=== PATIENT | male | born 1965 | race Caucasian/White ===

== ENCOUNTER → 2016-12-10 | Outpatient (CLI) | payer OTHER, BC ==
[~2016-12-10] MED LIST: ALDA25TA PO; ALEV220T26 PO; AMLO5TAB2 PO; ASPI81TA85 PO; CITA10TA5 PO; CITA20TA4 PO; CLAR1TAB2 PO; DULC5TAB PO; FISH100035 PO; FLAX10005 PO; LOSA100T37 PO; TUMS500C PO; ZETI10TA2 PO
--- NOTE | 2016-12-15 23:42 | ECWPNPC ---
PATIENT NAME: MELBA MARTIN : 1965 GENDER: MALE VISIT DATE: 12/10/2016 DISCHARGE DATE: 12/10/16 1602 VISIT LOCKED DATE TIME: PHYSICIAN: MARSHA WRIGHT RESOURCE: MARSHA WRIGHT REASON FOR APPOINTMENT 1. W/C BACK HISTORY OF PRESENT ILLNESS HISTORY OF PRESENT ILLNESS: PAIN THE PATIENT DESCRIBES THE PAIN... 51 YEAR OLD MALE PATIENT WITH HISTORY OF CHRONIC BACK PAIN. PATIENT DESCRIBES THE PAIN ACHING AND THROBBING WITH A PAIN SCORE OF 6/10. 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 PATIENT STATES THAT HE HAS TO BE CAREFUL WHEN LIFTING CERTAIN ITEMS IT CAN CAUSE THE PAIN TO COME BACK/INCREASE. PATIENT REPORTS THAT TIZANIDINE DOES HELP HIM FALL ASLEEP. PATIENT STATES THAT HE HAS TRIED PHYSICAL THERAPY IN THE PAST AND IT DID NOT WORK IT INCREASE HIS PAIN LEVELS RATHER THAN DECREASING IT. PATIENT DENIES UNEXPLAINABLE WEIGHT LOSS, FEVER, CHILLS, NEW CHANGES ON HIS URINARY OR BOWEL CONTROL. FALL RISK SCREENING: SCREENING :NO FALLS IN THE PAST YEAR CURRENT MEDICATIONS TAKING LOSARTAN POTASSIUM-HCTZ 100-25 MG TABLET 1 TABLET ORALLY ONCE A DAY, NOTES: 10/25/16@0630 TAKING ASPIR-81 ONCE A DAY, NOTES: 10/24/16 TAKING FISH OIL 1000 MG CAPSULE ORALLY BID, NOTES: 10/24/16 TAKING ALBUTEROL SULFATE HFA 108 (90 BASE) MCG/ACT AEROSOL SOLUTION 2 PUFFS NEEDED INHALATION EVERY 4 HRS NEEDED FOR SHORTNESS OF BREATH, NOTES: MONTH 1GO TAKING AMLODIPINE 5MG TABLET 1 TAB ORAL DAILY, NOTES: 10/24/16 TAKING CITALOPRAM HYDROBROMIDE 20 MG TABLET 1 TABLET ORALLY ONCE A DAY, NOTES: 10/24/16 TAKING TIZANIDINE HCL 2 MG TABLET 1 TABLET NEEDED ORALLY FOR SPASMS AND PAIN BEFORE BEDTIME MAY REPEAT IN 4HRS MDD2 WORKERS COMPENSATION, NOTES: 10/24/16 TAKING STOOL SOFTENER 100 MG CAPSULE 2 ORALLY ONCE A DAY, NOTES: 10/24/16 TAKING MULTIVITAMIN ADULTS 50+ - TABLET ORALLY NOT-TAKING ZETIA 10 MG TABLET 1 TABLET ORALLY ONCE A DAY, NOTES: 1 MONTH AGO NOT-TAKING HYDROCODONE-ACETAMINOPHEN 5-325 MG TABLET 1 TABLET NEEDED ORALLY EVERY 6 HRS, NOTES: 6 MONTHS AGO NOT-TAKING MULTIVITAMINS MEDICATION LIST REVIEWED AND RECONCILED WITH THE PATIENT PAST MEDICAL HISTORY OLD L1 L2 COMPRESSION FX HTN DEPRESSION/ANXIETY MURTAZA WITH CPAP HIGH CHOLESTEROL BOWEL OBSTRUCTION ALLERGIES N.K.D.A. SURGICAL HISTORY EXPLORATORY LAP 2014 UMBILICAL HERNIA REPAIR FAMILY HISTORY NO FAMILY HISTORY DOCUMENTED. SOCIAL HISTORY GENERAL: TOBACCO USE ARE YOU A:NONSMOKER LEARNING BARRIERS / SPECIAL NEEDS ORIENTED TO PLAN OF CARE: PATIENT, PAIN MANAGEMENT PATIENT, ORIENTED TO PLAN OF CARE: PATIENT, PAIN MANAGEMENT PATIENT. NEW PATIENT PAIN DIARY TODAY'S VISITNOTES FROM 0-10, WHAT LEVEL IS YOUR PAIN TODAY?0 PAIN CLINIC PFS, CLERGY, PUBLIC HEALTH REFERRALS PFS REFERRAL NEEDED?NO CLERGY REFERRAL NEEDED?NO PUBLIC HEALTH REFERRAL NEEDED?NO WAS THE PROVIDER NOTIFIED OF ANY PERTINENT INFO?NO PFS REFERRAL NEEDED?NO CLERGY REFERRAL NEEDED?NO PUBLIC HEALTH REFERRAL NEEDED?NO WAS THE PROVIDER NOTIFIED OF ANY PERTINENT INFO?NO HOSPITALIZATION/MAJOR DIAGNOSTIC PROCEDURE BOWEL OBSTRUCTION 2016 REVIEW OF SYSTEMS CONSTITUTIONAL: ANY CHANGE IN YOUR MEDICAL CONDITION? NO . CHILLS NO . FEVER NO . INFECTION: DO YOU HAVE NEW INFECTIONS? NO . DO YOU HAVE HISTORY OF MRSA? NO . MUSCULOSKELETAL: ANY NEW PATTERNS OF PAIN OR NUMBNESS? NO . GASTROENTEROLOGY: ANY NEW CHANGE IN BOWEL CONTROL? NO . GENITOURINARY: ANY NEW CHANGE IN BLADDER CONTROL? NO . IS THERE A CHANCE YOU COULD BE ? NO . HEMATOLOGY/LYMPH: DO YOU TAKE ANY BLOOD THINNERS? (FOR EXAMPLE- COUMADIN, PLAVIX, AGGRENOX, PLATEL, PRADAXA, OR XARELTO) NO . WHEN WAS YOUR LAST DOSE? DATE: TIME: . NEUROLOGY: HAVE YOU FALLEN IN THE PAST 6 MONTHS? NO . ANY NEW EXTREMITY NUMBNESS OR WEAKNESS? NO . CARDIOLOGY: DO YOU HAVE A PACEMAKER OR DEFIBRILLATOR? NO . RESPIRATORY: HAVE YOU BEEN SICK IN THE PAST WEEK? NO . FEVER NO . FLU LIKE SYMPTOMS? NO . COUGH NO . INTEGUMENTARY: DO YOU HAVE ANY RASHES OR OPEN SORES? NO . ALLERGIC/IMMUNO: ARE YOU ALLERGIC TO SHELLFISH OR IV DYE? NO . ANY NEW ALLERGIES? NO . PSYCHIATRIC: DO YOU HAVE THOUGHTS OF HURTING YOURSELF OR SOMEONE ELSE? NO . ARE YOU ABUSED, NEGLECTED, OR IN AN UNSAFE ENVIRONMENT? NO . ENDOCRINOLOGY: ARE YOU DIABETIC? NO . OTHER: DO YOU NEED ANY PRESCRIPTIONS? YES, TIZANIDINE . IF YES, PLEASE LIST: ____ . ANY NEW PROBLEMS WITH YOUR MEDICATIONS? NO . WHEN DID YOU LAST EAT? ____ . WHEN DID YOU LAST DRINK? ____ . WHAT DID YOU LAST DRINK? ____ . NAME OF PERSON DRIVING YOU HOME? ____ . DO YOU HAVE ANY OTHER QUESTIONS OR CONCERNS NO . REVIEWED BY: PROVIDER: MARSHA WRIGHT MD . VITAL SIGNS WT 340 LBS, HT 71 IN, BMI 47.42 INDEX, BP 156/84 MM HG, HR 86 /MIN, RR 16 /MIN, TEMP 96.9 F, OXYGEN SAT % 96, NA INITIALS TL 1443. EXAMINATION : PATIENT IS ALERT O X 3 AND COOPERATIVE. PATIENT IS ABLE TO EXTEND BACK AT 5 DEGREES WITH SEVERE DIFFICULTIES. TENDERNESS IN THE LEFT LUMBAR PARASPINAL MUSCLE GROUP. ASSESSMENTS SPONDYLOSIS WITHOUT MYELOPATHY OR RADICULOPATHY, LUMBAR REGION - M47.816 (PRIMARY) SPONDYLOSIS WITHOUT MYELOPATHY OR RADICULOPATHY, LUMBOSACRAL REGION - M47.817 TREATMENT SPONDYLOSIS WITHOUT MYELOPATHY OR RADICULOPATHY, LUMBAR REGION REFILL TIZANIDINE HCL TABLET, 2 MG, 1 TABLET NEEDED, ORALLY FOR SPASMS AND PAIN, BEFORE BEDTIME MAY REPEAT IN 4HRS MDD2 WORKERS COMPENSATION, 30 DAY(S), 60, REFILLS 2, NOTES: 10/24/16 NOTES: WE DISCUSSED SEVERAL ISSUES WITH MR. MARTIN'S PAIN MANAGEMENT CASE. PATIENT WILL RECEIVE A REFILL OF THE TIZANIDINE TODAY. PATIENT WILL FOLLOW UP WITH ME IN 6 WEEKS. INSTRUCTIONS WERE GIVEN, QUESTIONS WERE ANSWERED, PATIENT REPORTS UNDERSTANDING AND AGREES WITH THE PLAN. I, EDISON LUQUE, DOCUMENTED THE ABOVE INFORMATION ACTING A SCRIBE FOR DR. WRIGHT. I HAVE REVIEWED THE ABOVE DOCUMENT, WRITTEN BY EDISON ROY AND I VERIFY THAT IT IS ACCURATE. PROCEDURES PN WORKMANS' COMP OPINION IN YOUR OPINION, WAS THE INCIDENT THAT THE PATIENT DESCRIBED THE COMPETENT MEDICAL CAUSE OF THIS INJURY/ILLNESS? YES ARE THE PATIENT'S COMPLAINTS CONSISTENT WITH HIS/HER HISTORY OF THE INJURY/ILLNESS? YES IS THE PATIENT'S HISTORY OF THE INJURY/ILLNESS CONSISTENT WITH YOUR OBJECTIVE FINDING? YES WHAT IS THE PERCENTAGE OF TEMPORARY IMPAIRMENT? MODERATE TO MARKED = 66.7% IS THE PATIENT WORKING? YES DOCTOR ON SITE: MARSHA TIDWELL MD PROCEDURE CODES G8730 PAIN ASSESS POS TOOL F/U PLAN DOC G8427 DOC MEDS VERIFIED W/PT OR RE FOLLOW UP 6 WEEKS ELECTRONICALLY SIGNED BY MARSHA WRIGHT MD ON 12/15/2016 AT 10:47 PM EST DISCLAIMER : THIS IS A VISIT SUMMARY EXTRACTED FROM THE [employer] CHART. IT IS NOT A COPY OF THE [employer] PROGRESS NOTE. KO
== END ==
LOC: M PAIN 14:40
PROVIDERS: ATTEND Anesthesiology
DX: Z09 Encounter for follow-up examination after completed treatment for conditions other than malignant neoplasm (principal); G89.21 Chronic pain due to trauma; M47.816 Spondylosis without myelopathy or radiculopathy, lumbar region; M47.817 Spondylosis without myelopathy or radiculopathy, lumbosacral region; I10 Essential (primary) hypertension; F32.9 Major depressive disorder, single episode, unspecified; F41.9 Anxiety disorder, unspecified; G47.30 Sleep apnea, unspecified; E78.00 Pure hypercholesterolemia, unspecified; Z79.82 Long term (current) use of aspirin; Z87.81 Personal history of (healed) traumatic fracture

== ENCOUNTER → 2017-01-27 | Outpatient (CLI) | payer OTHER, BC ==
--- NOTE | 2017-02-05 01:53 | ECWPNPC ---
PATIENT NAME: MELBA MARTIN : 1965 GENDER: MALE VISIT DATE: 01/27/2017 DISCHARGE DATE: 01/27/17 1440 VISIT LOCKED DATE TIME: PHYSICIAN: MARSHA WRIGHT RESOURCE: MARSHA WRIGHT REASON FOR APPOINTMENT 1. W/C BACK PAIN HISTORY OF PRESENT ILLNESS HISTORY OF PRESENT ILLNESS: PAIN THE PATIENT DESCRIBES THE PAIN... 51 YEAR OLD MALE PATIENT WITH HISTORY OF CHRONIC BACK PAIN. PATIENT DESCRIBES THE PAIN ACHING AND THROBBING WITH A PAIN SCORE OF 8/10. 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 PATIENT RECEIVED A LUMBAR FACET BLOCK ON 10/25/16 AND STATES THAT HE BELIEVES IT HAS AIDED IN PAIN RELIEF DUE TO THE PATIENT HAVING INCREASED PAIN IN THE PAST FEW WEEKS. PATIENT STATES THAT HE HAS TO BE CAREFUL WHEN LIFTING CERTAIN ITEMS IT CAN CAUSE THE PAIN TO COME BACK/INCREASE. PATIENT REPORTS THAT TIZANIDINE DOES HELP HIM FALL ASLEEP. PATIENT STATES THAT HE HAS TRIED PHYSICAL THERAPY IN THE PAST AND IT DID NOT WORK IT INCREASE HIS PAIN LEVELS RATHER THAN DECREASING IT. PATIENT DENIES UNEXPLAINABLE WEIGHT LOSS, FEVER, CHILLS, NEW CHANGES ON HIS URINARY OR BOWEL CONTROL. FALL RISK SCREENING: SCREENING :NO FALLS IN THE PAST YEAR CURRENT MEDICATIONS TAKING TIZANIDINE HCL 2 MG TABLET 1 TABLET NEEDED ORALLY FOR SPASMS AND PAIN BEFORE BEDTIME MAY REPEAT IN 4HRS MDD2 WORKERS COMPENSATION, NOTES: 10/24/16 TAKING LOSARTAN POTASSIUM-HCTZ 100-25 MG TABLET 1 TABLET ORALLY ONCE A DAY, NOTES: 10/25/16@0630 TAKING ASPIR-81 ONCE A DAY, NOTES: 10/24/16 TAKING FISH OIL 1000 MG CAPSULE ORALLY BID, NOTES: 10/24/16 TAKING ALBUTEROL SULFATE HFA 108 (90 BASE) MCG/ACT AEROSOL SOLUTION 2 PUFFS NEEDED INHALATION EVERY 4 HRS NEEDED FOR SHORTNESS OF BREATH, NOTES: MONTH 1GO TAKING AMLODIPINE 5MG TABLET 1 TAB ORAL DAILY, NOTES: 10/24/16 TAKING CITALOPRAM HYDROBROMIDE 20 MG TABLET 1 TABLET ORALLY ONCE A DAY, NOTES: 10/24/16 TAKING STOOL SOFTENER 100 MG CAPSULE 2 ORALLY ONCE A DAY, NOTES: 10/24/16 TAKING MULTIVITAMIN ADULTS 50+ - TABLET 1 TAB ORALLY DAILY NOT-TAKING ZETIA 10 MG TABLET 1 TABLET ORALLY ONCE A DAY, NOTES: 1 MONTH AGO NOT-TAKING HYDROCODONE-ACETAMINOPHEN 5-325 MG TABLET 1 TABLET NEEDED ORALLY EVERY 6 HRS, NOTES: 6 MONTHS AGO NOT-TAKING MULTIVITAMINS MEDICATION LIST REVIEWED AND RECONCILED WITH THE PATIENT PAST MEDICAL HISTORY OLD L1 L2 COMPRESSION FX HTN DEPRESSION/ANXIETY MURTAZA WITH CPAP HIGH CHOLESTEROL BOWEL OBSTRUCTION ALLERGIES N.K.D.A. SURGICAL HISTORY EXPLORATORY LAP 2015 UMBILICAL HERNIA REPAIR FAMILY HISTORY NO FAMILY HISTORY DOCUMENTED. SOCIAL HISTORY GENERAL: TOBACCO USE ARE YOU A:NONSMOKER LEARNING BARRIERS / SPECIAL NEEDS ORIENTED TO PLAN OF CARE: PATIENT, PAIN MANAGEMENT PATIENT, ORIENTED TO PLAN OF CARE: PATIENT, PAIN MANAGEMENT PATIENT. NEW PATIENT PAIN DIARY TODAY'S VISITNOTES FROM 0-10, WHAT LEVEL IS YOUR PAIN TODAY?0 PAIN CLINIC PFS, CLERGY, PUBLIC HEALTH REFERRALS PFS REFERRAL NEEDED?NO CLERGY REFERRAL NEEDED?NO PUBLIC HEALTH REFERRAL NEEDED?NO WAS THE PROVIDER NOTIFIED OF ANY PERTINENT INFO?NO PFS REFERRAL NEEDED?NO CLERGY REFERRAL NEEDED?NO PUBLIC HEALTH REFERRAL NEEDED?NO WAS THE PROVIDER NOTIFIED OF ANY PERTINENT INFO?NO HOSPITALIZATION/MAJOR DIAGNOSTIC PROCEDURE BOWEL OBSTRUCTION 2016 REVIEW OF SYSTEMS CONSTITUTIONAL: ANY CHANGE IN YOUR MEDICAL CONDITION? NO . CHILLS NO . FEVER NO . INFECTION: DO YOU HAVE NEW INFECTIONS? NO . DO YOU HAVE HISTORY OF MRSA? NO . MUSCULOSKELETAL: ANY NEW PATTERNS OF PAIN OR NUMBNESS? YES PAIN GREATER TODAY . GASTROENTEROLOGY: ANY NEW CHANGE IN BOWEL CONTROL? NO . GENITOURINARY: ANY NEW CHANGE IN BLADDER CONTROL? NO . IS THERE A CHANCE YOU COULD BE ? NO . HEMATOLOGY/LYMPH: DO YOU TAKE ANY BLOOD THINNERS? (FOR EXAMPLE- COUMADIN, PLAVIX, AGGRENOX, PLATEL, PRADAXA, OR XARELTO) NO . WHEN WAS YOUR LAST DOSE? DATE: TIME: . NEUROLOGY: HAVE YOU FALLEN IN THE PAST 6 MONTHS? NO . ANY NEW EXTREMITY NUMBNESS OR WEAKNESS? NO . CARDIOLOGY: DO YOU HAVE A PACEMAKER OR DEFIBRILLATOR? NO . RESPIRATORY: HAVE YOU BEEN SICK IN THE PAST WEEK? NO . FEVER NO . FLU LIKE SYMPTOMS? NO . COUGH NO . INTEGUMENTARY: DO YOU HAVE ANY RASHES OR OPEN SORES? NO . ALLERGIC/IMMUNO: ARE YOU ALLERGIC TO SHELLFISH OR IV DYE? NO . ANY NEW ALLERGIES? NO . PSYCHIATRIC: DO YOU HAVE THOUGHTS OF HURTING YOURSELF OR SOMEONE ELSE? NO . ARE YOU ABUSED, NEGLECTED, OR IN AN UNSAFE ENVIRONMENT? NO . ENDOCRINOLOGY: ARE YOU DIABETIC? NO . OTHER: DO YOU NEED ANY PRESCRIPTIONS? THINKS HE MAY NEED TIZANIDINE . IF YES, PLEASE LIST: ____ . ANY NEW PROBLEMS WITH YOUR MEDICATIONS? NO . WHEN DID YOU LAST EAT? ____ . WHEN DID YOU LAST DRINK? ____ . WHAT DID YOU LAST DRINK? ____ . NAME OF PERSON DRIVING YOU HOME? ____ . DO YOU HAVE ANY OTHER QUESTIONS OR CONCERNS NO . REVIEWED BY: PROVIDER: MARSHA WRIGHT MD . VITAL SIGNS WT 359.8 LBS, HT 71 IN, BMI 50.18 INDEX, BP 149/81 MM HG, HR 90 /MIN, RR 16 /MIN, TEMP 97.5 F, OXYGEN SAT % 97%, NA INITIALS SC 13:57, REVIEWED BY: AD. EXAMINATION : PATIENT IS ALERT O X 3 AND COOPERATIVE. PATIENT IS ABLE TO EXTEND BACK AT 5 DEGREES WITH SEVERE DIFFICULTIES. TENDERNESS IN THE LEFT LUMBAR PARASPINAL MUSCLE GROUP. 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 ASSESSMENTS SPONDYLOSIS WITHOUT MYELOPATHY OR RADICULOPATHY, LUMBAR REGION - M47.816 (PRIMARY) SPONDYLOSIS WITHOUT MYELOPATHY OR RADICULOPATHY, LUMBOSACRAL REGION - M47.817 TREATMENT SPONDYLOSIS WITHOUT MYELOPATHY OR RADICULOPATHY, LUMBAR REGION REFILL TIZANIDINE HCL TABLET, 2 MG, 1 TABLET NEEDED, ORALLY FOR SPASMS AND PAIN, BEFORE BEDTIME MAY REPEAT IN 4HRS MDD2 WORKERS COMPENSATION, 30 DAY(S), 60, REFILLS 2, NOTES: 10/24/16 START IBUPROFEN TABLET, 800 MG, 1 TABLET, ORALLY WITH FOOD, THREE TIMES DAILY NEEDED FOR PAIN, 30 DAY(S), 50, REFILLS 1 NOTES: FACET JOINT INJECTION MATERIAL WAS PRINTED,FACET JOINT INJECTION: YOUR EXPERIENCE MATERIAL WAS PRINTED,FACET JOINT INJECTION: YOUR EXPERIENCE MATERIAL WAS PRINTED. CLINICAL NOTES: WE DISCUSSED SEVERAL ISSUES WITH MR. MARTIN'S PAIN MANAGEMENT CASE. AT THIS TIME THE PATIENT WILL CONTINUE WITH THE SAME MEDICATION REGIME BEFORE. PATIENT WILL ALSO USE IBUPROFEN TO AID IN PAIN RELIEF. PATIENT IS AWARE TO USE THIS MEDICATION WITH FOOD. PATIENT BELIEVES THE INJECTION DID AID IN PAIN RELIEF DUE TO HOW SEVERE HIS PAIN IS NOW. DUE TO THE PATIENT RECEIVING ABOUT 8 WEEKS OF RELIEF FROM THE INJECTION I WOULD LIKE TO MOVE FORWARD WITH ANOTHER LUMBAR FACET BLOCK. WE DISCUSSED THE RISKS, BENENFITS, AND ALTNERATIVES AND THE PATIENT WOULD LIKE TO PROCEED AT THIS TIME. INSTRUCTIONS WERE GIVEN, QUESTIONS WERE ANSWERED, PATIENT REPORTS UNDERSTANDING AND AGREES WITH THE PLAN. I, SHAYY PFEIFFER, DOCUMENTED THE ABOVE INFORMATION ACTING A SCRIBE FOR DR. WRIGHT. I HAVE REVIEWED THE ABOVE DOCUMENT, WRITTEN BY SHAYY ANDERSONIBKobi AND I VERIFY THAT IT IS ACCURATE. PROCEDURES PN WORKMANS' COMP OPINION IN YOUR OPINION, WAS THE INCIDENT THAT THE PATIENT DESCRIBED THE COMPETENT MEDICAL CAUSE OF THIS INJURY/ILLNESS? YES ARE THE PATIENT'S COMPLAINTS CONSISTENT WITH HIS/HER HISTORY OF THE INJURY/ILLNESS? YES IS THE PATIENT'S HISTORY OF THE INJURY/ILLNESS CONSISTENT WITH YOUR OBJECTIVE FINDING? YES WHAT IS THE PERCENTAGE OF TEMPORARY IMPAIRMENT? MODERATE TO MARKED = 66.7% IS THE PATIENT WORKING? YES DOCTOR ON SITE: MARSHA TIDWELL MD PROCEDURE CODES FA211 ESTABILISHED PATIENT [facility] FACILITY CHARGE G8427 DOC MEDS VERIFIED W/PT OR RE G8730 PAIN ASSESS POS TOOL F/U PLAN DOC DISPOSITION & COMMUNICATION FOLLOW UP 3 WEEKS ELECTRONICALLY SIGNED BY MARSHA WRIGHT MD ON 02/02/2017 AT 11:38 AM EDT DISCLAIMER : THIS IS A VISIT SUMMARY EXTRACTED FROM THE [employer] CHART. IT IS NOT A COPY OF THE [employer] PROGRESS NOTE. KO
== END ==
LOC: M PAIN 13:40
PROVIDERS: ATTEND Anesthesiology
DX: Z09 Encounter for follow-up examination after completed treatment for conditions other than malignant neoplasm (principal); G89.29 Other chronic pain; M47.816 Spondylosis without myelopathy or radiculopathy, lumbar region; M47.817 Spondylosis without myelopathy or radiculopathy, lumbosacral region; I10 Essential (primary) hypertension; F32.9 Major depressive disorder, single episode, unspecified; F41.9 Anxiety disorder, unspecified; G47.30 Sleep apnea, unspecified; E78.00 Pure hypercholesterolemia, unspecified; Z79.82 Long term (current) use of aspirin; Z79.899 Other long term (current) drug therapy

== ENCOUNTER → 2017-03-20 | Outpatient (CLI) | payer OTHER, BC ==
[~2017-03-20] MED LIST changes: +BUPIVACAINE HCL 0.25% 30 ML VIAL As Ordered ONE; +ISOVUE-M 300 61% 15ML VIAL (Q9967) As Ordered ONE; +LIDOCAINE 1% SDV INJ 30 ML VIAL As Ordered ONE; +TRIAMCINOLONE ACETONIDE SUSP 40 MG/ML VIAL (J3301) As Ordered ONE; +diazePAM 5 MG TAB As Ordered ONE; +oxyCODONE 5MG TAB As Ordered ONE
--- NOTE | 2017-03-21 06:43 | REP ---
FACET BLOCK: The images were reviewed with Dr. Prasad. The patient has a history of low back pain radiating down both legs. The portable C-arm was provided in the OR for Dr. Sarah for fluoroscopic guidance. Four intraoperative fluoro spot films were obtained for needle placement verification for bilateral lumbar facet injection. The films are on the PACS system and are available for review. 25 seconds of fluoroscopy time was utilized for this procedure. Reviewed by ROSALIE Ecekrt 03/21/2017 05:38 PEdited and Signed by Isaiah Prasad MD 03/24/2017 05:34 P
--- NOTE | 2017-03-23 23:59 | ECWPNPC ---
PATIENT NAME: MELBA MARTIN : 1965 GENDER: MALE VISIT DATE: 03/20/2017 DISCHARGE DATE: 03/20/17 1323 VISIT LOCKED DATE TIME: PHYSICIAN: MARSHA WRIGHT RESOURCE: MARSHA WRIGHT REASON FOR APPOINTMENT 1. LFBT HISTORY OF PRESENT ILLNESS HISTORY OF PRESENT ILLNESS: PAIN THE PATIENT DESCRIBES THE PAIN... FALL RISK SCREENING: SCREENING :NO FALLS IN THE PAST YEAR CURRENT MEDICATIONS TAKING LOSARTAN POTASSIUM-HCTZ 100-25 MG TABLET 1 TABLET ORALLY ONCE A DAY, NOTES: 629 TAKING ASPIR-81 ONCE A DAY, NOTES: 03/19/17@2099 TAKING FISH OIL 1000 MG CAPSULE ORALLY BID, NOTES: 629 TAKING ALBUTEROL SULFATE HFA 108 (90 BASE) MCG/ACT AEROSOL SOLUTION 2 PUFFS NEEDED INHALATION EVERY 4 HRS NEEDED FOR SHORTNESS OF BREATH, NOTES: MONTH 1GO TAKING AMLODIPINE 5MG TABLET 1 TAB ORAL DAILY, NOTES: 03/19/17 TAKING CITALOPRAM HYDROBROMIDE 20 MG TABLET 1 TABLET ORALLY ONCE A DAY, NOTES: 03/19/17 TAKING STOOL SOFTENER 100 MG CAPSULE 2 ORALLY ONCE A DAY, NOTES: 03/19/17 TAKING MULTIVITAMIN ADULTS 50+ - TABLET 1 TAB ORALLY DAILY, NOTES: 629 TAKING TIZANIDINE HCL 2 MG TABLET 1 TABLET NEEDED ORALLY FOR SPASMS AND PAIN BEFORE BEDTIME MAY REPEAT IN 4HRS MDD2 WORKERS COMPENSATION, NOTES: 03/19/17 TAKING IBUPROFEN 800 MG TABLET 1 TABLET ORALLY WITH FOOD THREE TIMES DAILY NEEDED FOR PAIN, NOTES: 2 DAYS AGO NOT-TAKING ZETIA 10 MG TABLET 1 TABLET ORALLY ONCE A DAY, NOTES: 1 MONTH AGO NOT-TAKING HYDROCODONE-ACETAMINOPHEN 5-325 MG TABLET 1 TABLET NEEDED ORALLY EVERY 6 HRS, NOTES: 6 MONTHS AGO NOT-TAKING MULTIVITAMINS MEDICATION LIST REVIEWED AND RECONCILED WITH THE PATIENT PAST MEDICAL HISTORY OLD L1 L2 COMPRESSION FX HTN DEPRESSION/ANXIETY MURTAZA WITH CPAP HIGH CHOLESTEROL BOWEL OBSTRUCTION ALLERGIES N.K.D.A. REVIEW OF SYSTEMS CONSTITUTIONAL: ANY CHANGE IN YOUR MEDICAL CONDITION? NO . CHILLS NO . FEVER NO . INFECTION: DO YOU HAVE NEW INFECTIONS? NO . DO YOU HAVE HISTORY OF MRSA? NO . MUSCULOSKELETAL: ANY NEW PATTERNS OF PAIN OR NUMBNESS? NO . GASTROENTEROLOGY: ANY NEW CHANGE IN BOWEL CONTROL? NO . GENITOURINARY: ANY NEW CHANGE IN BLADDER CONTROL? NO . IS THERE A CHANCE YOU COULD BE ? NO . HEMATOLOGY/LYMPH: DO YOU TAKE ANY BLOOD THINNERS? (FOR EXAMPLE- COUMADIN, PLAVIX, AGGRENOX, PLATEL, PRADAXA, OR XARELTO) NO . WHEN WAS YOUR LAST DOSE? DATE: TIME: . NEUROLOGY: HAVE YOU FALLEN IN THE PAST 6 MONTHS? NO . ANY NEW EXTREMITY NUMBNESS OR WEAKNESS? NO . CARDIOLOGY: DO YOU HAVE A PACEMAKER OR DEFIBRILLATOR? NO . RESPIRATORY: HAVE YOU BEEN SICK IN THE PAST WEEK? NO . FEVER NO . FLU LIKE SYMPTOMS? NO . COUGH NO . INTEGUMENTARY: DO YOU HAVE ANY RASHES OR OPEN SORES? NO . ALLERGIC/IMMUNO: ARE YOU ALLERGIC TO SHELLFISH OR IV DYE? NO . ANY NEW ALLERGIES? NO . PSYCHIATRIC: DO YOU HAVE THOUGHTS OF HURTING YOURSELF OR SOMEONE ELSE? NO . ARE YOU ABUSED, NEGLECTED, OR IN AN UNSAFE ENVIRONMENT? NO . ENDOCRINOLOGY: ARE YOU DIABETIC? NO . OTHER: DO YOU NEED ANY PRESCRIPTIONS? NO . IF YES, PLEASE LIST: ____ . ANY NEW PROBLEMS WITH YOUR MEDICATIONS? NO . WHEN DID YOU LAST EAT? ____03/19/17 . WHEN DID YOU LAST DRINK? ____629 . WHAT DID YOU LAST DRINK? ____WATER . NAME OF PERSON DRIVING YOU HOME? ____MOTHER . DO YOU HAVE ANY OTHER QUESTIONS OR CONCERNS NO . REVIEWED BY: PROVIDER: . VITAL SIGNS WT 350.0 LBS, HT 71 IN, BMI 48.81 INDEX, BP 159/90 MM HG, HR 88 /MIN, RR 20 /MIN, TEMP 98.6 F, OXYGEN SAT % 93%, NA INITIALS TL 1135, REVIEWED BY: VD. ASSESSMENTS SPONDYLOSIS WITHOUT MYELOPATHY OR RADICULOPATHY, LUMBAR REGION - M47.816 (PRIMARY) PROCEDURES PN LUMBAR FACET BLOCK THERAPEUTIC PRE PROCEDURE DIAGNOSIS LUMBAR SPONDYLOSIS POST PROCEDURE DIAGNOSIS LUMBAR SPONDYLOSIS PROCEDURE BILATERAL L3-L4 AND L4-L5 LUMBAR FACET THERAPEUTIC BLOCK SURGEON DR. MARSHA WRIGHT INTAKE MAN NONE ANESTHESIA LOCAL PRE PROCEDURE NOTE THE PATIENT HAS A HISTORY OF CHRONIC LOW BACK PAIN. I EVALUATE THE PATIENT AND REVIEWED THE CHART. I WENT OVER THE RISKS, ALTERNATIVES, AND BENEFITS ASSOCIATED WITH THIS PROCEDURE. THE PATIENT WOULD LIKE TO PROCEED AND GIVE CONSENT TO PERFORMED THE PROCEDURE. THE PATIENT DENIES UNEXPLAINABLE WEIGHT LOSS, FEVER, CHILLS, OR NEW CHANGES IN URINARY OR BOWEL CONTROL DESCRIPTION OF PROCEDURE THE PATIENT WAS BROUGHT TO THE PROCEDURE ROOM AND PLACED IN THE PRONE POSITION. THE LUMBOSACRAL AREA WAS CLEANED WITH CHLORAPREP SOLUTION AND DRAPED ASEPTICALLY. THE PROCEDURE WAS DONE UNDER STERILE CONDITIONS. I CHECKED LATERALITY AND THE LEVEL WHERE THE PROCEDURE WAS GOING TO BE PERFORMED WITH THE PATIENT AND THE SUPPORTING STAFF AT THE MOMENT OF THE TIME OUT IN THE PROCEDURE ROOM. UNDER FLUOROSCOPIC GUIDANCE, THE TARGET POINT WAS SELECTED AT THE RIGHT AND LEFT L3-L4 AND L4-L5 FACET JOINT. TARGET POINT WAS SELECTED AFTER LATERAL ROTATION AND TILT OF THE MAGNIFIER OF THE C-ARM. LIDOCAINE 0.5% WAS USED TO NUMB THE SKIN AND THE SUBCUTANEOUS TISSUE BELOW IT. SPINAL NEEDLES, 22-GAUGE, WERE ADVANCED UNDER FLUOROSCOPIC GUIDANCE AND FOLLOWING PATIENT FEEDBACK UNTIL THE TARGETS WERE TOUCHED. THE POSITION OF THE NEEDLES WAS VERIFIED WITH AP AND LATERAL VIEWS. AFTER PROPER POSITION OF THE NEEDLES WAS ACHIEVED, ISOVUE-M DYE 30% 0.1 ML WAS INJECTED SHOWING ADEQUATE SPREAD OF THE DYE. THEN A SOLUTION OF 1.9 ML OF BUPIVACAINE 0.125% OF KENALOG 10 MG WAS INJECTED AT EACH SITE. THERE WAS NO EVIDENCE OF BLOOD, PARESTHESIA OR CEREBROSPINAL FLUID DURING THE PROCEDURE. THE PATIENT WAS SENT TO THE RECOVERY ROOM. THE PATIENT WAS MOVING THE EXTREMITIES AND DOING WELL. THERE WAS NO COMPLICATION DURING THE PROCEDURE. FLUOROSCOPY TIME WAS 25 SECONDS POST PROCEDURE NOTE THE PATIENT WILL BE SEEN IN A FOLLOW UP IN THE NEXT FEW WEEKS. INSTRUCTIONS WERE GIVEN, QUESTIONS WERE ANSWERED, AND THE PATIENT EXPRESSED UNDERSTANDING AND AGREES WITH THE PLAN. I, EDISON LUQUE, DOCUMENTED THE ABOVE INFORMATION ACTING A SCRIBE FOR DR. WRIGHT. I HAVE REVIEWED THE ABOVE DOCUMENT, WRITTEN BY EDISON LUQUE SCRIBKobi AND I VERIFY THAT IT IS ACCURATE. PN WORKMANS' COMP OPINION IN YOUR OPINION, WAS THE INCIDENT THAT THE PATIENT DESCRIBED THE COMPETENT MEDICAL CAUSE OF THIS INJURY/ILLNESS? YES ARE THE PATIENT'S COMPLAINTS CONSISTENT WITH HIS/HER HISTORY OF THE INJURY/ILLNESS? YES IS THE PATIENT'S HISTORY OF THE INJURY/ILLNESS CONSISTENT WITH YOUR OBJECTIVE FINDING? YES WHAT IS THE PERCENTAGE OF TEMPORARY IMPAIRMENT? MODERATE TO MARKED = 66.7% IS THE PATIENT WORKING? YES DOCTOR ON SITE: MARSHA TIDWELL MD DIAGNOSTIC IMAGING [facility] FACET BLOCK (PAIN)[id number] PROCEDURE CODES 79084 INJ PARAVERT F JNT L/S 1 LEV 76941 INJ PARAVERT F JNT L/S 2 LEV 6045F RADXPS IN END [id number] PXD DISPOSITION & COMMUNICATION FOLLOW UP 3 WEEKS ELECTRONICALLY SIGNED BY MARSHA WRIGHT MD ON 03/23/2017 AT 12:59 PM EDT DISCLAIMER : THIS IS A VISIT SUMMARY EXTRACTED FROM THE [employer] CHART. IT IS NOT A COPY OF THE [employer] PROGRESS NOTE. MTDD
== END ==
LOC: M PAIN 11:40
PROVIDERS: ATTEND Anesthesiology
DX: G89.29 Other chronic pain (principal); M47.816 Spondylosis without myelopathy or radiculopathy, lumbar region; I10 Essential (primary) hypertension; F32.9 Major depressive disorder, single episode, unspecified; F41.9 Anxiety disorder, unspecified; G47.33 Obstructive sleep apnea (adult) (pediatric); E78.00 Pure hypercholesterolemia, unspecified; Z79.82 Long term (current) use of aspirin; Z79.899 Other long term (current) drug therapy
CPT/HCPCS: 64493; 64494; J3301; Q9967

== ENCOUNTER → 2017-03-28 | Outpatient (CLI) | payer OTHER, BC ==
[~2017-03-28] MED LIST changes: -BUPIVACAINE HCL 0.25% 30 ML VIAL As Ordered ONE; -ISOVUE-M 300 61% 15ML VIAL (Q9967) As Ordered ONE; -LIDOCAINE 1% SDV INJ 30 ML VIAL As Ordered ONE; -TRIAMCINOLONE ACETONIDE SUSP 40 MG/ML VIAL (J3301) As Ordered ONE; -diazePAM 5 MG TAB As Ordered ONE; -oxyCODONE 5MG TAB As Ordered ONE
--- NOTE | 2017-04-07 00:09 | ECWPNPC ---
PATIENT NAME: MELBA MARTIN : 1965 GENDER: MALE VISIT DATE: 03/28/2017 DISCHARGE DATE: 03/28/17 1423 VISIT LOCKED DATE TIME: PHYSICIAN: MARSHA WRIGHT RESOURCE: MARSHA WRIGHT REASON FOR APPOINTMENT 1. W/C LOW BACK HISTORY OF PRESENT ILLNESS HISTORY OF PRESENT ILLNESS: PAIN THE PATIENT DESCRIBES THE PAIN... 51 YEAR OLD MALE PATIENT WITH HISTORY OF CHRONIC BACK PAIN. PATIENT DESCRIBES THE PAIN ACHING AND THROBBING WITH A PAIN SCORE OF 8/10. 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 PATIENT RECEIVED A LUMBAR FACET BLOCK ON 03/20/17 AND STATES THAT HE HAD MORE THAN 50% DECREASE IN PAIN AND INCREASED MOBILITY AND FUNCTIONALITY AT THIS TIME. PATIENT STATES THAT HE HAS TO BE CAREFUL WHEN LIFTING CERTAIN ITEMS IT CAN CAUSE THE PAIN TO COME BACK/INCREASE. PATIENT REPORTS THAT TIZANIDINE DOES HELP HIM FALL ASLEEP AND USES IBUPROFEN NEEDED THROUGHOUT THE DAY TO AID IN PAIN RELIEF. PATIENT STATES THAT HE HAS TRIED PHYSICAL THERAPY IN THE PAST AND IT DID NOT WORK IT INCREASE HIS PAIN LEVELS RATHER THAN DECREASING IT. PATIENT DENIES UNEXPLAINABLE WEIGHT LOSS, FEVER, CHILLS, NEW CHANGES ON HIS URINARY OR BOWEL CONTROL. FALL RISK SCREENING: SCREENING :NO FALLS IN THE PAST YEAR CURRENT MEDICATIONS TAKING LOSARTAN POTASSIUM-HCTZ 100-25 MG TABLET 1 TABLET ORALLY ONCE A DAY TAKING ASPIR-81 ONCE A DAY TAKING FISH OIL 1000 MG CAPSULE ORALLY BID TAKING ALBUTEROL SULFATE HFA 108 (90 BASE) MCG/ACT AEROSOL SOLUTION 2 PUFFS NEEDED INHALATION EVERY 4 HRS NEEDED FOR SHORTNESS OF BREATH TAKING AMLODIPINE 5MG TABLET 1 TAB ORAL DAILY TAKING CITALOPRAM HYDROBROMIDE 20 MG TABLET 1 TABLET ORALLY ONCE A DAY TAKING STOOL SOFTENER 100 MG CAPSULE 2 ORALLY ONCE A DAY TAKING MULTIVITAMIN ADULTS 50+ - TABLET 1 TAB ORALLY DAILY TAKING TIZANIDINE HCL 2 MG TABLET 1 TABLET NEEDED ORALLY FOR SPASMS AND PAIN BEFORE BEDTIME MAY REPEAT IN 4HRS MDD2 WORKERS COMPENSATION TAKING IBUPROFEN 800 MG TABLET 1 TABLET ORALLY WITH FOOD THREE TIMES DAILY NEEDED FOR PAIN NOT-TAKING ZETIA 10 MG TABLET 1 TABLET ORALLY ONCE A DAY, NOTES: 1 MONTH AGO NOT-TAKING HYDROCODONE-ACETAMINOPHEN 5-325 MG TABLET 1 TABLET NEEDED ORALLY EVERY 6 HRS, NOTES: 6 MONTHS AGO NOT-TAKING MULTIVITAMINS MEDICATION LIST REVIEWED AND RECONCILED WITH THE PATIENT PAST MEDICAL HISTORY OLD L1 L2 COMPRESSION FX HTN DEPRESSION/ANXIETY MURTAZA WITH CPAP HIGH CHOLESTEROL BOWEL OBSTRUCTION ALLERGIES N.K.D.A. SURGICAL HISTORY EXPLORATORY LAP 2015 UMBILICAL HERNIA REPAIR FAMILY HISTORY NO FAMILY HISTORY DOCUMENTED. SOCIAL HISTORY GENERAL: TOBACCO USE ARE YOU A:NONSMOKER LEARNING BARRIERS / SPECIAL NEEDS ORIENTED TO PLAN OF CARE: PATIENT, PAIN MANAGEMENT PATIENT, ORIENTED TO PLAN OF CARE: PATIENT, PAIN MANAGEMENT PATIENT. NEW PATIENT PAIN DIARY TODAY'S VISITNOTES FROM 0-10, WHAT LEVEL IS YOUR PAIN TODAY?0 PAIN CLINIC PFS, CLERGY, PUBLIC HEALTH REFERRALS PFS REFERRAL NEEDED?NO CLERGY REFERRAL NEEDED?NO PUBLIC HEALTH REFERRAL NEEDED?NO WAS THE PROVIDER NOTIFIED OF ANY PERTINENT INFO?NO PFS REFERRAL NEEDED?NO CLERGY REFERRAL NEEDED?NO PUBLIC HEALTH REFERRAL NEEDED?NO WAS THE PROVIDER NOTIFIED OF ANY PERTINENT INFO?NO HOSPITALIZATION/MAJOR DIAGNOSTIC PROCEDURE BOWEL OBSTRUCTION 2016 REVIEW OF SYSTEMS CONSTITUTIONAL: ANY CHANGE IN YOUR MEDICAL CONDITION? YES, RESCENT DX WITH FLUID IN EARS AND STARTED AUGMENTIN FOR 10 DAYS . CHILLS NO . FEVER NO . INFECTION: DO YOU HAVE NEW INFECTIONS? NO . DO YOU HAVE HISTORY OF MRSA? NO . MUSCULOSKELETAL: ANY NEW PATTERNS OF PAIN OR NUMBNESS? NO . GASTROENTEROLOGY: ANY NEW CHANGE IN BOWEL CONTROL? NO . GENITOURINARY: ANY NEW CHANGE IN BLADDER CONTROL? NO . IS THERE A CHANCE YOU COULD BE ? NO . HEMATOLOGY/LYMPH: DO YOU TAKE ANY BLOOD THINNERS? (FOR EXAMPLE- COUMADIN, PLAVIX, AGGRENOX, PLATEL, PRADAXA, OR XARELTO) NO . WHEN WAS YOUR LAST DOSE? DATE: TIME: . NEUROLOGY: HAVE YOU FALLEN IN THE PAST 6 MONTHS? NO . ANY NEW EXTREMITY NUMBNESS OR WEAKNESS? NO . CARDIOLOGY: DO YOU HAVE A PACEMAKER OR DEFIBRILLATOR? NO . RESPIRATORY: HAVE YOU BEEN SICK IN THE PAST WEEK? NO . FEVER NO . FLU LIKE SYMPTOMS? NO . COUGH NO . INTEGUMENTARY: DO YOU HAVE ANY RASHES OR OPEN SORES? NO . ALLERGIC/IMMUNO: ARE YOU ALLERGIC TO SHELLFISH OR IV DYE? NO . ANY NEW ALLERGIES? NO . PSYCHIATRIC: DO YOU HAVE THOUGHTS OF HURTING YOURSELF OR SOMEONE ELSE? NO . ARE YOU ABUSED, NEGLECTED, OR IN AN UNSAFE ENVIRONMENT? NO . ENDOCRINOLOGY: ARE YOU DIABETIC? NO . OTHER: DO YOU NEED ANY PRESCRIPTIONS? YES . IF YES, PLEASE LIST: TIZANIDINE . ANY NEW PROBLEMS WITH YOUR MEDICATIONS? NO . WHEN DID YOU LAST EAT? ____ . WHEN DID YOU LAST DRINK? ____ . WHAT DID YOU LAST DRINK? ____ . NAME OF PERSON DRIVING YOU HOME? ____ . DO YOU HAVE ANY OTHER QUESTIONS OR CONCERNS NO . REVIEWED BY: PROVIDER: MARSHA WRIGHT MD . VITAL SIGNS WT 355 LBS, HT 71 IN, BMI 49.51 INDEX, BP 145/80 MM HG, HR 73 /MIN, RR 18 /MIN, TEMP 99 F, OXYGEN SAT % 96%, NA INITIALS AW 1342, REVIEWED BY: NL. EXAMINATION : PATIENT IS ALERT O X 3 AND COOPERATIVE. PATIENT IS ABLE TO EXTEND BACK AT 5 DEGREES WITH SEVERE DIFFICULTIES. TENDERNESS IN THE LEFT LUMBAR PARASPINAL MUSCLE GROUP. 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 ASSESSMENTS SPONDYLOSIS WITHOUT MYELOPATHY OR RADICULOPATHY, LUMBAR REGION - M47.816 (PRIMARY) SPONDYLOSIS WITHOUT MYELOPATHY OR RADICULOPATHY, LUMBOSACRAL REGION - M47.817 TREATMENT SPONDYLOSIS WITHOUT MYELOPATHY OR RADICULOPATHY, LUMBAR REGION NOTES: WE DISCUSSED SEVERAL ISSUES WITH MR. MARTIN'S PAIN MANAGEMENT CASE. AT THIS TIME THE PATIENT WILL CONTINUE TO USE TIZANIDINE FOR THE MUSCLE SPASMS AT NIGHT AND IBUPROFEN THROUGHOUT THE DAY FOR THE INFLAMMATION. PATIENT WAS ADVISED TO USED THE IBUPROFEN WITH FOOD. PATIENT RECEIVED A LUMBAR FACET BLOCK ON 03/20/17 AND THE PATIENT STATES IT HAS GIVEN HIM GOOD RELIEF. HOWEVER, IT IS TOO EARLY TO DETERMINE WHETHER THE INJECTION GAVE ADEQUATE RELIEF FOR THE PATIENT. MR. MARTIN WILL RETURN TO THE CLINIC IN 5 WEEKS TO FURTHER DISCUSS HIS CASE AND TO SEE HOW THE INJECTION AIDED IN PAIN RELIEF. INSTRUCTIONS WERE GIVEN, QUESTIONS WERE ANSWERED, PATIENT REPORTS UNDERSTANDING AND AGREES WITH THE PLAN. I, SHAYY PFEIFFER, DOCUMENTED THE ABOVE INFORMATION ACTING A SCRIBE FOR DR. WRIGHT. I HAVE REVIEWED THE ABOVE DOCUMENT, WRITTEN BY SHAYY ROY AND I VERIFY THAT IT IS ACCURATE. SPONDYLOSIS WITHOUT MYELOPATHY OR RADICULOPATHY, LUMBOSACRAL REGION REFILL TIZANIDINE HCL TABLET, 2 MG, 1 TABLET NEEDED, ORALLY FOR SPASMS AND PAIN, BEFORE BEDTIME MAY REPEAT IN 4HRS MDD2 WORKERS COMPENSATION, 30 DAY(S), 60, REFILLS 2 REFILL IBUPROFEN TABLET, 800 MG, 1 TABLET, ORALLY WITH FOOD, THREE TIMES DAILY NEEDED FOR PAIN, 30 DAY(S), 50, REFILLS 1 PROCEDURES PN WORKMANS' COMP OPINION IN YOUR OPINION, WAS THE INCIDENT THAT THE PATIENT DESCRIBED THE COMPETENT MEDICAL CAUSE OF THIS INJURY/ILLNESS? YES ARE THE PATIENT'S COMPLAINTS CONSISTENT WITH HIS/HER HISTORY OF THE INJURY/ILLNESS? YES IS THE PATIENT'S HISTORY OF THE INJURY/ILLNESS CONSISTENT WITH YOUR OBJECTIVE FINDING? YES WHAT IS THE PERCENTAGE OF TEMPORARY IMPAIRMENT? MODERATE TO MARKED = 66.7% IS THE PATIENT WORKING? YES DOCTOR ON SITE: MARSHA TIDWELL MD PROCEDURE CODES FA211 ESTABILISHED PATIENT [facility] FACILITY CHARGE G8427 DOC MEDS VERIFIED W/PT OR RE G8730 PAIN ASSESS POS TOOL F/U PLAN DOC DISPOSITION & COMMUNICATION FOLLOW UP 5 WEEKS ELECTRONICALLY SIGNED BY MARSHA WRIGHT MD ON 04/06/2017 AT 12:13 PM EDT DISCLAIMER : THIS IS A VISIT SUMMARY EXTRACTED FROM THE [employer] CHART. IT IS NOT A COPY OF THE [employer] PROGRESS NOTE. KO
== END ==
LOC: M PAIN 13:20
PROVIDERS: ATTEND Anesthesiology
DX: G89.29 Other chronic pain (principal); M47.816 Spondylosis without myelopathy or radiculopathy, lumbar region; M47.817 Spondylosis without myelopathy or radiculopathy, lumbosacral region; I10 Essential (primary) hypertension; F32.9 Major depressive disorder, single episode, unspecified; F41.9 Anxiety disorder, unspecified; G47.33 Obstructive sleep apnea (adult) (pediatric); E78.00 Pure hypercholesterolemia, unspecified; Z79.82 Long term (current) use of aspirin; Z79.899 Other long term (current) drug therapy

== ENCOUNTER → 2017-05-09 | Outpatient (CLI) | payer OTHER, BC ==
[~2017-05-09] MED LIST changes: -FISH100035 PO; +FISH7.5C PO; -LOSA100T37 PO; +LOSA100T5 PO; -ZETI10TA2 PO; +ZETI10TA30 PO
== END ==
LOC: M PAIN 13:40
PROVIDERS: ATTEND Anesthesiology
DX: Z53.29 Procedure and treatment not carried out because of patient's decision for other reasons (principal)

== ENCOUNTER → 2017-06-10 | Outpatient (CLI) | payer OTHER, BC ==
--- NOTE | 2017-06-26 01:18 | ECWPNPC ---
PATIENT NAME: MELBA MARTIN : 1965 GENDER: MALE VISIT DATE: 06/10/2017 DISCHARGE DATE: 06/10/17 1640 VISIT LOCKED DATE TIME: PHYSICIAN: MARSHA WRIGHT RESOURCE: MARSHA WRIGHT REASON FOR APPOINTMENT 1. W/C BACK PAIN HISTORY OF PRESENT ILLNESS HISTORY OF PRESENT ILLNESS: PAIN THE PATIENT DESCRIBES THE PAIN... 51 YEAR OLD MALE PATIENT WITH HISTORY OF CHRONIC BACK PAIN. PATIENT DESCRIBES THE PAIN ACHING AND THROBBING WITH A PAIN SCORE OF 8/10. 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 PATIENT RECEIVED A LUMBAR FACET BLOCK THERAPEUTIC ON 03/20/17 AND REPORTS THAT PAIN RETURNING AT THIS TIME. PATIENT REPORTS THAT TIZANIDINE DOES HELP HIM FALL ASLEEP AND USES IBUPROFEN NEEDED THROUGHOUT THE DAY TO AID IN PAIN RELIEF. PATIENT STATES THAT HE HAS TRIED PHYSICAL THERAPY IN THE PAST AND IT DID NOT WORK IT INCREASE HIS PAIN LEVELS RATHER THAN DECREASING IT. PATIENT DENIES UNEXPLAINABLE WEIGHT LOSS, FEVER, CHILLS, NEW CHANGES ON HIS URINARY OR BOWEL CONTROL. FALL RISK SCREENING: SCREENING :NO FALLS IN THE PAST YEAR CURRENT MEDICATIONS TAKING LOSARTAN POTASSIUM-HCTZ 100-25 MG TABLET 1 TABLET ORALLY ONCE A DAY TAKING ASPIR-81 ONCE A DAY TAKING FISH OIL 1000 MG CAPSULE ORALLY BID TAKING ALBUTEROL SULFATE HFA 108 (90 BASE) MCG/ACT AEROSOL SOLUTION 2 PUFFS NEEDED INHALATION EVERY 4 HRS NEEDED FOR SHORTNESS OF BREATH TAKING AMLODIPINE 5MG TABLET 1 TAB ORAL DAILY TAKING CITALOPRAM HYDROBROMIDE 20 MG TABLET 1 TABLET ORALLY ONCE A DAY TAKING STOOL SOFTENER 100 MG CAPSULE 2 ORALLY ONCE A DAY TAKING MULTIVITAMIN ADULTS 50+ - TABLET 1 TAB ORALLY DAILY TAKING TIZANIDINE HCL 2 MG TABLET 1 TABLET NEEDED ORALLY FOR SPASMS AND PAIN BEFORE BEDTIME MAY REPEAT IN 4HRS MDD2 WORKERS COMPENSATION TAKING IBUPROFEN 800 MG TABLET 1 TABLET ORALLY WITH FOOD THREE TIMES DAILY NEEDED FOR PAIN TAKING CRESTOR 5 MG TABLET 1 TABLET ORALLY ONCE A DAY NOT-TAKING ZETIA 10 MG TABLET 1 TABLET ORALLY ONCE A DAY, NOTES: 1 MONTH AGO NOT-TAKING HYDROCODONE-ACETAMINOPHEN 5-325 MG TABLET 1 TABLET NEEDED ORALLY EVERY 6 HRS, NOTES: 6 MONTHS AGO NOT-TAKING MULTIVITAMINS MEDICATION LIST REVIEWED AND RECONCILED WITH THE PATIENT PAST MEDICAL HISTORY OLD L1 L2 COMPRESSION FX HTN DEPRESSION/ANXIETY MURTAZA WITH CPAP HIGH CHOLESTEROL BOWEL OBSTRUCTION ALLERGIES N.K.D.A. SURGICAL HISTORY EXPLORATORY LAP 2015 UMBILICAL HERNIA REPAIR HOSPITALIZATION/MAJOR DIAGNOSTIC PROCEDURE BOWEL OBSTRUCTION 2016 REVIEW OF SYSTEMS REVIEWED BY: PROVIDER: MARSHA WRIGHT MD . CONSTITUTIONAL: ANY CHANGE IN YOUR MEDICAL CONDITION? NO . CHILLS NO . FEVER NO . INFECTION: DO YOU HAVE NEW INFECTIONS? NO . DO YOU HAVE HISTORY OF MRSA? NO . MUSCULOSKELETAL: ANY NEW PATTERNS OF PAIN OR NUMBNESS? NO . GASTROENTEROLOGY: ANY NEW CHANGE IN BOWEL CONTROL? NO . GENITOURINARY: ANY NEW CHANGE IN BLADDER CONTROL? NO . IS THERE A CHANCE YOU COULD BE ? NO . HEMATOLOGY/LYMPH: DO YOU TAKE ANY BLOOD THINNERS? (FOR EXAMPLE- COUMADIN, PLAVIX, AGGRENOX, PLATEL, PRADAXA, OR XARELTO) NO . WHEN WAS YOUR LAST DOSE? DATE: TIME: . NEUROLOGY: HAVE YOU FALLEN IN THE PAST 6 MONTHS? NO . ANY NEW EXTREMITY NUMBNESS OR WEAKNESS? NO . CARDIOLOGY: DO YOU HAVE A PACEMAKER OR DEFIBRILLATOR? NO . RESPIRATORY: HAVE YOU BEEN SICK IN THE PAST WEEK? NO . FEVER NO . FLU LIKE SYMPTOMS? NO . COUGH NO . INTEGUMENTARY: DO YOU HAVE ANY RASHES OR OPEN SORES? NO . ALLERGIC/IMMUNO: ARE YOU ALLERGIC TO SHELLFISH OR IV DYE? NO . ANY NEW ALLERGIES? NO . PSYCHIATRIC: DO YOU HAVE THOUGHTS OF HURTING YOURSELF OR SOMEONE ELSE? NO . ARE YOU ABUSED, NEGLECTED, OR IN AN UNSAFE ENVIRONMENT? NO . ENDOCRINOLOGY: ARE YOU DIABETIC? NO . OTHER: DO YOU NEED ANY PRESCRIPTIONS? NO . IF YES, PLEASE LIST: ____ . ANY NEW PROBLEMS WITH YOUR MEDICATIONS? NO . WHEN DID YOU LAST EAT? ____ . WHEN DID YOU LAST DRINK? ____ . WHAT DID YOU LAST DRINK? ____ . NAME OF PERSON DRIVING YOU HOME? ____ . DO YOU HAVE ANY OTHER QUESTIONS OR CONCERNS NO . VITAL SIGNS WT 363.0 LBS, HT 71 IN, BMI 50.62 INDEX, BP 142/77 MM HG, HR 72 /MIN, RR 18 /MIN, TEMP 97.0 F, OXYGEN SAT % 96%, SAFE IN ENV? (Y/N) Y, NA INITIALS TL 1507, REVIEWED BY: EM. EXAMINATION : PATIENT IS ALERT O X 3 AND COOPERATIVE. PATIENT IS ABLE TO EXTEND BACK AT 5 DEGREES WITH SEVERE DIFFICULTIES. TENDERNESS IN THE LEFT LUMBAR PARASPINAL MUSCLE GROUP. 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 ASSESSMENTS SPONDYLOSIS WITHOUT MYELOPATHY OR RADICULOPATHY, LUMBAR REGION - M47.816 (PRIMARY) SPONDYLOSIS WITHOUT MYELOPATHY OR RADICULOPATHY, LUMBOSACRAL REGION - M47.817 TREATMENT SPONDYLOSIS WITHOUT MYELOPATHY OR RADICULOPATHY, LUMBAR REGION NOTES: WE DISCUSSED SEVERAL ISSUES WITH MR. MARTIN'S PAIN MANAGEMENT CASE. AT THIS TIME THE PATIENT WILL CONTINUE TO USE TIZANIDINE FOR THE MUSCLE SPASMS AT NIGHT AND IBUPROFEN THROUGHOUT THE DAY FOR THE INFLAMMATION. PATIENT WAS ADVISED TO USED THE IBUPROFEN WITH FOOD. WE DISCUSSED MOVING FORWARD WITH A RADIOFREQUENCY WE ARE LOOKING FOR LONG LASTING PAIN RELIEF. PATIENT IS AWARE WE WILL NEED TO DO TWO DIAGNOSTIC TESTS WITH ADEQUATE RESULTS BEFORE MOVING FORWARD. I WOULD LIKE TO START WITH A BILATERAL L3-L4, L4-L5, AND L5-S1 DIAGNOSTIC FACET BLOCK. WE DISCUSSED THE RISKS, BENENFITS, AND ALTNERATIVES OF THE INJECTION AND THE PATIENT WOULD LIKE TO PROCEED AT THIS TIME. INSTRUCTIONS WERE GIVEN, QUESTIONS WERE ANSWERED, PATIENT REPORTS UNDERSTANDING AND AGREES WITH THE PLAN. I, SHAYY PFEIFFER, DOCUMENTED THE ABOVE INFORMATION ACTING A SCRIBE FOR DR. WRIGHT. I HAVE REVIEWED THE ABOVE DOCUMENT, WRITTEN BY SHAYY ROY AND I VERIFY THAT IT IS ACCURATE. SPONDYLOSIS WITHOUT MYELOPATHY OR RADICULOPATHY, LUMBOSACRAL REGION REFILL TIZANIDINE HCL TABLET, 2 MG, 1 TABLET NEEDED, ORALLY FOR SPASMS AND PAIN, BEFORE BEDTIME MAY REPEAT IN 4HRS MDD2 WORKERS COMPENSATION, 30 DAY(S), 60, REFILLS 2 REFILL IBUPROFEN TABLET, 800 MG, 1 TABLET, ORALLY WITH FOOD, THREE TIMES DAILY NEEDED FOR PAIN, 30 DAY(S), 50, REFILLS 1 NOTES: PATIENT EDUCATION WAS PRINTED,FACET JOINT INJECTION MATERIAL WAS PRINTED. PROCEDURES PN WORKMANS' COMP OPINION IN YOUR OPINION, WAS THE INCIDENT THAT THE PATIENT DESCRIBED THE COMPETENT MEDICAL CAUSE OF THIS INJURY/ILLNESS? YES ARE THE PATIENT'S COMPLAINTS CONSISTENT WITH HIS/HER HISTORY OF THE INJURY/ILLNESS? YES IS THE PATIENT'S HISTORY OF THE INJURY/ILLNESS CONSISTENT WITH YOUR OBJECTIVE FINDING? YES WHAT IS THE PERCENTAGE OF TEMPORARY IMPAIRMENT? MODERATE TO MARKED = 66.7% IS THE PATIENT WORKING? NO DOCTOR ON SITE: MARSHA TIDWELL MD PREVENTIVE MEDICINE DISCUSSED PREPROCEDURE CARE WITH PT EXPRESSING UNDERSTANDING. PROCEDURE CODES FA211 ESTABILISHED PATIENT [facility] FACILITY CHARGE G8427 DOC MEDS VERIFIED W/PT OR RE G8730 PAIN ASSESS POS TOOL F/U PLAN DOC DISPOSITION & COMMUNICATION FOLLOW UP LFBD #1 AFTER APPROVAL ELECTRONICALLY SIGNED BY MARSHA WRIGHT MD ON 06/23/2017 AT 11:39 AM EDT DISCLAIMER : THIS IS A VISIT SUMMARY EXTRACTED FROM THE [facility] CHART. IT IS NOT A COPY OF THE [employer] PROGRESS NOTE. KO
== END ==
LOC: M PAIN 15:00
PROVIDERS: ATTEND Anesthesiology
DX: G89.29 Other chronic pain (principal); M47.816 Spondylosis without myelopathy or radiculopathy, lumbar region; M47.817 Spondylosis without myelopathy or radiculopathy, lumbosacral region; I10 Essential (primary) hypertension; F32.9 Major depressive disorder, single episode, unspecified; F41.9 Anxiety disorder, unspecified; G47.33 Obstructive sleep apnea (adult) (pediatric); E78.00 Pure hypercholesterolemia, unspecified; Z79.82 Long term (current) use of aspirin; Z79.899 Other long term (current) drug therapy

== ENCOUNTER → 2017-07-03 | Outpatient (CLI) | payer OTHER ==
[~2017-07-03] MED LIST changes: +BUPIVACAINE HCL 0.25% 30 ML VIAL As Ordered ONE; +ISOVUE-M 300 61% 15ML VIAL (Q9967) As Ordered ONE; +LIDOCAINE 1% SDV INJ 30 ML VIAL As Ordered ONE
--- NOTE | 2017-07-03 19:18 | REP ---
FACET BLOCK: The images were reviewed with Dr. Prasad. The patient has a history of low back pain. The portable C-ARM was provided in the OR for Dr. Sarah for fluoroscopic guidance. 2 intraoperative fluoroscopic spot films were obtained for needle placement verification for right lumbar facet injection. The films are on the PACs system and are available for review. 11 seconds of fluoroscopic time was utilized for this procedure. Reviewed by ROSALIE Eckert 07/04/2017 05:12 PEdited and Signed by Isaiah Prasad MD 07/04/2017 05:19 P
--- NOTE | 2017-07-22 00:25 | ECWPNPC ---
PATIENT NAME: MELBA MARTIN : 1965 GENDER: MALE VISIT DATE: 07/03/2017 DISCHARGE DATE: 07/03/17 1449 VISIT LOCKED DATE TIME: PHYSICIAN: MARSHA WRIGHT RESOURCE: MARSHA WRIGHT REASON FOR APPOINTMENT 1. LFBD#1- W/C HISTORY OF PRESENT ILLNESS HISTORY OF PRESENT ILLNESS: PAIN THE PATIENT DESCRIBES THE PAIN... FALL RISK SCREENING: SCREENING :NO FALLS IN THE PAST YEAR CURRENT MEDICATIONS TAKING LOSARTAN POTASSIUM-HCTZ 100-25 MG TABLET 1 TABLET ORALLY ONCE A DAY, NOTES: 07/03 530 TAKING ASPIR-81 ONCE A DAY, NOTES: 07/02 2130 TAKING FISH OIL 1000 MG CAPSULE ORALLY BID, NOTES: 07/03 530 TAKING ALBUTEROL SULFATE HFA 108 (90 BASE) MCG/ACT AEROSOL SOLUTION 2 PUFFS NEEDED INHALATION EVERY 4 HRS NEEDED FOR SHORTNESS OF BREATH, NOTES: NONE RECENT TAKING AMLODIPINE 5MG TABLET 1 TAB ORAL DAILY, NOTES: 07/02 2130 TAKING STOOL SOFTENER 100 MG CAPSULE 2 ORALLY ONCE A DAY, NOTES: 07/02 2130 TAKING MULTIVITAMIN ADULTS 50+ - TABLET 1 TAB ORALLY DAILY, NOTES: 07/03 530 TAKING CRESTOR 5 MG TABLET 1 TABLET ORALLY ONCE A DAY, NOTES: 07/02 2130 TAKING TIZANIDINE HCL 2 MG TABLET 1 TABLET NEEDED ORALLY FOR SPASMS AND PAIN BEFORE BEDTIME MAY REPEAT IN 4HRS MDD2 WORKERS COMPENSATION, NOTES: 07/02 2130 TAKING IBUPROFEN 800 MG TABLET 1 TABLET ORALLY WITH FOOD THREE TIMES DAILY NEEDED FOR PAIN, NOTES: FEW DAYS AGO TAKING CYMBALTA 60 MG 1 TABLET PO ONCE DAILY, NOTES: 07/03 530 NOT-TAKING ZETIA 10 MG TABLET 1 TABLET ORALLY ONCE A DAY, NOTES: 1 MONTH AGO NOT-TAKING HYDROCODONE-ACETAMINOPHEN 5-325 MG TABLET 1 TABLET NEEDED ORALLY EVERY 6 HRS, NOTES: 6 MONTHS AGO NOT-TAKING MULTIVITAMINS DISCONTINUED CITALOPRAM HYDROBROMIDE 20 MG TABLET 1 TABLET ORALLY ONCE A DAY MEDICATION LIST REVIEWED AND RECONCILED WITH THE PATIENT PAST MEDICAL HISTORY OLD L1 L2 COMPRESSION FX HTN DEPRESSION/ANXIETY MURTAZA WITH CPAP HIGH CHOLESTEROL BOWEL OBSTRUCTION ALLERGIES N.K.D.A. REVIEW OF SYSTEMS REVIEWED BY: PROVIDER: . CONSTITUTIONAL: ANY CHANGE IN YOUR MEDICAL CONDITION? NO . CHILLS NO . FEVER NO . INFECTION: DO YOU HAVE NEW INFECTIONS? NO . DO YOU HAVE HISTORY OF MRSA? NO . MUSCULOSKELETAL: ANY NEW PATTERNS OF PAIN OR NUMBNESS? NO . GASTROENTEROLOGY: ANY NEW CHANGE IN BOWEL CONTROL? NO . GENITOURINARY: ANY NEW CHANGE IN BLADDER CONTROL? NO . IS THERE A CHANCE YOU COULD BE ? NO . HEMATOLOGY/LYMPH: DO YOU TAKE ANY BLOOD THINNERS? (FOR EXAMPLE- COUMADIN, PLAVIX, AGGRENOX, PLATEL, PRADAXA, OR XARELTO) NO . WHEN WAS YOUR LAST DOSE? DATE: TIME: . NEUROLOGY: HAVE YOU FALLEN IN THE PAST 6 MONTHS? NO . ANY NEW EXTREMITY NUMBNESS OR WEAKNESS? NO . CARDIOLOGY: DO YOU HAVE A PACEMAKER OR DEFIBRILLATOR? NO . RESPIRATORY: HAVE YOU BEEN SICK IN THE PAST WEEK? NO . FEVER NO . FLU LIKE SYMPTOMS? NO . COUGH NO . INTEGUMENTARY: DO YOU HAVE ANY RASHES OR OPEN SORES? NO . ALLERGIC/IMMUNO: ARE YOU ALLERGIC TO SHELLFISH OR IV DYE? NO . ANY NEW ALLERGIES? NO . PSYCHIATRIC: DO YOU HAVE THOUGHTS OF HURTING YOURSELF OR SOMEONE ELSE? NO . ARE YOU ABUSED, NEGLECTED, OR IN AN UNSAFE ENVIRONMENT? NO . ENDOCRINOLOGY: ARE YOU DIABETIC? NO . OTHER: DO YOU NEED ANY PRESCRIPTIONS? NO . IF YES, PLEASE LIST: ____ . ANY NEW PROBLEMS WITH YOUR MEDICATIONS? NO . WHEN DID YOU LAST EAT? 07/03 600 . WHEN DID YOU LAST DRINK? 07/03 900 . WHAT DID YOU LAST DRINK? WATER . NAME OF PERSON DRIVING YOU HOME? --CHANO . DO YOU HAVE ANY OTHER QUESTIONS OR CONCERNS NO . VITAL SIGNS WT 355 LBS, HT 71 IN, BMI 49.51 INDEX, BP 118/81 MM HG, HR 65 /MIN, RR 18 /MIN, TEMP 99.9 F, OXYGEN SAT % 92%, NA INITIALS AW 1317, REVIEWED BY: AD. ASSESSMENTS SPONDYLOSIS WITHOUT MYELOPATHY OR RADICULOPATHY, LUMBAR REGION - M47.816 (PRIMARY) SPONDYLOSIS WITHOUT MYELOPATHY OR RADICULOPATHY, LUMBOSACRAL REGION - M47.817 PROCEDURES PN LUMBAR FACET BLOCK DIAGNOSTIC PRE PROCEDURE DIAGNOSIS LUMBAR SPONDYLOSIS, LUMBOSACRAL SPONDYLOSIS POST PROCEDURE DIAGNOSIS LUMBAR SPONDYLOSIS, LUMBOSACRAL SPONDYLOSIS PROCEDURE RIGHT L4-L5 AND RIGHT L5-S1 FACET BLOCK DIAGNOSTIC NUMBER [address] MARSHA WRIGHT TRIM LINE WORKER NONE ANESTHESIA LOCAL PRE PROCEDURE NOTE THE PATIENT WITH HISTORY OF CHRONIC LOW BACK PAIN. I EVALUATED THE PATIENT AND REVIEWED THE CHART. I WENT OVER THE RISKS, ALTERNATIVES, AND BENEFITS ASSOCIATED WITH THIS PROCEDURE. THE PATIENT WOULD LIKE TO PROCEED AND GAVE CONSENT TO PERFORM THE PROCEDURE. AGREED WITH THE PATIENT WE ARE DOING THIS PROCEDURE TO DETERMINE IF THE PATIENT IS A CANDIDATE FOR A RADIOFREQUENCY ABLATION OF THE FACETS JOINTS. THE PATIENT DENIES UNEXPLAINABLE WEIGHT LOSS, FEVER, CHILLS, OR NEW CHANGES IN URINARY OR BOWEL CONTROL DESCRIPTION OF PROCEDURE THE PATIENT WAS BROUGHT TO THE PROCEDURE ROOM AND PLACED IN THE PRONE POSITION. THE LUMBOSACRAL AREA WAS CLEANED WITH CHLORAPREP SOLUTION AND DRAPED ASEPTICALLY. THE PROCEDURE WAS DONE UNDER STERILE CONDITIONS. I CHECKED LATERALITY AND THE LEVEL WHERE THE PROCEDURE WAS GOING TO BE PERFORMED WITH THE PATIENT AND THE SUPPORTING STAFF AT THE MOMENT OF THE TIME OUT IN THE PROCEDURE ROOM. UNDER FLUOROSCOPIC GUIDANCE, TARGETS WERE SELECTED AT THE INTERSECTION OF THE RIGHT TRANSVERSE PROCESS OF L4, L5 AND ALA OF S1 WITH ITS RESPECTIVE SUPERIOR ARTICULAR PROCESS. LIDOCAINE WAS USED TO NUMB THE SKIN AND THE SUBCUTANEOUS TISSUE BELOW IT. SPINAL NEEDLE, 22-GAUGE WAS ADVANCED UNDER FLUOROSCOPIC GUIDANCE AND FOLLOWING PATIENT FEEDBACK UNTIL THE TARGETS WERE REACHED. POSITION OF THE NEEDLES WAS VERIFIED WITH AP AND LATERAL VIEWS. AFTER PROPER POSITION OF THE NEEDLES WAS ACHIEVED, ISOVUE-M DYE 30% 0.1 ML WAS INJECTED AT EACH SITE SHOWING ADEQUATE SPREAD OF THE DYE. THEN A SOLUTION OF 0.4 ML OF BUPIVACAINE 0.25% WAS INJECTED AT EACH SITE. THERE WAS NO EVIDENCE OF BLOOD, PARESTHESIA OR CEREBROSPINAL FLUID DURING THE PROCEDURE. THE PATIENT WAS SENT TO THE RECOVERY ROOM. THE PATIENT WAS MOVING THE EXTREMITIES AND DOING WELL. THERE WAS NO COMPLICATION DURING THE PROCEDURE. FLUOROSCOPY TIME WAS 11 SECONDS POST PROCEDURE NOTE THE PATIENT WILL DOCUMENT HIS PAIN LEVEL AND RESPONSE TO THIS PROCEDURE EVERY 30 MINUTES. THE PATIENT WILL BE SEEN IN A FOLLOW UP IN THE NEXT FEW WEEKS. FURTHER DETERMINATION FOR HIS CASE WILL BE DONE AT THE NEXT VISIT. INSTRUCTIONS WERE GIVEN, QUESTIONS WERE ANSWERED, AND THE PATIENT EXPRESSED UNDERSTANDING AND AGREED WITH THE PLAN. I PHAM DON DOCUMENTED THE ABOVE INFORMATION ACTING A CLIENT MANAGER FOR DR. WRIGHT. I HAVE REVIEWED THE ABOVE DOCUMENT WRITTEN BY PHAM DON [employer]CRIB[employer] AND I VERIFY THAT IT IS ACCURATE. DIAGNOSTIC IMAG[facility] FACET BLOCK (PAIN)[id number] PROCEDURE CODES 41999 INJ PARAVERT F JNT L/S 1 LEV 55630 INJ PARAVERT F JNT L/S 2 LEV 6045F RADXPS IN END [id number] PXD DISPOSITION & COMMUNICATION FOLLOW UP 3 WEEKS ELECTRONICALLY SIGNED BY MARSHA WRIGHT MD ON 07/21/2017 AT 06:29 PM EDT DISCLAIMER : THIS IS A VISIT SUMMARY EXTRACTED FROM THE [employer] CHART. IT IS NOT A COPY OF THE [employer] PROGRESS NOTE. MTDD
== END ==
LOC: M PAIN 13:00
PROVIDERS: ATTEND Anesthesiology
DX: G89.29 Other chronic pain (principal); M47.816 Spondylosis without myelopathy or radiculopathy, lumbar region; M47.817 Spondylosis without myelopathy or radiculopathy, lumbosacral region; I10 Essential (primary) hypertension; F32.9 Major depressive disorder, single episode, unspecified; F41.9 Anxiety disorder, unspecified; G47.30 Sleep apnea, unspecified; E78.00 Pure hypercholesterolemia, unspecified; Z79.82 Long term (current) use of aspirin; Z79.899 Other long term (current) drug therapy
CPT/HCPCS: 64493; 64494; Q9967

== ENCOUNTER → 2017-08-08 | Outpatient (CLI) | payer OTHER, BC ==
[~2017-08-08] MED LIST changes: -BUPIVACAINE HCL 0.25% 30 ML VIAL As Ordered ONE; -ISOVUE-M 300 61% 15ML VIAL (Q9967) As Ordered ONE; -LIDOCAINE 1% SDV INJ 30 ML VIAL As Ordered ONE
--- NOTE | 2017-08-17 00:40 | ECWPNPC ---
PATIENT NAME: MELBA MARTIN : 1965 GENDER: MALE VISIT DATE: 08/08/2017 DISCHARGE DATE: 08/08/17 1554 VISIT LOCKED DATE TIME: PHYSICIAN: MARSHA WRIGHT RESOURCE: MARSHA WRIGHT REASON FOR APPOINTMENT 1. W/C LOW BACK PAIN HISTORY OF PRESENT ILLNESS HISTORY OF PRESENT ILLNESS: PAIN THE PATIENT DESCRIBES THE PAIN... 51 YEAR OLD MALE PATIENT WITH HISTORY OF CHRONIC BACK PAIN. PATIENT DESCRIBES THE PAIN ACHING AND THROBBING WITH A PAIN SCORE OF 8/10. 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 PATIENT RECEIVED A DIAGNOSTIC FACET BLOCK OVER THE RIGHT SIDE AND REPORTS HAVING OVER 50% RELIEF OF PAIN. PATIENT STATES HIS WORST PAIN IS NOW THE LEFT SIDE AND HIS PAIN IS MINOR OVER THE RIGHT. PATIENT REPORTS THAT TIZANIDINE DOES HELP HIM FALL ASLEEP AND USES IBUPROFEN NEEDED THROUGHOUT THE DAY TO AID IN PAIN RELIEF. PATIENT STATES THAT HE HAS TRIED PHYSICAL THERAPY IN THE PAST AND IT DID NOT WORK IT INCREASE HIS PAIN LEVELS RATHER THAN DECREASING IT. PATIENT DENIES UNEXPLAINABLE WEIGHT LOSS, FEVER, CHILLS, NEW CHANGES ON HIS URINARY OR BOWEL CONTROL. FALL RISK SCREENING: SCREENING :NO FALLS IN THE PAST YEAR CURRENT MEDICATIONS TAKING LOSARTAN POTASSIUM-HCTZ 100-25 MG TABLET 1 TABLET ORALLY ONCE A DAY TAKING ASPIR-81 ONCE A DAY TAKING FISH OIL 1000 MG CAPSULE ORALLY BID TAKING AMLODIPINE 5MG TABLET 1 TAB ORAL DAILY TAKING MULTIVITAMIN ADULTS 50+ - TABLET 1 TAB ORALLY DAILY TAKING CRESTOR 20 MG TABLET 1 TABLET ORALLY ONCE A DAY TAKING TIZANIDINE HCL 2 MG TABLET 1 TABLET NEEDED ORALLY FOR SPASMS AND PAIN BEFORE BEDTIME MAY REPEAT IN 4HRS MDD2 WORKERS COMPENSATION TAKING CYMBALTA 60 MG 1 TABLET PO ONCE DAILY TAKING LOSARTAN POTASSIUM-HCTZ 100-25 MG TABLET 1 TABLET ORALLY ONCE A DAY TAKING AUGMENTIN 875-125 MG TABLET 1 TABLET ORALLY BID NOT-TAKING ALBUTEROL SULFATE HFA 108 (90 BASE) MCG/ACT AEROSOL SOLUTION 2 PUFFS NEEDED INHALATION EVERY 4 HRS NEEDED FOR SHORTNESS OF BREATH NOT-TAKING STOOL SOFTENER 100 MG CAPSULE 2 ORALLY ONCE A DAY NOT-TAKING IBUPROFEN 800 MG TABLET 1 TABLET ORALLY WITH FOOD THREE TIMES DAILY NEEDED FOR PAIN NOT-TAKING ZETIA 10 MG TABLET 1 TABLET ORALLY ONCE A DAY NOT-TAKING HYDROCODONE-ACETAMINOPHEN 5-325 MG TABLET 1 TABLET NEEDED ORALLY EVERY 6 HRS NOT-TAKING MULTIVITAMINS MEDICATION LIST REVIEWED AND RECONCILED WITH THE PATIENT PAST MEDICAL HISTORY OLD L1 L2 COMPRESSION FX HTN DEPRESSION/ANXIETY MURTAZA WITH CPAP HIGH CHOLESTEROL BOWEL OBSTRUCTION ALLERGIES N.K.D.A. REVIEW OF SYSTEMS REVIEWED BY: PROVIDER: MARSHA WRIGHT MD . CONSTITUTIONAL: ANY CHANGE IN YOUR MEDICAL CONDITION? NO . CHILLS NO . FEVER NO . INFECTION: DO YOU HAVE NEW INFECTIONS? YES, SINUS INFETION ON 07/30/17 STILL ON ANTIBIOTICS . DO YOU HAVE HISTORY OF MRSA? NO . MUSCULOSKELETAL: ANY NEW PATTERNS OF PAIN OR NUMBNESS? NO . GASTROENTEROLOGY: ANY NEW CHANGE IN BOWEL CONTROL? NO . GENITOURINARY: ANY NEW CHANGE IN BLADDER CONTROL? NO . IS THERE A CHANCE YOU COULD BE ? NO . HEMATOLOGY/LYMPH: DO YOU TAKE ANY BLOOD THINNERS? (FOR EXAMPLE- COUMADIN, PLAVIX, AGGRENOX, PLATEL, PRADAXA, OR XARELTO) NO . WHEN WAS YOUR LAST DOSE? DATE: TIME: . NEUROLOGY: HAVE YOU FALLEN IN THE PAST 6 MONTHS? NO . ANY NEW EXTREMITY NUMBNESS OR WEAKNESS? NO . CARDIOLOGY: DO YOU HAVE A PACEMAKER OR DEFIBRILLATOR? NO . RESPIRATORY: HAVE YOU BEEN SICK IN THE PAST WEEK? NO . FEVER NO . FLU LIKE SYMPTOMS? NO . COUGH NO . INTEGUMENTARY: DO YOU HAVE ANY RASHES OR OPEN SORES? NO . ALLERGIC/IMMUNO: ARE YOU ALLERGIC TO SHELLFISH OR IV DYE? NO . ANY NEW ALLERGIES? NO . PSYCHIATRIC: DO YOU HAVE THOUGHTS OF HURTING YOURSELF OR SOMEONE ELSE? NO . ARE YOU ABUSED, NEGLECTED, OR IN AN UNSAFE ENVIRONMENT? NO . ENDOCRINOLOGY: ARE YOU DIABETIC? NO . OTHER: DO YOU NEED ANY PRESCRIPTIONS? NO . IF YES, PLEASE LIST: ____ . ANY NEW PROBLEMS WITH YOUR MEDICATIONS? NO . WHEN DID YOU LAST EAT? ____ . WHEN DID YOU LAST DRINK? ____ . WHAT DID YOU LAST DRINK? ____ . NAME OF PERSON DRIVING YOU HOME? ____ . DO YOU HAVE ANY OTHER QUESTIONS OR CONCERNS NO . VITAL SIGNS WT 361 LBS, HT 71 IN, BMI 50.34 INDEX, BP 146/81 MM HG, HR 84 /MIN, RR 20 /MIN, TEMP 97.3 F, OXYGEN SAT % 96%, NA INITIALS SC 14:57, REVIEWED BY: CM. EXAMINATION : PATIENT IS ALERT O X 3 AND COOPERATIVE. PATIENT IS ABLE TO EXTEND BACK AT 5 DEGREES WITH SEVERE DIFFICULTIES. TENDERNESS IN THE LEFT LUMBAR PARASPINAL MUSCLE GROUP. 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 ASSESSMENTS SPONDYLOSIS OF LUMBAR REGION WITHOUT MYELOPATHY OR RADICULOPATHY - M47.816 (PRIMARY) SPONDYLOSIS OF LUMBOSACRAL REGION WITHOUT MYELOPATHY OR RADICULOPATHY - M47.817 TREATMENT SPONDYLOSIS OF LUMBAR REGION WITHOUT MYELOPATHY OR RADICULOPATHY NOTES: WE DISCUSSED SEVERAL ISSUES WITH MR. MARTIN'S PAIN MANAGEMENT CASE. AT THIS TIME THE PATIENT WILL CONTINUE TO USE TIZANIDINE FOR THE MUSCLE SPASMS AT NIGHT AND IBUPROFEN THROUGHOUT THE DAY FOR THE INFLAMMATION. PATIENT WAS ADVISED TO USED THE IBUPROFEN WITH FOOD. DUE TO THE PATIENT HAVING GOOD RELIEF OVER THE RIGHT SIDE I WOULD LIKE TO PROCEED WITH A DIAGNOSTIC FACET BLOCK OVER THE LEFT SIDE TO CONSIDER A RADIOFREQUENCY. WE DISCUSSED THE RISKS, BENENFITS, AND ALTNERATIVES OF THE INJECTION AND THE PATIENT WOULD LIKE TO PROCEED AT THIS TIME. INSTRUCTIONS WERE GIVEN, QUESTIONS WERE ANSWERED, PATIENT REPORTS UNDERSTANDING AND AGREES WITH THE PLAN. I, SHAYY PFEIFFER, DOCUMENTED THE ABOVE INFORMATION ACTING A SCRIBE FOR DR. WRIGHT. I HAVE REVIEWED THE ABOVE DOCUMENT, WRITTEN BY SHAYY ROY AND I VERIFY THAT IT IS ACCURATE. PROCEDURES PN WORKMANS' COMP OPINION IN YOUR OPINION, WAS THE INCIDENT THAT THE PATIENT DESCRIBED THE COMPETENT MEDICAL CAUSE OF THIS INJURY/ILLNESS? YES ARE THE PATIENT'S COMPLAINTS CONSISTENT WITH HIS/HER HISTORY OF THE INJURY/ILLNESS? YES IS THE PATIENT'S HISTORY OF THE INJURY/ILLNESS CONSISTENT WITH YOUR OBJECTIVE FINDING? YES WHAT IS THE PERCENTAGE OF TEMPORARY IMPAIRMENT? MODERATE TO MARKED = 66.7% IS THE PATIENT WORKING? NO DOCTOR ON SITE: MARSHA TIDWELL MD PREVENTIVE MEDICINE DISCUSSED PRE PROCEDURE CARE FOR WHEN PT HAS HIS PROCEDURE / WE WILL CALL HIM TO LET HIM KNOW WHEN APPROVED/ PT EXPRESSED UNDERSTANDING AND KNOWS NOT TO TAKE ANY PAIN MEDS OR MUSCLE RELAXERS AFTER MIDNIGHT. PROCEDURE CODES FA211 ESTABILISHED PATIENT [facility] FACILITY CHARGE G8427 DOC MEDS VERIFIED W/PT OR RE G8730 PAIN ASSESS POS TOOL F/U PLAN DOC DISPOSITION & COMMUNICATION FOLLOW UP LFBD LEFT AFTER APPROVAL ELECTRONICALLY SIGNED BY MARSHA WRIGHT MD ON 08/15/2017 AT 04:30 PM EDT DISCLAIMER : THIS IS A VISIT SUMMARY EXTRACTED FROM THE [employer] CHART. IT IS NOT A COPY OF THE [employer] PROGRESS NOTE. MTDD
== END ==
LOC: M PAIN 14:45
PROVIDERS: ATTEND Anesthesiology
DX: G89.29 Other chronic pain (principal); M47.816 Spondylosis without myelopathy or radiculopathy, lumbar region; M47.817 Spondylosis without myelopathy or radiculopathy, lumbosacral region; I10 Essential (primary) hypertension; F32.9 Major depressive disorder, single episode, unspecified; F41.9 Anxiety disorder, unspecified; G47.33 Obstructive sleep apnea (adult) (pediatric); E78.00 Pure hypercholesterolemia, unspecified; Z79.82 Long term (current) use of aspirin; Z79.899 Other long term (current) drug therapy

== ENCOUNTER → 2017-09-16 | Outpatient (CLI) | payer OTHER ==
[~2017-09-16] MED LIST changes: +BUPIVACAINE HCL 0.25% 30 ML VIAL As Ordered ONE; +ISOVUE-M 300 61% 15ML VIAL (Q9967) As Ordered ONE; +LIDOCAINE 1% SDV INJ 30 ML VIAL As Ordered ONE
--- NOTE | 2017-09-16 17:07 | REP ---
Partial lumbar spine series: Three views . History: Injection procedure for pain. 21 seconds of fluoroscopy time is reported. Findings: A sequence of three fluoroscopically obtained last image hold procedural spot radiographs of the lumbar spine document needle position and contrast injection associated with injection procedure. Signed by Morales Prado MD 09/16/2017 04:58 P
--- NOTE | 2017-09-16 23:27 | ECWPNPC ---
PATIENT NAME: MELBA MARTIN : 1965 GENDER: MALE VISIT DATE: 09/16/2017 DISCHARGE DATE: 09/16/17 153 VISIT LOCKED DATE TIME: PHYSICIAN: MARSHA WRIGHT RESOURCE: MARSHA WRIGHT REASON FOR APPOINTMENT 1. WC LUMBAR FACET, DIAG HISTORY OF PRESENT ILLNESS HISTORY OF PRESENT ILLNESS: PAIN THE PATIENT DESCRIBES THE PAIN... FALL RISK SCREENING: SCREENING :NO FALLS IN THE PAST YEAR CURRENT MEDICATIONS TAKING CITALOPRAM HYDROBROMIDE 10 MG TABLET 2 TABLETS ORALLY ONCE A DAY, NOTES: 09/15/171999 TAKING LOSARTAN POTASSIUM-HCTZ 100-25 MG TABLET 1 TABLET ORALLY ONCE A DAY, NOTES: 09/16/17599 TAKING ASPIR-81 ONCE A DAY, NOTES: 09/15/171999 TAKING FISH OIL 1000 MG CAPSULE ORALLY BID, NOTES: 09/16/17599 TAKING AMLODIPINE 5MG TABLET 1 TAB ORAL DAILY, NOTES: 09/15/171999 TAKING MULTIVITAMIN ADULTS 50+ - TABLET 1 TAB ORALLY DAILY, NOTES: 09/15/17599 TAKING CRESTOR 20 MG TABLET 1 TABLET ORALLY ONCE A DAY, NOTES: 09/15/171999 TAKING TIZANIDINE HCL 2 MG TABLET 1 TABLET NEEDED ORALLY FOR SPASMS AND PAIN BEFORE BEDTIME MAY REPEAT IN 4HRS MDD2 WORKERS COMPENSATION, NOTES: 09/15/171999 TAKING ALBUTEROL SULFATE HFA 108 (90 BASE) MCG/ACT AEROSOL SOLUTION 2 PUFFS NEEDED INHALATION EVERY 4 HRS NEEDED FOR SHORTNESS OF BREATH, NOTES: > 1 MONTH TAKING VENTOLIN HFA 108 (90 BASE) MCG/ACT AEROSOL SOLUTION 2 PUFFS NEEDED INHALATION EVERY 4 HRS PRN, NOTES: > 1 MONTH TAKING STOOL SOFTENER 100 MG CAPSULE 2 ORALLY ONCE A DAY, NOTES: 09/15/171999 TAKING IBUPROFEN 800 MG TABLET 1 TABLET ORALLY WITH FOOD THREE TIMES DAILY NEEDED FOR PAIN, NOTES: 09/15/171999 TAKING ZETIA 10 MG TABLET 1 TABLET ORALLY ONCE A DAY, NOTES: 09/15/171999 TAKING HYDROCODONE-ACETAMINOPHEN 5-325 MG TABLET 1 TABLET NEEDED ORALLY EVERY 6 HRS, NOTES: > 2 MONTHS TAKING MULTIVITAMINS , NOTES: 09/16/17 06 NOT-TAKING FLONASE 50 MCG/ACT SUSPENSION 1 SPRAY IN EACH NOSTRIL NASALLY BID, NOTES: HASN'T STARTED YET NOT-TAKING CYMBALTA 60 MG 1 TABLET PO ONCE DAILY DISCONTINUED LOSARTAN POTASSIUM-HCTZ 100-25 MG TABLET 1 TABLET ORALLY ONCE A DAY DISCONTINUED AUGMENTIN 875-125 MG TABLET 1 TABLET ORALLY BID MEDICATION LIST REVIEWED AND RECONCILED WITH THE PATIENT PAST MEDICAL HISTORY OLD L1 L2 COMPRESSION FX HTN DEPRESSION/ANXIETY MURTAZA WITH CPAP HIGH CHOLESTEROL BOWEL OBSTRUCTION ALLERGIES N.K.D.A. REVIEW OF SYSTEMS REVIEWED BY: PROVIDER: . CONSTITUTIONAL: ANY CHANGE IN YOUR MEDICAL CONDITION? NO . CHILLS NO . FEVER NO . INFECTION: DO YOU HAVE NEW INFECTIONS? NO . DO YOU HAVE HISTORY OF MRSA? NO . MUSCULOSKELETAL: ANY NEW PATTERNS OF PAIN OR NUMBNESS? NO . GASTROENTEROLOGY: ANY NEW CHANGE IN BOWEL CONTROL? NO . GENITOURINARY: ANY NEW CHANGE IN BLADDER CONTROL? NO . IS THERE A CHANCE YOU COULD BE ? NO . HEMATOLOGY/LYMPH: DO YOU TAKE ANY BLOOD THINNERS? (FOR EXAMPLE- COUMADIN, PLAVIX, AGGRENOX, PLATEL, PRADAXA, OR XARELTO) NO . WHEN WAS YOUR LAST DOSE? DATE: TIME: . NEUROLOGY: HAVE YOU FALLEN IN THE PAST 6 MONTHS? NO . ANY NEW EXTREMITY NUMBNESS OR WEAKNESS? NO . CARDIOLOGY: DO YOU HAVE A PACEMAKER OR DEFIBRILLATOR? NO . RESPIRATORY: HAVE YOU BEEN SICK IN THE PAST WEEK? NO . FEVER NO . FLU LIKE SYMPTOMS? NO . COUGH NO . INTEGUMENTARY: DO YOU HAVE ANY RASHES OR OPEN SORES? NO . ALLERGIC/IMMUNO: ARE YOU ALLERGIC TO SHELLFISH OR IV DYE? NO . ANY NEW ALLERGIES? NO . PSYCHIATRIC: DO YOU HAVE THOUGHTS OF HURTING YOURSELF OR SOMEONE ELSE? NO . ARE YOU ABUSED, NEGLECTED, OR IN AN UNSAFE ENVIRONMENT? NO . ENDOCRINOLOGY: ARE YOU DIABETIC? NO . OTHER: DO YOU NEED ANY PRESCRIPTIONS? NO . IF YES, PLEASE LIST: ____ . ANY NEW PROBLEMS WITH YOUR MEDICATIONS? NO . WHEN DID YOU LAST EAT? ____09/16/17 0600 . WHEN DID YOU LAST DRINK? ____09/16/17 0900 . WHAT DID YOU LAST DRINK? ____WATER . NAME OF PERSON DRIVING YOU HOME? ____DONJOANA MARTIN . DO YOU HAVE ANY OTHER QUESTIONS OR CONCERNS NO . VITAL SIGNS WT 360 LBS, HT 71 IN, BMI 50.20 INDEX, BP 139/77 MM HG, HR 78 /MIN, RR 18 /MIN, TEMP 98.9 F, OXYGEN SAT % 94%, NA INITIALS AW 1336. ASSESSMENTS SPONDYLOSIS OF LUMBAR REGION WITHOUT MYELOPATHY OR RADICULOPATHY - M47.816 (PRIMARY) SPONDYLOSIS OF LUMBOSACRAL REGION WITHOUT MYELOPATHY OR RADICULOPATHY - M47.817 PROCEDURES PN LUMBAR FACET BLOCK DIAGNOSTIC PRE PROCEDURE DIAGNOSIS LUMBAR SPONDYLOSIS, LUMBOSACRAL SPONDYLOSIS POST PROCEDURE DIAGNOSIS LUMBAR SPONDYLOSIS, LUMBOSACRAL SPONDYLOSIS PROCEDURE LEFT L4-L5 AND LEFT L5-S1 FACET BLOCK DIAGNOSTIC NUMBER [address] MARSHA WRIGHT NANOTECHNICIAN NONE ANESTHESIA LOCAL PRE PROCEDURE NOTE THE PATIENT WITH HISTORY OF CHRONIC LOW BACK PAIN. I EVALUATED THE PATIENT AND REVIEWED THE CHART. I WENT OVER THE RISKS, ALTERNATIVES, AND BENEFITS ASSOCIATED WITH THIS PROCEDURE. THE PATIENT WOULD LIKE TO PROCEED AND GAVE CONSENT TO PERFORM THE PROCEDURE. AGREED WITH THE PATIENT WE ARE DOING THIS PROCEDURE TO DETERMINE IF THE PATIENT IS A CANDIDATE FOR A RADIOFREQUENCY ABLATION OF THE FACETS JOINTS. THE PATIENT DENIES UNEXPLAINABLE WEIGHT LOSS, FEVER, CHILLS, OR NEW CHANGES IN URINARY OR BOWEL CONTROL DESCRIPTION OF PROCEDURE THE PATIENT WAS BROUGHT TO THE PROCEDURE ROOM AND PLACED IN THE PRONE POSITION. THE LUMBOSACRAL AREA WAS CLEANED WITH CHLORAPREP SOLUTION AND DRAPED ASEPTICALLY. THE PROCEDURE WAS DONE UNDER STERILE CONDITIONS. I CHECKED LATERALITY AND THE LEVEL WHERE THE PROCEDURE WAS GOING TO BE PERFORMED WITH THE PATIENT AND THE SUPPORTING STAFF AT THE MOMENT OF THE TIME OUT IN THE PROCEDURE ROOM. UNDER FLUOROSCOPIC GUIDANCE, TARGETS WERE SELECTED AT THE INTERSECTION OF THE LEFT TRANSVERSE PROCESS OF L4, L5 AND ALA OF S1 WITH ITS RESPECTIVE SUPERIOR ARTICULAR PROCESS. LIDOCAINE WAS USED TO NUMB THE SKIN AND THE SUBCUTANEOUS TISSUE BELOW IT. SPINAL NEEDLE, 22-GAUGE WAS ADVANCED UNDER FLUOROSCOPIC GUIDANCE AND FOLLOWING PATIENT FEEDBACK UNTIL THE TARGETS WERE REACHED. POSITION OF THE NEEDLES WAS VERIFIED WITH AP AND LATERAL VIEWS. AFTER PROPER POSITION OF THE NEEDLES WAS ACHIEVED, ISOVUE-M DYE 30% 0.1 ML WAS INJECTED AT EACH SITE SHOWING ADEQUATE SPREAD OF THE DYE. THEN A SOLUTION OF 0.4 ML OF BUPIVACAINE 0.25% WAS INJECTED AT EACH SITE. THERE WAS NO EVIDENCE OF BLOOD, PARESTHESIA OR CEREBROSPINAL FLUID DURING THE PROCEDURE. THE PATIENT WAS SENT TO THE RECOVERY ROOM. THE PATIENT WAS MOVING THE EXTREMITIES AND DOING WELL. THERE WAS NO COMPLICATION DURING THE PROCEDURE. FLUOROSCOPY TIME WAS 21 SECONDS POST PROCEDURE NOTE THE PATIENT WILL DOCUMENT HIS PAIN LEVEL AND RESPONSE TO THIS PROCEDURE EVERY 30 MINUTES. THE PATIENT WILL BE SEEN IN A FOLLOW UP IN THE NEXT FEW WEEKS. FURTHER DETERMINATION FOR HIS CASE WILL BE DONE AT THE NEXT VISIT. INSTRUCTIONS WERE GIVEN, QUESTIONS WERE ANSWERED, AND THE PATIENT EXPRESSED UNDERSTANDING AND AGREED WITH THE PLAN. I, SHAYY PFEIFFER, DOCUMENTED THE ABOVE INFORMATION ACTING A SCRIBE FOR DR. WRIGHT. I HAVE REVIEWED THE ABOVE DOCUMENT, WRITTEN BY SHAYY ROY AND I VERIFY THAT IT IS ACCURATE PN WORKMANS' COMP OPINION IN YOUR OPINION, WAS THE INCIDENT THAT THE PATIENT DESCRIBED THE COMPETENT MEDICAL CAUSE OF THIS INJURY/ILLNESS? YES ARE THE PATIENT'S COMPLAINTS CONSISTENT WITH HIS/HER HISTORY OF THE INJURY/ILLNESS? YES IS THE PATIENT'S HISTORY OF THE INJURY/ILLNESS CONSISTENT WITH YOUR OBJECTIVE FINDING? YES WHAT IS THE PERCENTAGE OF TEMPORARY IMPAIRMENT? MODERATE TO MARKED = 66.7% IS THE PATIENT WORKING? NO DOCTOR ON SITE: MARSHA TIDWELL MD DIAGNOSTIC IMAGING [facility] FACET BLOCK (PAIN)[id number] PROCEDURE CODES 68989 INJ PARAVERT F JNT L/S 1 LEV, [place]IFI[place]: [place] 67521 INJ PARAVERT F JNT L/S 2 LEV, MODIFIERS: LT 6045F RADXPS IN END [id number] PXD DISPOSITION & COMMUNICATION FOLLOW UP 3 WEEKS ELECTRONICALLY SIGNED BY MARSHA WRIGHT MD ON 09/16/2017 AT 05:45 PM EDT DISCLAIMER : THIS IS A VISIT SUMMARY EXTRACTED FROM THE [employer] CHART. IT IS NOT A COPY OF THE [employer] PROGRESS NOTE. MTDD
== END ==
LOC: M PAIN 13:15
PROVIDERS: ATTEND Anesthesiology
DX: G89.29 Other chronic pain (principal); M47.816 Spondylosis without myelopathy or radiculopathy, lumbar region; M47.817 Spondylosis without myelopathy or radiculopathy, lumbosacral region; I10 Essential (primary) hypertension; F32.9 Major depressive disorder, single episode, unspecified; F41.9 Anxiety disorder, unspecified; G47.33 Obstructive sleep apnea (adult) (pediatric); E78.00 Pure hypercholesterolemia, unspecified; Z79.82 Long term (current) use of aspirin; Z79.899 Other long term (current) drug therapy
CPT/HCPCS: 64493; 64494; Q9967

== ENCOUNTER → 2017-10-14 | Outpatient (CLI) | payer OTHER ==
[~2017-10-14] MED LIST changes: -BUPIVACAINE HCL 0.25% 30 ML VIAL As Ordered ONE; -ISOVUE-M 300 61% 15ML VIAL (Q9967) As Ordered ONE; -LIDOCAINE 1% SDV INJ 30 ML VIAL As Ordered ONE
--- NOTE | 2017-10-17 00:05 | ECWPNPC ---
PATIENT NAME: MELBA MARTIN : 1965 GENDER: MALE VISIT DATE: 10/14/2017 DISCHARGE DATE: 10/14/17 1650 VISIT LOCKED DATE TIME: PHYSICIAN: MARSHA WRIGHT RESOURCE: MARSHA WRIGHT REASON FOR APPOINTMENT 1. POST PROCEDURE LOW BACK W/C HISTORY OF PRESENT ILLNESS HISTORY OF PRESENT ILLNESS: PAIN THE PATIENT DESCRIBES THE PAIN... 52 YEAR OLD MALE PATIENT WITH HISTORY OF CHRONIC BACK PAIN. PATIENT DESCRIBES THE PAIN ACHING AND THROBBING WITH A PAIN SCORE OF 8/10. 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 PATIENT RECEIVED A DIAGNOSTIC FACET BLOCK OVER THE RIGHT SIDE AND REPORTS HAVING OVER 50% RELIEF OF PAIN, INCREASED FUNCTIONALITY AND MOBILITY.PAIN RELIEF LASTED FOR 2 DAYS AND THEN THE PAIN CAME BACK. PATIENT STATES HIS WORST PAIN IS NOW THE LEFT SIDE AND HIS PAIN IS MINOR OVER THE RIGHT. PATIENT REPORTS THAT TIZANIDINE DOES HELP HIM FALL ASLEEP AND USES IBUPROFEN NEEDED THROUGHOUT THE DAY TO AID IN PAIN RELIEF. PATIENT STATES THAT HE HAS TRIED PHYSICAL THERAPY IN THE PAST AND IT DID NOT WORK IT INCREASE HIS PAIN LEVELS RATHER THAN DECREASING IT .PATIENT STATES THAT HE HAS SLEEP APNEA AND USES A CPAP MACHINE. PATIENT DENIES UNEXPLAINABLE WEIGHT LOSS, FEVER, CHILLS, NEW CHANGES ON HIS URINARY OR BOWEL CONTROL. FALL RISK SCREENING: SCREENING :NO FALLS IN THE PAST YEAR CURRENT MEDICATIONS TAKING CITALOPRAM HYDROBROMIDE 10 MG TABLET 2 TABLETS ORALLY ONCE A DAY, NOTES: 09/15/171999 TAKING LOSARTAN POTASSIUM-HCTZ 100-25 MG TABLET 1 TABLET ORALLY ONCE A DAY, NOTES: 09/16/17599 TAKING ASPIR-81 ONCE A DAY, NOTES: 09/15/171999 TAKING FISH OIL 1000 MG CAPSULE ORALLY BID, NOTES: 09/16/17599 TAKING AMLODIPINE 5MG TABLET 1 TAB ORAL DAILY, NOTES: 09/15/171999 TAKING MULTIVITAMIN ADULTS 50+ - TABLET 1 TAB ORALLY DAILY, NOTES: 09/15/17599 TAKING TIZANIDINE HCL 2 MG TABLET 1 TABLET NEEDED ORALLY FOR SPASMS AND PAIN BEFORE BEDTIME MAY REPEAT IN 4HRS MDD2 WORKERS COMPENSATION, NOTES: 09/15/171999 TAKING ALBUTEROL SULFATE HFA 108 (90 BASE) MCG/ACT AEROSOL SOLUTION 2 PUFFS NEEDED INHALATION EVERY 4 HRS NEEDED FOR SHORTNESS OF BREATH, NOTES: > 1 MONTH TAKING VENTOLIN HFA 108 (90 BASE) MCG/ACT AEROSOL SOLUTION 2 PUFFS NEEDED INHALATION EVERY 4 HRS PRN, NOTES: > 1 MONTH TAKING STOOL SOFTENER 100 MG CAPSULE 2 ORALLY ONCE A DAY, NOTES: 09/15/171999 TAKING ZETIA 10 MG TABLET 1 TABLET ORALLY ONCE A DAY, NOTES: 09/15/171999 TAKING HYDROCODONE-ACETAMINOPHEN 5-325 MG TABLET 1 TABLET NEEDED ORALLY EVERY 6 HRS, NOTES: > 2 MONTHS TAKING MULTIVITAMINS , NOTES: 09/16/17 0600 TAKING IBUPROFEN 800 MG TABLET 1 TABLET ORALLY WITH FOOD THREE TIMES DAILY NEEDED FOR PAIN, NOTES: 09/15/171999 TAKING CRESTOR 20 MG TABLET 1 TABLET ORALLY ONCE A DAY NOT-TAKING FLONASE 50 MCG/ACT SUSPENSION 1 SPRAY IN EACH NOSTRIL NASALLY BID, NOTES: HASN'T STARTED YET NOT-TAKING CYMBALTA 60 MG 1 TABLET PO ONCE DAILY MEDICATION LIST REVIEWED AND RECONCILED WITH THE PATIENT PAST MEDICAL HISTORY OLD L1 L2 COMPRESSION FX HTN DEPRESSION/ANXIETY MURTAZA WITH CPAP HIGH CHOLESTEROL BOWEL OBSTRUCTION ALLERGIES N.K.D.A. REVIEW OF SYSTEMS REVIEWED BY: PROVIDER: , MARSHA WRIGHT MD . CONSTITUTIONAL: ANY CHANGE IN YOUR MEDICAL CONDITION? NO . CHILLS NO . FEVER NO . INFECTION: DO YOU HAVE NEW INFECTIONS? NO . DO YOU HAVE HISTORY OF MRSA? NO . MUSCULOSKELETAL: ANY NEW PATTERNS OF PAIN OR NUMBNESS? YESPT HAD [facility] DIAGNOSTIC #1 09/16/17, REPORTS GOOD PAIN RELIEF THAT LASTED ABOUT 2 DAYS, THEN PAIN RETURNED TO PRE-PROCEDURE LEVEL. . GASTROENTEROLOGY: ANY NEW CHANGE IN BOWEL CONTROL? NO . GENITOURINARY: ANY NEW CHANGE IN BLADDER CONTROL? NO . IS THERE A CHANCE YOU COULD BE ? NO . HEMATOLOGY/LYMPH: DO YOU TAKE ANY BLOOD THINNERS? (FOR EXAMPLE- COUMADIN, PLAVIX, AGGRENOX, PLATEL, PRADAXA, OR XARELTO) NO . WHEN WAS YOUR LAST DOSE? DATE: TIME: . NEUROLOGY: HAVE YOU FALLEN IN THE PAST 6 MONTHS? NO . ANY NEW EXTREMITY NUMBNESS OR WEAKNESS? NO . CARDIOLOGY: DO YOU HAVE A PACEMAKER OR DEFIBRILLATOR? NO . RESPIRATORY: HAVE YOU BEEN SICK IN THE PAST WEEK? NO . FEVER NO . FLU LIKE SYMPTOMS? NO . COUGH NO . INTEGUMENTARY: DO YOU HAVE ANY RASHES OR OPEN SORES? NO . ALLERGIC/IMMUNO: ARE YOU ALLERGIC TO SHELLFISH OR IV DYE? NO . ANY NEW ALLERGIES? NO . PSYCHIATRIC: DO YOU HAVE THOUGHTS OF HURTING YOURSELF OR SOMEONE ELSE? NO . ARE YOU ABUSED, NEGLECTED, OR IN AN UNSAFE ENVIRONMENT? NO . ENDOCRINOLOGY: ARE YOU DIABETIC? NO . OTHER: DO YOU NEED ANY PRESCRIPTIONS? NO . IF YES, PLEASE LIST: ____ . ANY NEW PROBLEMS WITH YOUR MEDICATIONS? NO . WHEN DID YOU LAST EAT? ____ . WHEN DID YOU LAST DRINK? ____ . WHAT DID YOU LAST DRINK? ____ . NAME OF PERSON DRIVING YOU HOME? ____ . DO YOU HAVE ANY OTHER QUESTIONS OR CONCERNS NO . VITAL SIGNS WT 364.0 LBS, HT 71 IN, BMI 50.76 INDEX, BP 156/94 MM HG, HR 82 /MIN, RR 20 /MIN, TEMP 97.1 F, OXYGEN SAT % 97%, SAFE IN ENV? (Y/N) YES, NA INITIALS TL 1533, REVIEWED BY: JEN BP PATIENT STATES HE FORGOT TO TAKE HIS BP 156/94 MEDICATION YESTERDAY- TL. EXAMINATION : PATIENT IS ALERT O X 3 AND COOPERATIVE. BILATERAL LOWER BACK PAIN, MAINLY LEFT SIDE. TENDERNESS IN THE LEFT PARASPINAL MUSCLE GROUP. MRI ON 05/10/16 SHOWS DISC BULGES FROM L1-L2 THROUGH L5-S1 AND CANAL STENOSIS. ASSESSMENTS SPONDYLOSIS WITHOUT MYELOPATHY OR RADICULOPATHY, LUMBOSACRAL REGION - M47.817 (PRIMARY) SPONDYLOSIS OF LUMBAR REGION WITHOUT MYELOPATHY OR RADICULOPATHY - M47.816 TREATMENT SPONDYLOSIS WITHOUT MYELOPATHY OR RADICULOPATHY, LUMBOSACRAL REGION REFILL TIZANIDINE HCL TABLET, 2 MG, 1 TABLET NEEDED, ORALLY FOR SPASMS AND PAIN, BEFORE BEDTIME MAY REPEAT IN 4HRS MDD2 WORKERS COMPENSATION, 30 DAY(S), 60, REFILLS 2, NOTES: 09/15/171999 CLINICAL NOTES: NOTES: WE DISCUSSED SEVERAL ISSUES WITH MR. MARTIN'S PAIN MANAGEMENT CASE. AT THIS TIME THE PATIENT WILL CONTINUE TO USE TIZANIDINE FOR THE MUSCLE SPASMS AT NIGHT AND IBUPROFEN THROUGHOUT THE DAY FOR THE INFLAMMATION. PATIENT WAS ADVISED TO USED THE IBUPROFEN WITH FOOD. DUE TO THE PATIENT HAVING GOOD RELIEF OVER THE LEFT SIDE I WOULD LIKE TO PROCEED WITH A SECOND DIAGNOSTIC FACET BLOCK OVER THE LEFT SIDE TO CONSIDER A RADIOFREQUENCY. WE DISCUSSED THE RISKS, BENEFITS, AND ALTERNATIVES OF THE INJECTION AND THE PATIENT WOULD LIKE TO PROCEED AT THIS TIME. I, CELSO GREER, DOCUMENTED THE ABOVE INFORMATION ACTING A SCRIBE FOR DR. WRIGHT. I HAVE REVIEWED THE ABOVE DOCUMENT, WRITTEN BY CELSO ANDERSONIBKobi AND I VERIFY THAT IT IS ACCURATE. OTHERS START GABAPENTIN CAPSULE, 300 MG, 1 CAPSULE, ORALLY FOR PAIN, BEFORE BEDTIME, 30 DAY(S), 30, REFILLS 0 PROCEDURES PN WORKMANS' COMP OPINION IN YOUR OPINION, WAS THE INCIDENT THAT THE PATIENT DESCRIBED THE COMPETENT MEDICAL CAUSE OF THIS INJURY/ILLNESS? YES ARE THE PATIENT'S COMPLAINTS CONSISTENT WITH HIS/HER HISTORY OF THE INJURY/ILLNESS? YES IS THE PATIENT'S HISTORY OF THE INJURY/ILLNESS CONSISTENT WITH YOUR OBJECTIVE FINDING? YES WHAT IS THE PERCENTAGE OF TEMPORARY IMPAIRMENT? MODERATE TO MARKED = 66.7% IS THE PATIENT WORKING? YES DOCTOR ON SITE: MARSHA TIDWELL MD PREVENTIVE MEDICINE REVIEWED PRE PROCEDURE CARE WITH PT EXPRESSING UNDERSTANDING. PROCEDURE CODES FA211 ESTABILISHED PATIENT [facility] FACILITY CHARGE G8730 PAIN ASSESS POS TOOL F/U PLAN DOC G8427 DOC MEDS VERIFIED W/PT OR RE DISPOSITION & COMMUNICATION FOLLOW UP 6 WEEKS ELECTRONICALLY SIGNED BY MARSHA WRIGHT MD ON 10/15/2017 AT 05:48 PM EST DISCLAIMER : THIS IS A VISIT SUMMARY EXTRACTED FROM THE [employer] CHART. IT IS NOT A COPY OF THE [employer] PROGRESS NOTE. MTDD
== END ==
LOC: M PAIN 15:30
PROVIDERS: ATTEND Anesthesiology
DX: G89.21 Chronic pain due to trauma (principal); M47.817 Spondylosis without myelopathy or radiculopathy, lumbosacral region; M47.816 Spondylosis without myelopathy or radiculopathy, lumbar region; I10 Essential (primary) hypertension; F32.9 Major depressive disorder, single episode, unspecified; F41.9 Anxiety disorder, unspecified; G47.33 Obstructive sleep apnea (adult) (pediatric); E78.2 Mixed hyperlipidemia; J30.9 Allergic rhinitis, unspecified; Z79.82 Long term (current) use of aspirin; Z79.899 Other long term (current) drug therapy

== ENCOUNTER → 2017-11-12 | Outpatient (CLI) | payer OTHER ==
[~2017-11-12] MED LIST changes: -ALDA25TA PO; -ALEV220T26 PO; -AMLO5TAB2 PO; -ASPI81TA85 PO; +BUPIVACAINE HCL 0.25% 30 ML VIAL As Ordered; -CITA10TA5 PO; -CITA20TA4 PO; -CLAR1TAB2 PO; -DULC5TAB PO; -FISH7.5C PO; -FLAX10005 PO; +ISOVUE-M 300 61% 15ML VIAL (Q9967) As Ordered; +LIDOCAINE 1% SDV INJ 30 ML VIAL As Ordered; -LOSA100T5 PO; -TUMS500C PO; -ZETI10TA30 PO
== END ==
LOC: M PAIN 11:30
DX: G89.29 Other chronic pain (principal); M47.816 Spondylosis without myelopathy or radiculopathy, lumbar region; M47.817 Spondylosis without myelopathy or radiculopathy, lumbosacral region; I10 Essential (primary) hypertension; F32.9 Major depressive disorder, single episode, unspecified; F41.9 Anxiety disorder, unspecified; G47.33 Obstructive sleep apnea (adult) (pediatric); Z79.82 Long term (current) use of aspirin; Z79.899 Other long term (current) drug therapy
CPT/HCPCS: Q9967

== ENCOUNTER → 2017-11-28 | Outpatient (CLI) | payer OTHER | LOC: M PAIN 14:15 | DX: G89.29 Other chronic pain (principal); M47.816 Spondylosis without myelopathy or radiculopathy, lumbar region; I10 Essential (primary) hypertension; G47.33 Obstructive sleep apnea (adult) (pediatric); F32.9 Major depressive disorder, single episode, unspecified; F41.9 Anxiety disorder, unspecified; E78.00 Pure hypercholesterolemia, unspecified; Z79.82 Long term (current) use of aspirin; Z79.899 Other long term (current) drug therapy | CPT/HCPCS: G0463 ==

== ENCOUNTER → 2018-01-06 | Outpatient (CLI) | payer OTHER ==
[~2018-01-06] MED LIST changes: +TRIAMCINOLONE ACETONIDE SUSP 40 MG/ML VIAL (J3301) As Ordered
== END ==
LOC: M PAIN 13:00
DX: G89.29 Other chronic pain (principal); M47.816 Spondylosis without myelopathy or radiculopathy, lumbar region; M47.817 Spondylosis without myelopathy or radiculopathy, lumbosacral region; I10 Essential (primary) hypertension; F32.9 Major depressive disorder, single episode, unspecified; F41.9 Anxiety disorder, unspecified; G47.33 Obstructive sleep apnea (adult) (pediatric); E78.00 Pure hypercholesterolemia, unspecified; Z79.82 Long term (current) use of aspirin; Z79.899 Other long term (current) drug therapy
CPT/HCPCS: J3301

== ENCOUNTER → 2018-01-27 | Outpatient (REF) | payer OTHER ==
[2018-01-27 12:10] LABS: HEMOGLOBIN 15.4 g/dl (14.0-18.0); MEAN CORPUSCULAR HEMOGLOBIN 29.2 pg (27.0-33.0); MEAN CORPUSCULAR HGB CONC 33.5 g/dl (32.0-36.5); MEAN CORPUSCULAR VOLUME 87.1 fl (80.0-96.0); PLATELET COUNT, AUTOMATED 204 10^3/uL (150-450); RED BLOOD COUNT 5.28 10^6/uL (4.30-6.10); WHITE BLOOD COUNT 6.6 10^3/uL (4.0-10.0)
[2018-01-27 12:50] LABS: ALBUMIN 4.2 GM/DL (3.2-5.2); ALBUMIN/GLOBULIN RATIO 1.24 (1.00-1.93); ALKALINE PHOSPHATASE 86 U/L (45-117); ALT/SGPT 34 U/L (12-78); ANION GAP 8 MEQ/L (8-16); AST/SGOT 17 U/L (7-37); BILIRUBIN,TOTAL 0.7 MG/DL (0.2-1.0); BLOOD UREA NITROGEN 19 MG/DL (7-18); CALCIUM LEVEL 9.4 MG/DL (8.5-10.1); CARBON DIOXIDE LEVEL 32 MEQ/L (21-32); CHLORIDE LEVEL 100 MEQ/L (98-107); CHOLESTEROL LEVEL 163 MG/DL (<200); CHOLESTEROL RISK RATIO 3.468 (<5); CREATININE FOR GFR 0.95 MG/DL (0.70-1.30); GLOMERULAR FILTRATION RATE > 60.0 (>56); GLUCOSE, FASTING 92 MG/DL (70-100); HDL CHOLESTEROL 47 MG/DL (>40); LDL CHOLESTEROL 80.6 MG/DL (<100); NON-HDL-C 116 MG/DL; POTASSIUM SERUM 4.9 MEQ/L (3.5-5.1); SODIUM LEVEL 140 MEQ/L (136-145); TOTAL PROTEIN 7.6 GM/DL (6.4-8.2); TRIGLYCERIDES LEVEL 177 MG/DL (<150)
[2018-01-27 12:57] LABS: ESTIMATED AVERAGE GLUCOSE 117 MG/DL (60-110); HEMOGLOBIN A1c 5.7 %
== END ==
LOC: M SFHCLERA 08:25
DX: R73.01 Impaired fasting glucose (principal); I10 Essential (primary) hypertension; E78.2 Mixed hyperlipidemia
CPT/HCPCS: 84443

== ENCOUNTER 2018-01-28 12:11 | Emergency (ER) | payer BC, OTHER ==
[2018-01-28] MEDS: ASPIRIN 81 MG CHEW TABLET PO (13:00)
[2018-01-28 13:07] LABS: BASO % 0.4 % (0.0-1.0); EOS # 0.2 10^3/uL (0.0-0.50); EOS % 2.1 % (0.0-3.0); HEMOGLOBIN 15.4 g/dl (14.0-18.0); IMMATURE GRANULOCYTE % 0.3 % (0-3.0); LYMPH # 1.8 10^3/uL (1.5-4.5); MEAN CORPUSCULAR HEMOGLOBIN 30.6 pg (27.0-33.0); MEAN CORPUSCULAR VOLUME 87.5 fl (80.0-96.0); MONO # 0.8 10^3/uL (0.0-0.8); MONO % 11.4 % (0.0-5.0); NEUTROPHILS # 4.3 10^3/uL (1.8-7.7); NEUTROPHILS % 60.8 % (36.0-66.0); PLATELET COUNT, AUTOMATED 202 10^3/uL (150-450); RED BLOOD COUNT 5.03 10^6/uL (4.30-6.10); RED CELL DISTRIBUTION WIDTH 12.9 % (11.5-14.5); WHITE BLOOD COUNT 7.1 10^3/uL (4.0-10.0)
[2018-01-28] MEDS: NITROGLYCERIN 0.4 MG SUBL TABLET SL ×3 (13:08→13:19)
[2018-01-28 13:15] LABS: INR 0.89; PROTHROMBIN TIME 12.1 SECONDS (12.4-14.5)
[2018-01-28 13:16] LABS: PARTIAL THROMBOPLASTIN TIME 27.1 SECONDS (26.8-37.9)
[2018-01-28 13:30] LABS: NT-PRO BNP 11 PG/ML (<125)
[2018-01-28 13:32] LABS: ALBUMIN/GLOBULIN RATIO 1.18 (1.00-1.93); ALKALINE PHOSPHATASE 85 U/L (45-117); ALT/SGPT 32 U/L (12-78); ANION GAP 6 MEQ/L (8-16); AST/SGOT 17 U/L (7-37); BILIRUBIN,DIRECT 0.1 MG/DL (0.0-0.2); BILIRUBIN,TOTAL 0.5 MG/DL (0.2-1.0); BLOOD UREA NITROGEN 21 MG/DL (7-18); CARBON DIOXIDE LEVEL 30 MEQ/L (21-32); CHLORIDE LEVEL 102 MEQ/L (98-107); CPK CREATINE PHOSPHOKINASE 82 U/L (39-308); CREATININE FOR GFR 0.91 MG/DL (0.70-1.30); GLOMERULAR FILTRATION RATE > 60.0 (>56); GLUCOSE, FASTING 83 MG/DL (70-100); LIPASE 119 U/L (73-393); POTASSIUM SERUM 4.1 MEQ/L (3.5-5.1); SODIUM LEVEL 138 MEQ/L (136-145); TOTAL PROTEIN 7.4 GM/DL (6.4-8.2); TROPONIN I < 0.02 NG/ML (< 0.10)
[2018-01-28 13:33] LABS: MB/CK RELATIVE INDEX 1.21 (< OR =4)
[2018-01-28] MEDS ORDERED: ISOVUE-370 76% 100ML VIAL (Q9967) As Ordered (14:05)
[2018-01-28 19:10] LABS: CPK CREATINE PHOSPHOKINASE 77 U/L (39-308); MB/CK RELATIVE INDEX 1.29 (< OR =4); TROPONIN I < 0.02 NG/ML (< 0.10)
== END 2018-01-28 21:13 | disposition home or self-care (01) ==
LOC: M ED 12:11
DX: R07.9 Chest pain, unspecified (principal); I70.8 Atherosclerosis of other arteries; I10 Essential (primary) hypertension; E78.5 Hyperlipidemia, unspecified; R42 Dizziness and giddiness; F41.9 Anxiety disorder, unspecified; F33.9 Major depressive disorder, recurrent, unspecified; G47.33 Obstructive sleep apnea (adult) (pediatric); E66.9 Obesity, unspecified; Z79.82 Long term (current) use of aspirin; Z79.899 Other long term (current) drug therapy; Z98.890 Other specified postprocedural states; Z87.19 Personal history of other diseases of the digestive system; Z82.49 Family history of ischemic heart disease and other diseases of the circulatory system
CPT/HCPCS: Q9967

== ENCOUNTER → 2018-01-28 | Outpatient (CLI) | payer OTHER, BC | LOC: M PAIN 10:00 | DX: M47.816 Spondylosis without myelopathy or radiculopathy, lumbar region (principal); I10 Essential (primary) hypertension; E78.00 Pure hypercholesterolemia, unspecified; G47.33 Obstructive sleep apnea (adult) (pediatric); Z79.899 Other long term (current) drug therapy | CPT/HCPCS: G0463 ==

== ENCOUNTER → 2018-02-25 | Outpatient (CLI) | payer OTHER, BC | LOC: M PAIN 14:30 | DX: G89.29 Other chronic pain (principal); M47.816 Spondylosis without myelopathy or radiculopathy, lumbar region; I10 Essential (primary) hypertension; F32.9 Major depressive disorder, single episode, unspecified; F41.9 Anxiety disorder, unspecified; G47.33 Obstructive sleep apnea (adult) (pediatric); E78.00 Pure hypercholesterolemia, unspecified; Z79.82 Long term (current) use of aspirin; Z79.899 Other long term (current) drug therapy | CPT/HCPCS: G0463 ==

== ENCOUNTER → 2018-03-12 | Outpatient (CLI) | payer OTHER, BC ==
[~2018-03-12] MED LIST changes: -TRIAMCINOLONE ACETONIDE SUSP 40 MG/ML VIAL (J3301) As Ordered
== END ==
LOC: M PAIN 14:30
DX: G89.29 Other chronic pain (principal); M47.816 Spondylosis without myelopathy or radiculopathy, lumbar region; M47.817 Spondylosis without myelopathy or radiculopathy, lumbosacral region; I10 Essential (primary) hypertension; F32.9 Major depressive disorder, single episode, unspecified; F41.9 Anxiety disorder, unspecified; G47.33 Obstructive sleep apnea (adult) (pediatric); E78.00 Pure hypercholesterolemia, unspecified; Z79.82 Long term (current) use of aspirin; Z79.899 Other long term (current) drug therapy
CPT/HCPCS: Q9967

== ENCOUNTER → 2018-04-24 | Outpatient (CLI) | payer OTHER | LOC: M PAIN 13:30 | DX: M47.816 Spondylosis without myelopathy or radiculopathy, lumbar region (principal); I10 Essential (primary) hypertension; F32.9 Major depressive disorder, single episode, unspecified; F41.9 Anxiety disorder, unspecified; G47.33 Obstructive sleep apnea (adult) (pediatric); E78.00 Pure hypercholesterolemia, unspecified; Z79.82 Long term (current) use of aspirin; Z79.899 Other long term (current) drug therapy | CPT/HCPCS: G0463 ==

== ENCOUNTER 2018-07-24 07:27 | Day surgery (SDC) | payer BC ==
[2018-07-24] MEDS: LR 1,000 ML IV (08:25)
[2018-07-24] MEDS ORDERED: MIDAZOLAM INJ 2 MG/2 ML VIAL (J2250) As Ordered (08:54)
[2018-07-24] MEDS ORDERED: fentaNYL 100 MCG/2 ML INJECTION (J3010) As Ordered (08:55)
[2018-07-24] MEDS ORDERED: PROPOFOL 200 MG/20 ML VIAL As Ordered ×2 (08:56→09:24)
[2018-07-24] MEDS ORDERED: LIDOCAINE 2% INJ 100 MG/5 ML SDV (FOR ANES.) As Ordered (08:56)
[2018-07-24] MEDS ORDERED: KETAMINE HCL 200 MG/20 ML VIAL As Ordered (10:05)
[2018-07-24] MEDS: BUPIVACAINE HCL 0.25% 30 ML VIAL As Ordered (10:17)
[2018-07-24] MEDS: LIDOCAINE 1% SDV INJ 30 ML VIAL As Ordered (10:18)
[2018-07-24] MEDS: LIDOCAINE 0.5% SDV INJ 50 ML VIAL As Ordered (10:18)
[2018-07-24] MEDS ORDERED: GLYCOPYRROLATE INJ 0.2 MG/ML 2 ML VIAL As Ordered (10:24)
[2018-07-24] MEDS ORDERED: ONDANSETRON 4MG/2ML VIAL (J2405) IV (11:30)
[2018-07-24] MEDS ORDERED: MORPHINE 10 MG/ML 1ML VIAL (J2270) IV (11:30)
[2018-07-24] MEDS ORDERED: IBUPROFEN 600 MG TAB PO (11:30)
[2018-07-24] MEDS ORDERED: NORCO, ANEXSIA 5/325MG TABLET (HYDROcodone/ACETAMINOPHEN) PO (11:30)
[2018-07-24] MEDS ORDERED: ACETAMINOPHEN TAB 650MG DOSE (2X325MG) PO (11:30)
[2018-07-24] MEDS ORDERED: LR 1,000 ML IV (11:30)
[2018-07-24] MEDS ORDERED: PERCOCET 5MG/325MG TAB PO (11:30)
== END 2018-07-24 11:22 | disposition home or self-care (01) ==
LOC: M SDC 07:27
DX: D17.1 Benign lipomatous neoplasm of skin and subcutaneous tissue of trunk (principal); I10 Essential (primary) hypertension; E78.5 Hyperlipidemia, unspecified; F41.9 Anxiety disorder, unspecified; G47.33 Obstructive sleep apnea (adult) (pediatric); E66.01 Morbid (severe) obesity due to excess calories; Z79.82 Long term (current) use of aspirin
CPT/HCPCS: 11406

== ENCOUNTER → 2018-08-19 | Outpatient (CLI) | payer OTHER | LOC: M PAIN 08:30 | DX: M47.816 Spondylosis without myelopathy or radiculopathy, lumbar region (principal); G89.29 Other chronic pain; I10 Essential (primary) hypertension; F32.9 Major depressive disorder, single episode, unspecified; F41.9 Anxiety disorder, unspecified; G47.33 Obstructive sleep apnea (adult) (pediatric); E78.00 Pure hypercholesterolemia, unspecified; E66.01 Morbid (severe) obesity due to excess calories; Z68.43 Body mass index [BMI] 50.0-59.9, adult; Z79.82 Long term (current) use of aspirin; Z79.899 Other long term (current) drug therapy | CPT/HCPCS: G0463 ==

== ENCOUNTER → 2018-09-25 | Outpatient (CLI) | payer OTHER | LOC: M RAD 11:01 | DX: M47.816 Spondylosis without myelopathy or radiculopathy, lumbar region (principal) ==

== ENCOUNTER → 2018-10-19 | Outpatient (CLI) | payer OTHER | LOC: M PAIN 09:00 | DX: M47.816 Spondylosis without myelopathy or radiculopathy, lumbar region (principal); G89.29 Other chronic pain; I10 Essential (primary) hypertension; G47.33 Obstructive sleep apnea (adult) (pediatric); E78.00 Pure hypercholesterolemia, unspecified; F32.9 Major depressive disorder, single episode, unspecified; F41.9 Anxiety disorder, unspecified; E66.01 Morbid (severe) obesity due to excess calories; Z68.43 Body mass index [BMI] 50.0-59.9, adult; Z79.82 Long term (current) use of aspirin; Z79.899 Other long term (current) drug therapy | CPT/HCPCS: G0463 ==

== ENCOUNTER → 2018-10-28 | Outpatient (REF) | payer BC | LOC: M SFHCLERA 17:13 | DX: I10 Essential (primary) hypertension (principal); Z53.9 Procedure and treatment not carried out, unspecified reason ==

== ENCOUNTER → 2019-03-04 | Outpatient (CLI) | payer OTHER ==
[~2019-03-04] MED LIST changes: +ALEV220T26 PO; +AMLO5TAB6 PO; +ASPI81TA85 PO; -BUPIVACAINE HCL 0.25% 30 ML VIAL As Ordered; +BUPIVACAINE HCL 0.25% 30 ML VIAL As Ordered ONE; +CITA10TA5 PO; +CITA20TA6 PO; +CLAR10CA3 PO; +CLAR1TAB2 PO; +DULC5TAB PO; +FISH7.5C PO; +FLAX10005 PO; -ISOVUE-M 300 61% 15ML VIAL (Q9967) As Ordered; +ISOVUE-M 300 61% 15ML VIAL (Q9967) As Ordered ONE; -LIDOCAINE 1% SDV INJ 30 ML VIAL As Ordered; +LIDOCAINE 1% SDV INJ 30 ML VIAL As Ordered ONE; +LOSA100T5 PO; +PROAAER10 INH; +ROSU20TA4 PO; +SPIR-10 PO; +SPIR1TAB34 PO; +STOO100C PO; +TRIAMCINOLONE ACETONIDE SUSP 40 MG/ML VIAL (J3301) As Ordered ONE; +TUMS500C PO; +ZETI10TA30 PO; +diazePAM 5 MG TAB As Ordered ONE; +oxyCODONE 5MG TAB As Ordered ONE
--- NOTE | 2019-03-04 16:28 | REP ---
SI joint series: Three views: History: Injection procedure for pain. 26 seconds of fluoroscopy time is reported. Findings: A sequence of three last image hold fluoroscopically obtained images of the right SI joint document needle position associated with SI joint injection procedure. Electronically Signed by Morales Prado MD 03/04/2019 06:55 P
--- NOTE | 2019-03-22 00:35 | ECWPNPC ---
PATIENT NAME: MELBA MARTIN : 1965 GENDER: MALE VISIT DATE: 03/04/2019 DISCHARGE DATE: 03/04/19 1407 VISIT LOCKED DATE TIME: PHYSICIAN: MARSHA WRIGHT MD RESOURCE: MARSHA WRIGHT MD REASON FOR APPOINTMENT 1. W/C RIGHT SIJ HISTORY OF PRESENT ILLNESS HISTORY OF PRESENT ILLNESS: PAIN THE PATIENT DESCRIBES THE PAIN... FALL RISK SCREENING: SCREENING :NO FALLS REPORTED IN THE LAST YEAR CURRENT MEDICATIONS TAKING ASPIR-81 1 TABLET ORALLY ONCE A DAY, NOTES: 03/02 TAKING MULTIVITAMIN ADULTS 50+ - TABLET 1 TAB ORALLY DAILY, NOTES: 03/02 TAKING STOOL SOFTENER 100 MG CAPSULE 2 ORALLY ONCE A DAY, NOTES: 03/03 TAKING TIZANIDINE HCL 2 MG TABLET 1 TABLET NEEDED ORALLY FOR SPASMS AND PAIN BEFORE BEDTIME MAY REPEAT IN 4HRS MDD2 WORKERS COMPENSATION, NOTES: 02/25 TAKING FLONASE 50 MCG/ACT SUSPENSION 1 SPRAY IN EACH NOSTRIL NASALLY TWICE A DAY, NOTES: 02/25 TAKING AMLODIPINE BESYLATE 10 MG TABLET 1 TABLET ORALLY ONCE A DAY, NOTES: 03/03 PM TAKING ALBUTEROL SULFATE HFA 108 (90 BASE) MCG/ACT AEROSOL SOLUTION 2 PUFFS NEEDED INHALATION EVERY 4 HRS NEEDED FOR SHORTNESS OF BREATH, NOTES: NONE RECENT TAKING LOSARTAN POTASSIUM-HCTZ 100-25 MG TABLET 1 TABLET ORALLY ONCE A DAY, NOTES: 03/04 8AM TAKING SPIRONOLACTONE 25 MG TABLET 1 TABLET WITH FOOD ORALLY ONCE A DAY, NOTES: 03/04 8AM TAKING BISOPROLOL FUMARATE 10 MG TABLET 1 TABLET ORALLY ONCE A DAY, NOTES: 03/04 8AM TAKING CRESTOR 20 MG TABLET 1 TABLET ORALLY ONCE A DAY, NOTES: 03/03 8PM TAKING CITALOPRAM HYDROBROMIDE 10 MG TABLET 1 TABLET ORALLY ONCE A DAY, NOTES: 03/03 8PM NOT-TAKING SUDAFED 30 MG TABLET 1 TABLET NEEDED ORALLY EVERY 6 HRS NOT-TAKING MECLIZINE HCL 25 MG TABLET CHEWABLE 1 TABLET NEEDED ORALLY ONCE A DAY NOT-TAKING IBUPROFEN 800 MG TABLET 1 TABLET ORALLY WITH FOOD THREE TIMES DAILY NEEDED FOR PAIN, NOTES: PRN MEDICATION LIST REVIEWED AND RECONCILED WITH THE PATIENT PAST MEDICAL HISTORY OLD L1 L2 COMPRESSION FX HTN DEPRESSION/ANXIETY MURTAZA WITH CPAP HIGH CHOLESTEROL BOWEL OBSTRUCTION ALLERGIES N.K.D.A. SURGICAL HISTORY EXPLORATORY LAP 2015 UMBILICAL HERNIA REPAIR CYST REMOVED FROM BACK -DR HARPER 2017 FAMILY HISTORY FATHER: ALIVE, DIAGNOSED WITH HYPERTENSION, HEART DISEASE MOTHER: ALIVE, HEART DISEASE PATERNAL GRAND FATHER: STROKE MATERNAL GRAND MOTHER: CANCER 1 BROTHER(S) , 1 SISTER(S) - HEALTHY. 2 SON(S) , 2 DAUGHTER(S) - HEALTHY. MGM COLON CA. SOCIAL HISTORY GENERAL: TOBACCO USE ARE YOU A:NONSMOKER LATEX QUESTIONNAIRE LATEX ALLERGY : HAVE YOU EVER DEVELOPED ANY TYPE OF REACTION AFTER HANDLING LATEX PRODUCTS SUCH RUBBER GLOVES, CONDOMS, DIAPHRAGMS, BALLOONS, SOCKS, OR UNDERWEAR?NO LATEX ALLERGY : HAVE YOU EVER DEVELOPED ANY TYPE OF REACTION DURING OR AFTER DENTAL APPOINTMENT, VAGINAL/RECTAL EXAMINATION, SURGICAL PROCEDURE, OR ANY OTHER EXPOSURE?NO LATEX RISK : HAVE YOU EVER HAD ANY DIFFICULTY BREATHING OR HIVES AFTER EATING OR HANDLING ANY FRUITS, OR VEGETABLES; SUCH KIWI, BANANAS, STONE FRUITS, OR CHESTNUTSNO LATEX RISK : DO YOU HAVE A PREVIOUS PERSONAL HISTORY OF MORE THAN NINE SURGERIES, SPINA BIFIDA, OR REPEATED CATHERTIZATIONS? NO LATEX RISK : ARE YOU FREQUENTLY EXPOSED TO LATEX PRODUCTS IN YOUR OCCUPATION?NO DATE ASKED : 03/04/2019 BMI CARE GOAL FOLLOW-UP ABOVE NORMAL BMI FOLLOW-UPDIETARY MANAGEMENT EDUCATION, GUIDANCE, AND COUNSELING ALCOHOL SCREENING DID YOU HAVE A DRINK CONTAINING ALCOHOL IN THE PAST YEAR?YES HOW OFTEN DID YOU HAVE SIX OR MORE DRINKS ON ONE OCCASION IN THE PAST YEAR?NEVER (0 POINTS) HOW MANY DRINKS DID YOU HAVE ON A TYPICAL DAY WHEN YOU WERE DRINKING IN THE PAST YEAR?1 OR 2 (0 POINTS) HOW OFTEN DID YOU HAVE A DRINK CONTAINING ALCOHOL IN THE PAST YEAR?MONTHLY OR LESS (1 POINT) POINTS1 INTERPRETATIONNEGATIVE RECREATIONAL DRUG USE DRUG USE?NO CAFFEINE CAFFEINE USE?YES HOW OFTEN AND HOW MUCH? 2 CUPS/DAY SEXUAL HX HAD SEX IN THE LAST 12 MONTHS (VAGINAL, ORAL, OR ANAL)?YES WITHWOMEN ONLY HAVE YOU EVER HAD AN STD?NO HIV / HEP-C SCREENING HIV TEST OFFERED TO PATIENT:YES DATE OFFERED:10/28/2018 TEST ACCEPTED:YES HEP-C TEST OFFERED TO PATIENT:YES DATE OFFERED:10/28/2018 TEST ACCEPTED:YES BROCHURE PROVIDED TO PATIENTYES RASTAFARI [id number] [employer]ANG[employer] LANGUAGES SPOKEN:CAMEROONIAN EDUCATION LEVEL OF EDUCATION:HIGH SCHOOL LEARNING BARRIERS / SPECIAL NEEDS CHANGE FROM LAST VISIT?NO BARRIERS TO LEARNING?NO HEARING IMPAIRED?NO VISION IMPAIRED?YES WEARS GLASSES COGNITIVELY IMPAIRED?NO READINESS TO LEARN?YES LEARNING PREFERENCES?YES : VERBAL DISCUSSION LEARNING CAPABILITIES PRESENT?YES EMOTIONAL BARRIERS?NO SPECIAL DEVICES?NO FREELANCE OPERATOR NEEDED?NO DOMESTIC VIOLENCE DO YOU FEEL SAFE IN YOUR ENVIRONMENT?YES OCCUPATION: WORKS FOR [employer]. DIET: REGULAR. EXERCISE: NONE. MARITAL STATUS: . OTHERS AT HOME: SPOUSE, CHILD( YOUNGEST DAUGHTER). NEW PATIENT PAIN DIARY FROM 0-10, WHAT LEVEL IS YOUR PAIN TODAY?6 PAIN CLINIC PFS, CLERGY, PUBLIC HEALTH REFERRALS WAS THE PROVIDER NOTIFIED OF ANY PERTINENT INFO?YES HAS THE PATIENT BEEN EDUCATED REGARDING HIS/HER PLAN OF CARE?YES PATIENT HAS HAD THIS PROCEDURE BEFORE. 03/12/18 HAS THE PATIENT BEEN EDUCATED REGARDING PAIN, THE RISK FOR PAIN, THE IMPORTANCE OF EFFECTIVE PAIN MANAGEMENT, AND THE PAIN ASSESSMENT PROCESS?YES ADVANCE DIRECTIVE ADVANCE DIRECTIVE DISCUSSED WITH PATIENT:YES HCP INFO AND ASSISTANCE DECLINED AT THIS TIME. REVIEWED NL 10/19/18REVIEWED WITH PT 01/25/19 1437 BV. HOSPITALIZATION/MAJOR DIAGNOSTIC PROCEDURE BOWEL OBSTRUCTION 2016 REVIEW OF SYSTEMS REVIEWED BY: PROVIDER: . CONSTITUTIONAL: ANY CHANGE IN YOUR MEDICAL CONDITION? NO . CHILLS NO . FEVER NO . INFECTION: DO YOU HAVE NEW INFECTIONS? NO . DO YOU HAVE HISTORY OF MRSA? NO . MUSCULOSKELETAL: ANY NEW PATTERNS OF PAIN OR NUMBNESS? NO . GASTROENTEROLOGY: ANY NEW CHANGE IN BOWEL CONTROL? NO . GENITOURINARY: ANY NEW CHANGE IN BLADDER CONTROL? NO . IS THERE A CHANCE YOU COULD BE ? NO . HEMATOLOGY/LYMPH: DO YOU TAKE ANY BLOOD THINNERS? (FOR EXAMPLE- COUMADIN, PLAVIX, AGGRENOX, PLATEL, PRADAXA, OR XARELTO) NO . WHEN WAS YOUR LAST DOSE? DATE: TIME: . NEUROLOGY: HAVE YOU FALLEN IN THE PAST 12 MONTHS? NO . ANY NEW EXTREMITY NUMBNESS OR WEAKNESS? NO . CARDIOLOGY: DO YOU HAVE A PACEMAKER OR DEFIBRILLATOR? NO . RESPIRATORY: HAVE YOU BEEN SICK IN THE PAST WEEK? NO . FEVER NO . FLU LIKE SYMPTOMS? NO . COUGH NO . INTEGUMENTARY: DO YOU HAVE ANY RASHES OR OPEN SORES? NO . ALLERGIC/IMMUNO: ARE YOU ALLERGIC TO IV DYE? NO . ANY NEW ALLERGIES? NO . PSYCHIATRIC: DO YOU HAVE THOUGHTS OF HURTING YOURSELF OR SOMEONE ELSE? NO . ARE YOU ABUSED, NEGLECTED, OR IN AN UNSAFE ENVIRONMENT? NO . ENDOCRINOLOGY: ARE YOU DIABETIC? NO . OTHER: DO YOU NEED ANY PRESCRIPTIONS? NO . IF YES, PLEASE LIST: ____ . ANY NEW PROBLEMS WITH YOUR MEDICATIONS? NO . WHEN DID YOU LAST EAT? 03/03 8PM . WHEN DID YOU LAST DRINK? 03/04 8AM . WHAT DID YOU LAST DRINK? BLACK COFFEE . NAME OF PERSON DRIVING YOU HOME? CHANO . DO YOU HAVE ANY OTHER QUESTIONS OR CONCERNS NO . VITAL SIGNS WT 375.8 LBS, HT 71 IN, BMI 52.41 INDEX, BP 158/70 MM HG, HR 57 /MIN, RR 16 /MIN, TEMP 98.4 F, OXYGEN SAT % 96, SAFE IN ENV? (Y/N) Y, REVIEWED BY: MARLEE TORO. ASSESSMENTS SACROILIITIS - M46.1 (PRIMARY) TREATMENT SACROILIITIS [facility] FLUORO GUIDANCE (PAIN)[id number] PROCEDURES PN WORKMANS' COMP OPINION IN YOUR OPINION, WAS THE INCIDENT THAT THE PATIENT DESCRIBED THE COMPETENT MEDICAL CAUSE OF THIS INJURY/ILLNESS? YES ARE THE PATIENT'S COMPLAINTS CONSISTENT WITH HIS/HER HISTORY OF THE INJURY/ILLNESS? YES IS THE PATIENT'S HISTORY OF THE INJURY/ILLNESS CONSISTENT WITH YOUR OBJECTIVE FINDING? YES WHAT IS THE PERCENTAGE OF TEMPORARY IMPAIRMENT? MODERATE TO MARKED = 66.7% IS THE PATIENT WORKING? YES DOCTOR ON SITE: MARSHA TIDWELL MD PN SI PRE PROCEDURE DIAGNOSIS SACROILIITIS, SACROILIAC JOINT DYSFUNCTION POST PROCEDURE DIAGNOSIS SACROILIITIS, SACROILIAC JOINT DYSFUNCTION PROCEDURE RIGHT SACROILIAC JOINT BLOCK SURGEON DR. MARSHA WRIGHT PATIENT ESCORT NONE ANESTHESIA LOCAL PRE PROCEDURE NOTE PATIENT WITH HISTORY OF CHRONIC LOW BACK PAIN. I EVALUATED THE PATIENT AND REVIEWED THE CHART. I WENT OVER THE RISKS, ALTERNATIVES, AND BENEFITS ASSOCIATED WITH THIS PROCEDURE. THE PATIENT WOULD LIKE TO PROCEED AND GAVE CONSENT TO PERFORM THE PROCEDURE. THE PATIENT DENIES UNEXPLAINABLE WEIGHT LOSS, FEVER, CHILLS, OR NEW CHANGES IN URINARY OR BOWEL CONTROL DESCRIPTION OF PROCEDURE THE PATIENT WAS BROUGHT TO THE PROCEDURE ROOM AND PLACED IN THE PRONE POSITION. THE LUMBOSACRAL AREA WAS CLEANED WITH CHLORAPREP SOLUTION AND DRAPED ASEPTICALLY. THE PROCEDURE WAS DONE UNDER STERILE CONDITIONS. I CHECKED LATERALITY AND THE LEVEL WHERE THE PROCEDURE WAS GOING TO BE PERFORMED WITH THE PATIENT AND THE SUPPORTING STAFF AT THE MOMENT OF THE TIME OUT IN THE PROCEDURE ROOM. UNDER FLUOROSCOPIC GUIDANCE, TARGET POINT WAS SELECTED AT THE LOWER BORDER OF THE RIGHT SACROILIAC JOINT. TARGET POINT WAS SELECTED AFTER MEDIAL ROTATION AND TILT OF THE MAGNIFIER OF THE C-ARM. LIDOCAINE WAS USED TO NUMB THE SKIN AND SUBCUTANEOUS TISSUE BELOW IT. A SPINAL NEEDLE, 22-GAUGE, WAS ADVANCED UNDER FLUOROSCOPIC GUIDANCE AND FOLLOWING PATIENT FEEDBACK UNTIL THE TARGET AREA WAS TOUCHED. THE POSITION OF THE NEEDLE WAS VERIFIED WITH AP AND LATERAL VIEWS. AFTER PROPER POSITION OF THE NEEDLE WAS ACHIEVED, ISOVUE M DYE 30%, 0.25 ML, WAS INJECTED SHOWING SPREAD OF THE DYE. THEN, A SOLUTION OF 20 MG OF KENALOG WAS INJECTED IN RIGHT JOINT WITH 3 ML OF BUPIVACAINE 0.125%. THERE WAS NO EVIDENCE OF BLOOD, PARESTHESIA OR CEREBROSPINAL FLUID DURING THE PROCEDURE. THE PATIENT WAS SENT TO THE RECOVERY ROOM. THE PATIENT WAS MOVING THE EXTREMITIES AND DOING WELL. THERE WAS NO COMPLICATION DURING THE PROCEDURE. FLUOROSCOPY TIME WAS 26 SECONDS POST PROCEDURE NOTE THE PATIENT WILL BE SEEN IN A FOLLOW UP IN THE NEXT FEW WEEKS. INSTRUCTIONS WERE GIVEN, QUESTIONS WERE ANSWERED, AND THE PATIENT EXPRESSED UNDERSTANDING AND AGREED WITH THE PLAN. I, SHEILA MCFADDEN, DOCUMENTED THE ABOVE INFORMATION ACTING A SCRIBE FOR DR. WRIGHT. I HAVE REVIEWED THE ABOVE DOCUMENT, WRITTEN BY SHEILA ROY AND I VERIFY THAT IT IS ACCURATE. PROCEDURE CODES 6045F RADXPS IN END [id number] PXD [id number] INJECT SACROILIAC JOINT, MODIFIERS: RT DISPOSITION & COMMUNICATION FOLLOW UP 3 WEEKS ELECTRONICALLY SIGNED BY MARSHA WRIGHT MD, MD ON 03/21/2019 AT 07:31 PM EDT DISCLAIMER : THIS IS A VISIT SUMMARY EXTRACTED FROM THE [employer] CHART. IT IS NOT A COPY OF THE [employer] PROGRESS NOTE. MTDD
== END ==
LOC: M PAIN 12:15
PROVIDERS: ATTEND Anesthesiology
DX: G89.29 Other chronic pain (principal); M46.1 Sacroiliitis, not elsewhere classified; M53.88 Other specified dorsopathies, sacral and sacrococcygeal region; I10 Essential (primary) hypertension; F32.9 Major depressive disorder, single episode, unspecified; F41.9 Anxiety disorder, unspecified; E78.00 Pure hypercholesterolemia, unspecified; G47.33 Obstructive sleep apnea (adult) (pediatric); E66.01 Morbid (severe) obesity due to excess calories; Z68.43 Body mass index [BMI] 50.0-59.9, adult; Z79.82 Long term (current) use of aspirin; Z79.899 Other long term (current) drug therapy
CPT/HCPCS: G0260; J3301; Q9967

== ENCOUNTER → 2019-04-02 | Outpatient (CLI) | payer OTHER ==
[~2019-04-02] MED LIST changes: -BUPIVACAINE HCL 0.25% 30 ML VIAL As Ordered ONE; -ISOVUE-M 300 61% 15ML VIAL (Q9967) As Ordered ONE; -LIDOCAINE 1% SDV INJ 30 ML VIAL As Ordered ONE; -TRIAMCINOLONE ACETONIDE SUSP 40 MG/ML VIAL (J3301) As Ordered ONE; -diazePAM 5 MG TAB As Ordered ONE; -oxyCODONE 5MG TAB As Ordered ONE
--- NOTE | 2019-04-23 04:00 | ECWPNPC ---
PATIENT NAME: MELBA MARTIN : 1965 GENDER: MALE VISIT DATE: 04/02/2019 DISCHARGE DATE: 04/02/19 1603 VISIT LOCKED DATE TIME: PHYSICIAN: MAXIM VILLAVICENCIO RESOURCE: MAXIM VILLAVICENCIO DISCLAIMER : THIS IS A VISIT SUMMARY EXTRACTED FROM THE [facility] CHART. IT IS NOT A COPY OF THE [facility] PROGRESS NOTE. KO
== END ==
LOC: M PAIN 14:30
PROVIDERS: ATTEND Nurse Practitioner Family
DX: M79.18 Myalgia, other site (principal); I10 Essential (primary) hypertension; Z86.59 Personal history of other mental and behavioral disorders; G47.33 Obstructive sleep apnea (adult) (pediatric); E78.00 Pure hypercholesterolemia, unspecified; E66.01 Morbid (severe) obesity due to excess calories; Z68.43 Body mass index [BMI] 50.0-59.9, adult; Z79.82 Long term (current) use of aspirin; Z79.899 Other long term (current) drug therapy

== ENCOUNTER → 2019-06-15 | Outpatient (CLI) | payer OTHER ==
[~2019-06-15] MED LIST changes: +BUPIVACAINE HCL 0.25% 10 ML VIAL As Ordered ONE; +BUPIVACAINE HCL 0.25% 30 ML VIAL As Ordered ONE; +MM S100C PO; -ROSU20TA4 PO; +ROSU20TA5 PO; -STOO100C PO; +TRIAMCINOLONE ACETONIDE SUSP 40 MG/ML VIAL (J3301) As Ordered ONE; +diazePAM 5 MG TAB As Ordered ONE; +oxyCODONE 5MG TAB As Ordered ONE
--- NOTE | 2019-06-26 00:55 | ECWPNPC ---
PATIENT NAME: MELBA MARTIN : 1965 GENDER: MALE VISIT DATE: 06/15/2019 DISCHARGE DATE: 06/15/19 1541 VISIT LOCKED DATE TIME: PHYSICIAN: MARSHA WRIGHT MD RESOURCE: MARSHA WRIGHT MD REASON FOR APPOINTMENT 1. TPI LUMBAR R>L WORKMANS COMP HISTORY OF PRESENT ILLNESS HISTORY OF PRESENT ILLNESS: PAIN THE PATIENT DESCRIBES THE PAIN... FALL RISK SCREENING: SCREENING :NO FALLS REPORTED IN THE LAST YEAR CURRENT MEDICATIONS TAKING ASPIR-81 1 TABLET ORALLY ONCE A DAY, NOTES: 06/14/192099 TAKING MULTIVITAMIN ADULTS 50+ - TABLET 1 TAB ORALLY DAILY, NOTES: > 2 WEEKS TAKING STOOL SOFTENER 100 MG CAPSULE 2 ORALLY ONCE A DAY, NOTES: 06/14/192099 TAKING TIZANIDINE HCL 2 MG TABLET 1 TABLET NEEDED ORALLY FOR SPASMS AND PAIN BEFORE BEDTIME MAY REPEAT IN 4HRS MDD2 WORKERS COMPENSATION, NOTES: > 1 MONTH TAKING FLONASE 50 MCG/ACT SUSPENSION 1 SPRAY IN EACH NOSTRIL NASALLY TWICE A DAY, NOTES: 06/14/192099 TAKING ALBUTEROL SULFATE HFA 108 (90 BASE) MCG/ACT AEROSOL SOLUTION 2 PUFFS NEEDED INHALATION EVERY 4 HRS NEEDED FOR SHORTNESS OF BREATH, NOTES: 06/10/19 TAKING LOSARTAN POTASSIUM-HCTZ 100-25 MG TABLET 1 TABLET ORALLY ONCE A DAY, NOTES: 06/15/19799 TAKING SPIRONOLACTONE 25 MG TABLET 1 TABLET WITH FOOD ORALLY ONCE A DAY, NOTES: 06/15/19799 TAKING BISOPROLOL FUMARATE 10 MG TABLET 1 TABLET ORALLY ONCE A DAY, NOTES: 06/15/19799 TAKING CITALOPRAM HYDROBROMIDE 10 MG TABLET 1 TABLET ORALLY ONCE A DAY, NOTES: 06/14/192099 TAKING CRESTOR 20 MG TABLET 1 TABLET ORALLY ONCE A DAY, NOTES: 06/14/192099 TAKING AMLODIPINE BESYLATE 10 MG TABLET 1 TABLET ORALLY ONCE A DAY, NOTES: 06/14/192099 NOT-TAKING SUDAFED 30 MG TABLET 1 TABLET NEEDED ORALLY EVERY 6 HRS NOT-TAKING MECLIZINE HCL 25 MG TABLET CHEWABLE 1 TABLET NEEDED ORALLY ONCE A DAY NOT-TAKING IBUPROFEN 800 MG TABLET 1 TABLET ORALLY WITH FOOD THREE TIMES DAILY NEEDED FOR PAIN, NOTES: PRN MEDICATION LIST REVIEWED AND RECONCILED WITH THE PATIENT PAST MEDICAL HISTORY OLD L1 L2 COMPRESSION FX HTN DEPRESSION/ANXIETY MURTAZA WITH CPAP HIGH CHOLESTEROL BOWEL OBSTRUCTION ALLERGIES N.K.D.A. SURGICAL HISTORY EXPLORATORY LAP 2014 UMBILICAL HERNIA REPAIR CYST REMOVED FROM BACK -DR HARPER 2017 FAMILY HISTORY FATHER: ALIVE, DIAGNOSED WITH HYPERTENSION, HEART DISEASE MOTHER: ALIVE, HEART DISEASE PATERNAL GRAND FATHER: STROKE MATERNAL GRAND MOTHER: CANCER 1 BROTHER(S) , 1 SISTER(S) - HEALTHY. 2 SON(S) , 2 DAUGHTER(S) - HEALTHY. MGM COLON CA. SOCIAL HISTORY GENERAL: TOBACCO USE ARE YOU A:NONSMOKER HIV / HEP-C SCREENING HIV TEST OFFERED TO PATIENT:YES DATE OFFERED:10/28/2018 TEST ACCEPTED:YES HEP-C TEST OFFERED TO PATIENT:YES DATE OFFERED:10/28/2018 TEST ACCEPTED:YES BROCHURE PROVIDED TO PATIENTYES OTHERS AT HOME: SPOUSE, CHILD( YOUNGEST DAUGHTER). EDUCATION LEVEL OF EDUCATION:HIGH SCHOOL DIET: REGULAR. LANGUAGE LANGUAGES SPOKEN:BENINESE DOMESTIC VIOLENCE DO YOU FEEL SAFE IN YOUR ENVIRONMENT?YES NEW PATIENT PAIN DIARY FROM 0-10, WHAT LEVEL IS YOUR PAIN TODAY?6 BMI CARE GOAL FOLLOW-UP ABOVE NORMAL BMI FOLLOW-UPDIETARY MANAGEMENT EDUCATION, GUIDANCE, AND COUNSELING RECREATIONAL DRUG USE DRUG USE?NO EXERCISE: NONE. LEARNING BARRIERS / SPECIAL NEEDS CHANGE FROM LAST VISIT?NO BARRIERS TO LEARNING?NO HEARING IMPAIRED?NO VISION IMPAIRED?YES WEARS GLASSES COGNITIVELY IMPAIRED?NO READINESS TO LEARN?YES LEARNING PREFERENCES?YES : VERBAL DISCUSSION LEARNING CAPABILITIES PRESENT?YES EMOTIONAL BARRIERS?NO SPECIAL DEVICES?NO BOWLING ALLEY OPERATOR NEEDED?NO PAIN CLINIC PFS, CLERGY, PUBLIC HEALTH REFERRALS WAS THE PROVIDER NOTIFIED OF ANY PERTINENT INFO?YES HAS THE PATIENT BEEN EDUCATED REGARDING HIS/HER PLAN OF CARE?YES PATIENT HAS HAD THIS PROCEDURE BEFORE. 03/12/18 HAS THE PATIENT BEEN EDUCATED REGARDING PAIN, THE RISK FOR PAIN, THE IMPORTANCE OF EFFECTIVE PAIN MANAGEMENT, AND THE PAIN ASSESSMENT PROCESS?YES LATEX QUESTIONNAIRE LATEX ALLERGY : HAVE YOU EVER DEVELOPED ANY TYPE OF REACTION AFTER HANDLING LATEX PRODUCTS SUCH RUBBER GLOVES, CONDOMS, DIAPHRAGMS, BALLOONS, SOCKS, OR UNDERWEAR?NO LATEX ALLERGY : HAVE YOU EVER DEVELOPED ANY TYPE OF REACTION DURING OR AFTER DENTAL APPOINTMENT, VAGINAL/RECTAL EXAMINATION, SURGICAL PROCEDURE, OR ANY OTHER EXPOSURE?NO DATE ASKED : 03/04/2019 LATEX RISK : HAVE YOU EVER HAD ANY DIFFICULTY BREATHING OR HIVES AFTER EATING OR HANDLING ANY FRUITS, OR VEGETABLES; SUCH KIWI, BANANAS, STONE FRUITS, OR CHESTNUTSNO LATEX RISK : DO YOU HAVE A PREVIOUS PERSONAL HISTORY OF MORE THAN NINE SURGERIES, SPINA BIFIDA, OR REPEATED CATHERIZATIONS? NO LATEX RISK : ARE YOU FREQUENTLY EXPOSED TO LATEX PRODUCTS IN YOUR OCCUPATION?NO CAFFEINE CAFFEINE USE?YES HOW OFTEN AND HOW MUCH? 2 CUPS/DAY ADVANCE DIRECTIVE ADVANCE DIRECTIVE DISCUSSED WITH PATIENT:YES HCP INFO AND ASSISTANCE DECLINED AT THIS TIME. MUSLIM [id number] LATTER-DAY MARITAL STATUS: . ALCOHOL SCREENING DID YOU HAVE A DRINK CONTAINING ALCOHOL IN THE PAST YEAR?YES HOW OFTEN DID YOU HAVE SIX OR MORE DRINKS ON ONE OCCASION IN THE PAST YEAR?NEVER (0 POINTS) HOW MANY DRINKS DID YOU HAVE ON A TYPICAL DAY WHEN YOU WERE DRINKING IN THE PAST YEAR?1 OR 2 (0 POINTS) HOW OFTEN DID YOU HAVE A DRINK CONTAINING ALCOHOL IN THE PAST YEAR?MONTHLY OR LESS (1 POINT) POINTS1 INTERPRETATIONNEGATIVE OCCUPATION: WORKS FOR [employer]. SEXUAL HX HAD SEX IN THE LAST 12 MONTHS (VAGINAL, ORAL, OR ANAL)?YES WITHWOMEN ONLY HAVE YOU EVER HAD AN STD?NO REVIEWED NL 10/19/18REVIEWED WITH PT 01/25/19 1437 BV. HOSPITALIZATION/MAJOR DIAGNOSTIC PROCEDURE BOWEL OBSTRUCTION 2015 REVIEW OF SYSTEMS REVIEWED BY: PROVIDER: . CONSTITUTIONAL: ANY CHANGE IN YOUR MEDICAL CONDITION? NO . CHILLS NO . FEVER NO . INFECTION: DO YOU HAVE NEW INFECTIONS? NO . DO YOU HAVE HISTORY OF MRSA? NO . MUSCULOSKELETAL: ANY NEW PATTERNS OF PAIN OR NUMBNESS? NO . GASTROENTEROLOGY: ANY NEW CHANGE IN BOWEL CONTROL? NO . GENITOURINARY: ANY NEW CHANGE IN BLADDER CONTROL? NO . IS THERE A CHANCE YOU COULD BE ? NO . HEMATOLOGY/LYMPH: DO YOU TAKE ANY BLOOD THINNERS? (FOR EXAMPLE- COUMADIN, PLAVIX, AGGRENOX, PLATEL, PRADAXA, OR XARELTO) NO . WHEN WAS YOUR LAST DOSE? DATE: TIME: . NEUROLOGY: HAVE YOU FALLEN IN THE PAST 12 MONTHS? NO . ANY NEW EXTREMITY NUMBNESS OR WEAKNESS? NO . CARDIOLOGY: DO YOU HAVE A PACEMAKER OR DEFIBRILLATOR? NO . RESPIRATORY: HAVE YOU BEEN SICK IN THE PAST WEEK? NO . FEVER NO . FLU LIKE SYMPTOMS? NO . COUGH NO . INTEGUMENTARY: DO YOU HAVE ANY RASHES OR OPEN SORES? NO . ALLERGIC/IMMUNO: ARE YOU ALLERGIC TO IV DYE? NO . ANY NEW ALLERGIES? NO . PSYCHIATRIC: DO YOU HAVE THOUGHTS OF HURTING YOURSELF OR SOMEONE ELSE? NO . ARE YOU ABUSED, NEGLECTED, OR IN AN UNSAFE ENVIRONMENT? NO . ENDOCRINOLOGY: ARE YOU DIABETIC? NO . OTHER: DO YOU NEED ANY PRESCRIPTIONS? NO . IF YES, PLEASE LIST: ____ . ANY NEW PROBLEMS WITH YOUR MEDICATIONS? NO . WHEN DID YOU LAST EAT? ____06/15/19 0530 . WHEN DID YOU LAST DRINK? ____06/15/19 0800 . WHAT DID YOU LAST DRINK? ____COFFEE . NAME OF PERSON DRIVING YOU HOME? ____WIFE CHANO . DO YOU HAVE ANY OTHER QUESTIONS OR CONCERNS NO . VITAL SIGNS WT 389.2 LBS, HT 71 IN, BMI 54.28 INDEX, BP 154/83 MM HG, HR 60 /MIN, RR 18 /MIN, TEMP 97.6 F, OXYGEN SAT % 95%, SAFE IN ENV? (Y/N) YES, NA INITIALS IN 13:43, REVIEWED BY: LAS. [place] MYALGIA, OTHER SITE - M79.18 (PRIMARY) PROCEDURES PN WORKMANS' COMP OPINION IN YOUR OPINION, WAS THE INCIDENT THAT THE PATIENT DESCRIBED THE COMPETENT MEDICAL CAUSE OF THIS INJURY/ILLNESS? YES ARE THE PATIENT'S COMPLAINTS CONSISTENT WITH HIS/HER HISTORY OF THE INJURY/ILLNESS? YES IS THE PATIENT'S HISTORY OF THE INJURY/ILLNESS CONSISTENT WITH YOUR OBJECTIVE FINDING? YES WHAT IS THE PERCENTAGE OF TEMPORARY IMPAIRMENT? MODERATE TO MARKED = 66.7% IS THE PATIENT WORKING? YES DOCTOR ON SITE: MARSHA TIDWELL MD PN TRIGGER POINT INJECTION WITH STEROIDS PRE PROCEDURE DIAGNOSIS 1. MYALGIA 2. PAIN AT BILATERAL LOW BACK AREA POST PROCEDURE DIAGNOSIS 1. MYALGIA 2. PAIN AT BILATERAL LOW BACK AREA PROCEDURE TRIGGER POINT INJECTION AT BILATERAL LOW BACK AREA SURGEON DR. MARSHA WRIGHT LION TRAINER NONE ANESTHESIA LOCAL PRE PROCEDURE NOTE THE PATIENT HAS A HISTORY OF CHRONIC PAIN AT THE RIGHT AND LEFT LOW BACK AREA. I EVALUATE THE PATIENT AND REVIEWED THE CHART. THERE IS EVIDENCE OF BANDS OF TISSUE WITH RESTRICTION OF MOVEMENT AND PRESENCE OF TRIGGER POINT AT THE AFFECTED AREA. I WENT OVER THE RISKS, ALTERNATIVES, AND BENEFITS ASSOCIATED WITH THIS PROCEDURE. THE PATIENT WOULD LIKE TO PROCEED AND GIVE CONSENT TO PERFORMED THE PROCEDURE. THE PATIENT DENIES UNEXPLAINABLE WEIGHT LOSS, FEVER, CHILLS, OR NEW CHANGES IN URINARY OR BOWEL CONTROL DESCRIPTION OF PROCEDURE THE PATIENT WAS BROUGHT TO THE PROCEDURE ROOM AND PLACED IN THE SITTING POSITION. THE AREA WAS CLEANED WITH ALCOHOL. THE PROCEDURE WAS DONE USING ASEPTIC STERILE TECHNIQUE. I CHECKED LATERALITY AND THE LEVEL WHERE THE PROCEDURE WAS GOING TO BE PERFORMED WITH THE PATIENT AND THE SUPPORTING STAFF AT THE MOMENT OF THE TIME OUT IN THE PROCEDURE ROOM. USING A 25-GAUGE NEEDLE, TRIGGER POINTS WERE INJECTED AT THE RIGHT AND LEFT LOW BACK AREA WITH A TOTAL OF 40 ML OF BUPIVACAINE 0.25% AND KENALOG 40 MG. THERE WAS NO EVIDENCE OF BLOOD, PARESTHESIA OR CEREBROSPINAL FLUID DURING THE PROCEDURE. THE PATIENT WAS SENT TO THE RECOVERY ROOM. THE PATIENT WAS MOVING THE EXTREMITIES AND DOING WELL. THERE WAS NO COMPLICATION DURING THE PROCEDURE POST PROCEDURE NOTE THE PATIENT WILL BE SEEN IN A FOLLOW UP IN THE NEXT FEW WEEKS. INSTRUCTIONS WERE GIVEN, QUESTIONS WERE ANSWERED, AND THE PATIENT EXPRESSED UNDERSTANDING AND AGREES WITH THE PLAN. I, SHEILA MCFADDEN, DOCUMENTED THE ABOVE INFORMATION ACTING A SCRIBE FOR DR. WRIGHT. I HAVE REVIEWED THE ABOVE DOCUMENT, WRITTEN BY SHEILA ROY AND I VERIFY THAT IT IS ACCURATE. PROCEDURE CODES 55278 INJ TRIGGER POINT 11/25 [facility] [place], [place] DISPOSITION & COMMUNICATION FOLLOW UP 3 WEEKS ELECTRONICALLY SIGNED BY MARSHA WRIGHT MD, MD ON 06/25/2019 AT 01:53 PM EDT DISCLAIMER : THIS IS A VISIT SUMMARY EXTRACTED FROM THE [facility] CHART. IT IS NOT A COPY OF THE [employer] PROGRESS NOTE. KO
== END ==
LOC: M PAIN 13:30
PROVIDERS: ATTEND Anesthesiology
DX: M79.18 Myalgia, other site (principal); I10 Essential (primary) hypertension; F32.9 Major depressive disorder, single episode, unspecified; F41.9 Anxiety disorder, unspecified; G47.33 Obstructive sleep apnea (adult) (pediatric); E78.00 Pure hypercholesterolemia, unspecified; Z79.82 Long term (current) use of aspirin; Z79.899 Other long term (current) drug therapy
CPT/HCPCS: 20552; J3301

== ENCOUNTER → 2019-07-06 | Outpatient (CLI) | payer OTHER ==
[~2019-07-06] MED LIST changes: -BUPIVACAINE HCL 0.25% 10 ML VIAL As Ordered ONE; -BUPIVACAINE HCL 0.25% 30 ML VIAL As Ordered ONE; -TRIAMCINOLONE ACETONIDE SUSP 40 MG/ML VIAL (J3301) As Ordered ONE; +ZETI10TA16 PO; -ZETI10TA30 PO; -diazePAM 5 MG TAB As Ordered ONE; -oxyCODONE 5MG TAB As Ordered ONE
--- NOTE | 2019-07-22 00:18 | ECWPNPC ---
PATIENT NAME: MELBA MARTIN : 1965 GENDER: MALE VISIT DATE: 07/06/2019 DISCHARGE DATE: 07/06/19 1415 VISIT LOCKED DATE TIME: PHYSICIAN: MAXIM VILLAVICENCIO RESOURCE: MAXIM VILLAVICENCIO REASON FOR APPOINTMENT 1. 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 PAIN THE PATIENT DESCRIBES THE PAIN... THE PATIENT DESCRIBES THE PAIN... FALL RISK SCREENING: SCREENING :NO FALLS REPORTED IN THE LAST YEAR CURRENT MEDICATIONS TAKING ASPIR-81 1 TABLET ORALLY ONCE A DAY TAKING MULTIVITAMIN ADULTS 50+ - TABLET 1 TAB ORALLY DAILY TAKING STOOL SOFTENER 100 MG CAPSULE 2 ORALLY ONCE A DAY TAKING FLONASE 50 MCG/ACT SUSPENSION 1 SPRAY IN EACH NOSTRIL NASALLY TWICE A DAY TAKING ALBUTEROL SULFATE HFA 108 (90 BASE) MCG/ACT AEROSOL SOLUTION 2 PUFFS NEEDED INHALATION EVERY 4 HRS NEEDED FOR SHORTNESS OF BREATH TAKING [place]ARTAN POTASSIUM-HCTZ 100-25 MG TABLET 1 TABLET ORALLY ONCE A DAY TAKING SPIRONOLACTONE 25 MG TABLET 1 TABLET WITH FOOD ORALLY ONCE A DAY TAKING BISOPROLOL FUMARATE 10 MG TABLET 1 TABLET ORALLY ONCE A DAY TAKING CITALOPRAM HYDROBROMIDE 10 MG TABLET 1 TABLET ORALLY ONCE A DAY TAKING CRESTOR 20 MG TABLET 1 TABLET ORALLY ONCE A DAY TAKING AMLODIPINE BESYLATE 10 MG TABLET 1 TABLET ORALLY ONCE A DAY TAKING TIZANIDINE HCL 2 MG TABLET 1 TABLET NEEDED ORALLY FOR SPASMS AND PAIN BEFORE BEDTIME MAY REPEAT IN 4HRS MDD2 WORKERS COMPENSATION TAKING IBUPROFEN 800 MG TABLET 1 TABLET ORALLY WITH FOOD THREE TIMES DAILY NEEDED FOR PAIN, NOTES: PRN NOT-TAKING SUDAFED 30 MG TABLET 1 TABLET NEEDED ORALLY EVERY 6 HRS NOT-TAKING MECLIZINE HCL 25 MG TABLET CHEWABLE 1 TABLET NEEDED ORALLY ONCE A DAY MEDICATION LIST REVIEWED AND RECONCILED WITH THE PATIENT PAST MEDICAL HISTORY OLD L1 L2 COMPRESSION FX HTN DEPRESSION/ANXIETY MURTAZA WITH CPAP HIGH CHOLESTEROL BOWEL OBSTRUCTION ALLERGIES N.K.D.A. SURGICAL HISTORY EXPLORATORY LAP 2015 UMBILICAL HERNIA REPAIR CYST REMOVED FROM BACK -DR HARPER 2017 FAMILY HISTORY FATHER: ALIVE, DIAGNOSED WITH HYPERTENSION, HEART DISEASE MOTHER: ALIVE, HEART DISEASE PATERNAL GRAND FATHER: STROKE MATERNAL GRAND MOTHER: CANCER 1 BROTHER(S) , 1 SISTER(S) - HEALTHY. 2 SON(S) , 2 DAUGHTER(S) - HEALTHY. MGM COLON CA. SOCIAL HISTORY GENERAL: TOBACCO USE ARE YOU A:NONSMOKER HIV / HEP-C SCREENING HIV TEST OFFERED TO PATIENT:YES DATE OFFERED:10/28/2018 TEST ACCEPTED:YES HEP-C TEST OFFERED TO PATIENT:YES DATE OFFERED:10/28/2018 TEST ACCEPTED:YES BROCHURE PROVIDED TO PATIENTYES OTHERS AT HOME: SPOUSE, CHILD( YOUNGEST DAUGHTER). EDUCATION LEVEL OF EDUCATION:HIGH SCHOOL DIET: REGULAR. LANGUAGE LANGUAGES SPOKEN:BRUNEIAN DOMESTIC VIOLENCE DO YOU FEEL SAFE IN YOUR ENVIRONMENT?YES NEW PATIENT PAIN DIARY FROM 0-10, WHAT LEVEL IS YOUR PAIN TODAY?6 BMI CARE GOAL FOLLOW-UP ABOVE NORMAL BMI FOLLOW-UPDIETARY MANAGEMENT EDUCATION, GUIDANCE, AND COUNSELING RECREATIONAL DRUG USE DRUG USE?NO EXERCISE: NONE. LEARNING BARRIERS / SPECIAL NEEDS CHANGE FROM LAST VISIT?NO BARRIERS TO LEARNING?NO HEARING IMPAIRED?NO VISION IMPAIRED?YES WEARS GLASSES COGNITIVELY IMPAIRED?NO READINESS TO LEARN?YES LEARNING PREFERENCES?YES : VERBAL DISCUSSION LEARNING CAPABILITIES PRESENT?YES EMOTIONAL BARRIERS?NO SPECIAL DEVICES?NO PRINT DECORATOR NEEDED?NO PAIN CLINIC PFS, CLERGY, PUBLIC HEALTH REFERRALS WAS THE PROVIDER NOTIFIED OF ANY PERTINENT INFO?YES HAS THE PATIENT BEEN EDUCATED REGARDING HIS/HER PLAN OF CARE?YES PATIENT HAS HAD THIS PROCEDURE BEFORE. 03/12/18 HAS THE PATIENT BEEN EDUCATED REGARDING PAIN, THE RISK FOR PAIN, THE IMPORTANCE OF EFFECTIVE PAIN MANAGEMENT, AND THE PAIN ASSESSMENT PROCESS?YES LATEX QUESTIONNAIRE LATEX ALLERGY : HAVE YOU EVER DEVELOPED ANY TYPE OF REACTION AFTER HANDLING LATEX PRODUCTS SUCH RUBBER GLOVES, CONDOMS, DIAPHRAGMS, BALLOONS, SOCKS, OR UNDERWEAR?NO LATEX ALLERGY : HAVE YOU EVER DEVELOPED ANY TYPE OF REACTION DURING OR AFTER DENTAL APPOINTMENT, VAGINAL/RECTAL EXAMINATION, SURGICAL PROCEDURE, OR ANY OTHER EXPOSURE?NO DATE ASKED : 03/04/2019 LATEX RISK : HAVE YOU EVER HAD ANY DIFFICULTY BREATHING OR HIVES AFTER EATING OR HANDLING ANY FRUITS, OR VEGETABLES; SUCH KIWI, BANANAS, STONE FRUITS, OR CHESTNUTSNO LATEX RISK : DO YOU HAVE A PREVIOUS PERSONAL HISTORY OF MORE THAN NINE SURGERIES, SPINA BIFIDA, OR REPEATED CATHERIZATIONS? NO LATEX RISK : ARE YOU FREQUENTLY EXPOSED TO LATEX PRODUCTS IN YOUR OCCUPATION?NO CAFFEINE CAFFEINE USE?YES HOW OFTEN AND HOW MUCH? 2 CUPS/DAY ADVANCE DIRECTIVE ADVANCE DIRECTIVE DISCUSSED WITH PATIENT:YES HCP INFO AND ASSISTANCE DECLINED AT THIS TIME. UATSDIN [id number] FAITH MARITAL STATUS: . ALCOHOL SCREENING DID YOU HAVE A DRINK CONTAINING ALCOHOL IN THE PAST YEAR?YES HOW OFTEN DID YOU HAVE SIX OR MORE DRINKS ON ONE OCCASION IN THE PAST YEAR?NEVER (0 POINTS) HOW MANY DRINKS DID YOU HAVE ON A TYPICAL DAY WHEN YOU WERE DRINKING IN THE PAST YEAR?1 OR 2 (0 POINTS) HOW OFTEN DID YOU HAVE A DRINK CONTAINING ALCOHOL IN THE PAST YEAR?MONTHLY OR LESS (1 POINT) POINTS1 INTERPRETATIONNEGATIVE OCCUPATION: WORKS FOR [employer]. SEXUAL HX HAD SEX IN THE LAST 12 MONTHS (VAGINAL, ORAL, OR ANAL)?YES WITHWOMEN ONLY HAVE YOU EVER HAD AN STD?NO REVIEWED NL 10/19/18REVIEWED WITH PT 01/25/19 1437 BV. HOSPITALIZATION/MAJOR DIAGNOSTIC PROCEDURE BOWEL OBSTRUCTION 2016 REVIEW OF SYSTEMS REVIEWED BY: PROVIDER: MAXIM ALAS . CONSTITUTIONAL: ANY CHANGE IN YOUR MEDICAL CONDITION? NO . CHILLS NO . FEVER NO . INFECTION: DO YOU HAVE NEW INFECTIONS? NO . DO YOU HAVE HISTORY OF MRSA? NO . MUSCULOSKELETAL: ANY NEW PATTERNS OF PAIN OR NUMBNESS? YES, LEGS ARE PAINFUL . GASTROENTEROLOGY: ANY NEW CHANGE IN BOWEL CONTROL? NO . GENITOURINARY: ANY NEW CHANGE IN BLADDER CONTROL? NO . IS THERE A CHANCE YOU COULD BE ? NO . HEMATOLOGY/LYMPH: DO YOU TAKE ANY BLOOD THINNERS? (FOR EXAMPLE- COUMADIN, PLAVIX, AGGRENOX, PLATEL, PRADAXA, OR XARELTO) NO . WHEN WAS YOUR LAST DOSE? DATE: TIME: . NEUROLOGY: HAVE YOU FALLEN IN THE PAST 12 MONTHS? NO . ANY NEW EXTREMITY NUMBNESS OR WEAKNESS? YES, LEGS . CARDIOLOGY: DO YOU HAVE A PACEMAKER OR DEFIBRILLATOR? NO . RESPIRATORY: HAVE YOU BEEN SICK IN THE PAST WEEK? NO . FEVER NO . FLU LIKE SYMPTOMS? NO . COUGH NO . INTEGUMENTARY: DO YOU HAVE ANY RASHES OR OPEN SORES? NO . ALLERGIC/IMMUNO: ARE YOU ALLERGIC TO IV DYE? NO . ANY NEW ALLERGIES? NO . PSYCHIATRIC: DO YOU HAVE THOUGHTS OF HURTING YOURSELF OR SOMEONE ELSE? NO . ARE YOU ABUSED, NEGLECTED, OR IN AN UNSAFE ENVIRONMENT? NO . ENDOCRINOLOGY: ARE YOU DIABETIC? NO . OTHER: DO YOU NEED ANY PRESCRIPTIONS? YES, IBUPROFEN . IF YES, PLEASE LIST: ____ . ANY NEW PROBLEMS WITH YOUR MEDICATIONS? NO . WHEN DID YOU LAST EAT? ____ . WHEN DID YOU LAST DRINK? ____ . WHAT DID YOU LAST DRINK? ____ . NAME OF PERSON DRIVING YOU HOME? ____ . DO YOU HAVE ANY OTHER QUESTIONS OR CONCERNS NO . VITAL SIGNS WT 385.6 LBS, HT 71 IN, BMI 53.77 INDEX, BP 141/67 MM HG, HR 62 /MIN, RR 18 /MIN, TEMP 97.6 F, OXYGEN SAT % 96%, NA INITIALS AW 1341, REVIEWED BY: EM. EXAMINATION GENERAL EXAMINATION: GENERALAWAKE,ALERT ,PLEAASANT . PSYCHAFFECT NORMAL . LUNGS:LUNG SALVADOR ARE CLEAR TO AUSCULTATION BILATERALLY. GOOD MOVEMENT OF AIR . HEART:S1, S2 IN A REGULAR RATE AND RHYTHM. NO SIGNIFICANT MURMURS, RUBS OR GALLOPS NOTED . MUSCULOSKELETAL:MUSCLE STRENGTH TESTING 4/5 BILATERAL LOWER EXTREMITIES. LUMBAR SACRAL SPINETRIGGER POINTS:, ELICITED WITH PALPATION OVER LUMBAR PARAVERTEBRAL MUSCLES AND RESTRICTION OF ROM IN THIS AREA. ASSESSMENTS SPONDYLOSIS OF LUMBAR REGION WITHOUT MYELOPATHY OR RADICULOPATHY - M47.816 (PRIMARY) TREATMENT SPONDYLOSIS OF LUMBAR REGION WITHOUT MYELOPATHY OR RADICULOPATHY CONTINUE TIZANIDINE HCL TABLET, 2 MG, 1 TABLET NEEDED, ORALLY FOR SPASMS AND PAIN, BEFORE BEDTIME MAY REPEAT IN 4HRS MDD2 WORKERS COMPENSATION REFILL IBUPROFEN TABLET, 800 MG, 1 TABLET, ORALLY WITH FOOD, THREE TIMES DAILY NEEDED FOR PAIN, 30 DAYS, 45, REFILLS 5, NOTES: PRN PROCEDURES PN WORKMANS' COMP OPINION IN YOUR OPINION, WAS THE INCIDENT THAT THE PATIENT DESCRIBED THE COMPETENT MEDICAL CAUSE OF THIS INJURY/ILLNESS? YES ARE THE PATIENT'S COMPLAINTS CONSISTENT WITH HIS/HER HISTORY OF THE INJURY/ILLNESS? YES IS THE PATIENT'S HISTORY OF THE INJURY/ILLNESS CONSISTENT WITH YOUR OBJECTIVE FINDING? YES WHAT IS THE PERCENTAGE OF TEMPORARY IMPAIRMENT? MODERATE TO MARKED = 66.7% IS THE PATIENT WORKING? YES DOCTOR ON SITE: MARSHA TIDWELL MD PROCEDURE CODES FA211 ESTABILISHED PATIENT [facility] CHARGE DISPOSITION & COMMUNICATION FOLLOW UP 10 WKS ELECTRONICALLY SIGNED BY BISHOP CAMPOS ON 07/21/2019 AT 03:03 PM EDT DISCLAIMER : THIS IS A VISIT SUMMARY EXTRACTED FROM THE [employer] CHART. IT IS NOT A COPY OF THE [employer] PROGRESS NOTE. KO
== END ==
LOC: M PAIN 13:30
PROVIDERS: ATTEND Nurse Practitioner Family
DX: M47.816 Spondylosis without myelopathy or radiculopathy, lumbar region (principal); G89.29 Other chronic pain; I10 Essential (primary) hypertension; Z86.59 Personal history of other mental and behavioral disorders; G47.33 Obstructive sleep apnea (adult) (pediatric); E78.00 Pure hypercholesterolemia, unspecified; E66.01 Morbid (severe) obesity due to excess calories; Z68.43 Body mass index [BMI] 50.0-59.9, adult; Z79.82 Long term (current) use of aspirin; Z79.899 Other long term (current) drug therapy

== ENCOUNTER → 2019-08-02 | Outpatient (REF) | payer BC ==
[2019-08-02 20:52] LABS: APPEARANCE, URINE CLEAR (CLEAR); BACTERIA, URINE AUTO NEGATIVE (NEGATIVE); BILIRUBIN, URINE AUTO NEGATIVE (NEGATIVE); BLOOD, URINE BLOOD NEGATIVE (NEGATIVE); COLOR, URINE YELLOW (YELLOW); GLUCOSE, URINE (UA) AUTO NEGATIVE (NEGATIVE); KETONE, URINE AUTO NEGATIVE (NEGATIVE); LEUKOCYTE ESTERASE, URINE AUTO NEGATIVE (NEGATIVE); MUCUS, URINE SMALL (NEGATIVE); NITRITE, URINE AUTO NEGATIVE (NEGATIVE); PROTEIN, URINE AUTO NEGATIVE (NEGATIVE); RBC, URINE AUTO 0 /HPF (0-3); SPECIFIC GRAVITY URINE AUTO 1.023 (1.002-1.035); SQUAMOUS EPITHELIAL CELL UR AU 0 /HPF (0-6); UROBILINOGEN, URINE AUTO 0.2 mg/dL (0.0-2.0); WBC, URINE AUTO 0 /HPF (0-3)
[2019-08-02 20:53] LABS: ALBUMIN 4.2 GM/DL (3.2-5.2); ALT/SGPT 30 U/L (12-78); BILIRUBIN,TOTAL 0.5 MG/DL (0.2-1.0); BLOOD UREA NITROGEN 27 MG/DL (7-18); CALCIUM LEVEL 9.4 MG/DL (8.5-10.1); CARBON DIOXIDE LEVEL 28 MEQ/L (21-32); CHLORIDE LEVEL 103 MEQ/L (98-107); CREATININE FOR GFR 1.03 MG/DL (0.70-1.30); GLOMERULAR FILTRATION RATE > 60.0 (>56); GLUCOSE, FASTING 84 MG/DL (70-100); POTASSIUM SERUM 4.1 MEQ/L (3.5-5.1); SODIUM LEVEL 140 MEQ/L (136-145); TOTAL PROTEIN 7.4 GM/DL (6.4-8.2)
[2019-08-02 21:11] LABS: HEMOGLOBIN A1c 5.7 %
== END ==
LOC: M SFHCLERA 17:26
PROVIDERS: ATTEND Family Medicine
DX: R35.1 Nocturia (principal)
CPT/HCPCS: 80053; 81001; 83036; 87086; G0103

== ENCOUNTER → 2019-09-14 | Outpatient (CLI) | payer OTHER ==
--- NOTE | 2019-09-28 02:50 | ECWPNPC ---
PATIENT NAME: MELBA MARTIN : 1965 GENDER: MALE VISIT DATE: 09/14/2019 DISCHARGE DATE: 09/14/19 1400 VISIT LOCKED DATE TIME: PHYSICIAN: MAXIM VILLAVICENCIO RESOURCE: MAXIM VILLAVICENCIO REASON FOR APPOINTMENT 1. W/C 10 WEEKS HISTORY OF PRESENT ILLNESS HISTORY OF PRESENT ILLNESS: HERE FOR F/U OF CHRONIC LOW BACK PAIN.CONTINUES WITH AGGREVATION IN PAIN WHEN LIFTING AND PULLING ACTIVITIES AT WORK.THIS IS A WORK RELATED INJURY WITH DOI 2013.RATING PAIN VAS 7-8/10.PAIN IS AGGREVATED AFTER WORKING.HE IS NOTICING A SIGNIFICANT INCREASE IN PAIN OVER THE PAST 6 MONTHS. PAIN THE PATIENT DESCRIBES THE PAIN... THE PATIENT DESCRIBES THE PAIN... THE PATIENT DESCRIBES THE PAIN... FALL RISK SCREENING: SCREENING :NO FALLS REPORTED IN THE LAST YEAR CURRENT MEDICATIONS TAKING LOSARTAN POTASSIUM-HCTZ 100-25 MG TABLET 1 TABLET ORALLY ONCE A DAY TAKING SPIRONOLACTONE 25 MG TABLET 1 TABLET WITH FOOD ORALLY ONCE A DAY TAKING BISOPROLOL FUMARATE 10 MG TABLET 1 TABLET ORALLY ONCE A DAY TAKING CITALOPRAM HYDROBROMIDE 10 MG TABLET 1 TABLET ORALLY ONCE A DAY TAKING ASPIR-81 1 TABLET ORALLY ONCE A DAY TAKING MULTIVITAMIN ADULTS 50+ - TABLET 1 TAB ORALLY DAILY TAKING STOOL SOFTENER 100 MG CAPSULE 2 ORALLY ONCE A DAY TAKING FLONASE 50 MCG/ACT SUSPENSION 1 SPRAY IN EACH NOSTRIL NASALLY NEEDED TAKING ALBUTEROL SULFATE HFA 108 (90 BASE) MCG/ACT AEROSOL SOLUTION 2 PUFFS NEEDED INHALATION EVERY 4 HRS NEEDED FOR SHORTNESS OF BREATH TAKING CRESTOR 20 MG TABLET 1 TABLET ORALLY ONCE A DAY TAKING AMLODIPINE BESYLATE 10 MG TABLET 1 TABLET ORALLY ONCE A DAY TAKING TIZANIDINE HCL 2 MG TABLET 1 TABLET NEEDED ORALLY FOR SPASMS AND PAIN BEFORE BEDTIME MAY REPEAT IN 4HRS MDD2 WORKERS COMPENSATION TAKING IBUPROFEN 800 MG TABLET 1 TABLET ORALLY WITH FOOD THREE TIMES DAILY NEEDED FOR PAIN, NOTES: PRN TAKING TAMSULOSIN HCL 0.4 MG CAPSULE 1 CAPSULE ORALLY ONCE A DAY NOT-TAKING SUDAFED 30 MG TABLET 1 TABLET NEEDED ORALLY EVERY 6 HRS NOT-TAKING MECLIZINE HCL 25 MG TABLET CHEWABLE 1 TABLET NEEDED ORALLY ONCE A DAY MEDICATION LIST REVIEWED AND RECONCILED WITH THE PATIENT PAST MEDICAL HISTORY OLD L1 L2 COMPRESSION FX HTN DEPRESSION/ANXIETY MURTAZA WITH CPAP HIGH CHOLESTEROL BOWEL OBSTRUCTION ALLERGIES N.K.D.A. SURGICAL HISTORY EXPLORATORY LAP 2014 UMBILICAL HERNIA REPAIR CYST REMOVED FROM BACK -DR HARPER 2017 FAMILY HISTORY FATHER: ALIVE, DIAGNOSED WITH HYPERTENSION, UNSPECIFIED HEART DISEASE MOTHER: ALIVE, UNSPECIFIED HEART DISEASE PATERNAL GRAND FATHER: UNSPECIFIED CEREBRAL ARTERY OCCLUSION WITH CEREBRAL INFARCTION MATERNAL GRAND MOTHER: OTHER MALIGNANT NEOPLASM OF UNSPECIFIED SITE 1 BROTHER(S) , 1 SISTER(S) - HEALTHY. 2 SON(S) , 2 DAUGHTER(S) - HEALTHY. MGM COLON CA. SOCIAL HISTORY GENERAL: TOBACCO USE ARE YOU A:NONSMOKER HIV / HEP-C SCREENING HIV TEST OFFERED TO PATIENT:YES DATE OFFERED:10/28/2018 TEST ACCEPTED:YES HEP-C TEST OFFERED TO PATIENT:YES DATE OFFERED:10/28/2018 TEST ACCEPTED:YES BROCHURE PROVIDED TO PATIENTYES OTHERS AT HOME: SPOUSE, CHILD( YOUNGEST DAUGHTER). EDUCATION LEVEL OF EDUCATION:HIGH SCHOOL DIET: REGULAR. LANGUAGE LANGUAGES SPOKEN:CITIZ[place] OF [place] DOMESTIC VIOLENCE DO YOU FEEL SAFE IN YOUR ENVIRONMENT?YES NEW PATIENT PAIN DIARY FROM 0-10, WHAT LEVEL IS YOUR PAIN TODAY?6 BMI CARE GOAL FOLLOW-UP ABOVE NORMAL BMI FOLLOW-UPDIETARY MANAGEMENT EDUCATION, GUIDANCE, AND COUNSELING RECREATIONAL DRUG USE DRUG USE?NO EXERCISE: NONE. LEARNING BARRIERS / SPECIAL NEEDS CHANGE FROM LAST VISIT?NO BARRIERS TO LEARNING?NO HEARING IMPAIRED?NO VISION IMPAIRED?YES WEARS GLASSES COGNITIVELY IMPAIRED?NO READINESS TO LEARN?YES LEARNING PREFERENCES?YES : VERBAL DISCUSSION LEARNING CAPABILITIES PRESENT?YES EMOTIONAL BARRIERS?NO SPECIAL DEVICES?NO DRIVE SHAFT AND STEERING POST REPAIRER NEEDED?NO PAIN CLINIC PFS, CLERGY, PUBLIC HEALTH REFERRALS WAS THE PROVIDER NOTIFIED OF ANY PERTINENT INFO?YES HAS THE PATIENT BEEN EDUCATED REGARDING HIS/HER PLAN OF CARE?YES PATIENT HAS HAD THIS PROCEDURE BEFORE. 03/12/18 HAS THE PATIENT BEEN EDUCATED REGARDING PAIN, THE RISK FOR PAIN, THE IMPORTANCE OF EFFECTIVE PAIN MANAGEMENT, AND THE PAIN ASSESSMENT PROCESS?YES LATEX QUESTIONNAIRE LATEX ALLERGY : HAVE YOU EVER DEVELOPED ANY TYPE OF REACTION AFTER HANDLING LATEX PRODUCTS SUCH RUBBER GLOVES, CONDOMS, DIAPHRAGMS, BALLOONS, SOCKS, OR UNDERWEAR?NO LATEX ALLERGY : HAVE YOU EVER DEVELOPED ANY TYPE OF REACTION DURING OR AFTER DENTAL APPOINTMENT, VAGINAL/RECTAL EXAMINATION, SURGICAL PROCEDURE, OR ANY OTHER EXPOSURE?NO DATE ASKED : 03/04/2019 LATEX RISK : HAVE YOU EVER HAD ANY DIFFICULTY BREATHING OR HIVES AFTER EATING OR HANDLING ANY FRUITS, OR VEGETABLES; SUCH KIWI, BANANAS, STONE FRUITS, OR CHESTNUTSNO LATEX RISK : DO YOU HAVE A PREVIOUS PERSONAL HISTORY OF MORE THAN NINE SURGERIES, SPINA BIFIDA, OR REPEATED CATHERIZATIONS? NO LATEX RISK : ARE YOU FREQUENTLY EXPOSED TO LATEX PRODUCTS IN YOUR OCCUPATION?NO CAFFEINE CAFFEINE USE?YES HOW OFTEN AND HOW MUCH? 2 CUPS/DAY ADVANCE DIRECTIVE ADVANCE DIRECTIVE DISCUSSED WITH PATIENT:YES HCP INFO AND ASSISTANCE DECLINED AT THIS TIME. JEW [id number] CONFUCIANISM MARITAL STATUS: . ALCOHOL SCREENING DID YOU HAVE A DRINK CONTAINING ALCOHOL IN THE PAST YEAR?YES HOW OFTEN DID YOU HAVE SIX OR MORE DRINKS ON ONE OCCASION IN THE PAST YEAR?NEVER (0 POINTS) HOW MANY DRINKS DID YOU HAVE ON A TYPICAL DAY WHEN YOU WERE DRINKING IN THE PAST YEAR?1 OR 2 (0 POINTS) HOW OFTEN DID YOU HAVE A DRINK CONTAINING ALCOHOL IN THE PAST YEAR?MONTHLY OR LESS (1 POINT) POINTS1 INTERPRETATIONNEGATIVE OCCUPATION: WORKS FOR [employer]. SEXUAL HX HAD SEX IN THE LAST 12 MONTHS (VAGINAL, ORAL, OR ANAL)?YES WITHWOMEN ONLY HAVE YOU EVER HAD AN STD?NO REVIEWED NL 10/19/18REVIEWED WITH PT 01/25/19 1437 BVREVIEWED WITH ANNETTE 09/14/19 1312 NLJ. HOSPITALIZATION/MAJOR DIAGNOSTIC PROCEDURE BOWEL OBSTRUCTION 2016 REVIEW OF SYSTEMS REVIEWED BY: PROVIDER: MAXIM ALAS . CONSTITUTIONAL: ANY CHANGE IN YOUR MEDICAL CONDITION? NO . CHILLS NO . FEVER NO . INFECTION: DO YOU HAVE NEW INFECTIONS? NO . DO YOU HAVE HISTORY OF MRSA? NO . MUSCULOSKELETAL: ANY NEW PATTERNS OF PAIN OR NUMBNESS? YES- STATES HE FEELS INCREASED PAIN (ACROSS BACK), AND RADIATES DOWN RIGHT LEG, STATES HE ALSO FEELS TINGLING DOWN LEFT LEG . GASTROENTEROLOGY: ANY NEW CHANGE IN BOWEL CONTROL? NO . GENITOURINARY: ANY NEW CHANGE IN BLADDER CONTROL? NO . IS THERE A CHANCE YOU COULD BE ? NO . HEMATOLOGY/LYMPH: DO YOU TAKE ANY BLOOD THINNERS? (FOR EXAMPLE- COUMADIN, PLAVIX, AGGRENOX, PLATEL, PRADAXA, OR XARELTO) NO . WHEN WAS YOUR LAST DOSE? DATE: TIME: . NEUROLOGY: HAVE YOU FALLEN IN THE PAST 12 MONTHS? NO . ANY NEW EXTREMITY NUMBNESS OR WEAKNESS? YES- STATES HE FEELS INCREASED PAIN WELL A "SHOCK" FEELING IN LOWER BACK . CARDIOLOGY: DO YOU HAVE A PACEMAKER OR DEFIBRILLATOR? NO . RESPIRATORY: HAVE YOU BEEN SICK IN THE PAST WEEK? NO . FEVER NO . FLU LIKE SYMPTOMS? NO . COUGH NO . INTEGUMENTARY: DO YOU HAVE ANY RASHES OR OPEN SORES? NO . ALLERGIC/IMMUNO: ARE YOU ALLERGIC TO IV DYE? NO . ANY NEW ALLERGIES? NO . PSYCHIATRIC: DO YOU HAVE THOUGHTS OF HURTING YOURSELF OR SOMEONE ELSE? NO . ARE YOU ABUSED, NEGLECTED, OR IN AN UNSAFE ENVIRONMENT? NO . ENDOCRINOLOGY: ARE YOU DIABETIC? NO . OTHER: DO YOU NEED ANY PRESCRIPTIONS? YES . IF YES, PLEASE LIST: ____TIZANIDINE AND IBUPROFEN . ANY NEW PROBLEMS WITH YOUR MEDICATIONS? NO . WHEN DID YOU LAST EAT? ____ . WHEN DID YOU LAST DRINK? ____ . WHAT DID YOU LAST DRINK? ____ . NAME OF PERSON DRIVING YOU HOME? ____ . DO YOU HAVE ANY OTHER QUESTIONS OR CONCERNS YES- OPTIONS FOR PAIN CONTROL WITH INCERASED PAIN IN LOWER BACK . VITAL SIGNS WT 388.8 LBS, HT 71 IN, BMI 54.22 INDEX, BP 161/81 MM HG, HR 61 /MIN, RR 18 /MIN, TEMP 97.7 F, OXYGEN SAT % 97%, SAFE IN ENV? (Y/N) YES, REVIEWED BY: SYED. EXAMINATION GENERAL EXAMINATION: GENERAL ALERT,APPEARS UNCOMFORTABLE. PSYCH AFFECT NORMAL . LUNGS: LUNG SOUNDS ARE CLEAR . HEART: HEART RATE REGULAR . MUSCULOSKELETAL: MST 5/5 BILAT. LOWER EXTREMITIES .. LUMBAR SACRAL SPINE TENDERNESS BILAT. SIJ .POSITIVE OTTO TESTING BILAT LOWER EXTRMITIES.. DIAGNOSTIC TESTS REVIEWED CT L/S [id number] . ASSESSMENTS SACROILIITIS - M46.1 (PRIMARY) TREATMENT SACROILIITIS START KETOROLAC TROMETHAMINE TABLET, 10 MG, 1 TABLET WITH FOOD OR MILK NEEDED, ORALLY, EVERY 6 HRS, 5 DAY(S), 20, REFILLS 0 NOTES: W/C BILAT SIJ. PROCEDURES PN WORKMANS' COMP OPINION IN YOUR OPINION, WAS THE INCIDENT THAT THE PATIENT DESCRIBED THE COMPETENT MEDICAL CAUSE OF THIS INJURY/ILLNESS? YES ARE THE PATIENT'S COMPLAINTS CONSISTENT WITH HIS/HER HISTORY OF THE INJURY/ILLNESS? YES IS THE PATIENT'S HISTORY OF THE INJURY/ILLNESS CONSISTENT WITH YOUR OBJECTIVE FINDING? YES WHAT IS THE PERCENTAGE OF TEMPORARY IMPAIRMENT? MODERATE TO MARKED = 66.7% IS THE PATIENT WORKING? YES DOCTOR ON SITE: MARSHA TIDWELL MD PREVENTIVE MEDICINE PAIN CLINIC TEACHING: MEDICATIONS PRINTED AND REVIEWED INFORMATION ON NEW MEDICATION, TORADOL, WITH PATIENT. PATIENT VERBALIZED AN UNDERSTANDING. HARISH KERNS 09/14/2019 2:03:39 PM > . PROCEDURE TEACHING REVIEWED INFORMATION ON SACROILIAC JOINT INJECTION. ALSO REVIEWED PRE-PROCEDURE INSTRUCTIONS. PATIENT VERBALIZED AN UNDERSTANDING. HARISH KERNS 09/14/2019 2:02:58 PM > . PROCEDURE CODES FA211 ESTABILISHED PATIENT [facility] CHARGE DISPOSITION & COMMUNICATION FOLLOW UP POST (REASON: W/C CAITLYN GRANT) ELECTRONICALLY SIGNED BY BISHOP CAMPOS ON 09/27/2019 AT 03:52 PM EST DISCLAIMER : THIS IS A VISIT SUMMARY EXTRACTED FROM THE [employer] CHART. IT IS NOT A COPY OF THE [employer] PROGRESS NOTE. KO
== END ==
LOC: M PAIN 13:00
PROVIDERS: ATTEND Nurse Practitioner Family
DX: M46.1 Sacroiliitis, not elsewhere classified (principal); G89.29 Other chronic pain; I10 Essential (primary) hypertension; Z86.59 Personal history of other mental and behavioral disorders; G47.33 Obstructive sleep apnea (adult) (pediatric); E66.01 Morbid (severe) obesity due to excess calories; Z68.43 Body mass index [BMI] 50.0-59.9, adult; Z79.82 Long term (current) use of aspirin; Z79.899 Other long term (current) drug therapy

== ENCOUNTER → 2019-11-23 | Outpatient (CLI) | payer BC ==
--- NOTE | 2019-11-23 16:42 | REP ---
Clinical: Chest pain and sore throat . Comparison: 01/28/2018 . Technique: PA and lateral. Findings: The mediastinum and cardiac silhouette are normal. The lung perez are clear and without acute consolidation, effusion, or pneumothorax. The skeletal structures are intact and normal. Impression: 1. No focal consolidation appreciated. Electronically Signed by Chidi Valadez MD 11/23/2019 04:34 P
== END ==
LOC: M LRY 16:20
PROVIDERS: ATTEND Physician Assistant
DX: J02.9 Acute pharyngitis, unspecified (principal)

== ENCOUNTER → 2019-11-23 | Outpatient (REF) | payer BC | LOC: M SFHCLERA 15:54 | PROVIDERS: ATTEND Physician Assistant | DX: J02.9 Acute pharyngitis, unspecified (principal) ==

== ENCOUNTER → 2019-11-29 | Outpatient (CLI) | payer BC ==
[~2019-11-29] MED LIST changes: +BUPIVACAINE HCL 0.25% 30 ML VIAL As Ordered ONE; +ISOVUE-M 300 61% 15ML VIAL (Q9967) As Ordered ONE; +LIDOCAINE 1% SDV INJ 30 ML VIAL As Ordered ONE; +TRIAMCINOLONE ACETONIDE SUSP 40 MG/ML VIAL (J3301) As Ordered ONE; +diazePAM 5 MG TAB As Ordered ONE; +oxyCODONE 5MG TAB As Ordered ONE
--- NOTE | 2019-11-29 12:33 | REP ---
Bilateral SI joint: Six views. History: Bilateral SI joint injection for pain. 33 seconds of fluoroscopy time is reported. Findings: A sequence of six last image hold fluoroscopically obtained spot radiographs of the SI joints document needle position and contrast injection associated with bilateral SI joint injection procedure. Electronically Signed by Morales Prado MD 11/29/2019 12:25 P
--- NOTE | 2019-12-08 04:54 | ECWPNPC ---
PATIENT NAME: MELBA MARTIN : 1965 GENDER: MALE VISIT DATE: 11/29/2019 DISCHARGE DATE: 11/29/19 1128 VISIT LOCKED DATE TIME: PHYSICIAN: MARSHA WRIGHT MD RESOURCE: MARSHA WRIGHT MD REASON FOR APPOINTMENT 1. W/C BILAT JUANITA HISTORY OF PRESENT ILLNESS HISTORY OF PRESENT ILLNESS: PAIN THE PATIENT DESCRIBES THE PAIN... FALL RISK SCREENING: SCREENING :NO FALLS REPORTED IN THE LAST YEAR CURRENT MEDICATIONS TAKING ASPIR-81 1 TABLET ORALLY ONCE A DAY, NOTES: 11/28/19 PM TAKING MULTIVITAMIN ADULTS 50+ - TABLET 1 TAB ORALLY DAILY, NOTES: 11/29/19 0800 TAKING STOOL SOFTENER 100 MG CAPSULE 2 ORALLY ONCE A DAY, NOTES: 11/28/19 TAKING FLONASE 50 MCG/ACT SUSPENSION 1 SPRAY IN EACH NOSTRIL NASALLY NEEDED, NOTES: NONE RECENT TAKING ALBUTEROL SULFATE HFA 108 (90 BASE) MCG/ACT AEROSOL SOLUTION 2 PUFFS NEEDED INHALATION EVERY 4 HRS NEEDED FOR SHORTNESS OF BREATH, NOTES: 3 DAYS AGO TAKING TIZANIDINE HCL 2 MG TABLET 1 TABLET NEEDED ORALLY FOR SPASMS AND PAIN BEFORE BEDTIME MAY REPEAT IN 4HRS MDD2 WORKERS COMPENSATION, NOTES: 11/28/19 PM TAKING IBUPROFEN 800 MG TABLET 1 TABLET ORALLY WITH FOOD THREE TIMES DAILY NEEDED FOR PAIN, NOTES: PRN 2 NIGHTS AGO TAKING TAMSULOSIN HCL 0.4 MG CAPSULE 1 CAPSULE ORALLY ONCE A DAY, NOTES: FLOMAX 11/29/19 0800 TAKING LOSARTAN POTASSIUM-HCTZ 100-25 MG TABLET 1 TABLET ORALLY ONCE A DAY, NOTES: 11/29/19 0800 TAKING SPIRONOLACTONE 25 MG TABLET 1 TABLET WITH FOOD ORALLY ONCE A DAY, NOTES: 11/29/19 0800 TAKING BISOPROLOL FUMARATE 10 MG TABLET 1 TABLET ORALLY ONCE A DAY, NOTES: 11/29/19 0800 TAKING CRESTOR 20 MG TABLET 1 TABLET ORALLY ONCE A DAY, NOTES: 11/28/19 PM TAKING DULOXETINE HCL 30 MG CAPSULE DELAYED RELEASE PARTICLES 1 CAPSULE ORALLY ONCE A DAY, NOTES: 11/29/19 0800 TAKING AMLODIPINE BESYLATE 10 MG TABLET 1 TABLET ORALLY ONCE A DAY, NOTES: 11/28/19 PM TAKING PREDNISONE 20 MG TABLET 1 TABLET ORALLY BID, NOTES: 3 DAYS AGO TAKING PROAIR HFA 108 (90 BASE) MCG/ACT AEROSOL SOLUTION 2 PUFFS NEEDED INHALATION EVERY 4-6 HRS, NOTES: 3 DAYS AGO NOT-TAKING ROSUVASTATIN CALCIUM 20 MG TABLET TAKE 1 TABLET DAILY , NOTES: DUPILCATE NOT-TAKING KETOROLAC TROMETHAMINE 10 MG TABLET 1 TABLET WITH FOOD OR MILK NEEDED ORALLY EVERY 6 HRS NOT-TAKING SUDAFED 30 MG TABLET 1 TABLET NEEDED ORALLY EVERY 6 HRS NOT-TAKING MECLIZINE HCL 25 MG TABLET CHEWABLE 1 TABLET NEEDED ORALLY ONCE A DAY MEDICATION LIST REVIEWED AND RECONCILED WITH THE PATIENT PAST MEDICAL HISTORY OLD L1 L2 COMPRESSION FX HTN DEPRESSION/ANXIETY MURTAZA WITH CPAP HIGH CHOLESTEROL BOWEL OBSTRUCTION ALLERGIES N.K.D.A. SURGICAL HISTORY EXPLORATORY LAP 2014 UMBILICAL HERNIA REPAIR CYST REMOVED FROM BACK -DR HARPER 2017 FAMILY HISTORY FATHER: ALIVE, DIAGNOSED WITH HYPERTENSION, UNSPECIFIED HEART DISEASE MOTHER: ALIVE, UNSPECIFIED HEART DISEASE PATERNAL GRAND FATHER: UNSPECIFIED CEREBRAL ARTERY OCCLUSION WITH CEREBRAL INFARCTION MATERNAL GRAND MOTHER: OTHER MALIGNANT NEOPLASM OF UNSPECIFIED SITE 1 BROTHER(S) , 1 SISTER(S) - HEALTHY. 2 SON(S) , 2 DAUGHTER(S) - HEALTHY. MGM COLON CA. SOCIAL HISTORY GENERAL: TOBACCO USE ARE YOU A:NONSMOKER HIV / HEP-C SCREENING HIV TEST OFFERED TO PATIENT:YES DATE OFFERED:10/28/2018 TEST ACCEPTED:YES HEP-C TEST OFFERED TO PATIENT:YES DATE OFFERED:10/28/2018 TEST ACCEPTED:YES BROCHURE PROVIDED TO PATIENTYES OTHERS AT HOME: SPOUSE, CHILD( YOUNGEST DAUGHTER). EDUCATION LEVEL OF EDUCATION:HIGH SCHOOL DIET: REGULAR. LANGUAGE LANGUAGES SPOKEN:MACEDONIAN DOMESTIC VIOLENCE DO YOU FEEL SAFE IN YOUR ENVIRONMENT?YES NEW PATIENT PAIN DIARY FROM 0-10, WHAT LEVEL IS YOUR PAIN TODAY?6 BMI CARE GOAL FOLLOW-UP ABOVE NORMAL BMI FOLLOW-UPDIETARY MANAGEMENT EDUCATION, GUIDANCE, AND COUNSELING RECREATIONAL DRUG USE DRUG USE?NO EXERCISE: NONE. LEARNING BARRIERS / SPECIAL NEEDS CHANGE FROM LAST VISIT?NO BARRIERS TO LEARNING?NO HEARING IMPAIRED?NO VISION IMPAIRED?YES WEARS GLASSES COGNITIVELY IMPAIRED?NO READINESS TO LEARN?YES LEARNING PREFERENCES?YES : VERBAL DISCUSSION LEARNING CAPABILITIES PRESENT?YES EMOTIONAL BARRIERS?NO SPECIAL DEVICES?NO COMBINATION MACHINE TENDER NEEDED?NO PAIN CLINIC PFS, CLERGY, PUBLIC HEALTH REFERRALS WAS THE PROVIDER NOTIFIED OF ANY PERTINENT INFO?YES HAS THE PATIENT BEEN EDUCATED REGARDING HIS/HER PLAN OF CARE?YES PATIENT HAS HAD THIS PROCEDURE BEFORE. 03/12/18 HAS THE PATIENT BEEN EDUCATED REGARDING PAIN, THE RISK FOR PAIN, THE IMPORTANCE OF EFFECTIVE PAIN MANAGEMENT, AND THE PAIN ASSESSMENT PROCESS?YES LATEX QUESTIONNAIRE LATEX ALLERGY : HAVE YOU EVER DEVELOPED ANY TYPE OF REACTION AFTER HANDLING LATEX PRODUCTS SUCH RUBBER GLOVES, CONDOMS, DIAPHRAGMS, BALLOONS, SOCKS, OR UNDERWEAR?NO LATEX ALLERGY : HAVE YOU EVER DEVELOPED ANY TYPE OF REACTION DURING OR AFTER DENTAL APPOINTMENT, VAGINAL/RECTAL EXAMINATION, SURGICAL PROCEDURE, OR ANY OTHER EXPOSURE?NO DATE ASKED : 03/04/2019 LATEX RISK : HAVE YOU EVER HAD ANY DIFFICULTY BREATHING OR HIVES AFTER EATING OR HANDLING ANY FRUITS, OR VEGETABLES; SUCH KIWI, BANANAS, STONE FRUITS, OR CHESTNUTSNO LATEX RISK : DO YOU HAVE A PREVIOUS PERSONAL HISTORY OF MORE THAN NINE SURGERIES, SPINA BIFIDA, OR REPEATED CATHERIZATIONS? NO LATEX RISK : ARE YOU FREQUENTLY EXPOSED TO LATEX PRODUCTS IN YOUR OCCUPATION?NO CAFFEINE CAFFEINE USE?YES HOW OFTEN AND HOW MUCH? 2 CUPS/DAY ADVANCE DIRECTIVE ADVANCE DIRECTIVE DISCUSSED WITH PATIENT:YES HCP INFO AND ASSISTANCE DECLINED AT THIS TIME. HINDU [id number] LUTHERAN MARITAL STATUS: . ALCOHOL SCREENING DID YOU HAVE A DRINK CONTAINING ALCOHOL IN THE PAST YEAR?YES HOW OFTEN DID YOU HAVE SIX OR MORE DRINKS ON ONE OCCASION IN THE PAST YEAR?NEVER (0 POINTS) HOW MANY DRINKS DID YOU HAVE ON A TYPICAL DAY WHEN YOU WERE DRINKING IN THE PAST YEAR?1 OR 2 (0 POINTS) HOW OFTEN DID YOU HAVE A DRINK CONTAINING ALCOHOL IN THE PAST YEAR?MONTHLY OR LESS (1 POINT) POINTS1 INTERPRETATIONNEGATIVE OCCUPATION: WORKS FOR [employer]. SEXUAL HX HAD SEX IN THE LAST 12 MONTHS (VAGINAL, ORAL, OR ANAL)?YES WITHWOMEN ONLY HAVE YOU EVER HAD AN STD?NO REVIEWED NL 10/19/18REVIEWED WITH PT 01/25/19 1437 BVREVIEWED WITH ANNETTE 09/14/19PRE ADMISSION COMPLETED 11-22-19 [facility]. HOSPITALIZATION/MAJOR DIAGNOSTIC PROCEDURE BOWEL OBSTRUCTION 2016 REVIEW OF SYSTEMS REVIEWED BY: PROVIDER: . CONSTITUTIONAL: ANY CHANGE IN YOUR MEDICAL CONDITION? NO . CHILLS NO . FEVER NO . INFECTION: DO YOU HAVE NEW INFECTIONS? NO . DO YOU HAVE HISTORY OF MRSA? NO . MUSCULOSKELETAL: ANY NEW PATTERNS OF PAIN OR NUMBNESS? NO . GASTROENTEROLOGY: ANY NEW CHANGE IN BOWEL CONTROL? NO . GENITOURINARY: ANY NEW CHANGE IN BLADDER CONTROL? NO . IS THERE A CHANCE YOU COULD BE ? NO . HEMATOLOGY/LYMPH: DO YOU TAKE ANY BLOOD THINNERS? (FOR EXAMPLE- COUMADIN, PLAVIX, AGGRENOX, PLATEL, PRADAXA, OR XARELTO) NO . WHEN WAS YOUR LAST DOSE? DATE: TIME: . NEUROLOGY: HAVE YOU FALLEN IN THE PAST 12 MONTHS? NO . ANY NEW EXTREMITY NUMBNESS OR WEAKNESS? NO . CARDIOLOGY: DO YOU HAVE A PACEMAKER OR DEFIBRILLATOR? NO . RESPIRATORY: HAVE YOU BEEN SICK IN THE PAST WEEK? NO . FEVER NO . FLU LIKE SYMPTOMS? NO . COUGH NO . INTEGUMENTARY: DO YOU HAVE ANY RASHES OR OPEN SORES? NO . ALLERGIC/IMMUNO: ARE YOU ALLERGIC TO IV DYE? NO . ANY NEW ALLERGIES? NO . PSYCHIATRIC: DO YOU HAVE THOUGHTS OF HURTING YOURSELF OR SOMEONE ELSE? NO . ARE YOU ABUSED, NEGLECTED, OR IN AN UNSAFE ENVIRONMENT? NO . ENDOCRINOLOGY: ARE YOU DIABETIC? NO . OTHER: DO YOU NEED ANY PRESCRIPTIONS? NO . IF YES, PLEASE LIST: ____ . ANY NEW PROBLEMS WITH YOUR MEDICATIONS? NO . WHEN DID YOU LAST EAT? 11/28/19 1800 . WHEN DID YOU LAST DRINK? 11/29/19 0700 . WHAT DID YOU LAST DRINK? BLACK COFFEE . NAME OF PERSON DRIVING YOU HOME? YVONNE MARTIN-SON . DO YOU HAVE ANY OTHER QUESTIONS OR CONCERNS NO . VITAL SIGNS WT 388.2 LBS, HT 71 IN, BMI 54.14 INDEX, BP 162/89 MM HG, HR 67 /MIN, RR 18 /MIN, TEMP 97.2 F, OXYGEN SAT % 95%, NA INITIALS AW 0941, REVIEWED BY: BV. ASSESSMENTS SACROILIITIS - M46.1 (PRIMARY) TREATMENT SACROILIITIS [facility] FLUORO GUIDANCE (PAIN)[id number] PROCEDURES PN WORKMANS' COMP OPINION IN YOUR OPINION, WAS THE INCIDENT THAT THE PATIENT DESCRIBED THE COMPETENT MEDICAL CAUSE OF THIS INJURY/ILLNESS? YES ARE THE PATIENT'S COMPLAINTS CONSISTENT WITH HIS/HER HISTORY OF THE INJURY/ILLNESS? YES IS THE PATIENT'S HISTORY OF THE INJURY/ILLNESS CONSISTENT WITH YOUR OBJECTIVE FINDING? YES WHAT IS THE PERCENTAGE OF TEMPORARY IMPAIRMENT? MODERATE TO MARKED = 66.7% IS THE PATIENT WORKING? YES DOCTOR ON SITE: MARSHA TIDWELL MD PN SI PRE PROCEDURE DIAGNOSIS SACROILIITIS, SACROILIAC JOINT DYSFUNCTION POST PROCEDURE DIAGNOSIS SACROILIITIS, SACROILIAC JOINT DYSFUNCTION PROCEDURE BILATERAL SACROILIAC JOINT BLOCK SURGEON DR. MARSHA WRIGHT ENGINEER STATION MAINLINE NONE ANESTHESIA LOCAL PRE PROCEDURE NOTE PATIENT WITH HISTORY OF CHRONIC LOW BACK PAIN. I EVALUATED THE PATIENT AND REVIEWED THE CHART. I WENT OVER THE RISKS, ALTERNATIVES, AND BENEFITS ASSOCIATED WITH THIS PROCEDURE. THE PATIENT WOULD LIKE TO PROCEED AND GAVE CONSENT TO PERFORM THE PROCEDURE. THE PATIENT DENIES UNEXPLAINABLE WEIGHT LOSS, FEVER, CHILLS, OR NEW CHANGES IN URINARY OR BOWEL CONTROL DESCRIPTION OF PROCEDURE THE PATIENT WAS BROUGHT TO THE PROCEDURE ROOM AND PLACED IN THE PRONE POSITION. THE LUMBOSACRAL AREA WAS CLEANED WITH CHLORAPREP SOLUTION AND DRAPED ASEPTICALLY. THE PROCEDURE WAS DONE UNDER STERILE CONDITIONS. I CHECKED LATERALITY AND THE LEVEL WHERE THE PROCEDURE WAS GOING TO BE PERFORMED WITH THE PATIENT AND THE SUPPORTING STAFF AT THE MOMENT OF THE TIME OUT IN THE PROCEDURE ROOM. UNDER FLUOROSCOPIC GUIDANCE, TARGET POINT WAS SELECTED AT THE LOWER BORDER OF THE RIGHT AND LEFT SACROILIAC JOINT. TARGET POINT WAS SELECTED AFTER MEDIAL ROTATION AND TILT OF THE MAGNIFIER OF THE C-ARM. LIDOCAINE WAS USED TO NUMB THE SKIN AND SUBCUTANEOUS TISSUE BELOW IT. A SPINAL NEEDLE, 22-GAUGE, WAS ADVANCED UNDER FLUOROSCOPIC GUIDANCE AND FOLLOWING PATIENT FEEDBACK UNTIL THE TARGET AREA WAS TOUCHED. THE POSITION OF THE NEEDLE WAS VERIFIED WITH AP AND LATERAL VIEWS. AFTER PROPER POSITION OF THE NEEDLE WAS ACHIEVED, ISOVUE M DYE 30%, 0.25 ML, WAS INJECTED SHOWING SPREAD OF THE DYE. THEN, A SOLUTION OF 30 MG OF KENALOG WAS INJECTED IN RIGHT AND LEFT JOINT WITH 3 ML OF BUPIVACAINE 0.125%. THERE WAS NO EVIDENCE OF BLOOD, PARESTHESIA OR CEREBROSPINAL FLUID DURING THE PROCEDURE. THE PATIENT WAS SENT TO THE RECOVERY ROOM. THE PATIENT WAS MOVING THE EXTREMITIES AND DOING WELL. THERE WAS NO COMPLICATION DURING THE PROCEDURE. FLUOROSCOPY TIME WAS 33 SECONDS POST PROCEDURE NOTE THE PATIENT WILL BE SEEN IN A FOLLOW UP IN THE NEXT FEW WEEKS. I AM LOOKING FOR LONG LASTING PAIN RELIEF WITH THIS INTERVENTION. INSTRUCTIONS WERE GIVEN, QUESTIONS WERE ANSWERED, AND THE PATIENT EXPRESSED UNDERSTANDING AND AGREED WITH THE PLAN. I, YARA DA SILVA, DOCUMENTED THE ABOVE INFORMATION ACTING A SCRIBE FOR DR. WRIGHT. I HAVE REVIEWED THE ABOVE DOCUMENT, WRITTEN BY YARA ROY AND I VERIFY THAT IT IS ACCURATE. PROCEDURE CODES 11121 INJECT SACROILIAC JOINT, MODIFIERS: 50 [id number] RADXPS IN END [id number] PXD DISPOSITION & COMMUNICATION FOLLOW UP 3 WEEKS ELECTRONICALLY SIGNED BY MARSHA WRIGHT MD, MD ON 12/07/2019 AT 09:21 AM EST DISCLAIMER : THIS IS A VISIT SUMMARY EXTRACTED FROM THE [employer] CHART. IT IS NOT A COPY OF THE [employer] PROGRESS NOTE. MTDD
== END ==
LOC: M PAIN 09:45
PROVIDERS: ATTEND Anesthesiology
DX: M46.1 Sacroiliitis, not elsewhere classified (principal); I10 Essential (primary) hypertension; Z86.59 Personal history of other mental and behavioral disorders; G47.33 Obstructive sleep apnea (adult) (pediatric); Z79.82 Long term (current) use of aspirin; Z79.899 Other long term (current) drug therapy
CPT/HCPCS: G0260; J3301; Q9967

== ENCOUNTER → 2019-12-15 | Outpatient (CLI) | payer OTHER, BC ==
[~2019-12-15] MED LIST changes: -BUPIVACAINE HCL 0.25% 30 ML VIAL As Ordered ONE; -ISOVUE-M 300 61% 15ML VIAL (Q9967) As Ordered ONE; -LIDOCAINE 1% SDV INJ 30 ML VIAL As Ordered ONE; -TRIAMCINOLONE ACETONIDE SUSP 40 MG/ML VIAL (J3301) As Ordered ONE; -diazePAM 5 MG TAB As Ordered ONE; -oxyCODONE 5MG TAB As Ordered ONE
--- NOTE | 2019-12-16 01:59 | ECWPNPC ---
PATIENT NAME: MELBA MARTIN : 1965 GENDER: MALE VISIT DATE: 12/15/2019 DISCHARGE DATE: 12/15/19 1449 VISIT LOCKED DATE TIME: PHYSICIAN: MAXIM VILLAVICENCIO RESOURCE: MAXIM VILLAVICENCIO REASON FOR APPOINTMENT 1. W/C, POST PROCEDURE HISTORY OF PRESENT ILLNESS HISTORY OF PRESENT ILLNESS: HERE FOR F/U OF CHRONIC LOW BACK PAIN.HEAD, BILATERAL SACROILIAC JOINT INJECTION ON 11/29/2019. REPORTING 2 DAYS OF MINIMAL IMPROVEMENT AND THEN PAIN RETURNED TO BASELINE. RATING PAIN VAS 8/10. 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 PAIN THE PATIENT DESCRIBES THE PAIN... FALL RISK SCREENING: SCREENING :NO FALLS REPORTED IN THE LAST YEAR CURRENT MEDICATIONS TAKING ASPIR-81 1 TABLET ORALLY ONCE A DAY TAKING MULTIVITAMIN ADULTS 50+ - TABLET 1 TAB ORALLY DAILY TAKING STOOL SOFTENER 100 MG CAPSULE 2 ORALLY ONCE A DAY TAKING FLONASE 50 MCG/ACT SUSPENSION 1 SPRAY IN EACH NOSTRIL NASALLY NEEDED TAKING ALBUTEROL SULFATE HFA 108 (90 BASE) MCG/ACT AEROSOL SOLUTION 2 PUFFS NEEDED INHALATION EVERY 4 HRS NEEDED FOR SHORTNESS OF BREATH TAKING TIZANIDINE HCL 2 MG TABLET 1 TABLET NEEDED ORALLY FOR SPASMS AND PAIN BEFORE BEDTIME MAY REPEAT IN 4HRS MDD2 WORKERS COMPENSATION TAKING IBUPROFEN 800 MG TABLET 1 TABLET ORALLY WITH FOOD THREE TIMES DAILY NEEDED FOR PAIN TAKING TAMSULOSIN HCL 0.4 MG CAPSULE 1 CAPSULE ORALLY ONCE A DAY TAKING LOSARTAN POTASSIUM-HCTZ 100-25 MG TABLET 1 TABLET ORALLY ONCE A DAY TAKING SPIRONOLACTONE 25 MG TABLET 1 TABLET WITH FOOD ORALLY ONCE A DAY TAKING BISOPROLOL FUMARATE 10 MG TABLET 1 TABLET ORALLY ONCE A DAY TAKING CRESTOR 20 MG TABLET 1 TABLET ORALLY ONCE A DAY TAKING AMLODIPINE BESYLATE 10 MG TABLET 1 TABLET ORALLY ONCE A DAY TAKING PROAIR HFA 108 (90 BASE) MCG/ACT AEROSOL SOLUTION 2 PUFFS NEEDED INHALATION EVERY 4-6 HRS TAKING CITALOPRAM HYDROBROMIDE 20 MG TABLET 1 TABLET ORALLY ONCE A DAY, NOTES: UNSURE OF DOSE NOT-TAKING DULOXETINE HCL 30 MG CAPSULE DELAYED RELEASE PARTICLES 1 CAPSULE ORALLY ONCE A DAY, NOTES: STOPPED NOT-TAKING PREDNISONE 20 MG TABLET 1 TABLET ORALLY BID NOT-TAKING ROSUVASTATIN CALCIUM 20 MG TABLET TAKE 1 TABLET DAILY , NOTES: DUPILCATE NOT-TAKING KETOROLAC TROMETHAMINE 10 MG TABLET 1 TABLET WITH FOOD OR MILK NEEDED ORALLY EVERY 6 HRS NOT-TAKING SUDAFED 30 MG TABLET 1 TABLET NEEDED ORALLY EVERY 6 HRS NOT-TAKING MECLIZINE HCL 25 MG TABLET CHEWABLE 1 TABLET NEEDED ORALLY ONCE A DAY MEDICATION LIST REVIEWED AND RECONCILED WITH THE PATIENT PAST MEDICAL HISTORY OLD L1 L2 COMPRESSION FX HTN DEPRESSION/ANXIETY MURTAZA WITH CPAP HIGH CHOLESTEROL BOWEL OBSTRUCTION ALLERGIES N.K.D.A. SURGICAL HISTORY EXPLORATORY LAP 2014 UMBILICAL HERNIA REPAIR CYST REMOVED FROM BACK -DR HARPER 2017 FAMILY HISTORY FATHER: ALIVE, DIAGNOSED WITH HYPERTENSION, UNSPECIFIED HEART DISEASE MOTHER: ALIVE, UNSPECIFIED HEART DISEASE PATERNAL GRAND FATHER: UNSPECIFIED CEREBRAL ARTERY OCCLUSION WITH CEREBRAL INFARCTION MATERNAL GRAND MOTHER: OTHER MALIGNANT NEOPLASM OF UNSPECIFIED SITE 1 BROTHER(S) , 1 SISTER(S) - HEALTHY. 2 SON(S) , 2 DAUGHTER(S) - HEALTHY. MGM COLON CA. SOCIAL HISTORY GENERAL: TOBACCO USE ARE YOU A:NONSMOKER HIV / HEP-C SCREENING HIV TEST OFFERED TO PATIENT:YES DATE OFFERED:10/28/2018 TEST ACCEPTED:YES HEP-C TEST OFFERED TO PATIENT:YES DATE OFFERED:10/28/2018 TEST ACCEPTED:YES BROCHURE PROVIDED TO PATIENTYES OTHERS AT HOME: SPOUSE, CHILD( YOUNGEST DAUGHTER). EDUCATION LEVEL OF EDUCATION:HIGH SCHOOL DIET: REGULAR. LANGUAGE LANGUAGES SPOKEN:JAPANESE DOMESTIC VIOLENCE DO YOU FEEL SAFE IN YOUR ENVIRONMENT?YES NEW PATIENT PAIN DIARY FROM 0-10, WHAT LEVEL IS YOUR PAIN TODAY?6 BMI CARE GOAL FOLLOW-UP ABOVE NORMAL BMI FOLLOW-UPDIETARY MANAGEMENT EDUCATION, GUIDANCE, AND COUNSELING RECREATIONAL DRUG USE DRUG USE?NO EXERCISE: NONE. LEARNING BARRIERS / SPECIAL NEEDS CHANGE FROM LAST VISIT?NO BARRIERS TO LEARNING?NO HEARING IMPAIRED?NO VISION IMPAIRED?YES WEARS GLASSES COGNITIVELY IMPAIRED?NO READINESS TO LEARN?YES LEARNING PREFERENCES?YES : VERBAL DISCUSSION LEARNING CAPABILITIES PRESENT?YES EMOTIONAL BARRIERS?NO SPECIAL DEVICES?NO FINISHER BRUSH NEEDED?NO PAIN CLINIC PFS, CLERGY, PUBLIC HEALTH REFERRALS WAS THE PROVIDER NOTIFIED OF ANY PERTINENT INFO?YES HAS THE PATIENT BEEN EDUCATED REGARDING HIS/HER PLAN OF CARE?YES PATIENT HAS HAD THIS PROCEDURE BEFORE. 03/12/18 HAS THE PATIENT BEEN EDUCATED REGARDING PAIN, THE RISK FOR PAIN, THE IMPORTANCE OF EFFECTIVE PAIN MANAGEMENT, AND THE PAIN ASSESSMENT PROCESS?YES LATEX QUESTIONNAIRE LATEX ALLERGY : HAVE YOU EVER DEVELOPED ANY TYPE OF REACTION AFTER HANDLING LATEX PRODUCTS SUCH RUBBER GLOVES, CONDOMS, DIAPHRAGMS, BALLOONS, SOCKS, OR UNDERWEAR?NO LATEX ALLERGY : HAVE YOU EVER DEVELOPED ANY TYPE OF REACTION DURING OR AFTER DENTAL APPOINTMENT, VAGINAL/RECTAL EXAMINATION, SURGICAL PROCEDURE, OR ANY OTHER EXPOSURE?NO LATEX RISK : HAVE YOU EVER HAD ANY DIFFICULTY BREATHING OR HIVES AFTER EATING OR HANDLING ANY FRUITS, OR VEGETABLES; SUCH KIWI, BANANAS, STONE FRUITS, OR CHESTNUTSNO LATEX RISK : DO YOU HAVE A PREVIOUS PERSONAL HISTORY OF MORE THAN NINE SURGERIES, SPINA BIFIDA, OR REPEATED CATHERIZATIONS? NO LATEX RISK : ARE YOU FREQUENTLY EXPOSED TO LATEX PRODUCTS IN YOUR OCCUPATION?NO DATE ASKED : 03/04/2019 CAFFEINE CAFFEINE USE?YES HOW OFTEN AND HOW MUCH? 2 CUPS/DAY ADVANCE DIRECTIVE ADVANCE DIRECTIVE DISCUSSED WITH PATIENT:YES HCP - [facility] [id number] RESTORATIONISM MARITAL STATUS: . ALCOHOL SCREENING DID YOU HAVE A DRINK CONTAINING ALCOHOL IN THE PAST YEAR?YES HOW OFTEN DID YOU HAVE SIX OR MORE DRINKS ON ONE OCCASION IN THE PAST YEAR?NEVER (0 POINTS) HOW MANY DRINKS DID YOU HAVE ON A TYPICAL DAY WHEN YOU WERE DRINKING IN THE PAST YEAR?1 OR 2 (0 POINTS) HOW OFTEN DID YOU HAVE A DRINK CONTAINING ALCOHOL IN THE PAST YEAR?MONTHLY OR LESS (1 POINT) POINTS1 INTERPRETATIONNEGATIVE OCCUPATION: WORKS FOR [employer]. SEXUAL HX HAD SEX IN THE LAST 12 MONTHS (VAGINAL, ORAL, OR ANAL)?YES WITHWOMEN ONLY HAVE YOU EVER HAD AN STD?NO REVIEWED NL 10/19/18REVIEWED WITH PT 01/25/19 1437 BVREVIEWED WITH ANNETTE 09/14/19PRE ADMISSION COMPLETED 11-22-19 KEGREVIEWED WITH PATIENT 12/15/2019 1429 JS. HOSPITALIZATION/MAJOR DIAGNOSTIC PROCEDURE BOWEL OBSTRUCTION 2016 REVIEW OF SYSTEMS REVIEWED BY: PROVIDER: MAXIM ALAS . CONSTITUTIONAL: ANY CHANGE IN YOUR MEDICAL CONDITION? NO . CHILLS NO . FEVER NO . INFECTION: DO YOU HAVE NEW INFECTIONS? NO . DO YOU HAVE HISTORY OF MRSA? NO . MUSCULOSKELETAL: ANY NEW PATTERNS OF PAIN OR NUMBNESS? NO . GASTROENTEROLOGY: ANY NEW CHANGE IN BOWEL CONTROL? NO . GENITOURINARY: ANY NEW CHANGE IN BLADDER CONTROL? NO . IS THERE A CHANCE YOU COULD BE ? NO . HEMATOLOGY/LYMPH: DO YOU TAKE ANY BLOOD THINNERS? (FOR EXAMPLE- COUMADIN, PLAVIX, AGGRENOX, PLATEL, PRADAXA, OR XARELTO) NO . WHEN WAS YOUR LAST DOSE? DATE: TIME: . NEUROLOGY: HAVE YOU FALLEN IN THE PAST 12 MONTHS? NO . ANY NEW EXTREMITY NUMBNESS OR WEAKNESS? NO . CARDIOLOGY: DO YOU HAVE A PACEMAKER OR DEFIBRILLATOR? NO . RESPIRATORY: HAVE YOU BEEN SICK IN THE PAST WEEK? NO . FEVER NO . FLU LIKE SYMPTOMS? NO . COUGH NO . INTEGUMENTARY: DO YOU HAVE ANY RASHES OR OPEN SORES? NO . ALLERGIC/IMMUNO: ARE YOU ALLERGIC TO IV DYE? NO . ANY NEW ALLERGIES? NO . PSYCHIATRIC: DO YOU HAVE THOUGHTS OF HURTING YOURSELF OR SOMEONE ELSE? NO . ARE YOU ABUSED, NEGLECTED, OR IN AN UNSAFE ENVIRONMENT? NO . ENDOCRINOLOGY: ARE YOU DIABETIC? NO . OTHER: DO YOU NEED ANY PRESCRIPTIONS? YES . IF YES, PLEASE LIST: ____TIZANIDINE . ANY NEW PROBLEMS WITH YOUR MEDICATIONS? YES, PATIENT WAS SWITCHED TO DULOXETINE AND HAD PROBLEMS WITH THAT, STARTED TAKING CITALOPRAM AGAIN . WHEN DID YOU LAST EAT? ____ . WHEN DID YOU LAST DRINK? ____ . WHAT DID YOU LAST DRINK? ____ . NAME OF PERSON DRIVING YOU HOME? ____ . DO YOU HAVE ANY OTHER QUESTIONS OR CONCERNS NO . VITAL SIGNS WT 391.4 LBS, HT 71 IN, BMI 54.58 INDEX, BP 145/73 MM HG, HR 73 /MIN, RR 18 /MIN, TEMP 97.9 F, OXYGEN SAT % 97%, SAFE IN ENV? (Y/N) YES, REVIEWED BY: TOSHA. EXAMINATION GENERAL EXAMINATION: GENERAL AWAKE,ALERT ,PLEASANT . PSYCH AFFECT NORMAL . LUNGS: LUNG SALVADOR ARE CLEAR TO AUSCULTATION BILATERALLY. GOOD MOVEMENT OF AIR . HEART: S1, S2 IN A REGULAR RATE AND RHYTHM. NO SIGNIFICANT MURMURS, RUBS OR GALLOPS NOTED . FOR BILAT. SIJ PALPATION: + FOR PAIN OVER L/S SPINE. + FOR PAIN OVER L/S PARASPINALS .SPECIFIC POINT TENDERNESS OVER BILAT L4/5-L5/S1 LUMBAR FACETS WITH FACET LOADING. NEUROLOGIC EXAM: NORMAL SENSATION LIGHT TOUCH BILAT. LOWER EXTREMITIES . DIAGNOSTIC TESTS REVIEWEDMRI OF THE LS-SPINE 09/25/2018 . ASSESSMENTS SPONDYLOSIS OF LUMBOSACRAL REGION WITHOUT MYELOPATHY OR RADICULOPATHY - M47.817 (PRIMARY) TREATMENT SPONDYLOSIS OF LUMBOSACRAL REGION WITHOUT MYELOPATHY OR RADICULOPATHY REFILL TIZANIDINE HCL TABLET, 2 MG, 1 TABLET NEEDED, ORALLY FOR SPASMS AND PAIN, BEFORE BEDTIME MAY REPEAT IN 4HRS MDD2 WORKERS COMPENSATION, 30 DAYS, 60, REFILLS 2 NOTES: W/C REQUEST LFBT L4/5-L5/S1. PROCEDURES PN WORKMANS' COMP OPINION IN YOUR OPINION, WAS THE INCIDENT THAT THE PATIENT DESCRIBED THE COMPETENT MEDICAL CAUSE OF THIS INJURY/ILLNESS? YES ARE THE PATIENT'S COMPLAINTS CONSISTENT WITH HIS/HER HISTORY OF THE INJURY/ILLNESS? YES IS THE PATIENT'S HISTORY OF THE INJURY/ILLNESS CONSISTENT WITH YOUR OBJECTIVE FINDING? YES WHAT IS THE PERCENTAGE OF TEMPORARY IMPAIRMENT? MODERATE TO MARKED = 66.7% IS THE PATIENT WORKING? YES DOCTOR ON SITE: MARSHA TIDWELL MD PROCEDURE CODES FA211 ESTABILISHED PATIENT [facility] FACILITY CHARGE DISPOSITION & COMMUNICATION FOLLOW UP POST (REASON: W/C REQUEST LFBT L4/5-L5/S1) ELECTRONICALLY SIGNED BY BISHOP CAMPOS ON 12/15/2019 AT 02:51 PM EST ADDENDUM: 12/15/2019 04:46 PM HARISH KERNS > 12/15/2019 1443 REVIEWED INFORMATION ON THERAPEUTIC LUMBAR FACET BLOCK PROCEDURE WITH PATIENT. ALSO REVIEWED PRE-PROCEDURE INSTRUCTIONS. PATIENT VERBALIZED AN UNDERSTANDING. JS DISCLAIMER : THIS IS A VISIT SUMMARY EXTRACTED FROM THE [facility] CHART. IT IS NOT A COPY OF THE [facility] PROGRESS NOTE. REGINAD
== END ==
LOC: M PAIN 14:30
PROVIDERS: ATTEND Nurse Practitioner Family
DX: M47.817 Spondylosis without myelopathy or radiculopathy, lumbosacral region (principal); G89.29 Other chronic pain; I10 Essential (primary) hypertension; Z86.59 Personal history of other mental and behavioral disorders; G47.33 Obstructive sleep apnea (adult) (pediatric); E66.01 Morbid (severe) obesity due to excess calories; Z68.43 Body mass index [BMI] 50.0-59.9, adult; Z79.82 Long term (current) use of aspirin; Z79.899 Other long term (current) drug therapy

== ENCOUNTER → 2020-02-01 | Outpatient (CLI) | payer OTHER, BC ==
[~2020-02-01] MED LIST changes: +BUPIVACAINE HCL 0.25% 30 ML VIAL As Ordered ONE; +ISOVUE-M 300 61% 15ML VIAL (Q9967) As Ordered ONE; +LIDOCAINE 1% SDV INJ 30 ML VIAL As Ordered ONE; +TRIAMCINOLONE ACETONIDE SUSP 40 MG/ML VIAL (J3301) As Ordered ONE; +diazePAM 5 MG TAB As Ordered ONE; +oxyCODONE 5MG TAB As Ordered ONE
--- NOTE | 2020-02-01 11:44 | REP ---
Partial lumbar spine series: Two views . History: Injection procedure for pain. 16 seconds of fluoroscopy time is reported. Findings: A sequence of two fluoroscopically obtained last image hold procedural spot radiographs of the lumbar spine document needle position and contrast injection associated with injection procedure. Electronically Signed by Morales Prado MD 02/01/2020 11:37 A
--- NOTE | 2020-02-04 04:31 | ECWPNPC ---
PATIENT NAME: MELBA MARTIN : 1965 GENDER: MALE VISIT DATE: 02/01/2020 DISCHARGE DATE: 02/01/20 1047 VISIT LOCKED DATE TIME: PHYSICIAN: MARSHA WRIGHT MD RESOURCE: MARSHA WRIGHT MD REASON FOR APPOINTMENT 1. LFTB HISTORY OF PRESENT ILLNESS HISTORY OF PRESENT ILLNESS: PAIN THE PATIENT DESCRIBES THE PAIN... FALL RISK SCREENING: SCREENING :NO FALLS REPORTED IN THE LAST YEAR CURRENT MEDICATIONS TAKING ASPIR-81 1 TABLET ORALLY ONCE A DAY, NOTES: 01/31/20 TAKING MULTIVITAMIN ADULTS 50+ - TABLET 1 TAB ORALLY DAILY, NOTES: 01/31 730 TAKING STOOL SOFTENER 100 MG CAPSULE 2 ORALLY ONCE A DAY, NOTES: 01/31/20 TAKING FLONASE 50 MCG/ACT SUSPENSION 1 SPRAY IN EACH NOSTRIL NASALLY NEEDED, NOTES: > 1 WEEK TAKING ALBUTEROL SULFATE HFA 108 (90 BASE) MCG/ACT AEROSOL SOLUTION 2 PUFFS NEEDED INHALATION EVERY 4 HRS NEEDED FOR SHORTNESS OF BREATH, NOTES: > 1 WEEK TAKING IBUPROFEN 800 MG TABLET 1 TABLET ORALLY WITH FOOD THREE TIMES DAILY NEEDED FOR PAIN, NOTES: 01/30/20 TAKING TAMSULOSIN HCL 0.4 MG CAPSULE 1 CAPSULE ORALLY ONCE A DAY, NOTES: 01/31/20 TAKING LOSARTAN POTASSIUM-HCTZ 100-25 MG TABLET 1 TABLET ORALLY ONCE A DAY, NOTES: 01/31 730 TAKING SPIRONOLACTONE 25 MG TABLET 1 TABLET WITH FOOD ORALLY ONCE A DAY, NOTES: 01/31 730 TAKING BISOPROLOL FUMARATE 10 MG TABLET 1 TABLET ORALLY ONCE A DAY, NOTES: 01/31 730 TAKING CRESTOR 20 MG TABLET 1 TABLET ORALLY ONCE A DAY, NOTES: 01/30 TAKING AMLODIPINE BESYLATE 10 MG TABLET 1 TABLET ORALLY ONCE A DAY, NOTES: 01/30 TAKING PROAIR HFA 108 (90 BASE) MCG/ACT AEROSOL SOLUTION 2 PUFFS NEEDED INHALATION EVERY 4-6 HRS, NOTES: > 1 WEEK TAKING TIZANIDINE HCL 2 MG TABLET 1 TABLET NEEDED ORALLY FOR SPASMS AND PAIN BEFORE BEDTIME MAY REPEAT IN 4HRS MDD2 WORKERS COMPENSATION, NOTES: > 1 WEEK TAKING CITALOPRAM HYDROBROMIDE 20 MG TABLET 1 TABLET ORALLY ONCE A DAY, NOTES: 01/31/20 NOT-TAKING PREDNISONE 20 MG TABLET 1 TABLET ORALLY BID NOT-TAKING ROSUVASTATIN CALCIUM 20 MG TABLET TAKE 1 TABLET DAILY , NOTES: DUPILCATE NOT-TAKING KETOROLAC TROMETHAMINE 10 MG TABLET 1 TABLET WITH FOOD OR MILK NEEDED ORALLY EVERY 6 HRS NOT-TAKING SUDAFED 30 MG TABLET 1 TABLET NEEDED ORALLY EVERY 6 HRS NOT-TAKING MECLIZINE HCL 25 MG TABLET CHEWABLE 1 TABLET NEEDED ORALLY ONCE A DAY MEDICATION LIST REVIEWED AND RECONCILED WITH THE PATIENT PAST MEDICAL HISTORY OLD L1 L2 COMPRESSION FX HTN DEPRESSION/ANXIETY MURTAZA WITH CPAP HIGH CHOLESTEROL BOWEL OBSTRUCTION ALLERGIES N.K.D.A. SURGICAL HISTORY EXPLORATORY LAP 2014 UMBILICAL HERNIA REPAIR CYST REMOVED FROM BACK -DR HARPER 2017 FAMILY HISTORY FATHER: ALIVE, DIAGNOSED WITH HYPERTENSION, UNSPECIFIED HEART DISEASE MOTHER: ALIVE, UNSPECIFIED HEART DISEASE PATERNAL GRAND FATHER: UNSPECIFIED CEREBRAL ARTERY OCCLUSION WITH CEREBRAL INFARCTION MATERNAL GRAND MOTHER: OTHER MALIGNANT NEOPLASM OF UNSPECIFIED SITE 1 BROTHER(S) , 1 SISTER(S) - HEALTHY. 2 SON(S) , 2 DAUGHTER(S) - HEALTHY. MGM COLON CA. SOCIAL HISTORY GENERAL: TOBACCO USE ARE YOU A:NONSMOKER HIV / HEP-C SCREENING HIV TEST OFFERED TO PATIENT:YES DATE OFFERED:10/28/2018 TEST ACCEPTED:YES HEP-C TEST OFFERED TO PATIENT:YES DATE OFFERED:10/28/2018 TEST ACCEPTED:YES BROCHURE PROVIDED TO PATIENTYES OTHERS AT HOME: SPOUSE, CHILD( YOUNGEST DAUGHTER). EDUCATION LEVEL OF EDUCATION:HIGH SCHOOL DIET: REGULAR. LANGUAGE LANGUAGES SPOKEN:ICELANDIC DOMESTIC VIOLENCE DO YOU FEEL SAFE IN YOUR ENVIRONMENT?YES NEW PATIENT PAIN DIARY FROM 0-10, WHAT LEVEL IS YOUR PAIN TODAY?6 BMI CARE GOAL FOLLOW-UP ABOVE NORMAL BMI FOLLOW-UPDIETARY MANAGEMENT EDUCATION, GUIDANCE, AND COUNSELING RECREATIONAL DRUG USE DRUG USE?NO EXERCISE: NONE. LEARNING BARRIERS / SPECIAL NEEDS CHANGE FROM LAST VISIT?NO BARRIERS TO LEARNING?NO HEARING IMPAIRED?NO VISION IMPAIRED?YES WEARS GLASSES COGNITIVELY IMPAIRED?NO READINESS TO LEARN?YES LEARNING PREFERENCES?YES : VERBAL DISCUSSION LEARNING CAPABILITIES PRESENT?YES EMOTIONAL BARRIERS?NO SPECIAL DEVICES?NO CONSULTING ANALYST NEEDED?NO PAIN CLINIC PFS, CLERGY, PUBLIC HEALTH REFERRALS WAS THE PROVIDER NOTIFIED OF ANY PERTINENT INFO?YES HAS THE PATIENT BEEN EDUCATED REGARDING HIS/HER PLAN OF CARE?YES PATIENT HAS HAD THIS PROCEDURE BEFORE. 03/12/18 HAS THE PATIENT BEEN EDUCATED REGARDING PAIN, THE RISK FOR PAIN, THE IMPORTANCE OF EFFECTIVE PAIN MANAGEMENT, AND THE PAIN ASSESSMENT PROCESS?YES LATEX QUESTIONNAIRE LATEX ALLERGY : HAVE YOU EVER DEVELOPED ANY TYPE OF REACTION AFTER HANDLING LATEX PRODUCTS SUCH RUBBER GLOVES, CONDOMS, DIAPHRAGMS, BALLOONS, SOCKS, OR UNDERWEAR?NO LATEX ALLERGY : HAVE YOU EVER DEVELOPED ANY TYPE OF REACTION DURING OR AFTER DENTAL APPOINTMENT, VAGINAL/RECTAL EXAMINATION, SURGICAL PROCEDURE, OR ANY OTHER EXPOSURE?NO DATE ASKED : 03/04/2019 LATEX RISK : HAVE YOU EVER HAD ANY DIFFICULTY BREATHING OR HIVES AFTER EATING OR HANDLING ANY FRUITS, OR VEGETABLES; SUCH KIWI, BANANAS, STONE FRUITS, OR CHESTNUTSNO LATEX RISK : DO YOU HAVE A PREVIOUS PERSONAL HISTORY OF MORE THAN NINE SURGERIES, SPINA BIFIDA, OR REPEATED CATHERIZATIONS? NO LATEX RISK : ARE YOU FREQUENTLY EXPOSED TO LATEX PRODUCTS IN YOUR OCCUPATION?NO CAFFEINE CAFFEINE USE?YES HOW OFTEN AND HOW MUCH? 2 CUPS/DAY ADVANCE DIRECTIVE ADVANCE DIRECTIVE DISCUSSED WITH PATIENT:YES HCP - CHANO CAODAISM [id number] TENRIISM MARITAL STATUS: . ALCOHOL SCREENING DID YOU HAVE A DRINK CONTAINING ALCOHOL IN THE PAST YEAR?YES HOW OFTEN DID YOU HAVE SIX OR MORE DRINKS ON ONE OCCASION IN THE PAST YEAR?NEVER (0 POINTS) HOW MANY DRINKS DID YOU HAVE ON A TYPICAL DAY WHEN YOU WERE DRINKING IN THE PAST YEAR?1 OR 2 (0 POINTS) HOW OFTEN DID YOU HAVE A DRINK CONTAINING ALCOHOL IN THE PAST YEAR?MONTHLY OR LESS (1 POINT) POINTS1 INTERPRETATIONNEGATIVE OCCUPATION: WORKS FOR [employer]. SEXUAL HX HAD SEX IN THE LAST 12 MONTHS (VAGINAL, ORAL, OR ANAL)?YES WITHWOMEN ONLY HAVE YOU EVER HAD AN STD?NO HOSPITALIZATION/MAJOR DIAGNOSTIC PROCEDURE BOWEL OBSTRUCTION 2016 REVIEW OF SYSTEMS REVIEWED BY: PROVIDER: . CONSTITUTIONAL: ANY CHANGE IN YOUR MEDICAL CONDITION? NO . CHILLS NO . FEVER NO . INFECTION: DO YOU HAVE NEW INFECTIONS? NO . DO YOU HAVE HISTORY OF MRSA? NO . MUSCULOSKELETAL: ANY NEW PATTERNS OF PAIN OR NUMBNESS? NO . GASTROENTEROLOGY: ANY NEW CHANGE IN BOWEL CONTROL? NO . GENITOURINARY: ANY NEW CHANGE IN BLADDER CONTROL? NO . IS THERE A CHANCE YOU COULD BE ? NO . HEMATOLOGY/LYMPH: DO YOU TAKE ANY BLOOD THINNERS? (FOR EXAMPLE- COUMADIN, PLAVIX, AGGRENOX, PLATEL, PRADAXA, OR XARELTO) NO . WHEN WAS YOUR LAST DOSE? DATE: TIME: . NEUROLOGY: HAVE YOU FALLEN IN THE PAST 12 MONTHS? NO . ANY NEW EXTREMITY NUMBNESS OR WEAKNESS? NO . CARDIOLOGY: DO YOU HAVE A PACEMAKER OR DEFIBRILLATOR? NO . RESPIRATORY: HAVE YOU BEEN SICK IN THE PAST WEEK? NO . FEVER NO . FLU LIKE SYMPTOMS? NO . COUGH NO . INTEGUMENTARY: DO YOU HAVE ANY RASHES OR OPEN SORES? NO . ALLERGIC/IMMUNO: ARE YOU ALLERGIC TO IV DYE? NO . ANY NEW ALLERGIES? NO . PSYCHIATRIC: DO YOU HAVE THOUGHTS OF HURTING YOURSELF OR SOMEONE ELSE? NO . ARE YOU ABUSED, NEGLECTED, OR IN AN UNSAFE ENVIRONMENT? NO . ENDOCRINOLOGY: ARE YOU DIABETIC? NO . OTHER: DO YOU NEED ANY PRESCRIPTIONS? NO . IF YES, PLEASE LIST: ____ . ANY NEW PROBLEMS WITH YOUR MEDICATIONS? NO . WHEN DID YOU LAST EAT? ____01/31/20 1800 . WHEN DID YOU LAST DRINK? ____02/01/20 0800 . WHAT DID YOU LAST DRINK? ____WATER . NAME OF PERSON DRIVING YOU HOME? ____MOTHER ZOE . DO YOU HAVE ANY OTHER QUESTIONS OR CONCERNS NO . VITAL SIGNS WT 395.2 LBS, HT 71 IN, BMI 55.11 INDEX, BP 163/84 MM HG, HR 64 /MIN, RR 18 /MIN, TEMP 98.2 F, OXYGEN SAT % 96%, NA INITIALS TL 0909. ASSESSMENTS SPONDYLOSIS WITHOUT MYELOPATHY OR RADICULOPATHY, LUMBAR REGION - M47.816 (PRIMARY) SPONDYLOSIS WITHOUT MYELOPATHY OR RADICULOPATHY, LUMBOSACRAL REGION - M47.817 TREATMENT SPONDYLOSIS WITHOUT MYELOPATHY OR RADICULOPATHY, LUMBOSACRAL REGION SMC FACET BLOCK (PAIN)[id number] PROCEDURES PN WORKMANS' COMP OPINION IN YOUR OPINION, WAS THE INCIDENT THAT THE PATIENT DESCRIBED THE COMPETENT MEDICAL CAUSE OF THIS INJURY/ILLNESS? YES ARE THE PATIENT'S COMPLAINTS CONSISTENT WITH HIS/HER HISTORY OF THE INJURY/ILLNESS? YES IS THE PATIENT'S HISTORY OF THE INJURY/ILLNESS CONSISTENT WITH YOUR OBJECTIVE FINDING? YES WHAT IS THE PERCENTAGE OF TEMPORARY IMPAIRMENT? MODERATE TO MARKED = 66.7% IS THE PATIENT WORKING? YES DOCTOR ON SITE: MD TAMANNA HANKS LUMBAR FACET BLOCK THERAPEUTIC PRE PROCEDURE DIAGNOSIS LUMBAR SPONDYLOSIS, LUMBOSACRAL SPONDYLOSIS POST PROCEDURE DIAGNOSIS LUMBAR SPONDYLOSIS, LUMBOSACRAL SPONDYLOSIS PROCEDURE BILATERAL L4-L5 AND L5-S1 LUMBAR FACET THERAPEUTIC BLOCK SURGEON DR. MARSHA WRIGHT MANAGER INVENTORY NONE ANESTHESIA LOCAL PRE PROCEDURE NOTE THE PATIENT HAS A HISTORY OF CHRONIC LOW BACK PAIN. I EVALUATED THE PATIENT AND REVIEWED THE CHART. I WENT OVER THE RISKS, ALTERNATIVES, AND BENEFITS ASSOCIATED WITH THIS PROCEDURE. THE PATIENT WOULD LIKE TO PROCEED AND GIVES CONSENT TO PERFORM THE PROCEDURE. THE PATIENT DENIES UNEXPLAINABLE WEIGHT LOSS, FEVER, CHILLS, OR NEW CHANGES IN URINARY OR BOWEL CONTROL DESCRIPTION OF PROCEDURE THE PATIENT WAS BROUGHT TO THE PROCEDURE ROOM AND PLACED IN THE PRONE POSITION. THE LUMBOSACRAL AREA WAS CLEANED WITH CHLORAPREP SOLUTION AND DRAPED ASEPTICALLY. THE PROCEDURE WAS DONE UNDER STERILE CONDITIONS. I CHECKED LATERALITY AND THE LEVEL WHERE THE PROCEDURE WAS GOING TO BE PERFORMED WITH THE PATIENT AND THE SUPPORTING STAFF AT THE MOMENT OF THE TIME OUT IN THE PROCEDURE ROOM. UNDER FLUOROSCOPIC GUIDANCE, THE TARGET POINT WAS SELECTED AT THE RIGHT AND LEFT L4-L5 AND RIGHT AND LEFT L5-S1 FACET JOINTS. TARGET POINT WAS SELECTED AFTER LATERAL ROTATION AND TILT OF THE MAGNIFIER OF THE C-ARM. LIDOCAINE 0.5% WAS USED TO NUMB THE SKIN AND THE SUBCUTANEOUS TISSUE BELOW IT. SPINAL NEEDLES, 22-GAUGE, WERE ADVANCED UNDER FLUOROSCOPIC GUIDANCE AND FOLLOWING PATIENT FEEDBACK UNTIL THE TARGETS WERE TOUCHED. THE POSITION OF THE NEEDLES WAS VERIFIED WITH AP AND LATERAL VIEWS. AFTER PROPER POSITION OF THE NEEDLES WAS ACHIEVED, ISOVUE-M DYE 30% 0.1 ML WAS INJECTED SHOWING ADEQUATE SPREAD OF THE DYE. THEN A SOLUTION OF 1.9 ML OF BUPIVACAINE 0.125% OF KENALOG 10 MG WAS INJECTED AT EACH SITE. THERE WAS NO EVIDENCE OF BLOOD, PARESTHESIA OR CEREBROSPINAL FLUID DURING THE PROCEDURE. THE PATIENT WAS SENT TO THE RECOVERY ROOM. THE PATIENT WAS MOVING THE EXTREMITIES AND DOING WELL. THERE WAS NO COMPLICATION DURING THE PROCEDURE. FLUOROSCOPY TIME WAS 16 SECONDS POST PROCEDURE NOTE THE PATIENT WILL BE SEEN IN A FOLLOW UP IN THE NEXT FEW WEEKS. I AM LOOKING FOR LONG LASTING PAIN RELIEF FOR THE PATIENT WITH THIS INTERVENTION. INSTRUCTIONS WERE GIVEN, QUESTIONS WERE ANSWERED, AND THE PATIENT EXPRESSED UNDERSTANDING AND AGREES WITH THE PLAN. I, YARA DA SILVA, DOCUMENTED THE ABOVE INFORMATION ACTING A SCRIBE FOR DR. WRIGHT. I HAVE REVIEWED THE ABOVE DOCUMENT, WRITTEN BY YARA DA SILVA SCRIBKobi AND I VERIFY THAT IT IS ACCURATE. PROCEDURE CODES [id number] INJ PARAVERT F JNT L/S 1 LEV, MODIFIERS: 50 [id number] INJ PARAVERT F JNT L/S 2 LEV, MODIFIERS: 50 [id number] RADXPS IN END [id number] PXD DISPOSITION & COMMUNICATION FOLLOW UP 3 WEEKS ELECTRONICALLY SIGNED BY MARSHA WRIGHT MD, ON 02/03/2020 AT 05:08 PM EDT DISCLAIMER : THIS IS A VISIT SUMMARY EXTRACTED FROM THE [employer] CHART. IT IS NOT A COPY OF THE [employer] PROGRESS NOTE. MTDD
== END ==
LOC: M PAIN 09:00
PROVIDERS: ATTEND Anesthesiology
DX: M47.816 Spondylosis without myelopathy or radiculopathy, lumbar region (principal); M47.817 Spondylosis without myelopathy or radiculopathy, lumbosacral region; I10 Essential (primary) hypertension; Z79.82 Long term (current) use of aspirin; Z79.899 Other long term (current) drug therapy
CPT/HCPCS: 64493; 64494; J3301; Q9967

== ENCOUNTER → 2020-02-15 | Outpatient (CLI) | payer OTHER, BC ==
[~2020-02-15] MED LIST changes: -BUPIVACAINE HCL 0.25% 30 ML VIAL As Ordered ONE; -ISOVUE-M 300 61% 15ML VIAL (Q9967) As Ordered ONE; -LIDOCAINE 1% SDV INJ 30 ML VIAL As Ordered ONE; -TRIAMCINOLONE ACETONIDE SUSP 40 MG/ML VIAL (J3301) As Ordered ONE; -diazePAM 5 MG TAB As Ordered ONE; -oxyCODONE 5MG TAB As Ordered ONE
--- NOTE | 2020-02-16 04:15 | ECWPNPC ---
PATIENT NAME: MELBA MARTIN : 1965 GENDER: MALE VISIT DATE: 02/15/2020 DISCHARGE DATE: 02/15/20 1347 VISIT LOCKED DATE TIME: PHYSICIAN: MAXIM VILLAVICENCIO RESOURCE: MAXIM VILLAVICENCIO REASON FOR APPOINTMENT 1. FOLLOW UP HISTORY OF PRESENT ILLNESS HISTORY OF PRESENT ILLNESS: HERE FOR POST PROCEDURE FOLLOW-UP. HAD BILATERAL L4-5, L5-S1 LUMBAR THERAPEUTIC BLOCK ON 02/01/2020. REPORTING MINIMAL IMPROVEMENT FOR A FEW DAYS THEN PAIN HAS RETURNED TO BASELINE. RATING PAIN LEVEL A 6/10 VAS. 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 PAIN THE PATIENT DESCRIBES THE PAIN... FALL RISK SCREENING: SCREENING :NO FALLS REPORTED IN THE LAST YEAR CURRENT MEDICATIONS TAKING ASPIR-81 1 TABLET ORALLY ONCE A DAY TAKING MULTIVITAMIN ADULTS 50+ - TABLET 1 TAB ORALLY DAILY TAKING STOOL SOFTENER 100 MG CAPSULE 2 ORALLY ONCE A DAY TAKING FLONASE 50 MCG/ACT SUSPENSION 1 SPRAY IN EACH NOSTRIL NASALLY NEEDED TAKING ALBUTEROL SULFATE HFA 108 (90 BASE) MCG/ACT AEROSOL SOLUTION 2 PUFFS NEEDED INHALATION EVERY 4 HRS NEEDED FOR SHORTNESS OF BREATH TAKING IBUPROFEN 800 MG TABLET 1 TABLET ORALLY WITH FOOD THREE TIMES DAILY NEEDED FOR PAIN TAKING TAMSULOSIN HCL 0.4 MG CAPSULE 1 CAPSULE ORALLY ONCE A DAY TAKING LOSARTAN POTASSIUM-HCTZ 100-25 MG TABLET 1 TABLET ORALLY ONCE A DAY TAKING SPIRONOLACTONE 25 MG TABLET 1 TABLET WITH FOOD ORALLY ONCE A DAY TAKING BISOPROLOL FUMARATE 10 MG TABLET 1 TABLET ORALLY ONCE A DAY, NOTES: 01/31 TAKING CRESTOR 20 MG TABLET 1 TABLET ORALLY ONCE A DAY TAKING AMLODIPINE BESYLATE 10 MG TABLET 1 TABLET ORALLY ONCE A DAY TAKING PROAIR HFA 108 (90 BASE) MCG/ACT AEROSOL SOLUTION 2 PUFFS NEEDED INHALATION EVERY 4-6 HRS TAKING TIZANIDINE HCL 2 MG TABLET 1 TABLET NEEDED ORALLY FOR SPASMS AND PAIN BEFORE BEDTIME MAY REPEAT IN 4HRS MDD2 WORKERS COMPENSATION TAKING CITALOPRAM HYDROBROMIDE 20 MG TABLET 1 TABLET ORALLY ONCE A DAY NOT-TAKING PREDNISONE 20 MG TABLET 1 TABLET ORALLY BID NOT-TAKING ROSUVASTATIN CALCIUM 20 MG TABLET TAKE 1 TABLET DAILY , NOTES: DUPILCATE NOT-TAKING KETOROLAC TROMETHAMINE 10 MG TABLET 1 TABLET WITH FOOD OR MILK NEEDED ORALLY EVERY 6 HRS NOT-TAKING SUDAFED 30 MG TABLET 1 TABLET NEEDED ORALLY EVERY 6 HRS NOT-TAKING MECLIZINE HCL 25 MG TABLET CHEWABLE 1 TABLET NEEDED ORALLY ONCE A DAY MEDICATION LIST REVIEWED AND RECONCILED WITH THE PATIENT PAST MEDICAL HISTORY OLD L1 L2 COMPRESSION FX HTN DEPRESSION/ANXIETY MURTAZA WITH CPAP HIGH CHOLESTEROL BOWEL OBSTRUCTION ALLERGIES N.K.D.A. SURGICAL HISTORY EXPLORATORY LAP 2014 UMBILICAL HERNIA REPAIR CYST REMOVED FROM BACK -DR HARPER 2017 FAMILY HISTORY FATHER: ALIVE, DIAGNOSED WITH UNSPECIFIED HEART DISEASE, HYPERTENSION MOTHER: ALIVE, UNSPECIFIED HEART DISEASE PATERNAL GRAND FATHER: UNSPECIFIED CEREBRAL ARTERY OCCLUSION WITH CEREBRAL INFARCTION MATERNAL GRAND MOTHER: OTHER MALIGNANT NEOPLASM OF UNSPECIFIED SITE 1 BROTHER(S) , 1 SISTER(S) - HEALTHY. 2 SON(S) , 2 DAUGHTER(S) - HEALTHY. MGM COLON CA. SOCIAL HISTORY GENERAL: TOBACCO USE ARE YOU A:NONSMOKER HIV / HEP-C SCREENING HIV TEST OFFERED TO PATIENT:YES DATE OFFERED:10/28/2018 TEST ACCEPTED:YES HEP-C TEST OFFERED TO PATIENT:YES DATE OFFERED:10/28/2018 TEST ACCEPTED:YES BROCHURE PROVIDED TO PATIENTYES OTHERS AT HOME: SPOUSE, CHILD( YOUNGEST DAUGHTER). EDUCATION LEVEL OF EDUCATION:HIGH SCHOOL DIET: REGULAR. LANGUAGE LANGUAGES SPOKEN:ARABIC DOMESTIC VIOLENCE DO YOU FEEL SAFE IN YOUR ENVIRONMENT?YES NEW PATIENT PAIN DIARY TODAY'S VISIT 02/15/2020 FROM 0-10, WHAT LEVEL IS YOUR PAIN TODAY?6 IS THERE A CHANCE YOU COULD BE ?NO HAVE YOU BEEN SICK IN THE LAST WEEK (COLD, COUGH, FEVER, FLU, ETC)NO DO YOU TAKE ANY BLOOD THINNERS?NO DO YOU HAVE ANY RASHES OR OPEN SORES?NO ANY CHANGE IN BOWEL OR BLADDER CONTROL?NO ARE YOU ALLERGIC TO SHELLFISH OR IV DYE?NO ARE YOU DIABETIC?NO DO YOU HAVE A PACEMAKER OR DEFIBRILLATOR?NO ANY NEW PROBLEMS WITH MEDICINES OR NEW ALLERGIESNO ANY NEW PATTERNS OF PAIN OR NUMBNESS?YES PT STATES THAT PAIN IS RADIATING DOWN RIGHT LEG, ON BACK SIDE OF LEG ANY CHANGE IN YOUR MEDICAL CONDITION?NO HAVE YOU FALLEN IN THE LAST 6 MONTHS?NO DO YOU USE ANY TYPE OF TOBACCO (SMOKE, SMOKELESS, CHEW, ETC.)NO ARE YOU ABUSED, NEGLECTED, OR IN AN UNSAFE ENVIRONMENT?NO DO YOU HAVE THOUGHTS OF HURTING YOURSELF OR SOMEONE ELSE?NO DO YOU NEED ANY PRESCRIPTIONS?NO DO YOU HAVE ANY OTHER QUESTIONS OR CONCERNS?NO INTENSITY SCALE REVIEWEDNUMBER BMI CARE GOAL FOLLOW-UP ABOVE NORMAL BMI FOLLOW-UPDIETARY MANAGEMENT EDUCATION, GUIDANCE, AND COUNSELING RECREATIONAL DRUG USE DRUG USE?NO EXERCISE: NONE. LEARNING BARRIERS / SPECIAL NEEDS CHANGE FROM LAST VISIT?NO BARRIERS TO LEARNING?NO HEARING IMPAIRED?NO VISION IMPAIRED?YES WEARS GLASSES COGNITIVELY IMPAIRED?NO READINESS TO LEARN?YES LEARNING PREFERENCES?YES : VERBAL DISCUSSION LEARNING CAPABILITIES PRESENT?YES EMOTIONAL BARRIERS?NO SPECIAL DEVICES?NO SAFETY REPRESENTATIVE NEEDED?NO PAIN CLINIC PFS, CLERGY, PUBLIC HEALTH REFERRALS WAS THE PROVIDER NOTIFIED OF ANY PERTINENT INFO?YES HAS THE PATIENT BEEN EDUCATED REGARDING HIS/HER PLAN OF CARE?YES PATIENT HAS HAD THIS PROCEDURE BEFORE. 03/12/18 HAS THE PATIENT BEEN EDUCATED REGARDING PAIN, THE RISK FOR PAIN, THE IMPORTANCE OF EFFECTIVE PAIN MANAGEMENT, AND THE PAIN ASSESSMENT PROCESS?YES LATEX QUESTIONNAIRE LATEX ALLERGY : HAVE YOU EVER DEVELOPED ANY TYPE OF REACTION AFTER HANDLING LATEX PRODUCTS SUCH RUBBER GLOVES, CONDOMS, DIAPHRAGMS, BALLOONS, SOCKS, OR UNDERWEAR?NO LATEX ALLERGY : HAVE YOU EVER DEVELOPED ANY TYPE OF REACTION DURING OR AFTER DENTAL APPOINTMENT, VAGINAL/RECTAL EXAMINATION, SURGICAL PROCEDURE, OR ANY OTHER EXPOSURE?NO LATEX RISK : HAVE YOU EVER HAD ANY DIFFICULTY BREATHING OR HIVES AFTER EATING OR HANDLING ANY FRUITS, OR VEGETABLES; SUCH KIWI, BANANAS, STONE FRUITS, OR CHESTNUTSNO LATEX RISK : DO YOU HAVE A PREVIOUS PERSONAL HISTORY OF MORE THAN NINE SURGERIES, SPINA BIFIDA, OR REPEATED CATHERIZATIONS? NO LATEX RISK : ARE YOU FREQUENTLY EXPOSED TO LATEX PRODUCTS IN YOUR OCCUPATION?NO DATE ASKED : 02/15/2020 CAFFEINE CAFFEINE USE?YES HOW OFTEN AND HOW MUCH? 2 CUPS/DAY ADVANCE DIRECTIVE ADVANCE DIRECTIVE DISCUSSED WITH PATIENT:YES HCP - CHANO ANABAPTIST [id number] RESTORATIONIST MARITAL STATUS: . ALCOHOL SCREENING DID YOU HAVE A DRINK CONTAINING ALCOHOL IN THE PAST YEAR?YES HOW OFTEN DID YOU HAVE SIX OR MORE DRINKS ON ONE OCCASION IN THE PAST YEAR?NEVER (0 POINTS) HOW MANY DRINKS DID YOU HAVE ON A TYPICAL DAY WHEN YOU WERE DRINKING IN THE PAST YEAR?1 OR 2 (0 POINTS) HOW OFTEN DID YOU HAVE A DRINK CONTAINING ALCOHOL IN THE PAST YEAR?MONTHLY OR LESS (1 POINT) POINTS1 INTERPRETATIONNEGATIVE OCCUPATION: WORKS FOR [employer]. SEXUAL HX HAD SEX IN THE LAST 12 MONTHS (VAGINAL, ORAL, OR ANAL)?YES WITHWOMEN ONLY HAVE YOU EVER HAD AN STD?NO HOSPITALIZATION/MAJOR DIAGNOSTIC PROCEDURE BOWEL OBSTRUCTION 2016 REVIEW OF SYSTEMS REVIEWED BY: PROVIDER: MAXIM ALAS . CONSTITUTIONAL: ANY CHANGE IN YOUR MEDICAL CONDITION? NO . CHILLS NO . FEVER NO . INFECTION: DO YOU HAVE NEW INFECTIONS? NO . DO YOU HAVE HISTORY OF MRSA? NO . MUSCULOSKELETAL: ANY NEW PATTERNS OF PAIN OR NUMBNESS? YES, LOW BACK RADIATING DOWN RIGHT LEG IN LAST COUPLE MONTHS . GASTROENTEROLOGY: ANY NEW CHANGE IN BOWEL CONTROL? NO . GENITOURINARY: ANY NEW CHANGE IN BLADDER CONTROL? NO . IS THERE A CHANCE YOU COULD BE ? NO . HEMATOLOGY/LYMPH: DO YOU TAKE ANY BLOOD THINNERS? (FOR EXAMPLE- COUMADIN, PLAVIX, AGGRENOX, PLATEL, PRADAXA, OR XARELTO) NO . WHEN WAS YOUR LAST DOSE? DATE: TIME: . NEUROLOGY: HAVE YOU FALLEN IN THE PAST 12 MONTHS? NO . ANY NEW EXTREMITY NUMBNESS OR WEAKNESS? NO . CARDIOLOGY: DO YOU HAVE A PACEMAKER OR DEFIBRILLATOR? NO . RESPIRATORY: HAVE YOU BEEN SICK IN THE PAST WEEK? NO . FEVER NO . FLU LIKE SYMPTOMS? NO . COUGH NO . INTEGUMENTARY: DO YOU HAVE ANY RASHES OR OPEN SORES? NO . ALLERGIC/IMMUNO: ARE YOU ALLERGIC TO IV DYE? NO . ANY NEW ALLERGIES? NO . PSYCHIATRIC: DO YOU HAVE THOUGHTS OF HURTING YOURSELF OR SOMEONE ELSE? NO . ARE YOU ABUSED, NEGLECTED, OR IN AN UNSAFE ENVIRONMENT? NO . ENDOCRINOLOGY: ARE YOU DIABETIC? NO . OTHER: DO YOU NEED ANY PRESCRIPTIONS? NO . IF YES, PLEASE LIST: ____ . ANY NEW PROBLEMS WITH YOUR MEDICATIONS? NO . WHEN DID YOU LAST EAT? ____ . WHEN DID YOU LAST DRINK? ____ . WHAT DID YOU LAST DRINK? ____ . NAME OF PERSON DRIVING YOU HOME? ____ . DO YOU HAVE ANY OTHER QUESTIONS OR CONCERNS NO . VITAL SIGNS WT 329 LBS, HT 71 IN, BMI 45.88 INDEX, BP 134/77 MM HG, HR 68 /MIN, RR 18 /MIN, TEMP 97.7 F, OXYGEN SAT % 97%, SAFE IN ENV? (Y/N) Y, NA INITIALS AW 1301, REVIEWED BY: MARLEE. EXAMINATION GENERAL EXAMINATION: GENERALAWAKE,ALERT ,PLEASANT . PSYCHAFFECT NORMAL . LUNGS:LUNG SALVADOR ARE CLEAR TO AUSCULTATION BILATERALLY. GOOD MOVEMENT OF AIR . HEART:S1, S2 IN A REGULAR RATE AND RHYTHM. NO SIGNIFICANT MURMURS, RUBS OR GALLOPS NOTED . ASSESSMENTS SPONDYLOSIS OF LUMBOSACRAL REGION WITHOUT MYELOPATHY OR RADICULOPATHY - M47.817 (PRIMARY) TREATMENT SPONDYLOSIS OF LUMBOSACRAL REGION WITHOUT MYELOPATHY OR RADICULOPATHY NOTES: CONTINUE CONSERVATIVE CARE. PROCEDURES PN WORKMANS' COMP OPINION IN YOUR OPINION, WAS THE INCIDENT THAT THE PATIENT DESCRIBED THE COMPETENT MEDICAL CAUSE OF THIS INJURY/ILLNESS? YES ARE THE PATIENT'S COMPLAINTS CONSISTENT WITH HIS/HER HISTORY OF THE INJURY/ILLNESS? YES IS THE PATIENT'S HISTORY OF THE INJURY/ILLNESS CONSISTENT WITH YOUR OBJECTIVE FINDING? YES WHAT IS THE PERCENTAGE OF TEMPORARY IMPAIRMENT? MODERATE TO MARKED = 66.7% IS THE PATIENT WORKING? YES DOCTOR ON SITE: MARSHA TIDWELL MD PROCEDURE CODES FA211 ESTABILISHED PATIENT [facility] FACILITY CHARGE DISPOSITION & COMMUNICATION FOLLOW UP 10WK (REASON: W/C LBP) ELECTRONICALLY SIGNED BY BISHOP CAMPOS ON 02/15/2020 AT 02:36 PM EDT DISCLAIMER : THIS IS A VISIT SUMMARY EXTRACTED FROM THE [employer] CHART. IT IS NOT A COPY OF THE [employer] PROGRESS NOTE. KO
== END ==
LOC: M PAIN 13:00
PROVIDERS: ATTEND Nurse Practitioner Family
DX: M47.817 Spondylosis without myelopathy or radiculopathy, lumbosacral region (principal)

== ENCOUNTER → 2020-03-24 | Outpatient (REF) | payer BC ==
[2020-03-24 10:11] LABS: ALBUMIN 3.9 GM/DL (3.2-5.2); ALT/SGPT 29 U/L (12-78); BILIRUBIN,TOTAL 0.7 MG/DL (0.2-1.0); BLOOD UREA NITROGEN 17 MG/DL (7-18); CALCIUM LEVEL 9.1 MG/DL (8.5-10.1); CARBON DIOXIDE LEVEL 27 MEQ/L (21-32); CHLORIDE LEVEL 105 MEQ/L (98-107); CREATININE FOR GFR 1.05 MG/DL (0.70-1.30); GLOMERULAR FILTRATION RATE > 60.0 (>56); GLUCOSE, FASTING 102 MG/DL (70-100); POTASSIUM SERUM 4.4 MEQ/L (3.5-5.1); SODIUM LEVEL 139 MEQ/L (136-145); TOTAL PROTEIN 7.2 GM/DL (6.4-8.2)
== END ==
LOC: M SFHCLERA 08:24
PROVIDERS: ATTEND Family Medicine
DX: R42 Dizziness and giddiness (principal)

== ENCOUNTER → 2020-09-13 | Outpatient (CLI) | payer OTHER ==
[~2020-09-13] MED LIST changes: +AMLO1TAB24 PO; -AMLO5TAB6 PO; -ASPI81TA85 PO; +ASPI81TA86 PO
--- NOTE | 2020-09-14 22:01 | ECWPNPC ---
PATIENT NAME: MELBA MARTIN : 1965 GENDER: MALE VISIT DATE: 09/13/2020 DISCHARGE DATE: 09/13/20 1351 VISIT LOCKED DATE TIME: PHYSICIAN: MAXIM VILLAVICENCIO PHYSICIAN PAGER NO: ACTIVE RESOURCE: MAXIM VILLAVICENCIO REASON FOR APPOINTMENT 1. W/C LOW BACK HISTORY OF PRESENT ILLNESS GENERAL: THIS IS A FOLLOW-UP OF CHRONIC LOW BACK PAIN. THIS IS A WORK RELATED INJURY. CONTINUES TO HAVE SEVERE LOW BACK PAIN ESPECIALLY AFTER OPERATING EQUIPMENT AT WORK OR DOING DUTIES AT HIS WORK. HE HAD GASTRIC BYPASS SURGERY A FEW MONTHS AGO. WE HAD MADE A REFERRAL TO [facility] FOR SURGICAL EVALUATION BUT PATIENT HAS NOT ATTENDED. STATES HE DID NOT HEAR FROM OUR OFFICE OR FROM ORTHOPEDICS REGARDING A VISIT. HAS TRIED SOME INJECTIONS AT OUR CLINIC WITHOUT IMPROVEMENT IN HIS PAIN. DISCUSSED MEDICATION AND TREATMENT OPTIONS. - - -. FALL RISK SCREENING: SCREENING :NO FALLS REPORTED IN THE LAST YEAR PAIN SCREENING: PATIENT HAS A COMPLAINT OF ACUTE OR CHRONIC PAIN :YES LOCATION OF PAIN:LOW BACK INTENSITY OF PAIN (SCALE OF 1 TO 10):8 WHAT DOES YOUR PAIN FEEL LIKE:ACHING, BURNING, SHARP, STABBING, THROBBING, SHOOTING DURATION:CONTINOUS, CONSTANT PAIN IS INCREASED BY:ACTIVITIES PAIN IS DECREASED BY:USE OF PAIN MEDICATIONS TREATMENT/MEDICATIONS USED TO MANAGE PAIN:OPIOIDS LEVEL OF RELIEF FROM PAIN TREATMENTS IN THE PAST:25% PAIN HAS INTERFERED WITH THE FOLLOWING:BATHING/DRESSING, WALKING ABILITY, HOUSEWORK, SLEEP, TRANSPORTATION, TOILETING NURSING NOTE: - - -. PAIN CENTER INTAKE QUESTIONS: DO YOU HAVE A HISTORY OF MRSA? :NO DO YOU TAKE A BLOOD THINNERS? :NO DO YOU HAVE ANY BLEEDING DISORDERS? :NO ANY NEW NUMBNESS OR WEAKNESS IN YOUR LEGS OR ARMS? :YES RIGHT ARM AND LEG ANY PACEMAKER,DEFIBRILLATOR, OR DORSAL COLUMN STIMULATOR? :NO DO YOU HAVE ANY RASHES OR OPEN SORES? :NO ARE YOU ALLERGIC TO IV DYE? :NO ARE YOU DIABETIC? :NO ANY NEW PROBLEMS WITH YOUR MEDICATIONS? :NO HAVE YOU RECEIVED A VACCINE IN THE PAST 30 DAYS? :NO DO YOU PLAN TO RECEIVE A VACCINE IN THE NEXT 21 DAYS? :YES FLU VACCINE DO YOU NEED ANY PRESCRIPTION? :YES TIZANIDINE DO YOU TAKE ANY IMMUNOSUPPRESSIVE MEDICATIONS? :NO CURRENT MEDICATIONS TAKING MULTIVITAMIN ADULTS 50+ - TABLET 1 TAB ORALLY DAILY TAKING STOOL SOFTENER 100 MG CAPSULE 2 ORALLY ONCE A DAY TAKING FLONASE 50 MCG/ACT SUSPENSION 1 SPRAY IN EACH NOSTRIL NASALLY NEEDED TAKING ALBUTEROL SULFATE HFA 108 (90 BASE) MCG/ACT AEROSOL SOLUTION 2 PUFFS NEEDED INHALATION EVERY 4 HRS NEEDED FOR SHORTNESS OF BREATH TAKING TAMSULOSIN HCL 0.4 MG CAPSULE 1 CAPSULE ORALLY ONCE A DAY TAKING BISOPROLOL FUMARATE 10 MG TABLET 1 TABLET ORALLY ONCE A DAY, NOTES: 01/31 TAKING CRESTOR 20 MG TABLET 1 TABLET ORALLY ONCE A DAY TAKING TIZANIDINE HCL 2 MG TABLET 1 TABLET NEEDED ORALLY FOR SPASMS AND PAIN BEFORE BEDTIME MAY REPEAT IN 4HRS MDD2 WORKERS COMPENSATION TAKING CITALOPRAM HYDROBROMIDE 20 MG TABLET 1 TABLET ORALLY ONCE A DAY TAKING CLARITIN 10 MG TABLET 1 TABLET ORALLY ONCE A DAY TAKING PROAIR HFA 108 (90 BASE) MCG/ACT AEROSOL SOLUTION 2 PUFFS NEEDED INHALATION EVERY 4-6 HRS TAKING AMLODIPINE BESYLATE 10 MG TABLET 1 TABLET ORALLY ONCE A DAY TAKING ROSUVASTATIN CALCIUM 20 MG TABLET TAKE 1 TABLET DAILY ORALLY DAILY TAKING LOSARTAN POTASSIUM 100 MG TABLET 1 TABLET ORALLY ONCE A DAY NOT-TAKING ASPIR-81 1 TABLET ORALLY ONCE A DAY NOT-TAKING IBUPROFEN 800 MG TABLET 1 TABLET ORALLY WITH FOOD THREE TIMES DAILY NEEDED FOR PAIN NOT-TAKING LOSARTAN POTASSIUM-HCTZ 100-25 MG TABLET 1 TABLET ORALLY ONCE A DAY NOT-TAKING SPIRONOLACTONE 25 MG TABLET 1 TABLET WITH FOOD ORALLY ONCE A DAY NOT-TAKING FLUTICASONE PROPIONATE 50 MCG/ACT SUSPENSION 1 SPRAY IN EACH NOSTRIL NASALLY ONCE A DAY NOT-TAKING OLOPATADINE HCL 0.1 % SOLUTION 1 DROP INTO AFFECTED EYE OPHTHALMIC TWICE A DAY NOT-TAKING PREDNISONE 20 MG TABLET 1 TABLET ORALLY BID NOT-TAKING KETOROLAC TROMETHAMINE 10 MG TABLET 1 TABLET WITH FOOD OR MILK NEEDED ORALLY EVERY 6 HRS NOT-TAKING SUDAFED 30 MG TABLET 1 TABLET NEEDED ORALLY EVERY 6 HRS NOT-TAKING MECLIZINE HCL 25 MG TABLET CHEWABLE 1 TABLET NEEDED ORALLY ONCE A DAY MEDICATION LIST REVIEWED AND RECONCILED WITH THE PATIENT PAST MEDICAL HISTORY OLD L1 L2 COMPRESSION FX HTN DEPRESSION/ANXIETY MURTAZA WITH CPAP HIGH CHOLESTEROL BOWEL OBSTRUCTION ALLERGIES N.K.D.A. SURGICAL HISTORY EXPLORATORY LAP 2014 UMBILICAL HERNIA REPAIR CYST REMOVED FROM BACK -DR HARPER 2017 ENDOSCOPY 04/2020 GASTRIC BYPASS 06/2020 FAMILY HISTORY FATHER: ALIVE, DIAGNOSED WITH HYPERTENSION, UNSPECIFIED HEART DISEASE MOTHER: ALIVE, UNSPECIFIED HEART DISEASE PATERNAL GRAND FATHER: UNSPECIFIED CEREBRAL ARTERY OCCLUSION WITH CEREBRAL INFARCTION MATERNAL GRAND MOTHER: OTHER MALIGNANT NEOPLASM OF UNSPECIFIED SITE 1 BROTHER(S) , 1 SISTER(S) - HEALTHY. 2 SON(S) , 2 DAUGHTER(S) - HEALTHY. MGM COLON CA. SOCIAL HISTORY GENERAL: TOBACCO USE ARE YOU A:NONSMOKER LATEX QUESTIONNAIRE LATEX ALLERGY : HAVE YOU EVER DEVELOPED ANY TYPE OF REACTION AFTER HANDLING LATEX PRODUCTS SUCH RUBBER GLOVES, CONDOMS, DIAPHRAGMS, BALLOONS, SOCKS, OR UNDERWEAR?NO LATEX ALLERGY : HAVE YOU EVER DEVELOPED ANY TYPE OF REACTION DURING OR AFTER DENTAL APPOINTMENT, VAGINAL/RECTAL EXAMINATION, SURGICAL PROCEDURE, OR ANY OTHER EXPOSURE?NO LATEX RISK : HAVE YOU EVER HAD ANY DIFFICULTY BREATHING OR HIVES AFTER EATING OR HANDLING ANY FRUITS, OR VEGETABLES; SUCH KIWI, BANANAS, STONE FRUITS, OR CHESTNUTSNO LATEX RISK : DO YOU HAVE A PREVIOUS PERSONAL HISTORY OF MORE THAN NINE SURGERIES, SPINA BIFIDA, OR REPEATED CATHERIZATIONS? NO LATEX RISK : ARE YOU FREQUENTLY EXPOSED TO LATEX PRODUCTS IN YOUR OCCUPATION?NO DATE ASKED : 09/13/2020 BMI CARE GOAL FOLLOW-UP ABOVE NORMAL BMI FOLLOW-UPDIETARY MANAGEMENT EDUCATION, GUIDANCE, AND COUNSELING ALCOHOL SCREENING DID YOU HAVE A DRINK CONTAINING ALCOHOL IN THE PAST YEAR?YES HOW OFTEN DID YOU HAVE A DRINK CONTAINING ALCOHOL IN THE PAST YEAR?MONTHLY OR LESS (1 POINT) HOW MANY DRINKS DID YOU HAVE ON A TYPICAL DAY WHEN YOU WERE DRINKING IN THE PAST YEAR?1 OR 2 (0 POINTS) HOW OFTEN DID YOU HAVE SIX OR MORE DRINKS ON ONE OCCASION IN THE PAST YEAR?NEVER (0 POINTS) POINTS1 INTERPRETATIONNEGATIVE RECREATIONAL DRUG USE DRUG USE?NO CAFFEINE CAFFEINE USE?YES HOW OFTEN AND HOW MUCH? 2 CUPS/DAY SEXUAL HX HAD SEX IN THE LAST 12 MONTHS (VAGINAL, ORAL, OR ANAL)?YES WITHWOMEN ONLY HAVE YOU EVER HAD AN STD?NO HIV / HEP-C SCREENING HIV TEST OFFERED TO PATIENT:YES DATE OFFERED:10/28/2018 TEST ACCEPTED:YES HEP-C TEST OFFERED TO PATIENT:YES DATE OFFERED:10/28/2018 TEST ACCEPTED:YES BROCHURE PROVIDED TO PATIENTYES SABIANISM [id number] NONDENOMINATIONAL LANGUAGE LANGUAGES SPOKEN:CHILEAN EDUCATION LEVEL OF EDUCATION:HIGH SCHOOL LEARNING BARRIERS / SPECIAL NEEDS CHANGE FROM LAST VISIT?NO BARRIERS TO LEARNING?NO HEARING IMPAIRED?NO VISION IMPAIRED?YES WEARS GLASSES COGNITIVELY IMPAIRED?NO READINESS TO LEARN?YES LEARNING PREFERENCES?YES : VERBAL DISCUSSION LEARNING CAPABILITIES PRESENT?YES EMOTIONAL BARRIERS?NO SPECIAL DEVICES?NO LEAD COATER NEEDED?NO DOMESTIC VIOLENCE DO YOU FEEL SAFE IN YOUR ENVIRONMENT?YES OCCUPATION: WORKS FOR [employer]. DIET: REGULAR. EXERCISE: NONE. MARITAL STATUS: . OTHERS AT HOME: SPOUSE, CHILD( YOUNGEST DAUGHTER). NEW PATIENT PAIN DIARY TODAY'S VISIT 02/15/2020, FROM 0-10, WHAT LEVEL IS YOUR PAIN TODAY? 6, IS THERE A CHANCE YOU COULD BE ? NO, HAVE YOU BEEN SICK IN THE LAST WEEK (COLD, COUGH, FEVER, FLU, ETC) NO, DO YOU TAKE ANY BLOOD THINNERS? NO, DO YOU HAVE ANY RASHES OR OPEN SORES? NO, ANY CHANGE IN BOWEL OR BLADDER CONTROL? NO, ARE YOU ALLERGIC TO SHELLFISH OR IV DYE? NO, ARE YOU DIABETIC? NO, DO YOU HAVE A PACEMAKER OR DEFIBRILLATOR? NO, ANY NEW PROBLEMS WITH MEDICINES OR NEW ALLERGIES NO, ANY NEW PATTERNS OF PAIN OR NUMBNESS? YES PT STATES THAT PAIN IS RADIATING DOWN RIGHT LEG, ON BACK SIDE OF LEG, ANY CHANGE IN YOUR MEDICAL CONDITION? NO, HAVE YOU FALLEN IN THE LAST 6 MONTHS? NO, DO YOU USE ANY TYPE OF TOBACCO (SMOKE, SMOKELESS, CHEW, ETC.) NO, ARE YOU ABUSED, NEGLECTED, OR IN AN UNSAFE ENVIRONMENT? NO, DO YOU HAVE THOUGHTS OF HURTING YOURSELF OR SOMEONE ELSE? NO, DO YOU NEED ANY PRESCRIPTIONS? NO, DO YOU HAVE ANY OTHER QUESTIONS OR CONCERNS? NO, INTENSITY SCALE REVIEWED NUMBER. PAIN CLINIC PFS, CLERGY, PUBLIC HEALTH REFERRALS WAS THE PROVIDER NOTIFIED OF ANY PERTINENT INFO?YES HAS THE PATIENT BEEN EDUCATED REGARDING HIS/HER PLAN OF CARE?YES PATIENT HAS HAD THIS PROCEDURE BEFORE. 03/12/18 HAS THE PATIENT BEEN EDUCATED REGARDING PAIN, THE RISK FOR PAIN, THE IMPORTANCE OF EFFECTIVE PAIN MANAGEMENT, AND THE PAIN ASSESSMENT PROCESS?YES ADVANCE DIRECTIVE ADVANCE DIRECTIVE DISCUSSED WITH PATIENT:YES HCP - [facility] PROCEDURE BOWEL OBSTRUCTION 2016 SURGERY REVIEW OF SYSTEMS CONSTITUTIONAL: ANY RECENT FEVER NO . CHILLS NO . WEIGHT CHANGE OF UNKNOWN REASONS NO . GASTROENTEROLOGY: NEW UNEXPLAINABLE CHANGES IN BOWEL CONTROL NO . CONSTIPATION NO . GENITOURINARY: ANY NEW CHANGE IN BLADDER CONTROL? NO . NEUROLOGY: NEW ONSET DIZZINESS OR NEUROLOGICAL CHANGES NOT MENTIONED NO . NEW NUMBNESS OR PAIN PATTERNS NOT MENTIONED AND PERTINENT TO TODAY'S VISIT NO . CARDIOLOGY: NEW CHEST PRESSURE NO . NEW CHEST PAIN NO . RESPIRATORY: UNEXPLAINABLE COUGH NO . NEW SHORTNESS OF BREATH NO . VITAL SIGNS WT 338.2 LBS, HT 71 IN, BMI 47.16 INDEX, BP 135/64 MM HG, HR 75 /MIN, RR 18 /MIN, TEMP 98.1 F, OXYGEN SAT % 94%, NA INITIALS AW 1320, REVIEWED BY: EM. EXAMINATION GENERAL EXAMINATION: GENERAL AWAKE,ALERT ,PLEASANT . PSYCH AFFECT NORMAL . LUNGS: LUNG SALVADOR ARE CLEAR TO AUSCULTATION BILATERALLY. GOOD MOVEMENT OF AIR . HEART: S1, S2 IN A REGULAR RATE AND RHYTHM. NO SIGNIFICANT MURMURS, RUBS OR GALLOPS NOTED . LUMBAR:PALPATION: + FOR PAIN OVER L/S SPINE. + FOR PAIN OVER L/S PARASPINALS .SPECIFIC POINT TENDERNESS OVER BILAT L4/5-L5/S1 LUMBAR FACETS WITH FACET LOADING , RIGHT GREATER THAN LEFT.. NEUROLOGIC EXAM: NORMAL SENSATION LIGHT TOUCH BILAT. LOWER EXTREMITIES . DIAGNOSTIC TESTS REVIEWEDMRI OF THE LS-SPINE 09/25/2018 . ASSESSMENTS SPONDYLOSIS OF LUMBOSACRAL REGION WITHOUT MYELOPATHY OR RADICULOPATHY - M47.817 (PRIMARY) TREATMENT SPONDYLOSIS OF LUMBOSACRAL REGION WITHOUT MYELOPATHY OR RADICULOPATHY NOTES: PLEASE CHECK ON WORKMEN'S COMP REFERRAL TO [facility] MADE AT HIS LAST VISIT IN MAY AND NOTIFY PATIENT. I'M RECOMMENDING FUNCTIONAL CAPACITY TESTING AND WE WILL NEED WORKMEN'S COMP APPROVAL. RECOMMEND EVALUATION OF CHRONIC LOW BACK PAIN AT [facility]. HE IS LOOKING FOR ASSISTANCE WITH ASSESSMENT OF ABILITY TO WORK. DISPOSITION & COMMUNICATION FOLLOW UP 2 MONTHS (REASON: W/C LOW BACK PAIN) ELECTRONICALLY SIGNED BY BISHOP CAMPOS ON 09/14/2020 AT 04:06 PM EDT DISCLAIMER : THIS IS A VISIT SUMMARY EXTRACTED FROM THE [employer] CHART. IT IS NOT A COPY OF THE [employer] PROGRESS NOTE. KO
== END ==
LOC: M PAIN 13:30
PROVIDERS: ATTEND Nurse Practitioner Family
DX: M47.817 Spondylosis without myelopathy or radiculopathy, lumbosacral region (principal); I10 Essential (primary) hypertension; F32.9 Major depressive disorder, single episode, unspecified; F41.9 Anxiety disorder, unspecified; G47.33 Obstructive sleep apnea (adult) (pediatric); E78.00 Pure hypercholesterolemia, unspecified; Z79.82 Long term (current) use of aspirin; Z79.899 Other long term (current) drug therapy

== ENCOUNTER → 2020-11-13 | Outpatient (CLI) | payer OTHER ==
--- NOTE | 2020-11-21 05:28 | ECWPNPC ---
PATIENT NAME: MELBA MARTIN : 1965 GENDER: MALE VISIT DATE: 11/13/2020 DISCHARGE DATE: 11/13/20 1515 VISIT LOCKED DATE TIME: PHYSICIAN: MAXIM VILLAVICENCIO PHYSICIAN PAGER NO: ACTIVE RESOURCE: MAXIM VILLAVICENCIO REASON FOR APPOINTMENT 1. WC-LBP HISTORY OF PRESENT ILLNESS DEPRESSION SCREENING: PHQ-2 (2015 EDITION) LITTLE INTEREST OR PLEASURE IN DOING THINGS?NOT AT ALL FEELING DOWN, DEPRESSED, OR HOPELESS?SEVERAL DAYS TOTAL SCORE1 FALL RISK SCREENING: SCREENING :NO FALLS REPORTED IN THE LAST YEAR GENERAL - HERE FOR FOLLOW-UP OF CHRONIC LOW BACK PAIN. THIS IS A WORK RELATED INJURY. HE SAW [facility] PER OUR REFERRAL. THEY ARE NOT RECOMMENDING SURGERY. MRI OF LS SPINE IS REVIEWED THAT [facility] RECENTLY ORDERED..PATIENT BROUGHT A COPY OF THE RADIOLOGY REPORT TO REVIEW. THEY ARE RECOMMENDING DORSAL COLUMN STIMULATOR DISCUSSION. PATIENT HAS TRIED MULTIPLE DIFFERENT PROCEDURES OVER THE YEARS HERE AT THE PAIN CENTER WITHOUT IMPROVEMENT IN HIS PAIN. 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 BRIEFLY DISCUSSED DORSAL COLUMN STIMULATOR TRIAL. DISCUSSED PROCESS TO INCLUDE NEED FOR THORACIC IMAGING AND PSYCHOLOGICAL EVALUATION. PAIN SCREENING: PATIENT HAS A COMPLAINT OF ACUTE OR CHRONIC PAIN :YES LOCATION OF PAIN:LOW BACK INTENSITY OF PAIN (SCALE OF 1 TO 10):7 WHAT DOES YOUR PAIN FEEL LIKE:ACHING DURATION:CONTINOUS, CONSTANT PAIN IS INCREASED BY:ACTIVITIES, OTHERS LIFTING PAIN IS DECREASED BY:USE OF PAIN MEDICATIONS, OTHERS LAYING DOWN NURSING NOTE: - - -. PAIN CENTER INTAKE QUESTIONS: DO YOU HAVE A HISTORY OF MRSA? :NO DO YOU TAKE A BLOOD THINNERS? :NO DO YOU HAVE ANY BLEEDING DISORDERS? :NO ANY NEW NUMBNESS OR WEAKNESS IN YOUR LEGS OR ARMS? :NO ANY PACEMAKER,DEFIBRILLATOR, OR DORSAL COLUMN STIMULATOR? :NO DO YOU HAVE ANY RASHES OR OPEN SORES? :NO ARE YOU ALLERGIC TO IV DYE? :NO ARE YOU DIABETIC? :NO ANY NEW PROBLEMS WITH YOUR MEDICATIONS? :NO HAVE YOU RECEIVED A VACCINE IN THE PAST 30 DAYS? :NO DO YOU PLAN TO RECEIVE A VACCINE IN THE NEXT 21 DAYS? :YES FLU VACCINE DO YOU NEED ANY PRESCRIPTION? :NO DO YOU TAKE ANY IMMUNOSUPPRESSIVE MEDICATIONS? :NO CURRENT MEDICATIONS TAKING MULTIVITAMIN ADULTS 50+ - TABLET 1 TAB ORALLY DAILY TAKING STOOL SOFTENER 100 MG CAPSULE 2 ORALLY ONCE A DAY TAKING FLONASE 50 MCG/ACT SUSPENSION 1 SPRAY IN EACH NOSTRIL NASALLY NEEDED TAKING ALBUTEROL SULFATE HFA 108 (90 BASE) MCG/ACT AEROSOL SOLUTION 2 PUFFS NEEDED INHALATION EVERY 4 HRS NEEDED FOR SHORTNESS OF BREATH TAKING TAMSULOSIN HCL 0.4 MG CAPSULE 1 CAPSULE ORALLY ONCE A DAY TAKING BISOPROLOL FUMARATE 10 MG TABLET 1 TABLET ORALLY ONCE A DAY TAKING CRESTOR 20 MG TABLET 1 TABLET ORALLY ONCE A DAY TAKING TIZANIDINE HCL 2 MG TABLET 1 TABLET NEEDED ORALLY FOR SPASMS AND PAIN BEFORE BEDTIME MAY REPEAT IN 4HRS MDD2 WORKERS COMPENSATION TAKING CITALOPRAM HYDROBROMIDE 20 MG TABLET 1 TABLET ORALLY ONCE A DAY TAKING CLARITIN 10 MG TABLET 1 TABLET ORALLY ONCE A DAY TAKING PROAIR HFA 108 (90 BASE) MCG/ACT AEROSOL SOLUTION 2 PUFFS NEEDED INHALATION EVERY 4-6 HRS TAKING LOSARTAN POTASSIUM 100 MG TABLET 1 TABLET ORALLY ONCE A DAY TAKING AMLODIPINE BESYLATE 10 MG TABLET 1 TABLET ORALLY ONCE A DAY TAKING ROSUVASTATIN CALCIUM 20 MG TABLET TAKE 1 TABLET DAILY ORALLY DAILY NOT-TAKING ASPIR-81 1 TABLET ORALLY ONCE A DAY NOT-TAKING IBUPROFEN 800 MG TABLET 1 TABLET ORALLY WITH FOOD THREE TIMES DAILY NEEDED FOR PAIN NOT-TAKING LOSARTAN POTASSIUM-HCTZ 100-25 MG TABLET 1 TABLET ORALLY ONCE A DAY NOT-TAKING SPIRONOLACTONE 25 MG TABLET 1 TABLET WITH FOOD ORALLY ONCE A DAY NOT-TAKING FLUTICASONE PROPIONATE 50 MCG/ACT SUSPENSION 1 SPRAY IN EACH NOSTRIL NASALLY ONCE A DAY NOT-TAKING OLOPATADINE HCL 0.1 % SOLUTION 1 DROP INTO AFFECTED EYE OPHTHALMIC TWICE A DAY NOT-TAKING PREDNISONE 20 MG TABLET 1 TABLET ORALLY BID NOT-TAKING KETOROLAC TROMETHAMINE 10 MG TABLET 1 TABLET WITH FOOD OR MILK NEEDED ORALLY EVERY 6 HRS NOT-TAKING SUDAFED 30 MG TABLET 1 TABLET NEEDED ORALLY EVERY 6 HRS NOT-TAKING MECLIZINE HCL 25 MG TABLET CHEWABLE 1 TABLET NEEDED ORALLY ONCE A DAY MEDICATION LIST REVIEWED AND RECONCILED WITH THE PATIENT PAST MEDICAL HISTORY OLD L1 L2 COMPRESSION FX HTN DEPRESSION/ANXIETY MURTAZA WITH CPAP HIGH CHOLESTEROL BOWEL OBSTRUCTION LOWER BACK PAIN ALLERGIES N.K.D.A. SURGICAL HISTORY EXPLORATORY LAP 2014 UMBILICAL HERNIA REPAIR CYST REMOVED FROM BACK -DR HARPER 2017 ENDOSCOPY 04/2020 GASTRIC BYPASS 06/2020 FAMILY HISTORY FATHER: ALIVE, DIAGNOSED WITH HYPERTENSION, UNSPECIFIED HEART DISEASE MOTHER: ALIVE, UNSPECIFIED HEART DISEASE PATERNAL GRAND FATHER: UNSPECIFIED CEREBRAL ARTERY OCCLUSION WITH CEREBRAL INFARCTION MATERNAL GRAND MOTHER: OTHER MALIGNANT NEOPLASM OF UNSPECIFIED SITE 1 BROTHER(S) , 1 SISTER(S) - HEALTHY. 2 SON(S) , 2 DAUGHTER(S) - HEALTHY. MGM COLON CA. SOCIAL HISTORY GENERAL: TOBACCO USE ARE YOU A:NONSMOKER LATEX QUESTIONNAIRE LATEX ALLERGY : HAVE YOU EVER DEVELOPED ANY TYPE OF REACTION AFTER HANDLING LATEX PRODUCTS SUCH RUBBER GLOVES, CONDOMS, DIAPHRAGMS, BALLOONS, SOCKS, OR UNDERWEAR?NO LATEX ALLERGY : HAVE YOU EVER DEVELOPED ANY TYPE OF REACTION DURING OR AFTER DENTAL APPOINTMENT, VAGINAL/RECTAL EXAMINATION, SURGICAL PROCEDURE, OR ANY OTHER EXPOSURE?NO LATEX RISK : HAVE YOU EVER HAD ANY DIFFICULTY BREATHING OR HIVES AFTER EATING OR HANDLING ANY FRUITS, OR VEGETABLES; SUCH KIWI, BANANAS, STONE FRUITS, OR CHESTNUTSNO LATEX RISK : DO YOU HAVE A PREVIOUS PERSONAL HISTORY OF MORE THAN NINE SURGERIES, SPINA BIFIDA, OR REPEATED CATHERIZATIONS? NO LATEX RISK : ARE YOU FREQUENTLY EXPOSED TO LATEX PRODUCTS IN YOUR OCCUPATION?NO DATE ASKED : 09/13/2020 BMI CARE GOAL FOLLOW-UP ABOVE NORMAL BMI FOLLOW-UPDIETARY MANAGEMENT EDUCATION, GUIDANCE, AND COUNSELING ALCOHOL SCREENING DID YOU HAVE A DRINK CONTAINING ALCOHOL IN THE PAST YEAR?YES HOW OFTEN DID YOU HAVE SIX OR MORE DRINKS ON ONE OCCASION IN THE PAST YEAR?NEVER (0 POINTS) HOW MANY DRINKS DID YOU HAVE ON A TYPICAL DAY WHEN YOU WERE DRINKING IN THE PAST YEAR?1 OR 2 (0 POINTS) HOW OFTEN DID YOU HAVE A DRINK CONTAINING ALCOHOL IN THE PAST YEAR?MONTHLY OR LESS (1 POINT) POINTS1 INTERPRETATIONNEGATIVE RECREATIONAL DRUG USE DRUG USE?NO CAFFEINE CAFFEINE USE?YES HOW OFTEN AND HOW MUCH? 2 CUPS/DAY SEXUAL HX HAD SEX IN THE LAST 12 MONTHS (VAGINAL, ORAL, OR ANAL)?YES WITHWOMEN ONLY HAVE YOU EVER HAD AN STD?NO HIV / HEP-C SCREENING HIV TEST OFFERED TO PATIENT:YES DATE OFFERED:10/28/2018 TEST ACCEPTED:YES HEP-C TEST OFFERED TO PATIENT:YES DATE OFFERED:10/28/2018 TEST ACCEPTED:YES BROCHURE PROVIDED TO PATIENTYES EPISCOPALIAN [id number] DENOMINATIONAL LANGUAGE LANGUAGES SPOKEN:SETSWANA EDUCATION LEVEL OF EDUCATION:HIGH SCHOOL LEARNING BARRIERS / SPECIAL NEEDS CHANGE FROM LAST VISIT?NO BARRIERS TO LEARNING?NO HEARING IMPAIRED?NO VISION IMPAIRED?YES WEARS GLASSES COGNITIVELY IMPAIRED?NO READINESS TO LEARN?YES LEARNING PREFERENCES?YES : VERBAL DISCUSSION LEARNING CAPABILITIES PRESENT?YES EMOTIONAL BARRIERS?NO SPECIAL DEVICES?NO PBX MECHANIC NEEDED?NO OCCUPATION: WORKS FOR [employer]. DIET: REGULAR. EXERCISE: NONE. MARITAL STATUS: . OTHERS AT HOME: SPOUSE, CHILD( YOUNGEST DAUGHTER). PAIN CLINIC PFS, CLERGY, PUBLIC HEALTH REFERRALS WAS THE PROVIDER NOTIFIED OF ANY PERTINENT INFO?YES HAS THE PATIENT BEEN EDUCATED REGARDING HIS/HER PLAN OF CARE?YES PATIENT HAS HAD THIS PROCEDURE BEFORE. 03/12/18 HAS THE PATIENT BEEN EDUCATED REGARDING PAIN, THE RISK FOR PAIN, THE IMPORTANCE OF EFFECTIVE PAIN MANAGEMENT, AND THE PAIN ASSESSMENT PROCESS?YES ADVANCE DIRECTIVE ADVANCE DIRECTIVE DISCUSSED WITH PATIENT:YES HCP - [facility]AGNOSTIC PROCEDURE BOWEL OBSTRUCTION 2016 SURGERY REVIEW OF SYSTEMS CONSTITUTIONAL: ANY RECENT FEVER NO . CHILLS NO . WEIGHT CHANGE OF UNKNOWN REASONS NO . GASTROENTEROLOGY: NEW UNEXPLAINABLE CHANGES IN BOWEL CONTROL NO . CONSTIPATION NO . GENITOURINARY: ANY NEW CHANGE IN BLADDER CONTROL? NO . NEUROLOGY: NEW ONSET DIZZINESS OR NEUROLOGICAL CHANGES NOT MENTIONED NO . NEW NUMBNESS OR PAIN PATTERNS NOT MENTIONED AND PERTINENT TO TODAY'S VISIT NO . CARDIOLOGY: NEW CHEST PRESSURE NO . NEW CHEST PAIN NO . RESPIRATORY: UNEXPLAINABLE COUGH NO . NEW SHORTNESS OF BREATH NO . VITAL SIGNS WT 311.0 LBS, HT 71 IN, BMI 43.37 INDEX, BP 151/90 MM HG, REPEAT BP 123/80 MANUAL, HR 81 /MIN, RR 18 /MIN, TEMP 97.3 F, OXYGEN SAT % 95%, SAFE IN ENV? (Y/N) YES, NA INITIALS AW 1407, REVIEWED BY: DANIEL MEZA. EXAMINATION GENERAL EXAMINATION: GENERAL AWAKE,ALERT ,PLEASANT . PSYCH AFFECT NORMAL . LUNGS: LUNG SALVADOR ARE CLEAR TO AUSCULTATION BILATERALLY. GOOD MOVEMENT OF AIR . HEART: S1, S2 IN A REGULAR RATE AND RHYTHM. NO SIGNIFICANT MURMURS, RUBS OR GALLOPS NOTED . LUMBAR: PALPATION: + FOR PAIN OVER L/S SPINE. + FOR PAIN OVER L/S PARASPINALS . DIAGNOSTIC TESTS REVIEWED MRI L/S SPINE 2019. ASSESSMENTS SPONDYLOSIS OF LUMBOSACRAL REGION WITHOUT MYELOPATHY OR RADICULOPATHY - M47.817 (PRIMARY) TREATMENT SPONDYLOSIS OF LUMBOSACRAL REGION WITHOUT MYELOPATHY OR RADICULOPATHY NOTES: PATIENT WAS GIVEN A CD ON DORSAL COLUMN STIMULATOR AND FILLED OUT A CARD FOR [employer] TO CONTACT HIM TO ANSWER ANY QUESTIONS. PATIENT WILL RETURN TO CLINIC TO SEE DR. WRIGHT AND DISCUSS POSSIBILITY OF DORSAL COLUMN STIMULATOR TRIAL. PROCEDURES PN WORKMANS' COMP OPINION IN YOUR OPINION, WAS THE INCIDENT THAT THE PATIENT DESCRIBED THE COMPETENT MEDICAL CAUSE OF THIS INJURY/ILLNESS? YES ARE THE PATIENT'S COMPLAINTS CONSISTENT WITH HIS/HER HISTORY OF THE INJURY/ILLNESS? YES IS THE PATIENT'S HISTORY OF THE INJURY/ILLNESS CONSISTENT WITH YOUR OBJECTIVE FINDING? YES WHAT IS THE PERCENTAGE OF TEMPORARY IMPAIRMENT? MODERATE TO MARKED = 66.7% IS THE PATIENT WORKING? YES DOCTOR ON SITE: MARSHA TIDWELL MD PROCEDURE CODES FA211 ESTABILISHED PATIENT [facility] CHARGE DISPOSITION & COMMUNICATION FOLLOW UP FOLLOW-UP WITH DR. WRIGHT TO DISCUSS DORSAL COLUMN STIMULATOR TRIAL (REASON: LOW BACK PAIN/FAILED MULTIPLE INJECTION TRIALS/[facility] WAS RECENTLY CONSULTED AND THEY RECOMMEND DORSAL COLUMN STIMULATOR TRIAL) ELECTRONICALLY SIGNED BY BISHOP CAMPOS ON 11/20/2020 AT 08:33 PM EST DISCLAIMER : THIS IS A VISIT SUMMARY EXTRACTED FROM THE [employer] CHART. IT IS NOT A COPY OF THE [employer] PROGRESS NOTE. KO
== END ==
LOC: M PAIN 14:00
PROVIDERS: ATTEND Nurse Practitioner Family
DX: M47.817 Spondylosis without myelopathy or radiculopathy, lumbosacral region (principal); G89.29 Other chronic pain; G47.33 Obstructive sleep apnea (adult) (pediatric); Z86.59 Personal history of other mental and behavioral disorders; Z98.84 Bariatric surgery status; E66.01 Morbid (severe) obesity due to excess calories; Z68.41 Body mass index [BMI] 40.0-44.9, adult; Z79.899 Other long term (current) drug therapy

== ENCOUNTER → 2020-11-29 | Outpatient (CLI) | payer OTHER ==
--- NOTE | 2020-11-30 23:34 | ECWPNPC ---
PATIENT NAME: MELBA MARTIN : 1965 GENDER: MALE VISIT DATE: 11/29/2020 DISCHARGE DATE: 11/29/20 1552 VISIT LOCKED DATE TIME: PHYSICIAN: MARSHA WRIGHT MD PHYSICIAN PAGER NO: ACTIVE RESOURCE: MARSHA WRIGHT MD REASON FOR APPOINTMENT 1. W/C DISCUSS DCS HISTORY OF PRESENT ILLNESS GENERAL: 55-YEAR-OLD MALE PATIENT WITH A HISTORY OF CHRONIC LOW BACK PAIN. THE PATIENT HAS BEEN SURFFERING FROM THIS FOR MANY YEARS. THE PATIENT HAS HURT IN A WORK RELATED INJURY IN 2012 WHILE WORKING FOR THE [employer] FOR [employer] WHEN HE HURT HIS BACK. THE PATIENT HAS TRIED MULTIPLE INJECTIONS AND MEDICATIONS. THE PAIN IS AFFECTING HIS ABILITY TO WALKING AROUND AND DO BASIC THINGS SUCH SHOWERING. THE PATIENT DESCRIBES THE PAIN CONTINUOUS, ACHING AND THROBBING WITH A PAIN SCORE RANGING FROM 7-10/10 IN THE BACK. THE PATIENT IS VERY DISCOURAGED FROM THIS PAIN. THE PATIENT HAS NOTICED THAT WHEN HE WORKS, THE PAIN IS MUCH WORSE. HE STATES THAT AFTER HIS GASTRIC BYPASS WHEN HE WAS NOT WORKING, HIS PAIN WASN'T BAD AND IT SEEMS THAT WORKING AGGRAVATES THE PAIN. FALL RISK SCREENING: SCREENING :NO FALLS REPORTED IN THE LAST YEAR PT STATES HE "DOESNT' BELIEVE SO " PAIN SCREENING: PATIENT HAS A COMPLAINT OF ACUTE OR CHRONIC PAIN :YES INTENSITY OF PAIN (SCALE OF 1 TO 10):8 WHAT DOES YOUR PAIN FEEL LIKE:CONTINOUS, ACHING, THROBBING PAIN IS INCREASED BY:ACTIVITIES PAIN IS DECREASED BY: LAYING DOWN IS THE BEST FOR PAIN RELIEF NURSING NOTE: -. PAIN CENTER INTAKE QUESTIONS: DO YOU HAVE A HISTORY OF MRSA? :NO DO YOU TAKE A BLOOD THINNERS? :NO DO YOU HAVE ANY BLEEDING DISORDERS? :NO ANY NEW NUMBNESS OR WEAKNESS IN YOUR LEGS OR ARMS? :NO ANY PACEMAKER,DEFIBRILLATOR, OR DORSAL COLUMN STIMULATOR? :NO DO YOU HAVE ANY RASHES OR OPEN SORES? :NO ARE YOU ALLERGIC TO IV DYE? :NO ARE YOU DIABETIC? :NO ANY NEW PROBLEMS WITH YOUR MEDICATIONS? :NO HAVE YOU RECEIVED A VACCINE IN THE PAST 30 DAYS? :NO DO YOU PLAN TO RECEIVE A VACCINE IN THE NEXT 21 DAYS? :NO DO YOU NEED ANY PRESCRIPTION? :NO DO YOU TAKE ANY IMMUNOSUPPRESSIVE MEDICATIONS? :NO IS THERE A CHANCE YOU COULD BE ? :NO ARE YOU BREAST FEEDING? :NO CURRENT MEDICATIONS TAKING MULTIVITAMIN ADULTS 50+ - TABLET 1 TAB ORALLY DAILY TAKING STOOL SOFTENER 100 MG CAPSULE 2 ORALLY ONCE A DAY TAKING FLONASE 50 MCG/ACT SUSPENSION 1 SPRAY IN EACH NOSTRIL NASALLY NEEDED TAKING ALBUTEROL SULFATE HFA 108 (90 BASE) MCG/ACT AEROSOL SOLUTION 2 PUFFS NEEDED INHALATION EVERY 4 HRS NEEDED FOR SHORTNESS OF BREATH TAKING TAMSULOSIN HCL 0.4 MG CAPSULE 1 CAPSULE ORALLY ONCE A DAY TAKING TIZANIDINE HCL 2 MG TABLET 1 TABLET NEEDED ORALLY FOR SPASMS AND PAIN BEFORE BEDTIME MAY REPEAT IN 4HRS MDD2 WORKERS COMPENSATION TAKING CITALOPRAM HYDROBROMIDE 20 MG TABLET 1 TABLET ORALLY ONCE A DAY TAKING CLARITIN 10 MG TABLET 1 TABLET ORALLY ONCE A DAY TAKING PROAIR HFA 108 (90 BASE) MCG/ACT AEROSOL SOLUTION 2 PUFFS NEEDED INHALATION EVERY 4-6 HRS TAKING LOSARTAN POTASSIUM 100 MG TABLET 1 TABLET ORALLY ONCE A DAY TAKING AMLODIPINE BESYLATE 10 MG TABLET 1 TABLET ORALLY ONCE A DAY TAKING ROSUVASTATIN CALCIUM 20 MG TABLET TAKE 1 TABLET DAILY ORALLY DAILY TAKING TYLENOL 325 MG TABLET 1 TABLET NEEDED ORALLY EVERY 4 HRS TAKING VITAMIN B 12 500 MCG TABLET 1 TABLET ORALLY ONCE A DAY TAKING CALCIUM 500 MG TABLET 1 TABLET WITH MEALS ORALLY TWICE A DAY NOT-TAKING BISOPROLOL FUMARATE 10 MG TABLET 1 TABLET ORALLY ONCE A DAY NOT-TAKING CRESTOR 20 MG TABLET 1 TABLET ORALLY ONCE A DAY NOT-TAKING ASPIR-81 1 TABLET ORALLY ONCE A DAY NOT-TAKING IBUPROFEN 800 MG TABLET 1 TABLET ORALLY WITH FOOD THREE TIMES DAILY NEEDED FOR PAIN NOT-TAKING LOSARTAN POTASSIUM-HCTZ 100-25 MG TABLET 1 TABLET ORALLY ONCE A DAY NOT-TAKING SPIRONOLACTONE 25 MG TABLET 1 TABLET WITH FOOD ORALLY ONCE A DAY NOT-TAKING FLUTICASONE PROPIONATE 50 MCG/ACT SUSPENSION 1 SPRAY IN EACH NOSTRIL NASALLY ONCE A DAY NOT-TAKING OLOPATADINE HCL 0.1 % SOLUTION 1 DROP INTO AFFECTED EYE OPHTHALMIC TWICE A DAY NOT-TAKING PREDNISONE 20 MG TABLET 1 TABLET ORALLY BID NOT-TAKING KETOROLAC TROMETHAMINE 10 MG TABLET 1 TABLET WITH FOOD OR MILK NEEDED ORALLY EVERY 6 HRS NOT-TAKING SUDAFED 30 MG TABLET 1 TABLET NEEDED ORALLY EVERY 6 HRS NOT-TAKING MECLIZINE HCL 25 MG TABLET CHEWABLE 1 TABLET NEEDED ORALLY ONCE A DAY MEDICATION LIST REVIEWED AND RECONCILED WITH THE PATIENT PAST MEDICAL HISTORY OLD L1 L2 COMPRESSION FX HTN DEPRESSION/ANXIETY MURTAZA WITH CPAP HIGH CHOLESTEROL BOWEL OBSTRUCTION LOWER BACK PAIN ALLERGIES N.K.D.A. SURGICAL HISTORY EXPLORATORY LAP 2014 UMBILICAL HERNIA REPAIR CYST REMOVED FROM BACK -DR HARPER 2017 ENDOSCOPY 04/2020 GASTRIC BYPASS 06/2020 FAMILY HISTORY FATHER: ALIVE, DIAGNOSED WITH HYPERTENSION, UNSPECIFIED HEART DISEASE MOTHER: ALIVE, UNSPECIFIED HEART DISEASE PATERNAL GRAND FATHER: UNSPECIFIED CEREBRAL ARTERY OCCLUSION WITH CEREBRAL INFARCTION MATERNAL GRAND MOTHER: OTHER MALIGNANT NEOPLASM OF UNSPECIFIED SITE 1 BROTHER(S) , 1 SISTER(S) - HEALTHY. 2 SON(S) , 2 DAUGHTER(S) - HEALTHY. MGM COLON CA. SOCIAL HISTORY GENERAL: TOBACCO USE ARE YOU A:NONSMOKER LATEX QUESTIONNAIRE LATEX ALLERGY : HAVE YOU EVER DEVELOPED ANY TYPE OF REACTION AFTER HANDLING LATEX PRODUCTS SUCH RUBBER GLOVES, CONDOMS, DIAPHRAGMS, BALLOONS, SOCKS, OR UNDERWEAR?NO LATEX ALLERGY : HAVE YOU EVER DEVELOPED ANY TYPE OF REACTION DURING OR AFTER DENTAL APPOINTMENT, VAGINAL/RECTAL EXAMINATION, SURGICAL PROCEDURE, OR ANY OTHER EXPOSURE?NO DATE ASKED : 09/13/2020 LATEX RISK : HAVE YOU EVER HAD ANY DIFFICULTY BREATHING OR HIVES AFTER EATING OR HANDLING ANY FRUITS, OR VEGETABLES; SUCH KIWI, BANANAS, STONE FRUITS, OR CHESTNUTSNO LATEX RISK : DO YOU HAVE A PREVIOUS PERSONAL HISTORY OF MORE THAN NINE SURGERIES, SPINA BIFIDA, OR REPEATED CATHERIZATIONS? NO LATEX RISK : ARE YOU FREQUENTLY EXPOSED TO LATEX PRODUCTS IN YOUR OCCUPATION?NO BMI CARE GOAL FOLLOW-UP ABOVE NORMAL BMI FOLLOW-UPDIETARY MANAGEMENT EDUCATION, GUIDANCE, AND COUNSELING ALCOHOL SCREENING DID YOU HAVE A DRINK CONTAINING ALCOHOL IN THE PAST YEAR?YES HOW OFTEN DID YOU HAVE SIX OR MORE DRINKS ON ONE OCCASION IN THE PAST YEAR?NEVER (0 POINTS) HOW MANY DRINKS DID YOU HAVE ON A TYPICAL DAY WHEN YOU WERE DRINKING IN THE PAST YEAR?1 OR 2 (0 POINTS) HOW OFTEN DID YOU HAVE A DRINK CONTAINING ALCOHOL IN THE PAST YEAR?MONTHLY OR LESS (1 POINT) POINTS1 INTERPRETATIONNEGATIVE RECREATIONAL DRUG USE DRUG USE?NO CAFFEINE CAFFEINE USE?YES HOW OFTEN AND HOW MUCH? 2 CUPS/DAY SEXUAL HX HAD SEX IN THE LAST 12 MONTHS (VAGINAL, ORAL, OR ANAL)?YES WITHWOMEN ONLY HAVE YOU EVER HAD AN STD?NO HIV / HEP-C SCREENING HIV TEST OFFERED TO PATIENT:YES DATE OFFERED:10/28/2018 TEST ACCEPTED:YES HEP-C TEST OFFERED TO PATIENT:YES DATE OFFERED:10/28/2018 TEST ACCEPTED:YES BROCHURE PROVIDED TO PATIENTYES YAZ[employer]I [id number] ANGLICAN LANGUAGE LANGUAGES SPOKEN:THAI EDUCATION LEVEL OF EDUCATION:HIGH SCHOOL LEARNING BARRIERS / SPECIAL NEEDS CHANGE FROM LAST VISIT?NO BARRIERS TO LEARNING?NO HEARING IMPAIRED?NO VISION IMPAIRED?YES WEARS GLASSES COGNITIVELY IMPAIRED?NO READINESS TO LEARN?YES LEARNING PREFERENCES?YES : VERBAL DISCUSSION LEARNING CAPABILITIES PRESENT?YES EMOTIONAL BARRIERS?NO SPECIAL DEVICES?NO MORTGAGE CLOSER NEEDED?NO OCCUPATION: WORKS FOR [employer]. DIET: REGULAR. EXERCISE: NONE. MARITAL STATUS: . OTHERS AT HOME: SPOUSE, CHILD( YOUNGEST DAUGHTER). PAIN CLINIC PFS, CLERGY, PUBLIC HEALTH REFERRALS WAS THE PROVIDER NOTIFIED OF ANY PERTINENT INFO?YES HAS THE PATIENT BEEN EDUCATED REGARDING HIS/HER PLAN OF CARE?YES PATIENT HAS HAD THIS PROCEDURE BEFORE. 03/12/18 HAS THE PATIENT BEEN EDUCATED REGARDING PAIN, THE RISK FOR PAIN, THE IMPORTANCE OF EFFECTIVE PAIN MANAGEMENT, AND THE PAIN ASSESSMENT PROCESS?YES ADVANCE DIRECTIVE ADVANCE DIRECTIVE DISCUSSED WITH PATIENT:YES HCP - [facility]/MAJOR DIAGNOSTIC PROCEDURE BOWEL OBSTRUCTION 2016 SURGERY REVIEW OF SYSTEMS CONSTITUTIONAL: ANY RECENT FEVER NO . CHILLS NO . WEIGHT CHANGE OF UNKNOWN REASONS NO . GASTROENTEROLOGY: NEW UNEXPLAINABLE CHANGES IN BOWEL CONTROL NO . CONSTIPATION NO . GENITOURINARY: ANY NEW CHANGE IN BLADDER CONTROL? NO . NEUROLOGY: NEW ONSET DIZZINESS OR NEUROLOGICAL CHANGES NOT MENTIONED NO . NEW NUMBNESS OR PAIN PATTERNS NOT MENTIONED AND PERTINENT TO TODAY'S VISIT NO . CARDIOLOGY: NEW CHEST PRESSURE NO . NEW CHEST PAIN NO . RESPIRATORY: UNEXPLAINABLE COUGH NO . NEW SHORTNESS OF BREATH NO . VITAL SIGNS WT 310.6 LBS, HT 71 IN, BMI 43.32 INDEX, BP 150/80 MM HG, HR 63 /MIN, RR 18 /MIN, TEMP 97.3 F, OXYGEN SAT % 97%, SAFE IN ENV? (Y/N) YES, NA INITIALS SC 14:14, REVIEWED BY: KG. EXAMINATION GENERAL EXAMINATION: THE PATIENT IS ALERT, ORIENTED TIMES THREE AND COOPERATIVE. LUNGS ARE CLEAR TO AUSCULTATION. HEART SHOWS REGULAR RHYTHM, NO MURMURS AND NO GALLOPS. TENDERNESS IN THE RIGHT AND LEFT FACET JOINTS IN THE LOWER BACK IN THE PARASPINAL MUSCLE GROUP ON EXTENSION AND LATERAL ROTATION. LUMBAR MRI DATED 11/09/2020 SHOWS FACET ARTHROPATHY CHANGES. ASSESSMENTS SPONDYLOSIS OF LUMBAR REGION WITHOUT MYELOPATHY OR RADICULOPATHY - M47.816 (PRIMARY) SPONDYLOSIS OF LUMBOSACRAL REGION WITHOUT MYELOPATHY OR RADICULOPATHY - M47.817 LUMBAR FACET ARTHROPATHY - M47.816 FACET ARTHROPATHY, LUMBOSACRAL - M47.817 TREATMENT SPONDYLOSIS OF LUMBAR REGION WITHOUT MYELOPATHY OR RADICULOPATHY NOTES: 11/29/20 1545 PATIENT GIVEN PREPROCEDURE INSTRUCTIONS AND HANDOUT FOR DIAGNOSTIC FACET BLOCK, PATIENT VERBALIZES UNDERSTANDING OF TEACHING, NO QUESTIONS OR CONCERNS AT THIS TIME. Giovani MOHAN FOOTWEAR SALES ASSOCIATE. CLINICAL NOTES: I DISCUSSED ALTERNATIVES WITH MR. MARTIN. I AM GOING TO REQUEST AUTHORIZATION FOR A BILATERAL DIAGNOSTIC LUMBAR FACET BLOCK #2 L4-L5, L5-S1. IF THE PAIN GOES DOWN, WE WILL REQUEST AUTHORIZATION FOR THE RADIOFREQUENCY. THE PATIENT HAS ALREADY HAD A RADIOFREQUENCY ON THE RIGHT AND THE LEFT IN 2018. I AM LOOKING FOR LONG LASTING PAIN RELIEF. I, KIM HOLLY, DOCUMENTED THE ABOVE INFORMATION ACTING A SCRIBE FOR DR. WRIGHT. I HAVE REVIEWED THE ABOVE DOCUMENT, WRITTEN BY KIM HOLLY, VENEER PRESS OPERATOR, AND I VERIFY THAT IT IS ACCURATE. PROCEDURES PN WORKMANS' COMP OPINION IN YOUR OPINION, WAS THE INCIDENT THAT THE PATIENT DESCRIBED THE COMPETENT MEDICAL CAUSE OF THIS INJURY/ILLNESS? YES ARE THE PATIENT'S COMPLAINTS CONSISTENT WITH HIS/HER HISTORY OF THE INJURY/ILLNESS? YES IS THE PATIENT'S HISTORY OF THE INJURY/ILLNESS CONSISTENT WITH YOUR OBJECTIVE FINDING? YES WHAT IS THE PERCENTAGE OF TEMPORARY IMPAIRMENT? MODERATE TO MARKED = 66.7% . IS THE PATIENT WORKING? YES DOCTOR ON SITE: MARSHA TIDWELL MD PROCEDURE CODES FA211 ESTABILISHED PATIENT [facility] FACILITY CHARGE [id number] OFFICE/OUTPATIENT VISIT EST DISPOSITION & COMMUNICATION FOLLOW UP WORKERS COMP (REASON: REQUEST AUTHORIZATION FOR A BILATERAL DIAGNOSTIC LUMBAR FACET BLOCK #2 L4-L5, L5-S1) ELECTRONICALLY SIGNED BY MARSHA WRIGHT MD, MD ON 11/30/2020 AT 10:58 AM EST DISCLAIMER : THIS IS A VISIT SUMMARY EXTRACTED FROM THE [employer] CHART. IT IS NOT A COPY OF THE [employer] PROGRESS NOTE. KO
== END ==
LOC: M PAIN 14:00
PROVIDERS: ATTEND Anesthesiology
DX: M47.816 Spondylosis without myelopathy or radiculopathy, lumbar region (principal); M47.817 Spondylosis without myelopathy or radiculopathy, lumbosacral region; G89.29 Other chronic pain; G47.33 Obstructive sleep apnea (adult) (pediatric); Z86.59 Personal history of other mental and behavioral disorders; Z98.84 Bariatric surgery status; E66.01 Morbid (severe) obesity due to excess calories; Z68.41 Body mass index [BMI] 40.0-44.9, adult; Z79.899 Other long term (current) drug therapy

== ENCOUNTER → 2020-12-29 | Outpatient (CLI) | payer OTHER, BC ==
--- NOTE | 2021-01-02 23:47 | ECWPNPC ---
PATIENT NAME: MELBA MARTIN : 1965 GENDER: MALE VISIT DATE: 12/29/2020 DISCHARGE DATE: 12/29/20 1147 VISIT LOCKED DATE TIME: PHYSICIAN: MARSHA WRIGHT MD PHYSICIAN PAGER NO: ACTIVE RESOURCE: MARSHA WRIGHT MD REASON FOR APPOINTMENT 1. LOW BACK PAIN HISTORY OF PRESENT ILLNESS GENERAL: 55-YEAR-OLD MALE PATIENT WITH A HISTORY OF CHRONIC LOW BACK PAIN. THE PATIENT DESCRIBES THE PAIN ACHING, SHARP CONTINUOUS WITH A PAIN SCORE RANGING FROM 6-9/10. THIS IS AFFECTING HIS ABILITY TO PERFORM ACTIVITIES SUCH MOVING AROUND, WORKING, SLEEPING. HE IS VERY UNCOMFORTABLE. HE IS HAVING A VERY DIFFICULT TIME WITH THIS PAIN CONDITION. HE IS LOOKING FOR ALTERNATIVES. FALL RISK SCREENING: SCREENING :NO FALLS REPORTED IN THE LAST YEAR PAIN SCREENING: PATIENT HAS A COMPLAINT OF ACUTE OR CHRONIC PAIN :YES PAIN IS DECREASED BY:SITTING,OTHERS RESTING, BIO FREEZE PAIN IS INCREASED BY:OTHERS,ACTIVITIES LIFTING, BENDING DURATION:CONTINOUS WHAT DOES YOUR PAIN FEEL LIKE:ACHING,SHARP,CONTINOUS INTENSITY OF PAIN (SCALE OF 1 TO 10):7 LOCATION OF PAIN:LOW BACK NURSING NOTE: -. PAIN CENTER INTAKE QUESTIONS: DO YOU HAVE A HISTORY OF MRSA? :NO DO YOU TAKE A BLOOD THINNERS? :NO DO YOU HAVE ANY BLEEDING DISORDERS? :NO ANY NEW NUMBNESS OR WEAKNESS IN YOUR LEGS OR ARMS? :NO ANY PACEMAKER,DEFIBRILLATOR, OR DORSAL COLUMN STIMULATOR? :NO DO YOU HAVE ANY RASHES OR OPEN SORES? :NO ARE YOU ALLERGIC TO IV DYE? :NO ARE YOU DIABETIC? :NO ANY NEW PROBLEMS WITH YOUR MEDICATIONS? :NO HAVE YOU RECEIVED A VACCINE IN THE PAST 30 DAYS? :NO DO YOU PLAN TO RECEIVE A VACCINE IN THE NEXT 21 DAYS? :NO DO YOU NEED ANY PRESCRIPTION? :NO DO YOU TAKE ANY IMMUNOSUPPRESSIVE MEDICATIONS? :NO IS THERE A CHANCE YOU COULD BE ? :NO ARE YOU BREAST FEEDING? :NO CURRENT MEDICATIONS TAKING AMLODIPINE BESYLATE 10 MG TABLET 1 TABLET ORALLY ONCE A DAY TAKING CITALOPRAM HYDROBROMIDE 20 MG TABLET 1 TABLET ORALLY ONCE A DAY TAKING MULTIVITAMIN ADULTS 50+ - TABLET 1 TAB ORALLY DAILY TAKING STOOL SOFTENER 100 MG CAPSULE 2 ORALLY ONCE A DAY TAKING FLONASE 50 MCG/ACT SUSPENSION 1 SPRAY IN EACH NOSTRIL NASALLY NEEDED TAKING ALBUTEROL SULFATE HFA 108 (90 BASE) MCG/ACT AEROSOL SOLUTION 2 PUFFS NEEDED INHALATION EVERY 4 HRS NEEDED FOR SHORTNESS OF BREATH TAKING TAMSULOSIN HCL 0.4 MG CAPSULE 1 CAPSULE ORALLY ONCE A DAY TAKING TIZANIDINE HCL 2 MG TABLET 1 TABLET NEEDED ORALLY FOR SPASMS AND PAIN BEFORE BEDTIME MAY REPEAT IN 4HRS MDD2 WORKERS COMPENSATION TAKING CLARITIN 10 MG TABLET 1 TABLET ORALLY ONCE A DAY TAKING LOSARTAN POTASSIUM 100 MG TABLET 1 TABLET ORALLY ONCE A DAY TAKING ROSUVASTATIN CALCIUM 20 MG TABLET TAKE 1 TABLET DAILY ORALLY DAILY TAKING TYLENOL 325 MG TABLET 1 TABLET NEEDED ORALLY EVERY 4 HRS TAKING VITAMIN B 12 500 MCG TABLET 1 TABLET ORALLY ONCE A DAY TAKING CALCIUM 500 MG TABLET 1 TABLET WITH MEALS ORALLY TWICE A DAY NOT-TAKING PROAIR HFA 108 (90 BASE) MCG/ACT AEROSOL SOLUTION 2 PUFFS NEEDED INHALATION EVERY 4-6 HRS DISCONTINUED CITALOPRAM HYDROBROMIDE 20 MG TABLET 1 TABLET ORALLY ONCE A DAY MEDICATION LIST REVIEWED AND RECONCILED WITH THE PATIENT PAST MEDICAL HISTORY OLD L1 L2 COMPRESSION FX HTN DEPRESSION/ANXIETY MURTAZA WITH CPAP HIGH CHOLESTEROL BOWEL OBSTRUCTION LOWER BACK PAIN ALLERGIES N.K.D.A. SOCIAL HISTORY GENERAL: TOBACCO USE ARE YOU A:NONSMOKER LATEX QUESTIONNAIRE LATEX ALLERGY : HAVE YOU EVER DEVELOPED ANY TYPE OF REACTION AFTER HANDLING LATEX PRODUCTS SUCH RUBBER GLOVES, CONDOMS, DIAPHRAGMS, BALLOONS, SOCKS, OR UNDERWEAR?NO LATEX ALLERGY : HAVE YOU EVER DEVELOPED ANY TYPE OF REACTION DURING OR AFTER DENTAL APPOINTMENT, VAGINAL/RECTAL EXAMINATION, SURGICAL PROCEDURE, OR ANY OTHER EXPOSURE?NO DATE ASKED : 09/13/2020 LATEX RISK : HAVE YOU EVER HAD ANY DIFFICULTY BREATHING OR HIVES AFTER EATING OR HANDLING ANY FRUITS, OR VEGETABLES; SUCH KIWI, BANANAS, STONE FRUITS, OR CHESTNUTSNO LATEX RISK : DO YOU HAVE A PREVIOUS PERSONAL HISTORY OF MORE THAN NINE SURGERIES, SPINA BIFIDA, OR REPEATED CATHERIZATIONS? NO LATEX RISK : ARE YOU FREQUENTLY EXPOSED TO LATEX PRODUCTS IN YOUR OCCUPATION?NO BMI CARE GOAL FOLLOW-UP ABOVE NORMAL BMI FOLLOW-UPDIETARY MANAGEMENT EDUCATION, GUIDANCE, AND COUNSELING ALCOHOL SCREENING DID YOU HAVE A DRINK CONTAINING ALCOHOL IN THE PAST YEAR?YES HOW OFTEN DID YOU HAVE SIX OR MORE DRINKS ON ONE OCCASION IN THE PAST YEAR?NEVER (0 POINTS) HOW MANY DRINKS DID YOU HAVE ON A TYPICAL DAY WHEN YOU WERE DRINKING IN THE PAST YEAR?1 OR 2 (0 POINTS) HOW OFTEN DID YOU HAVE A DRINK CONTAINING ALCOHOL IN THE PAST YEAR?MONTHLY OR LESS (1 POINT) POINTS1 INTERPRETATIONNEGATIVE RECREATIONAL DRUG USE DRUG USE?NO CAFFEINE CAFFEINE USE?YES HOW OFTEN AND HOW MUCH? 2 CUPS/DAY SEXUAL HX HAD SEX IN THE LAST 12 MONTHS (VAGINAL, ORAL, OR ANAL)?YES WITHWOMEN ONLY HAVE YOU EVER HAD AN STD?NO HIV / HEP-C SCREENING HIV TEST OFFERED TO PATIENT:YES DATE OFFERED:10/28/2018 TEST ACCEPTED:YES HEP-C TEST OFFERED TO PATIENT:YES DATE OFFERED:10/28/2018 TEST ACCEPTED:YES BROCHURE PROVIDED TO PATIENTYES SPIRITISM [id number] MU-ISM LANGUAGE LANGUAGES SPOKEN:SPANISH EDUCATION LEVEL OF EDUCATION:HIGH SCHOOL LEARNING BARRIERS / SPECIAL NEEDS CHANGE FROM LAST VISIT?NO BARRIERS TO LEARNING?NO HEARING IMPAIRED?NO VISION IMPAIRED?YES WEARS GLASSES COGNITIVELY IMPAIRED?NO READINESS TO LEARN?YES LEARNING PREFERENCES?YES : VERBAL DISCUSSION LEARNING CAPABILITIES PRESENT?YES EMOTIONAL BARRIERS?NO SPECIAL DEVICES?NO VICE PRESIDENT OF SOFTWARE DEVELOPMENT NEEDED?NO OCCUPATION: WORKS FOR [employer]. DIET: REGULAR. EXERCISE: NONE. MARITAL STATUS: . OTHERS AT HOME: SPOUSE, CHILD( YOUNGEST DAUGHTER). - WAS THE PROVIDER NOTIFIED OF ANY PERTINENT INFO?YES HAS THE PATIENT BEEN EDUCATED REGARDING HIS/HER PLAN OF CARE?YES PATIENT HAS HAD THIS PROCEDURE BEFORE. 03/12/18 HAS THE PATIENT BEEN EDUCATED REGARDING PAIN, THE RISK FOR PAIN, THE IMPORTANCE OF EFFECTIVE PAIN MANAGEMENT, AND THE PAIN ASSESSMENT PROCESS?YES ADVANCE DIRECTIVE ADVANCE DIRECTIVE DISCUSSED WITH PATIENT:YES HCP - [facility] REVIEW OF SYSTEMS CONSTITUTIONAL: ANY RECENT FEVER NO . CHILLS NO . WEIGHT CHANGE OF UNKNOWN REASONS NO . GASTROENTEROLOGY: NEW UNEXPLAINABLE CHANGES IN BOWEL CONTROL NO . CONSTIPATION NO . GENITOURINARY: ANY NEW CHANGE IN BLADDER CONTROL? NO . NEUROLOGY: NEW ONSET DIZZINESS OR NEUROLOGICAL CHANGES NOT MENTIONED NO . NEW NUMBNESS OR PAIN PATTERNS NOT MENTIONED AND PERTINENT TO TODAY'S VISIT NO . CARDIOLOGY: NEW CHEST PRESSURE NO . NEW CHEST PAIN NO . RESPIRATORY: UNEXPLAINABLE COUGH NO . NEW SHORTNESS OF BREATH NO . VITAL SIGNS WT 304.0 LBS, HT 71 IN, BMI 42.39 INDEX, BP 130/67 MM HG, HR 71 /MIN, RR 18 /MIN, TEMP 96.0 F, OXYGEN SAT % 97%, SAFE IN ENV? (Y/N) YES, NA INITIALS AW 1032, REVIEWED BY: KALLI SMITH. EXAMINATION GENERAL EXAMINATION: THE PATIENT IS ALERT, ORIENTED TIMES THREE AND COOPERATIVE. THE PATIENT'S WALK IS ANTALGIC. LUNGS ARE CLEAR TO AUSCULTATION. HEART SHOWS REGULAR RHYTHM, NO MURMURS AND NO GALLOPS. THERE IS TENDERNESS IN THE LOWER BACK IN THE PARASPINAL MUSCLE GROUP. MRI OF THE LUMBOSACRAL SPINE DATED 11/09/2020 SHOWS FACET ARTHROPATHY CHANGES WITH FORAMINAL STENOSIS, SOME BULGING DISC AT MULTIPLE LEVELS. STRAIGHT LEG RAISE IS POSITIVE FOR RADICULOPATHY AT 50 DEGREES. 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 MARTIN. THE PATIENT HAS TRIED MANY DIFFERENT INJECTIONS AND MEDICATIONS. HE IS INTERESTED IN THE DORSAL COLUMN STIMULATOR TRIAL. I ADVISE THAT HE SHOULD NOT MOVE FORWARD WITH THE IMPLANT UNLESS HE HAS MORE THAN 80% IN PAIN REDUCTION. I AM GOING TO REQUEST AUTHORIZATION FOR A THORACIC MRI TO SEE IF THERE IS ENOUGH SPACE IN THE EPIDURAL SPACE TO PASS THE LEADS. I WILL ALSO REFER THE PATIENT FOR A PSYCHOLOGICAL EVALUATION. THE PATIENT REPORTS UNDERSTANDING AND AGREES WITH THE PLAN. I, KIM HOLLY, DOCUMENTED THE ABOVE INFORMATION ACTING A SCRIBE FOR DR. WRIGHT. I HAVE REVIEWED THE ABOVE DOCUMENT, WRITTEN BY KIM HOLLY, NON DESTRUCTIVE TESTER, AND I VERIFY THAT IT IS ACCURATE. BACK PAIN MRI : THORACIC [id number] REFERRAL TO: REASON:PLEASE EVALUTATE THE PATIENT FOR DORSAL COLUMN STIMULATOR TRIAL PROCEDURES PN WORKMANS' COMP OPINION IN YOUR OPINION, WAS THE INCIDENT THAT THE PATIENT DESCRIBED THE COMPETENT MEDICAL CAUSE OF THIS INJURY/ILLNESS? YES ARE THE PATIENT'S COMPLAINTS CONSISTENT WITH HIS/HER HISTORY OF THE INJURY/ILLNESS? YES IS THE PATIENT'S HISTORY OF THE INJURY/ILLNESS CONSISTENT WITH YOUR OBJECTIVE FINDING? YES WHAT IS THE PERCENTAGE OF TEMPORARY IMPAIRMENT? MARKED = 75% . IS THE PATIENT WORKING? YES DOCTOR ON SITE: MARSHA TIDWELL MD PROCEDURE CODES FA211 ESTABILISHED PATIENT [facility] FACILITY CHARGE [id number] OFFICE/OUTPATIENT VISIT EST DISPOSITION & COMMUNICATION FOLLOW UP FOLLOW UP WITH CDA TEACHER, MED MANAGEMENT (REASON: REQUEST AUTH FOR THORACIC MRI AND PSYCH EVAL) ELECTRONICALLY SIGNED BY MARSHA WRIGHT MD, MD ON 01/02/2021 AT 11:38 AM EST DISCLAIMER : THIS IS A VISIT SUMMARY EXTRACTED FROM THE Customer [employer] CHART. IT IS NOT A COPY OF THE Customer [employer] PROGRESS NOTE. KO
== END ==
LOC: M PAIN 10:30
PROVIDERS: ATTEND Anesthesiology
DX: M51.16 Intervertebral disc disorders with radiculopathy, lumbar region (principal); I10 Essential (primary) hypertension; F32.9 Major depressive disorder, single episode, unspecified; F41.9 Anxiety disorder, unspecified; G47.33 Obstructive sleep apnea (adult) (pediatric); E78.00 Pure hypercholesterolemia, unspecified; Z79.899 Other long term (current) drug therapy

== ENCOUNTER → 2021-01-09 | Outpatient (CLI) | payer OTHER, BC ==
--- NOTE | 2021-01-18 00:33 | ECWPNPC ---
PATIENT NAME: MELBA MARTIN : 1965 GENDER: MALE VISIT DATE: 01/09/2021 DISCHARGE DATE: 01/09/2146 VISIT LOCKED DATE TIME: PHYSICIAN: MARSHA WRIGHT MD PHYSICIAN PAGER NO: ACTIVE RESOURCE: MARSHA WRIGHT MD REASON FOR APPOINTMENT 1. DISCUSS THE DENIAL OF MRI HISTORY OF PRESENT ILLNESS GENERAL: PERMISSION FROM PATIENT WAS RECEIVED TO DO TELEPHONE OFFICE VISIT. 55-YEAR-OLD MALE PATIENT WITH A HISTORY OF CHRONIC LOW BACK AND LEG PAIN. THE PATIENT DESCRIBES THE PAIN SHARP AND ACHING WITH A PAIN SCORE RANGING FROM 6-10/10 IN THE BACK WITH RADIATION TO THE LEGS. THE PATIENT WAS HURT WHILE WORKING FOR THE [employer] DEPARTMENT WHEN A LAWNMOWER FLIPPED ONTO HIM INJURING HIS BACK. THE PAIN IS AFFECTING HIS ABILITY TO DO ACTIVITIES SUCH CLEANING HIS HOUSE, WALKING AROUND AND WORKING. THE PATIENT HAS TRIED MEDICATION MANAGEMENT AND MULTIPLE INJECTION THERAPY BUT THE PAIN PERSISTS. THE PATIENT NEEDS HELP. THE PATIENT IS INTERESTED IN THE DORSAL COLUMN STIMULATOR TRIAL. THE PATIENT DESCRIBES THE PAIN A VERY SEVERE ACHE IN THE BACK, LIKE A TOOTH ACHE. FALL RISK SCREENING: SCREENING :NO FALLS REPORTED IN THE LAST YEAR PAIN SCREENING: PATIENT HAS A COMPLAINT OF ACUTE OR CHRONIC PAIN :YES LOCATION OF PAIN:LOW BACK INTENSITY OF PAIN (SCALE OF 1 TO 10):8 WHAT DOES YOUR PAIN FEEL LIKE:ACHING, THROBBING DURATION:CONSTANT, INTERMITTENT PAIN IS INCREASED BY:ACTIVITIES LIFTING PAIN IS DECREASED BY:USE OF PAIN MEDICATIONS, OTHERS REST NURSING NOTE: -. PAIN CENTER INTAKE QUESTIONS: DO YOU HAVE A HISTORY OF MRSA? :NO DO YOU TAKE A BLOOD THINNERS? :NO DO YOU HAVE ANY BLEEDING DISORDERS? :NO ANY NEW NUMBNESS OR WEAKNESS IN YOUR LEGS OR ARMS? :NO ANY PACEMAKER,DEFIBRILLATOR, OR DORSAL COLUMN STIMULATOR? :NO DO YOU HAVE ANY RASHES OR OPEN SORES? :NO ARE YOU ALLERGIC TO IV DYE? :NO ARE YOU DIABETIC? :NO ANY NEW PROBLEMS WITH YOUR MEDICATIONS? :NO HAVE YOU RECEIVED A VACCINE IN THE PAST 30 DAYS? :NO DO YOU PLAN TO RECEIVE A VACCINE IN THE NEXT 21 DAYS? :YES SCHEDULED FOR COVID VACCINE 01/19/21. PATIENT WILLING TO POSTPONE VACCINE DO YOU NEED ANY PRESCRIPTION? :NO DO YOU TAKE ANY IMMUNOSUPPRESSIVE MEDICATIONS? :NO IS THERE A CHANCE YOU COULD BE ? :NO ARE YOU BREAST FEEDING? :NO CURRENT MEDICATIONS TAKING AMLODIPINE BESYLATE 10 MG TABLET 1 TABLET ORALLY ONCE A DAY TAKING CITALOPRAM HYDROBROMIDE 20 MG TABLET 1 TABLET ORALLY ONCE A DAY TAKING MULTIVITAMIN ADULTS 50+ - TABLET 1 TAB ORALLY DAILY TAKING STOOL SOFTENER 100 MG CAPSULE 2 ORALLY ONCE A DAY TAKING FLONASE 50 MCG/ACT SUSPENSION 1 SPRAY IN EACH NOSTRIL NASALLY NEEDED TAKING ALBUTEROL SULFATE HFA 108 (90 BASE) MCG/ACT AEROSOL SOLUTION 2 PUFFS NEEDED INHALATION EVERY 4 HRS NEEDED FOR SHORTNESS OF BREATH TAKING TAMSULOSIN HCL 0.4 MG CAPSULE 1 CAPSULE ORALLY ONCE A DAY TAKING TIZANIDINE HCL 2 MG TABLET 1 TABLET NEEDED ORALLY FOR SPASMS AND PAIN BEFORE BEDTIME MAY REPEAT IN 4HRS MDD2 WORKERS COMPENSATION TAKING ROSUVASTATIN CALCIUM 20 MG TABLET TAKE 1 TABLET DAILY ORALLY DAILY TAKING TYLENOL 325 MG TABLET 1 TABLET NEEDED ORALLY EVERY 4 HRS TAKING LOSARTAN POTASSIUM 100 MG TABLET 1 TABLET ORALLY ONCE A DAY TAKING CLARITIN 10 MG TABLET 1 TABLET ORALLY ONCE A DAY TAKING VITAMIN B 12 500 MCG TABLET 2 TABLET ORALLY ONCE A DAY TAKING CALCIUM 500 MG TABLET 1 TABLET WITH MEALS ORALLY TWICE A DAY NOT-TAKING LOSARTAN POTASSIUM 100 MG TABLET 1 TABLET ORALLY ONCE A DAY, NOTES: DUPLICATE NOT-TAKING CLARITIN 10 MG TABLET 1 TABLET ORALLY ONCE A DAY, NOTES: DUPLICATE NOT-TAKING PROAIR HFA 108 (90 BASE) MCG/ACT AEROSOL SOLUTION 2 PUFFS NEEDED INHALATION EVERY 4-6 HRS MEDICATION LIST REVIEWED AND RECONCILED WITH THE PATIENT PAST MEDICAL HISTORY OLD L1 L2 COMPRESSION FX HTN DEPRESSION/ANXIETY MURTAZA WITH CPAP HIGH CHOLESTEROL BOWEL OBSTRUCTION LOWER BACK PAIN ALLERGIES N.K.D.A. SOCIAL HISTORY GENERAL: TOBACCO USE ARE YOU A:NONSMOKER LATEX QUESTIONNAIRE LATEX ALLERGY : HAVE YOU EVER DEVELOPED ANY TYPE OF REACTION AFTER HANDLING LATEX PRODUCTS SUCH RUBBER GLOVES, CONDOMS, DIAPHRAGMS, BALLOONS, SOCKS, OR UNDERWEAR?NO LATEX ALLERGY : HAVE YOU EVER DEVELOPED ANY TYPE OF REACTION DURING OR AFTER DENTAL APPOINTMENT, VAGINAL/RECTAL EXAMINATION, SURGICAL PROCEDURE, OR ANY OTHER EXPOSURE?NO LATEX RISK : HAVE YOU EVER HAD ANY DIFFICULTY BREATHING OR HIVES AFTER EATING OR HANDLING ANY FRUITS, OR VEGETABLES; SUCH KIWI, BANANAS, STONE FRUITS, OR CHESTNUTSNO LATEX RISK : DO YOU HAVE A PREVIOUS PERSONAL HISTORY OF MORE THAN NINE SURGERIES, SPINA BIFIDA, OR REPEATED CATHERIZATIONS? NO LATEX RISK : ARE YOU FREQUENTLY EXPOSED TO LATEX PRODUCTS IN YOUR OCCUPATION?NO DATE ASKED : 01/09/2021 ALCOHOL USE: YES, VERY MINIMAL. BMI CARE GOAL FOLLOW-UP ABOVE NORMAL BMI FOLLOW-UPDIETARY MANAGEMENT EDUCATION, GUIDANCE, AND COUNSELING ALCOHOL SCREENING DID YOU HAVE A DRINK CONTAINING ALCOHOL IN THE PAST YEAR?YES HOW OFTEN DID YOU HAVE SIX OR MORE DRINKS ON ONE OCCASION IN THE PAST YEAR?NEVER (0 POINTS) HOW MANY DRINKS DID YOU HAVE ON A TYPICAL DAY WHEN YOU WERE DRINKING IN THE PAST YEAR?1 OR 2 (0 POINTS) HOW OFTEN DID YOU HAVE A DRINK CONTAINING ALCOHOL IN THE PAST YEAR?MONTHLY OR LESS (1 POINT) POINTS1 INTERPRETATIONNEGATIVE RECREATIONAL DRUG USE DRUG USE?NO CAFFEINE CAFFEINE USE?YES HOW OFTEN AND HOW MUCH? 2 CUPS/DAY SEXUAL HX HAD SEX IN THE LAST 12 MONTHS (VAGINAL, ORAL, OR ANAL)?YES WITHWOMEN ONLY HAVE YOU EVER HAD AN STD?NO HIV / HEP-C SCREENING HIV TEST OFFERED TO PATIENT:YES DATE OFFERED:10/28/2018 TEST ACCEPTED:YES HEP-C TEST OFFERED TO PATIENT:YES DATE OFFERED:10/28/2018 TEST ACCEPTED:YES BROCHURE PROVIDED TO PATIENTYES [employer] [id number] [employer] LANG[employer] LANGUAGES SPOKEN:FAROESE EDUCATION LEVEL OF EDUCATION:HIGH SCHOOL LEARNING BARRIERS / SPECIAL NEEDS CHANGE FROM LAST VISIT?NO BARRIERS TO LEARNING?NO HEARING IMPAIRED?NO VISION IMPAIRED?YES WEARS GLASSES COGNITIVELY IMPAIRED?NO READINESS TO LEARN?YES LEARNING PREFERENCES?YES : VERBAL DISCUSSION LEARNING CAPABILITIES PRESENT?YES EMOTIONAL BARRIERS?NO SPECIAL DEVICES?NO AMMUNITION STOREKEEPER NEEDED?NO OCCUPATION: WORKS FOR [employer]. DIET: REGULAR. EXERCISE: NONE. MARITAL STATUS: . OTHERS AT HOME: SPOUSE, CHILD( YOUNGEST DAUGHTER). - WAS THE PROVIDER NOTIFIED OF ANY PERTINENT INFO?YES HAS THE PATIENT BEEN EDUCATED REGARDING HIS/HER PLAN OF CARE?YES PATIENT HAS HAD THIS PROCEDURE BEFORE. 03/12/18 HAS THE PATIENT BEEN EDUCATED REGARDING PAIN, THE RISK FOR PAIN, THE IMPORTANCE OF EFFECTIVE PAIN MANAGEMENT, AND THE PAIN ASSESSMENT PROCESS?YES ADVANCE DIRECTIVE ADVANCE DIRECTIVE DISCUSSED WITH PATIENT:YES HCP - CHANO REVIEW OF SYSTEMS CONSTITUTIONAL: ANY RECENT FEVER NO . CHILLS NO . WEIGHT CHANGE OF UNKNOWN REASONS NO . GASTROENTEROLOGY: NEW UNEXPLAINABLE CHANGES IN BOWEL CONTROL NO . CONSTIPATION NO . GENITOURINARY: ANY NEW CHANGE IN BLADDER CONTROL? NO . NEUROLOGY: NEW ONSET DIZZINESS OR NEUROLOGICAL CHANGES NOT MENTIONED NO . NEW NUMBNESS OR PAIN PATTERNS NOT MENTIONED AND PERTINENT TO TODAY'S VISIT NO . CARDIOLOGY: NEW CHEST PRESSURE NO . NEW CHEST PAIN NO . RESPIRATORY: UNEXPLAINABLE COUGH NO . NEW SHORTNESS OF BREATH NO . VITAL SIGNS WT 304 LBS, HT 71 IN, BMI 42.39 INDEX, SAFE IN ENV? (Y/N) YES, REVIEWED BY: APUNABLE TO OBTAIN VITAL SIGNS DUE TO VIRTUAL VISIT. Gil WELLS RN. EXAMINATION GENERAL EXAMINATION: THE PATIENT IS ALERT, ORIENTED TIMES THREE AND COOPERATIVE. THIS IS AN INTERVIEW OVER THE PHONE THE MRI OF THE LUMBOSACRAL SPINE DATED 11/09/2020 SHOWS BULGING DISC AT MULTIPLE LEVELS WITH SPINAL STENOSIS MAINLY AT L4-L5. 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 MARTIN. I WANTED TO SEND THE PATIENT TO PHYSICAL THERAPY. THE PATIENT HAS EXPLAINED TO ME THAT HE DID PHYSICAL THERAPY AND HE STATED THAT IT MADE THE PAIN WORSE. THE PATIENT STATES THAT HE DOES NOT WANT TO DO PHYSICAL THERAPY AGAIN AND THAT HE WANTS TO PROCEED WITH THE TRIAL. MR. MARTIN EXPLAINED THAT HE DID PHYSICAL THERAPY WITH JO[facility]O HERNANDEZ IN [place]. THE PATIENT STATED THAT JOÃO HERNANDEZ SAID THAT HE WAS PUTTING THE PATIENT IN MORE PAIN AND DID NOT WANT TO CONTINUE. THE PATIENT WOULD LIKE TO TRY AGAIN TO REQUEST AUTHORIZATION FOR THE TRIAL. THE PATIENT REPORTS UNDERSTANDING AND AGREES WITH THE PLAN. THE TOTAL TIME OF THE VISIT WAS 12 MINUTES. I, KIM HOLLY, DOCUMENTED THE ABOVE INFORMATION ACTING A SCRIBE FOR DR. WRIGHT. I HAVE REVIEWED THE ABOVE DOCUMENT, WRITTEN BY KIM HOLLY, FRAME NAILER, AND I VERIFY THAT IT IS ACCURATE . PROCEDURE CODES 88621 OL DIG E/cAe SVC 11-20 MIN DISPOSITION & COMMUNICATION FOLLOW UP FOLLOW UP WITH DR. Bello IN 2 MONTHS (REASON: DISCUSS DCS) ELECTRONICALLY SIGNED BY MARSHA WRIGHT MD, ON 01/17/2021 AT 01:05 PM EST DISCLAIMER : THIS IS A VISIT SUMMARY EXTRACTED FROM THE [employer] CHART. IT IS NOT A COPY OF THE [employer] PROGRESS NOTE. MTDD
== END ==
LOC: M PAIN 15:15
PROVIDERS: ATTEND Anesthesiology
DX: M51.16 Intervertebral disc disorders with radiculopathy, lumbar region (principal); M48.062 Spinal stenosis, lumbar region with neurogenic claudication; G89.29 Other chronic pain; G47.33 Obstructive sleep apnea (adult) (pediatric); Z86.59 Personal history of other mental and behavioral disorders; E66.01 Morbid (severe) obesity due to excess calories; Z68.41 Body mass index [BMI] 40.0-44.9, adult; Z79.899 Other long term (current) drug therapy

== ENCOUNTER → 2021-01-26 | Outpatient (CLI) | payer OTHER, BC ==
--- NOTE | 2021-01-30 23:56 | ECWPNPC ---
PATIENT NAME: MELBA MARTIN : 1965 GENDER: MALE VISIT DATE: 01/26/2021 DISCHARGE DATE: 01/26/21 0000 VISIT LOCKED DATE TIME: PHYSICIAN: MARSHA WRIGHT MD PHYSICIAN PAGER NO: ACTIVE RESOURCE: MARSHA WRIGHT MD REASON FOR APPOINTMENT 1. DISCUSS MRI DENIAL, PATIENT DOESN''T GET OUT OF WORK UNTIL 3:30 HISTORY OF PRESENT ILLNESS GENERAL: PERMISSION FROM PATIENT WAS RECEIVED TO DO TELEPHONE OFFICE VISIT. 55-YEAR-OLD MALE PATIENT WITH A HISTORY OF CHRONIC LOW BACK AND LEG PAIN. THE PATIENT SUFFERED A WORK RELATED INJURY IN 2012 WHILE WORKING FOR THE [employer]. HE WAS PICKED UP BY AN AMBULANCE AFTER THIS INJURY. THE PATIENT DESCRIBES THE PAIN ACHING AND SHARP WITH A PAIN SCORE RANGING FROM 6-10/10 IN THE BACK WITH RADIATION TO BOTH LEGS, MAINLY THE RIGHT LEG. THIS IS AFFECTING HIS ABILITY TO DO ACTIVITIES SUCH CLEANING HIS HOUSE AND WORKING. WE HAVE TRIED MEDICATION MANAGEMENT AND INJECTION THERAPY BUT THE PAIN PERSISTS. THE PATIENT WAS SEEN BY A SURGEON A FEW MONTHS AGO AND WAS INFORMED THAT HE IS NOT A SURGICAL CANDIDATE. FALL RISK SCREENING: SCREENING : NO FALLS REPORTED IN THE LAST YEAR. PAIN SCREENING: PATIENT HAS A COMPLAINT OF ACUTE OR CHRONIC PAIN :YES LOCATION OF PAIN:LOW BACK INTENSITY OF PAIN (SCALE OF 1 TO 10):8 WHAT DOES YOUR PAIN FEEL LIKE:ACHING "STEADY" WORSENS WITH ACTIVITY/MOVEMENT DURATION:AWAKENS FROM SLEEP PAIN IS INCREASED BY:ACTIVITIES, PROLONGED STANDING PAIN IS DECREASED BY:USE OF PAIN MEDICATIONS PLAN/GOALS/TREATMENT/INTERVENTION/FOLLOW UP:SEE PLAN NURSING NOTE: 02/05/21 W/C DOCTOR VISIT IN [place]-. PAIN CENTER INTAKE QUESTIONS: DO YOU HAVE A HISTORY OF MRSA? :NO DO YOU TAKE A BLOOD THINNERS? :NO DO YOU HAVE ANY BLEEDING DISORDERS? :NO ANY NEW NUMBNESS OR WEAKNESS IN YOUR LEGS OR ARMS? :NO ANY PACEMAKER,DEFIBRILLATOR, OR DORSAL COLUMN STIMULATOR? :NO DO YOU HAVE ANY RASHES OR OPEN SORES? :NO ARE YOU ALLERGIC TO IV DYE? :NO ARE YOU DIABETIC? :NO ANY NEW PROBLEMS WITH YOUR MEDICATIONS? :NO HAVE YOU RECEIVED A VACCINE IN THE PAST 30 DAYS? :YES IF SO WHAT VACCINE AND WHEN? FIRST COVID VACCINE 01/19/21 [employer]. DO YOU PLAN TO RECEIVE A VACCINE IN THE NEXT 21 DAYS? :YES IF SO WHAT VACCINE AND WHEN? SECOND COVID VACCINE 02/09/21 [employer]. DO YOU NEED ANY PRESCRIPTION? :NO DO YOU TAKE ANY IMMUNOSUPPRESSIVE MEDICATIONS? :NO IS THERE A CHANCE YOU COULD BE ? :NO ARE YOU BREAST FEEDING? :NO CURRENT MEDICATIONS TAKING AMLODIPINE BESYLATE 10 MG TABLET 1 TABLET ORALLY ONCE A DAY TAKING CITALOPRAM HYDROBROMIDE 20 MG TABLET 1 TABLET ORALLY ONCE A DAY TAKING MULTIVITAMIN ADULTS 50+ - TABLET 1 TAB ORALLY DAILY TAKING STOOL SOFTENER 100 MG CAPSULE 2 ORALLY ONCE A DAY TAKING FLONASE 50 MCG/ACT SUSPENSION 1 SPRAY IN EACH NOSTRIL NASALLY NEEDED TAKING ALBUTEROL SULFATE HFA 108 (90 BASE) MCG/ACT AEROSOL SOLUTION 2 PUFFS NEEDED INHALATION EVERY 4 HRS NEEDED FOR SHORTNESS OF BREATH TAKING TIZANIDINE HCL 2 MG TABLET 1 TABLET NEEDED ORALLY FOR SPASMS AND PAIN BEFORE BEDTIME MAY REPEAT IN 4HRS MDD2 WORKERS COMPENSATION TAKING ROSUVASTATIN CALCIUM 20 MG TABLET TAKE 1 TABLET DAILY ORALLY DAILY TAKING TYLENOL 325 MG TABLET 1 TABLET NEEDED ORALLY EVERY 4 HRS TAKING LOSARTAN POTASSIUM 100 MG TABLET 1 TABLET ORALLY ONCE A DAY TAKING CLARITIN 10 MG TABLET 1 TABLET ORALLY ONCE A DAY TAKING VITAMIN B 12 500 MCG TABLET 2 TABLET ORALLY ONCE A DAY TAKING CALCIUM 500 MG TABLET 1 TABLET WITH MEALS ORALLY TWICE A DAY TAKING TAMSULOSIN HCL 0.4 MG CAPSULE 1 CAPSULE ORALLY ONCE A DAY NOT-TAKING LOSARTAN POTASSIUM 100 MG TABLET 1 TABLET ORALLY ONCE A DAY, NOTES: DUPLICATE NOT-TAKING CLARITIN 10 MG TABLET 1 TABLET ORALLY ONCE A DAY, NOTES: DUPLICATE NOT-TAKING PROAIR HFA 108 (90 BASE) MCG/ACT AEROSOL SOLUTION 2 PUFFS NEEDED INHALATION EVERY 4-6 HRS MEDICATION LIST REVIEWED AND RECONCILED WITH THE PATIENT PAST MEDICAL HISTORY OLD L1 L2 COMPRESSION FX HTN DEPRESSION/ANXIETY MURTAZA WITH CPAP HIGH CHOLESTEROL BOWEL OBSTRUCTION LOWER BACK PAIN ALLERGIES N.K.D.A. SOCIAL HISTORY GENERAL: TOBACCO USE ARE YOU A:NONSMOKER LATEX QUESTIONNAIRE LATEX ALLERGY : HAVE YOU EVER DEVELOPED ANY TYPE OF REACTION AFTER HANDLING LATEX PRODUCTS SUCH RUBBER GLOVES, CONDOMS, DIAPHRAGMS, BALLOONS, SOCKS, OR UNDERWEAR?NO LATEX ALLERGY : HAVE YOU EVER DEVELOPED ANY TYPE OF REACTION DURING OR AFTER DENTAL APPOINTMENT, VAGINAL/RECTAL EXAMINATION, SURGICAL PROCEDURE, OR ANY OTHER EXPOSURE?NO LATEX RISK : HAVE YOU EVER HAD ANY DIFFICULTY BREATHING OR HIVES AFTER EATING OR HANDLING ANY FRUITS, OR VEGETABLES; SUCH KIWI, BANANAS, STONE FRUITS, OR CHESTNUTSNO LATEX RISK : DO YOU HAVE A PREVIOUS PERSONAL HISTORY OF MORE THAN NINE SURGERIES, SPINA BIFIDA, OR REPEATED CATHERIZATIONS? NO LATEX RISK : ARE YOU FREQUENTLY EXPOSED TO LATEX PRODUCTS IN YOUR OCCUPATION?NO DATE ASKED : 01/25/2021 ALCOHOL USE: YES, VERY MINIMAL. BMI CARE GOAL FOLLOW-UP ABOVE NORMAL BMI FOLLOW-UPDIETARY MANAGEMENT EDUCATION, GUIDANCE, AND COUNSELING ALCOHOL SCREENING DID YOU HAVE A DRINK CONTAINING ALCOHOL IN THE PAST YEAR?YES HOW OFTEN DID YOU HAVE SIX OR MORE DRINKS ON ONE OCCASION IN THE PAST YEAR?NEVER (0 POINTS) HOW MANY DRINKS DID YOU HAVE ON A TYPICAL DAY WHEN YOU WERE DRINKING IN THE PAST YEAR?1 OR 2 (0 POINTS) HOW OFTEN DID YOU HAVE A DRINK CONTAINING ALCOHOL IN THE PAST YEAR?MONTHLY OR LESS (1 POINT) POINTS1 INTERPRETATIONNEGATIVE RECREATIONAL DRUG USE DRUG USE?NO CAFFEINE CAFFEINE USE?YES HOW OFTEN AND HOW MUCH? 2 CUPS/DAY SEXUAL HX HAD SEX IN THE LAST 12 MONTHS (VAGINAL, ORAL, OR ANAL)?YES WITHWOMEN ONLY HAVE YOU EVER HAD AN STD?NO HIV / HEP-C SCREENING HIV TEST OFFERED TO PATIENT:YES DATE OFFERED:10/28/2018 TEST ACCEPTED:YES HEP-C TEST OFFERED TO PATIENT:YES DATE OFFERED:10/28/2018 TEST ACCEPTED:YES BROCHURE PROVIDED TO PATIENTYES [employer] [id number] LANGUAGES SPOKEN:CHADIAN EDUCATION LEVEL OF EDUCATION:HIGH SCHOOL LEARNING BARRIERS / SPECIAL NEEDS CHANGE FROM LAST VISIT?NO BARRIERS TO LEARNING?NO HEARING IMPAIRED?NO VISION IMPAIRED?YES WEARS GLASSES COGNITIVELY IMPAIRED?NO READINESS TO LEARN?YES LEARNING PREFERENCES?YES : VERBAL DISCUSSION LEARNING CAPABILITIES PRESENT?YES EMOTIONAL BARRIERS?NO SPECIAL DEVICES?NO LODGING FACILITIES ATTENDANT NEEDED?NO OCCUPATION: WORKS FOR [employer]. DIET: REGULAR. EXERCISE: NONE. MARITAL STATUS: . OTHERS AT HOME: SPOUSE, CHILD( YOUNGEST DAUGHTER). - WAS THE PROVIDER NOTIFIED OF ANY PERTINENT INFO?YES HAS THE PATIENT BEEN EDUCATED REGARDING HIS/HER PLAN OF CARE?YES PATIENT HAS HAD THIS PROCEDURE BEFORE. 03/12/18 HAS THE PATIENT BEEN EDUCATED REGARDING PAIN, THE RISK FOR PAIN, THE IMPORTANCE OF EFFECTIVE PAIN MANAGEMENT, AND THE PAIN ASSESSMENT PROCESS?YES ADVANCE DIRECTIVE ADVANCE DIRECTIVE DISCUSSED WITH PATIENT:YES HCP - CHANO REVIEW OF SYSTEMS CONSTITUTIONAL: ANY RECENT FEVER NO . CHILLS NO . WEIGHT CHANGE OF UNKNOWN REASONS NO . GASTROENTEROLOGY: NEW UNEXPLAINABLE CHANGES IN BOWEL CONTROL NO . CONSTIPATION NO . GENITOURINARY: ANY NEW CHANGE IN BLADDER CONTROL? NO . NEUROLOGY: NEW ONSET DIZZINESS OR NEUROLOGICAL CHANGES NOT MENTIONED NO . NEW NUMBNESS OR PAIN PATTERNS NOT MENTIONED AND PERTINENT TO TODAY'S VISIT NO . CARDIOLOGY: NEW CHEST PRESSURE NO . PATIENT DENIES NO . RESPIRATORY: UNEXPLAINABLE COUGH NO . NEW SHORTNESS OF BREATH NO . EXAMINATION GENERAL EXAMINATION: THE PATIENT IS ALERT, ORIENTED TIMES THREE AND COOPERATIVE. THIS IS A TELEPHONE VISIT. MRI OF THE LUMBOSACRAL SPINE DATED 11/09/2020 SHOWS SOME FACET ARTHROPATHY CHANGES, BULGING DISC WITH SOME FORAMINAL STENOSIS MORE SEVERE AT L4-L5, SOME OLD COMPRESSION FRACTURES AT L1 AND L2. ASSESSMENTS SPONDYLOSIS OF LUMBAR REGION WITHOUT MYELOPATHY OR RADICULOPATHY - M47.816 (PRIMARY) SPONDYLOSIS OF LUMBOSACRAL REGION WITHOUT MYELOPATHY OR RADICULOPATHY - M47.817 TREATMENT SPONDYLOSIS OF LUMBAR REGION WITHOUT MYELOPATHY OR RADICULOPATHY CLINICAL NOTES: I DISCUSSED THE ALTERNATIVES WITH MARIO. WE HAVE DISCUSSED THE DORSAL COLUMN STIMULATOR. I WOULD LIKE TO REVIEW THE NOTES FROM HIS SURGEON. MELBA EXPLAINED TO ME THAT HIS SURGEON TOLD HIM THAT HE IS NOT A GOOD SURGICAL CANDIDATE AND THAT A SPINAL COLUMN STIMULATOR MAY BE AN OPTION FOR HIM. THE PATIENT HAS EXPRESSED IN THE PAST THAT HE HAS TRIED PHYSICAL THERAPY AND HE WAS INFORMED BY HIS PHYSICAL THERAPIST THAT IT WAS NOT HELPING HIM AND THAT THEY SHOULD NOT CONTINUE. SO I WILL FOLLOW UP WITH THE PATIENT. I DISCUSSED WITH THE PATIENT ABOUT MEDICATIONS. HE HAS USE OPIOIDS IN THE PAST. HE CANNOT USE NSAIDS BECAUSE OF THE GASTRIC BYPASS. THE PATIENT IS INTERESTED IN TRYING NARCOTICS AGAIN. WE WILL DISCUSS ABOUT THIS AGAIN IN HIS NEXT APPOINTMENT. HE IS AWARE OF THE RISKS INVOLVED AND THAT HE CANNOT DRIVE OR USE MACHINERY WHILE ON THIS MEDICATION. TOTAL TIME OF THE VISIT WAS 27 MINUTES. THE PATIENT REPORTS UNDERSTANDING AND AGREES WITH THE PLAN. I, KIM HOLLY, DOCUMENTED THE ABOVE INFORMATION ACTING A SCRIBE FOR DR. WRIGHT. I HAVE REVIEWED THE ABOVE DOCUMENT, WRITTEN BY KIM HOLLY, PERSONNEL COUNSELOR, AND I VERIFY THAT IT IS ACCURATE . OTHERS NOTES: 01/25/21 7925 PAT COMPLETED FOR VIRTUAL_PHONE VISIT. FREDIS RN FLOAT 01/26/21 1340 VS NOT TAKEN FOR VIRTUAL VISIT. Kobi GOMEZ RN FLOAT. PROCEDURES PN WORKMANS' COMP OPINION IN YOUR OPINION, WAS THE INCIDENT THAT THE PATIENT DESCRIBED THE COMPETENT MEDICAL CAUSE OF THIS INJURY/ILLNESS? YES ARE THE PATIENT'S COMPLAINTS CONSISTENT WITH HIS/HER HISTORY OF THE INJURY/ILLNESS? YES IS THE PATIENT'S HISTORY OF THE INJURY/ILLNESS CONSISTENT WITH YOUR OBJECTIVE FINDING? YES WHAT IS THE PERCENTAGE OF TEMPORARY IMPAIRMENT? MARKED = 75% IS THE PATIENT WORKING? YES DOCTOR ON SITE: MARSHA TIDWELL MD PROCEDURE CODES 33724 TELEMEDICINE PHONE E/M BY PHYS 21-30 MIN DISPOSITION & COMMUNICATION FOLLOW UP CANCEL APPOINTMENT WITH [facility] 02/26/[address] AND KEEP APPOINTMENT WITH DR. WRIGHT 03/09/2021 (REASON: DISCUSS DCS) ELECTRONICALLY SIGNED BY MARSHA WRIGHT MD, MD ON 01/30/2021 AT 04:52 PM EST DISCLAIMER : THIS IS A VISIT SUMMARY EXTRACTED FROM THE [employer] CHART. IT IS NOT A COPY OF THE [employer] PROGRESS NOTE. KO
== END ==
LOC: M PAIN 15:45
PROVIDERS: ATTEND Anesthesiology
DX: M47.816 Spondylosis without myelopathy or radiculopathy, lumbar region (principal); M47.817 Spondylosis without myelopathy or radiculopathy, lumbosacral region; G89.29 Other chronic pain; G47.33 Obstructive sleep apnea (adult) (pediatric); Z86.59 Personal history of other mental and behavioral disorders; Z79.899 Other long term (current) drug therapy

== ENCOUNTER → 2021-03-05 | Outpatient (CLI) | payer OTHER ==
--- NOTE | 2021-03-08 00:57 | ECWPNPC ---
PATIENT NAME: MELBA MARTIN : 1965 GENDER: MALE VISIT DATE: 03/05/2021 DISCHARGE DATE: 03/05/21 1514 VISIT LOCKED DATE TIME: PHYSICIAN: MAXIM VILLAVICENCIO PHYSICIAN PAGER NO: ACTIVE RESOURCE: MAXIM VILLAVICENCIO REASON FOR APPOINTMENT 1. MED MANAGEMENT HISTORY OF PRESENT ILLNESS GENERAL: HERE FOR FOLLOW-UP ON CHRONIC LOW BACK PAIN TO EVALUATE FOR MEDICATION MANAGEMENT. PATIENT IS DEPRESSED TODAY DUE TO UNCONTROLLED PAIN. HE HAS BEEN SENT TO MULTIPLE HEALTH CARE PROVIDERS WITHOUT GETTING ANY ANSWERS IN REGARDS TO TREATMENT FOR HIS PAIN AND MULTIPLE DENIALS FOR REQUEST FOR TREATMENT DENIED BY WORKMEN'S COMPENSATION. RECENTLY WAS SEEN BY DR. MHETA AT [email or web address] HE IS IN SUPPORT OF DORSAL COLUMN STIMULATOR TRIAL. WE ARE IN THE PROCESS OF WORKING HIM UP FOR DORSAL COLUMN STIM TRIAL. HE CURRENTLY WORKS FULL-TIME. FINDING IT VERY DIFFICULT FOR HIM TO DO HIS JOB DUE TO PAIN. HAD BARIATRIC SURGERY AND HAS LOST SIGNIFICANT AMOUNT OF WEIGHT. THIS HAS NOT IMPROVED HIS PAIN SITUATION. HE IS DEPRESSED THAT HE CAN'T PARTICIPATE IN ACTIVITIES WITH HIS FAMILY. DISCUSSED MEDICATION AND TREATMENT OPTIONS. THIS IS A WORK RELATED INJURY. -. FALL RISK SCREENING: SCREENING : NO FALLS REPORTED IN THE LAST YEAR. PAIN SCREENING: PATIENT HAS A COMPLAINT OF ACUTE OR CHRONIC PAIN :YES LOCATION OF PAIN:LOW BACK INTENSITY OF PAIN (SCALE OF 1 TO 10):7 WHAT DOES YOUR PAIN FEEL LIKE:ACHING, BURNING, CONTINOUS, INTERMITTENT, SHARP, STABBING, THROBBING, SHOOTING DURATION:CONTINOUS, CONSTANT, ALL DAY PAIN IS INCREASED BY:ACTIVITIES, PROLONGED STANDING PAIN IS DECREASED BY:OTHERS RESTING NURSING NOTE: -. PAIN CENTER INTAKE QUESTIONS: DO YOU HAVE A HISTORY OF MRSA? :NO DO YOU TAKE A BLOOD THINNERS? :NO DO YOU HAVE ANY BLEEDING DISORDERS? :NO ANY NEW NUMBNESS OR WEAKNESS IN YOUR LEGS OR ARMS? :NO ANY PACEMAKER,DEFIBRILLATOR, OR DORSAL COLUMN STIMULATOR? :NO DO YOU HAVE ANY RASHES OR OPEN SORES? :NO ARE YOU ALLERGIC TO IV DYE? :NO ARE YOU DIABETIC? :NO ANY NEW PROBLEMS WITH YOUR MEDICATIONS? :NO HAVE YOU RECEIVED A VACCINE IN THE PAST 30 DAYS? :YES IF SO WHAT VACCINE AND WHEN? 2ND COVID 02/09/2021 DO YOU PLAN TO RECEIVE A VACCINE IN THE NEXT 21 DAYS? :NO DO YOU NEED ANY PRESCRIPTION? :NO DO YOU TAKE ANY IMMUNOSUPPRESSIVE MEDICATIONS? :NO DO YOU HAVE ANY KIDNEY OR LIVER DISEASE? :NO IS THERE A CHANCE YOU COULD BE ? :NO ARE YOU BREAST FEEDING? :NO CURRENT MEDICATIONS TAKING MULTIVITAMIN ADULTS 50+ - TABLET 1 TAB ORALLY DAILY TAKING STOOL SOFTENER 100 MG CAPSULE 2 ORALLY ONCE A DAY TAKING FLONASE 50 MCG/ACT SUSPENSION 1 SPRAY IN EACH NOSTRIL NASALLY NEEDED TAKING ALBUTEROL SULFATE HFA 108 (90 BASE) MCG/ACT AEROSOL SOLUTION 2 PUFFS NEEDED INHALATION EVERY 4 HRS NEEDED FOR SHORTNESS OF BREATH TAKING ROSUVASTATIN CALCIUM 20 MG TABLET TAKE 1 TABLET DAILY ORALLY DAILY TAKING TYLENOL 325 MG TABLET 1 TABLET NEEDED ORALLY EVERY 4 HRS TAKING LOSARTAN POTASSIUM 100 MG TABLET 1 TABLET ORALLY ONCE A DAY TAKING CLARITIN 10 MG TABLET 1 TABLET ORALLY ONCE A DAY TAKING VITAMIN B 12 500 MCG TABLET 2 TABLET ORALLY ONCE A DAY TAKING CALCIUM 500 MG TABLET 1 TABLET WITH MEALS ORALLY TWICE A DAY TAKING AMLODIPINE BESYLATE 10 MG TABLET 1 TABLET ORALLY ONCE A DAY TAKING TIZANIDINE HCL 2 MG TABLET 1 TABLET NEEDED ORALLY FOR SPASMS AND PAIN BEFORE BEDTIME MAY REPEAT IN 4HRS MDD2 WORKERS COMPENSATION TAKING TAMSULOSIN HCL 0.4 MG CAPSULE 1 CAPSULE ORALLY ONCE A DAY TAKING CITALOPRAM HYDROBROMIDE 20 MG TABLET 1 TABLET ORALLY ONCE A DAY NOT-TAKING LOSARTAN POTASSIUM 100 MG TABLET 1 TABLET ORALLY ONCE A DAY, NOTES: DUPLICATE NOT-TAKING CLARITIN 10 MG TABLET 1 TABLET ORALLY ONCE A DAY, NOTES: DUPLICATE NOT-TAKING PROAIR HFA 108 (90 BASE) MCG/ACT AEROSOL SOLUTION 2 PUFFS NEEDED INHALATION EVERY 4-6 HRS MEDICATION LIST REVIEWED AND RECONCILED WITH THE PATIENT PAST MEDICAL HISTORY OLD L1 L2 COMPRESSION FX HTN DEPRESSION/ANXIETY MURTAZA WITH CPAP HIGH CHOLESTEROL BOWEL OBSTRUCTION LOWER BACK PAIN ALLERGIES N.K.D.A. SOCIAL HISTORY GENERAL: TOBACCO USE ARE YOU A:NONSMOKER LATEX QUESTIONNAIRE LATEX ALLERGY : HAVE YOU EVER DEVELOPED ANY TYPE OF REACTION AFTER HANDLING LATEX PRODUCTS SUCH RUBBER GLOVES, CONDOMS, DIAPHRAGMS, BALLOONS, SOCKS, OR UNDERWEAR?NO LATEX ALLERGY : HAVE YOU EVER DEVELOPED ANY TYPE OF REACTION DURING OR AFTER DENTAL APPOINTMENT, VAGINAL/RECTAL EXAMINATION, SURGICAL PROCEDURE, OR ANY OTHER EXPOSURE?NO LATEX RISK : HAVE YOU EVER HAD ANY DIFFICULTY BREATHING OR HIVES AFTER EATING OR HANDLING ANY FRUITS, OR VEGETABLES; SUCH KIWI, BANANAS, STONE FRUITS, OR CHESTNUTSNO LATEX RISK : DO YOU HAVE A PREVIOUS PERSONAL HISTORY OF MORE THAN NINE SURGERIES, SPINA BIFIDA, OR REPEATED CATHERIZATIONS? NO LATEX RISK : ARE YOU FREQUENTLY EXPOSED TO LATEX PRODUCTS IN YOUR OCCUPATION?NO DATE ASKED : 03/05/2021 ALCOHOL USE: YES, VERY MINIMAL. BMI CARE GOAL FOLLOW-UP ABOVE NORMAL BMI FOLLOW-UPDIETARY MANAGEMENT EDUCATION, GUIDANCE, AND COUNSELING ALCOHOL SCREENING DID YOU HAVE A DRINK CONTAINING ALCOHOL IN THE PAST YEAR?YES HOW OFTEN DID YOU HAVE SIX OR MORE DRINKS ON ONE OCCASION IN THE PAST YEAR?NEVER (0 POINTS) HOW MANY DRINKS DID YOU HAVE ON A TYPICAL DAY WHEN YOU WERE DRINKING IN THE PAST YEAR?1 OR 2 (0 POINTS) HOW OFTEN DID YOU HAVE A DRINK CONTAINING ALCOHOL IN THE PAST YEAR?MONTHLY OR LESS (1 POINT) POINTS1 INTERPRETATIONNEGATIVE RECREATIONAL DRUG USE DRUG USE?NO CAFFEINE CAFFEINE USE?YES HOW OFTEN AND HOW MUCH? 2 CUPS/DAY SEXUAL HX HAD SEX IN THE LAST 12 MONTHS (VAGINAL, ORAL, OR ANAL)?YES WITHWOMEN ONLY HAVE YOU EVER HAD AN STD?NO HIV / HEP-C SCREENING HIV TEST OFFERED TO PATIENT:YES DATE OFFERED:10/28/2018 TEST ACCEPTED:YES HEP-C TEST OFFERED TO PATIENT:YES DATE OFFERED:10/28/2018 TEST ACCEPTED:YES BROCHURE PROVIDED TO PATIENTYES MORAVIAN [id number] [employer] LANGUAGE LANGUAGES SPOKEN:MICRONESIAN EDUCATION LEVEL OF EDUCATION:HIGH SCHOOL LEARNING BARRIERS / SPECIAL NEEDS CHANGE FROM LAST VISIT?NO BARRIERS TO LEARNING?NO HEARING IMPAIRED?NO VISION IMPAIRED?YES WEARS GLASSES COGNITIVELY IMPAIRED?NO READINESS TO LEARN?YES LEARNING PREFERENCES?YES : VERBAL DISCUSSION LEARNING CAPABILITIES PRESENT?YES EMOTIONAL BARRIERS?NO SPECIAL DEVICES?NO DIESEL ENGINE II PIPE FITTER NEEDED?NO OCCUPATION: WORKS FOR [employer]. DIET: REGULAR. EXERCISE: NONE. MARITAL STATUS: . OTHERS AT HOME: SPOUSE, CHILD( YOUNGEST DAUGHTER). - WAS THE PROVIDER NOTIFIED OF ANY PERTINENT INFO?YES HAS THE PATIENT BEEN EDUCATED REGARDING HIS/HER PLAN OF CARE?YES PATIENT HAS HAD THIS PROCEDURE BEFORE. 03/12/18 HAS THE PATIENT BEEN EDUCATED REGARDING PAIN, THE RISK FOR PAIN, THE IMPORTANCE OF EFFECTIVE PAIN MANAGEMENT, AND THE PAIN ASSESSMENT PROCESS?YES ADVANCE DIRECTIVE ADVANCE DIRECTIVE DISCUSSED WITH PATIENT:YES HCP - CHANO REVIEW OF SYSTEMS CONSTITUTIONAL: ANY RECENT FEVER NO . CHILLS NO . WEIGHT CHANGE OF UNKNOWN REASONS NO . GASTROENTEROLOGY: NEW UNEXPLAINABLE CHANGES IN BOWEL CONTROL NO . CONSTIPATION NO . GENITOURINARY: ANY NEW CHANGE IN BLADDER CONTROL? NO . NEUROLOGY: NEW ONSET DIZZINESS OR NEUROLOGICAL CHANGES NOT MENTIONED NO . NEW NUMBNESS OR PAIN PATTERNS NOT MENTIONED AND PERTINENT TO TODAY'S VISIT NO . CARDIOLOGY: NEW CHEST PRESSURE NO . PATIENT DENIES NO . RESPIRATORY: UNEXPLAINABLE COUGH NO . NEW SHORTNESS OF BREATH NO . VITAL SIGNS WT 300 LBS, HT 71 IN, BMI 41.84 INDEX, BP 126/75 MM HG, HR 71 /MIN, RR 18 /MIN, TEMP 97.6 F, OXYGEN SAT % 98%, SAFE IN ENV? (Y/N) YEST.IVELISSE MEZA. EXAMINATION GENERAL EXAMINATION: GENERAL AWAKE,ALERT ,PLEASANT . PSYCH AFFECT NORMAL . LUNGS: LUNG SALVADOR ARE CLEAR TO AUSCULTATION BILATERALLY. GOOD MOVEMENT OF AIR . HEART: S1, S2 IN A REGULAR RATE AND RHYTHM. NO SIGNIFICANT MURMURS, RUBS OR GALLOPS NOTED . LUMBAR: PALPATION: + FOR PAIN OVER L/S SPINE. + FOR PAIN OVER L/S PARASPINALS . DIAGNOSTIC TESTS REVIEWED MRI L/S SPINE 2019. ASSESSMENTS SPONDYLOSIS OF LUMBOSACRAL REGION WITHOUT MYELOPATHY OR RADICULOPATHY - M47.817 (PRIMARY) TREATMENT SPONDYLOSIS OF LUMBOSACRAL REGION WITHOUT MYELOPATHY OR RADICULOPATHY START TRAMADOL HCL TABLET, 50 MG, 1 TABLET NEEDED, ORALLY, Q6-8 HR PRN FOR PAIN MDD3, 30 DAYS, 45, REFILLS 1 CONTINUE TIZANIDINE HCL TABLET, 2 MG, 1 TABLET NEEDED, ORALLY FOR SPASMS AND PAIN, BEFORE BEDTIME MAY REPEAT IN 4HRS MDD2 WORKERS COMPENSATION, 30 DAYS, 30, REFILLS 2 NOTES: PATIENT WILL DISCUSS CITALOPRAM VERSUS CYMBALTA WITH PRIMARY CARE PROVIDER. ADVISED TO CONTINUE CITALOPRAM AND WE WILL CONSIDER USING CYMBALTA IN THE FUTURE IF NECESSARY. ADVISED TO CONTINUE PERIODIC USE OF TIZANIDINE 2 MG AT NIGHTTIME FOR SEVERE MUSCLE SPASM TYPE PAIN ASSOCIATED WITH ACUTE FLAREUPS OF HIS CHRONIC LOW BACK CONDITION RELATED TO HIS WORK INJURY. START TRAMADOL 50 MG TABLET. ADVISED TO USE TRAMADOL WITH 2 TYLENOL 500 MG CAPSULES PERIODICALLY FOR SEVERE PAIN EPISODES. WE WILL BE IN CONTACT WITH HIM IN REGARDS TO FOLLOW-UP APPOINTMENT WITH DR. WRIGHT REGARDING DORSAL COLUMN STIMULATOR TRIAL. FOLLOW UP WITH ME IN 2 MONTHS FOR MEDICATION MANAGEMENT. , [facility] PAIN CENTER NARCOTIC AGREEMENT WAS REVIEWED AND SIGNED TODAY BY THE PATIENT. SEE ATTACHED DOCUMENT FOR FULL DETAILS; SPECIFIC ISSUES WERE REVIEWED: 1) KEEP PAIN MEDS IN THEIR ORIGINAL BOTTLES AND ANY WEEKLY PLANNERS ARE TO BE BROUGHT TO THE PAIN CENTER AT EVERY VISIT. 2) THE PATIENT IS NOT TO INCREASE DOSING OR TIMING OF THEIR PAIN MEDICATION WITHOUT SPECIFIC DIRECTION OF THEIR PAIN CENTERPROVIDER (NOT ER OR OTHER PROVIDERS). 3) ALL PAIN MEDS ARE TO BE KEPT SECURED, IN A LOCKED BOX. 4) NO PAIN MEDS ARE TO BE SHARED WITH ANY OTHER PERSON FOR ANY REASON. 5) NO PAIN MEDS MAY BE TAKEN FROM ANY FRIENDS OR RELATIVES FOR ANY REASON 6) NO MEDS OR SUBSTANCES WHICH ARE NOT LEGAL ARE TO BE USED- NO MARIJUANA, NO COCAINE, AMPHETAMINES, HEROIN, OR OTHERS ARE EVER TO BE USED. 7)URINE TESTING IS DONE TO ACCOUNT FOR MEDS AND SUBSTANCES BEING TAKEN AND WILL BE DONE RANDOMLY. , RISKS OF NARCOTIC/OPIOD MEDICATIONS INCLUDES BUT IS NOT LIMITED TO RISK OF DEPENDANCE/DEVELOPMENT OF ADDICTION, MOOD DISTURBANCE AND DEPRESSION, OSTEOPOROSIS, HORMONAL AND LABIDAL CHANGES, RESPIRATORY DEPRESSION AND . PATIENT IS ADVISED NOT TO DRIVE OR DRINK ALCOHOL WHILE ON THESE MEDICATIONS. PROCEDURES PN WORKMANS' COMP OPINION IN YOUR OPINION, WAS THE INCIDENT THAT THE PATIENT DESCRIBED THE COMPETENT MEDICAL CAUSE OF THIS INJURY/ILLNESS? YES ARE THE PATIENT'S COMPLAINTS CONSISTENT WITH HIS/HER HISTORY OF THE INJURY/ILLNESS? YES IS THE PATIENT'S HISTORY OF THE INJURY/ILLNESS CONSISTENT WITH YOUR OBJECTIVE FINDING? YES WHAT IS THE PERCENTAGE OF TEMPORARY IMPAIRMENT? MODERATE TO MARKED = 66.7% IS THE PATIENT WORKING? YES DOCTOR ON SITE: MARSHA TIDWELL MD PROCEDURE CODES FA211 ESTABILISHED PATIENT [facility] FACILITY CHARGE DISPOSITION & COMMUNICATION FOLLOW UP 2 MONTHS (REASON: MAXIM MEDICATION MANAGEMENT AFTER STARTING TRAMADOL) ELECTRONICALLY SIGNED BY BISHOP CAMPOS ON 03/07/2021 AT 09:16 AM EDT DISCLAIMER : THIS IS A VISIT SUMMARY EXTRACTED FROM THE [employer] CHART. IT IS NOT A COPY OF THE [employer] PROGRESS NOTE. KO
== END ==
LOC: M PAIN 14:15
PROVIDERS: ATTEND Nurse Practitioner Family
DX: M47.817 Spondylosis without myelopathy or radiculopathy, lumbosacral region (principal); G89.29 Other chronic pain; G47.33 Obstructive sleep apnea (adult) (pediatric); Z86.59 Personal history of other mental and behavioral disorders; E66.01 Morbid (severe) obesity due to excess calories; Z68.41 Body mass index [BMI] 40.0-44.9, adult; Z79.899 Other long term (current) drug therapy

== ENCOUNTER → 2021-05-04 | Outpatient (CLI) | payer BC, OTHER ==
--- NOTE | 2021-05-10 03:35 | ECWPNPC ---
PATIENT NAME: MELBA MARTIN : 1965 GENDER: MALE VISIT DATE: 05/04/2021 DISCHARGE DATE: 05/04/21940 VISIT LOCKED DATE TIME: PHYSICIAN: MAXIM VILLAVICENCIO PHYSICIAN PAGER NO: ACTIVE RESOURCE: MAXIM VILLAVICENCIO REASON FOR APPOINTMENT 1. MED MANAGEMENT HISTORY OF PRESENT ILLNESS DEPRESSION SCREENING: PHQ-2 (2015 EDITION) LITTLE INTEREST OR PLEASURE IN DOING THINGS?DECLINED TO SPECIFY FEELING DOWN, DEPRESSED, OR HOPELESS?SEVERAL DAYS TOTAL SCORE1 GENERAL: HERE FOR FOLLOW-UP OF CHRONIC LOW BACK PAIN AND MEDICATION MANAGEMENT. AT HIS LAST VISIT WE STARTED HIM ON TRAMADOL 50 MG TABLET OF WHICH HE TAKES APPROXIMATELY 1 TABLET A DAY AFTER WORK AND REPORTS MARKED REDUCTION IN PAIN AND IMPROVED SLEEP. CONTINUES TO HAVE SIGNIFICANT LOW BACK PAIN THAT LIMITS HIS ABILITY TO ATTEND TO ACTIVITIES THAT HE ENJOYS AND ALSO IMPAIRS HIS ABILITY TO BE ACTIVE HE WOULD LIKE TO BE. DISCUSSED MEDICATION AND TREATMENT PLAN. THIS IS A WORK RELATED INJURY. -. FALL RISK SCREENING: SCREENING : NO FALLS REPORTED IN THE LAST YEAR. PAIN SCREENING: PATIENT HAS A COMPLAINT OF ACUTE OR CHRONIC PAIN :YES LOCATION OF PAIN:LOW BACK INTENSITY OF PAIN (SCALE OF 1 TO 10):8 WHAT DOES YOUR PAIN FEEL LIKE:ACHING, INTERMITTENT, THROBBING DURATION:INTERMITTENT PAIN IS INCREASED BY:ACTIVITIES, PROLONGED STANDING PAIN IS DECREASED BY:OTHERS ICE AND RESTING NURSING NOTE: -. PAIN CENTER INTAKE QUESTIONS: DO YOU HAVE A HISTORY OF MRSA? :NO DO YOU TAKE A BLOOD THINNERS? :NO DO YOU HAVE ANY BLEEDING DISORDERS? :NO ANY NEW NUMBNESS OR WEAKNESS IN YOUR LEGS OR ARMS? :NO ANY PACEMAKER,DEFIBRILLATOR, OR DORSAL COLUMN STIMULATOR? :NO DO YOU HAVE ANY RASHES OR OPEN SORES? :NO ARE YOU ALLERGIC TO IV DYE? :NO ARE YOU DIABETIC? :NO ANY NEW PROBLEMS WITH YOUR MEDICATIONS? :NO HAVE YOU RECEIVED A VACCINE IN THE PAST 30 DAYS? :YES IF SO WHAT VACCINE AND WHEN? 2ND COVID 02/09/2021 DO YOU PLAN TO RECEIVE A VACCINE IN THE NEXT 21 DAYS? :NO DO YOU NEED ANY PRESCRIPTION? :YES TRAMADOL HCL 50 MG DO YOU TAKE ANY IMMUNOSUPPRESSIVE MEDICATIONS? :NO DO YOU HAVE ANY KIDNEY OR LIVER DISEASE? :NO IS THERE A CHANCE YOU COULD BE ? :NO ARE YOU BREAST FEEDING? :NO CURRENT MEDICATIONS TAKING MULTIVITAMIN ADULTS 50+ - TABLET 1 TAB ORALLY DAILY TAKING STOOL SOFTENER 100 MG CAPSULE 2 ORALLY ONCE A DAY TAKING ROSUVASTATIN CALCIUM 20 MG TABLET TAKE 1 TABLET DAILY ORALLY DAILY TAKING TYLENOL 325 MG TABLET 1 TABLET NEEDED ORALLY EVERY 4 HRS TAKING LOSARTAN POTASSIUM 100 MG TABLET 1 TABLET ORALLY ONCE A DAY TAKING CLARITIN 10 MG TABLET 1 TABLET ORALLY ONCE A DAY TAKING VITAMIN B 12 500 MCG TABLET 2 TABLET ORALLY ONCE A DAY TAKING CALCIUM 500 MG TABLET 1 TABLET WITH MEALS ORALLY TWICE A DAY TAKING AMLODIPINE BESYLATE 10 MG TABLET 1 TABLET ORALLY ONCE A DAY TAKING TAMSULOSIN HCL 0.4 MG CAPSULE 1 CAPSULE ORALLY ONCE A DAY TAKING TRAMADOL HCL 50 MG TABLET 1 TABLET NEEDED ORALLY Q6-8 HR PRN FOR PAIN MDD3 TAKING TIZANIDINE HCL 2 MG TABLET 1 TABLET NEEDED ORALLY FOR SPASMS AND PAIN BEFORE BEDTIME MAY REPEAT IN 4HRS MDD2 WORKERS COMPENSATION TAKING CYMBALTA 30 MG CAPSULE DELAYED RELEASE PARTICLES 1 CAPSULE ORALLY ONCE A DAY, NOTES: START AFTER 1 WEEK TAPER OF CITALOPRAMFIRST WEEK CUT IN HALF, THEN AFTER A WEEK TAKE ONE TABLET TAKING CLARITIN 10 MG TABLET 1 TABLET ORALLY ONCE A DAY, NOTES: DUPLICATE NOT-TAKING CITALOPRAM HYDROBROMIDE 20 MG TABLET 1 TABLET ORALLY ONCE A DAY NOT-TAKING FLONASE 50 MCG/ACT SUSPENSION 1 SPRAY IN EACH NOSTRIL NASALLY NEEDED NOT-TAKING ALBUTEROL SULFATE HFA 108 (90 BASE) MCG/ACT AEROSOL SOLUTION 2 PUFFS NEEDED INHALATION EVERY 4 HRS NEEDED FOR SHORTNESS OF BREATH NOT-TAKING LOSARTAN POTASSIUM 100 MG TABLET 1 TABLET ORALLY ONCE A DAY, NOTES: DUPLICATE NOT-TAKING PROAIR HFA 108 (90 BASE) MCG/ACT AEROSOL SOLUTION 2 PUFFS NEEDED INHALATION EVERY 4-6 HRS MEDICATION LIST REVIEWED AND RECONCILED WITH THE PATIENT PAST MEDICAL HISTORY OLD L1 L2 COMPRESSION FX HTN DEPRESSION/ANXIETY MURTAZA WITH CPAP HIGH CHOLESTEROL BOWEL OBSTRUCTION LOWER BACK PAIN ALLERGIES N.K.D.A. SOCIAL HISTORY GENERAL: TOBACCO USE ARE YOU A:NONSMOKER LATEX QUESTIONNAIRE LATEX ALLERGY : HAVE YOU EVER DEVELOPED ANY TYPE OF REACTION AFTER HANDLING LATEX PRODUCTS SUCH RUBBER GLOVES, CONDOMS, DIAPHRAGMS, BALLOONS, SOCKS, OR UNDERWEAR?NO LATEX ALLERGY : HAVE YOU EVER DEVELOPED ANY TYPE OF REACTION DURING OR AFTER DENTAL APPOINTMENT, VAGINAL/RECTAL EXAMINATION, SURGICAL PROCEDURE, OR ANY OTHER EXPOSURE?NO LATEX RISK : HAVE YOU EVER HAD ANY DIFFICULTY BREATHING OR HIVES AFTER EATING OR HANDLING ANY FRUITS, OR VEGETABLES; SUCH KIWI, BANANAS, STONE FRUITS, OR CHESTNUTSNO LATEX RISK : DO YOU HAVE A PREVIOUS PERSONAL HISTORY OF MORE THAN NINE SURGERIES, SPINA BIFIDA, OR REPEATED CATHERIZATIONS? NO LATEX RISK : ARE YOU FREQUENTLY EXPOSED TO LATEX PRODUCTS IN YOUR OCCUPATION?NO DATE ASKED : 05/04/2021 ALCOHOL USE: YES, VERY MINIMAL. BMI CARE GOAL FOLLOW-UP ABOVE NORMAL BMI FOLLOW-UPDIETARY MANAGEMENT EDUCATION, GUIDANCE, AND COUNSELING ALCOHOL SCREENING DID YOU HAVE A DRINK CONTAINING ALCOHOL IN THE PAST YEAR?YES HOW OFTEN DID YOU HAVE SIX OR MORE DRINKS ON ONE OCCASION IN THE PAST YEAR?NEVER (0 POINTS) HOW MANY DRINKS DID YOU HAVE ON A TYPICAL DAY WHEN YOU WERE DRINKING IN THE PAST YEAR?1 OR 2 (0 POINTS) HOW OFTEN DID YOU HAVE A DRINK CONTAINING ALCOHOL IN THE PAST YEAR?MONTHLY OR LESS (1 POINT) POINTS1 INTERPRETATIONNEGATIVE RECREATIONAL DRUG USE DRUG USE?NO CAFFEINE CAFFEINE USE?YES HOW OFTEN AND HOW MUCH? 2 CUPS/DAY SEXUAL HX HAD SEX IN THE LAST 12 MONTHS (VAGINAL, ORAL, OR ANAL)?YES WITHWOMEN ONLY HAVE YOU EVER HAD AN STD?NO HIV / HEP-C SCREENING HIV TEST OFFERED TO PATIENT:YES DATE OFFERED:04/11/2021 TEST ACCEPTED:YES HEP-C TEST OFFERED TO PATIENT:NO BROCHURE PROVIDED TO PATIENTYES EPISCOPAL [id number] [employer] LANGUAGE LANGUAGES SPOKEN:VENEZUELAN EDUCATION LEVEL OF EDUCATION:HIGH SCHOOL LEARNING BARRIERS / SPECIAL NEEDS CHANGE FROM LAST VISIT?NO BARRIERS TO LEARNING?NO HEARING IMPAIRED?NO VISION IMPAIRED?YES :CORRECTIVE LENSES COGNITIVELY IMPAIRED?NO READINESS TO LEARN?YES LEARNING PREFERENCES?YES :CLASSES VERBAL DISCUSSION LEARNING CAPABILITIES PRESENT?YES EMOTIONAL BARRIERS?NO SPECIAL DEVICES?YES :OTHER CPAP GEOTHERMAL OPERATIONS MANAGER NEEDED?NO OCCUPATION: WORKS FOR [employer]. DIET: REGULAR. EXERCISE: NONE. MARITAL STATUS: . OTHERS AT HOME: SPOUSE, CHILD( YOUNGEST DAUGHTER). - WAS THE PROVIDER NOTIFIED OF ANY PERTINENT INFO?YES HAS THE PATIENT BEEN EDUCATED REGARDING HIS/HER PLAN OF CARE?YES PATIENT HAS HAD THIS PROCEDURE BEFORE. 03/12/18 HAS THE PATIENT BEEN EDUCATED REGARDING PAIN, THE RISK FOR PAIN, THE IMPORTANCE OF EFFECTIVE PAIN MANAGEMENT, AND THE PAIN ASSESSMENT PROCESS?YES ADVANCE DIRECTIVE ADVANCE DIRECTIVE DISCUSSED WITH PATIENT:YES HCP - CHANO REVIEW OF SYSTEMS CONSTITUTIONAL: ANY RECENT FEVER NO . CHILLS NO . WEIGHT CHANGE OF UNKNOWN REASONS NO . GASTROENTEROLOGY: NEW UNEXPLAINABLE CHANGES IN BOWEL CONTROL NO . CONSTIPATION NO . GENITOURINARY: ANY NEW CHANGE IN BLADDER CONTROL? NO . NEUROLOGY: NEW ONSET DIZZINESS OR NEUROLOGICAL CHANGES NOT MENTIONED NO . NEW NUMBNESS OR PAIN PATTERNS NOT MENTIONED AND PERTINENT TO TODAY'S VISIT NO . CARDIOLOGY: NEW CHEST PRESSURE NO . PATIENT DENIES NO . RESPIRATORY: UNEXPLAINABLE COUGH NO . NEW SHORTNESS OF BREATH NO . VITAL SIGNS WT 287.0 LBS, HT 71 IN, BMI 40.02 INDEX, BP 137/72 MM HG, HR 75 /MIN, RR 18 /MIN, TEMP 98.2 F, OXYGEN SAT % 99%, SAFE IN ENV? (Y/N) YES, NA INITIALS AW [id number].IVELISSE MEZA. EXAMINATION GENERAL EXAMINATION: GENERAL AWAKE,ALERT ,PLEASANT . PSYCH AFFECT NORMAL . LUNGS: LUNG SALVADOR ARE CLEAR TO AUSCULTATION BILATERALLY. GOOD MOVEMENT OF AIR . HEART: S1, S2 IN A REGULAR RATE AND RHYTHM. NO SIGNIFICANT MURMURS, RUBS OR GALLOPS NOTED . LUMBAR: PALPATION: + FOR PAIN OVER L/S SPINE. + FOR PAIN OVER L/S PARASPINALS . DIAGNOSTIC TESTS REVIEWED MRI L/S SPINE 2019. ASSESSMENTS SPONDYLOSIS OF LUMBOSACRAL REGION WITHOUT MYELOPATHY OR RADICULOPATHY - M47.817 (PRIMARY) TREATMENT SPONDYLOSIS OF LUMBOSACRAL REGION WITHOUT MYELOPATHY OR RADICULOPATHY CONTINUE TIZANIDINE HCL TABLET, 2 MG, 1 TABLET NEEDED, ORALLY FOR SPASMS AND PAIN, BEFORE BEDTIME MAY REPEAT IN 4HRS MDD2 WORKERS COMPENSATION REFILL TRAMADOL HCL TABLET, 50 MG, 1 TABLET NEEDED, ORALLY, Q6-8 HR PRN FOR PAIN MDD3, 30 DAYS, 45, REFILLS 1 PROCEDURES PN WORKMANS' COMP OPINION IN YOUR OPINION, WAS THE INCIDENT THAT THE PATIENT DESCRIBED THE COMPETENT MEDICAL CAUSE OF THIS INJURY/ILLNESS? YES ARE THE PATIENT'S COMPLAINTS CONSISTENT WITH HIS/HER HISTORY OF THE INJURY/ILLNESS? YES IS THE PATIENT'S HISTORY OF THE INJURY/ILLNESS CONSISTENT WITH YOUR OBJECTIVE FINDING? YES WHAT IS THE PERCENTAGE OF TEMPORARY IMPAIRMENT? MODERATE TO MARKED = 66.7% IS THE PATIENT WORKING? YES DOCTOR ON SITE: MARSHA TIDWELL MD PROCEDURE CODES FA211 ESTABILISHED PATIENT [facility] FACILITY CHARGE DISPOSITION & COMMUNICATION FOLLOW UP 3 MONTHS (REASON: W/C /MED MGMNT/UTOX) ELECTRONICALLY SIGNED BY BISHOP CAMPOS ON 05/09/2021 AT 08:44 AM EDT DISCLAIMER : THIS IS A VISIT SUMMARY EXTRACTED FROM THE [employer] CHART. IT IS NOT A COPY OF THE [employer] PROGRESS NOTE. REGINAD
== END ==
LOC: M PAIN 09:15
PROVIDERS: ATTEND Nurse Practitioner Family
DX: M47.817 Spondylosis without myelopathy or radiculopathy, lumbosacral region (principal); G89.29 Other chronic pain; G47.33 Obstructive sleep apnea (adult) (pediatric); Z86.59 Personal history of other mental and behavioral disorders; E66.01 Morbid (severe) obesity due to excess calories; Z68.41 Body mass index [BMI] 40.0-44.9, adult; Z79.899 Other long term (current) drug therapy

== ENCOUNTER → 2021-06-22 | Outpatient (CLI) | payer OTHER ==
[~2021-06-22] MED LIST changes: -CITA10TA5 PO; +CITA10TA7 PO
== END ==
LOC: M PAIN 10:00
PROVIDERS: ATTEND Anesthesiology
DX: M47.816 Spondylosis without myelopathy or radiculopathy, lumbar region (principal); G89.29 Other chronic pain; G47.33 Obstructive sleep apnea (adult) (pediatric); Z86.59 Personal history of other mental and behavioral disorders; Z79.899 Other long term (current) drug therapy

== ENCOUNTER → 2021-08-10 | Outpatient (CLI) | payer OTHER ==
[~2021-08-10] MED LIST changes: +CITA10TA5 PO; -CITA10TA7 PO
== END ==
LOC: M PAIN 09:15
PROVIDERS: ATTEND Anesthesiology
DX: M47.817 Spondylosis without myelopathy or radiculopathy, lumbosacral region (principal); G89.29 Other chronic pain; G47.33 Obstructive sleep apnea (adult) (pediatric); Z86.59 Personal history of other mental and behavioral disorders; Z98.84 Bariatric surgery status; Z79.899 Other long term (current) drug therapy

== ENCOUNTER → 2023-06-18 | Outpatient (CLI) | payer OTHER, BC ==
[~2023-06-18] MED LIST changes: -CITA10TA5 PO; +CITA10TA7 PO; +FISH10005 PO; -FISH7.5C PO; -ROSU20TA5 PO; +ROSU20TA61 PO
== END ==
LOC: M PAIN 08:00
PROVIDERS: ATTEND Anesthesiology
DX: M47.816 Spondylosis without myelopathy or radiculopathy, lumbar region (principal); M51.16 Intervertebral disc disorders with radiculopathy, lumbar region; M79.18 Myalgia, other site; G89.29 Other chronic pain; I10 Essential (primary) hypertension; E78.00 Pure hypercholesterolemia, unspecified; G47.33 Obstructive sleep apnea (adult) (pediatric); F32.A Depression, unspecified; F41.9 Anxiety disorder, unspecified; Z79.891 Long term (current) use of opiate analgesic; Z79.899 Other long term (current) drug therapy